=== PATIENT | male | born 1995 | race Hispanic/Latino ===

== ENCOUNTER 2017-08-25 06:53 | Inpatient (IN) | payer BC, SELFPAY ==
[2017-08-25] MEDS ORDERED: NA CHLORIDE 0.9% 1,000 ML ONE ×3 (07:32→10:39)
[2017-08-25 07:55] LABS: Absolute Lymphocytes (CBC) 1.7 K/uL (0.7-4.9); Absolute Monocytes 0.5 K/uL (0.1-1.3); Absolute Neutrophil 4.6 K/uL (1.8-8.0); Basophils % 0.5 % (0-1.3); Eosinophils % 1.8 % (0-4.4); MCH 32.2 pg (27.0-35.0); MCV 86.5 fL (80-100); Monocytes % 6.7 % (3.3-12.3); RBC Red Blood Cell Count 5.34 M/uL (4.33-5.43)
[2017-08-25 08:03] LABS: MPV 9.2 fL (7.6-11.3)
[2017-08-25 08:04] LABS: Hematocrit 46.2 % (39.6-49.0)
[2017-08-25 08:30] LABS: BUN Blood Urea Nitrogen 13 mg/dL (6-20); Bicarbonate 20 mEq/L (21-31); Glucose Level 343 mg/dL (65-120); Potassium 4.3 mEq/L (3.6-5.0); Sodium Level 134 mEq/L (135-145)
[2017-08-25] MEDS ORDERED: INSULIN -REGULAR HUMAN 50 UNIT/0.5 ML ML ONE (08:45)
[2017-08-25 10:08] LABS: Arterial Blood Carboxyhemoglob 0.9 % (0-1.5); Blood Gas Oxyhemoglobin 91.8 % (94-97); Blood O2 Saturation 96.1 % (92-98.5)
--- NOTE | 2017-08-25 10:20 | ER ---
Nurse's Notes [facility] Name: Harvey Wyatt Age: 22 yrs Sex: Male : 1995 Arrival Date: 08/25/2017 Time: 07:12 Bed 20 Private MD: Diagnosis: Diabetes mellitus due to underlying condition with ketoacidosis Presentation: 08/25 07:20 Presenting complaint: Patient states: I dont take care of my diabetes, yesterday I was ch 379. Transition of care: patient was not received from another setting of care. Onset of symptoms was August 24, 2017. Initial Sepsis Screen: Does the patient meet any 2 criteria? No. Patient's initial sepsis screen is negative. Does the patient have a suspected source of infection? No. Patient's initial sepsis screen is negative. Care prior to arrival: None. 07:20 Method Of Arrival: Ambulatory 07:20 Acuity: BINDU 3 Triage Assessment: 07:22 General: Appears in no apparent distress. comfortable, Behavior is calm, cooperative, ch appropriate for age. Pain: Denies pain. Neuro: No deficits noted. Respiratory: Airway is patent Respiratory effort is even, unlabored, Breath sounds are clear bilaterally. GI: No signs and/or symptoms were reported involving the gastrointestinal system. Derm: Skin is pink, warm \T\ dry. Historical: - Allergies: 07:22 No Known Allergies; ch - Home Meds: 07:22 Novolin 70/30 [place] Sub-Q [Active]; ch - PMHx: 07:22 Diabetes - NIDDM; ch - PSHx: 07:22 None; ch - Immunization history:: Adult Immunizations up to date, Flu vaccine is not up to date. - Social history:: Smoking status: Patient/guardian denies using tobacco. Screenin:03 Abuse screen: Denies threats or abuse. Denies injuries from another. Nutritional ch screening: No deficits noted. Tuberculosis screening: No symptoms or risk factors identified. Fall Risk None identified. Assessment: 07:49 Reassessment: Received a call from lab stating that the pt. is very lipemic. They rb1 requested another green top to be sent. 08:03 Reassessment: Patient appears in no apparent distress at this time. Patient and/or ch family updated on plan of care and expected duration. Pain level reassessed. Patient is alert, oriented x 3, equal unlabored respirations, skin warm/dry/pink. repeat lab sent Patient denies pain at this time. 08:47 Reassessment: Patient appears in no apparent distress at this time. No changes from rb1 previously documented assessment. 09:14 Reassessment: Patient appears in no apparent distress at this time. Patient and/or ch family updated on plan of care and expected duration. Pain level reassessed. Patient is alert, oriented x 3, equal unlabored respirations, skin warm/dry/pink. pt given community resources list. 09:54 Reassessment: Patient appears in no apparent distress at this time. Patient and/or ch family updated on plan of care and expected duration. Pain level reassessed. Patient is alert, oriented x 3, equal unlabored respirations, skin warm/dry/pink. 11:24 Reassessment: Patient appears in no apparent distress at this time. Patient and/or ch family updated on plan of care and expected duration. Pain level reassessed. Patient is alert, oriented x 3, equal unlabored respirations, skin warm/dry/pink. 11:36 Reassessment: Patient appears in no apparent distress at this time. orders in the computer, ICU notified I will try to call report in 10 min. 12:27 Reassessment: Patient appears in no apparent distress at this time. Patient and/or ch family updated on plan of care and expected duration. Pain level reassessed. Patient is alert, oriented x 3, equal unlabored respirations, skin warm/dry/pink. Patient denies pain at this time. Vital Signs: 07:22 BP 122 / 75; Pulse 85; Resp 12; Temp 97.9; Pulse Ox 99% on R/A; Weight 95.25 kg; Height 5 ft. 6 in. (167.64 cm); Pain 0/10; 08:10 BP 116 / 71; Pulse 80; Resp 14; Pulse Ox 99% on R/A; Pain 0/10; ch 09:14 BP 119 / 61; Pulse 92; Resp 13; Temp 98.6(O); Pulse Ox 99% on R/A; Pain 0/10; 09:44 BP 119 / 60; Pulse 92; Resp 18; Temp 97.9; Pulse Ox 99% on R/A; Pain 0/10; 11:25 BP 108 / 49; Pulse 92; Resp 18; Temp 97.8; Pulse Ox 99% on R/A; Pain 0/10; ch 12:04 BP 110 / 68; Pulse 94; Resp 18; Temp 98.2; Pulse Ox 97% on R/A; Pain 0/10; ch 07:22 Body Mass Index 33.89 (95.25 kg, 167.64 cm) ED Course: 07:12 Patient arrived in ED. as 07:12 Angela Marin FNP-C is PHCP. kb 07:13 Angela Marin FNP-C is PHCP. kb 07:13 Davie Prasad MD is Attending Physician. kb 07:20 Julissa Dove, AMRIT is Primary Nurse. ch 07:22 Triage completed. ch 07:22 Arm band placed on left wrist. Patient placed in an exam room, on a stretcher. ch 07:25 Inserted saline lock: 22 gauge in right antecubital area, using aseptic technique. rb1 Blood collected. 08:03 Patient has correct armband on for positive identification. Bed in low position. Call light in reach. Side rails up X2. Adult w/ patient. Pulse ox on. NIBP on. Warm blanket given. 08:03 No provider procedures requiring assistance completed. ch 10:18 Jamil Shahid MD is Hospitalizing Provider. kb 11:25 No apparent distress. Resting quietly. ch 11:25 Patient admitted, IV remains in place. ch 12:07 Inserted saline lock: 22 gauge in right forearm, using aseptic technique. Blood ch collected. Administered Medications: 07:45 Drug: NS 0.9% 1000 ml Route: IV; Rate: 1000 ml; Site: right antecubital; ch 09:15 Follow up: IV Status: Completed infusion; IV Intake: 1000ml ch 08:46 Drug: Insulin Regular Human 6 units {Co-Signature: (Julissa Dove RN).} Route: rb1 IVP; Site: right upper arm; 09:15 Follow up: Response: No adverse reaction ch 09:54 Drug: NS 0.9% 1000 ml Route: IV; Rate: 1000 ml; Site: right antecubital; ch 11:24 Follow up: IV Status: Completed infusion; IV Intake: 1000ml ch 10:44 Drug: NS 0.9% 1000 ml Route: IV; Rate: 125 ml/hr; Site: right antecubital; 11:24 Follow up: IV Status: Infusion continued upon admission 11:20 Drug: Insulin Drip - (Insulin Regular Human 100 units, NS 0.9% 100 ml) {Co-Signature: diana peter (Unique Guzman RN).} Route: IV; Rate: calculated rate; Site: right antecubital; 11:41 Follow up: IV Status: Infusion continued upon admission Point of Care Testing: Blood Glucose: 07:19 Blood Glucose: 279 mg/dL; rb1 09:20 Blood Glucose: 241 mg/dL; em1 11:15 Blood Glucose: 234 mg/dL; Ranges: Intake: 09:15 IV: 1000ml; Total: 1000ml. 11:24 IV: 1000ml; Total: 2000ml. Outcome: 10:19 Decision to Hospitalize by Provider. 12:07 Admitted to ICU accompanied by tech, via wheelchair, room ICU 1, on monitor, with chart, Report called to Viridiana felix 12:07 Condition: stable 12:07 Instructed on the need for admit. 12:28 Patient left the ED. Signatures: Angela Marin, CONTINUOUS IMPROVEMENT COORDINATOR-C CONTINUOUS IMPROVEMENT COORDINATOR-Julissa Hdz, RN RN [facility] Unique Guzman RN RN rb1 Julissa Dove RN Unique Guzman RN rb1
--- NOTE | 2017-08-25 10:20 | EDPHYS ---
Physician Documentation [facility] Name: Harvye Wyatt Age: 22 yrs Sex: Male : 1995 Arrival Date: 08/25/2017 Time: 07:12 Bed 20 Private MD: ED Physician Davie Prasad HPI: 08/25 07:50 This 22 yrs old Male presents to ER via Ambulatory with complaints of High kb Blood Sugar. 07:50 The patient or guardian reports hyperglycemia. Onset: The symptoms/episode kb began/occurred yesterday. Associated signs and symptoms: Pertinent positives: None. Current symptoms: In the emergency department the patient's symptoms are unchanged from the initial presentation. The patient has experienced similar episodes in the past. The patient has not recently seen a physician. Pt states his BGL was 497 last night. Took 30 units of 70/30 and went to bed. Today his sugar was in the 300s so he came to get checked out. States he has been feeling "like poo" for the last few days. States he follows orders given to him when he was first diagnosed with diabetes, but does not have a PCP that manages his treatment at this time. . Historical: - Allergies: 07:22 No Known Allergies; ch - Home Meds: 07:22 Novolin 70/30 [place] Sub-Q [Active]; ch - PMHx: 07:22 Diabetes - NIDDM; ch - PSHx: 07:22 None; ch - Immunization history:: Adult Immunizations up to date, Flu vaccine is not up to date. - Social history:: Smoking status: Patient/guardian denies using tobacco. ROS: 07:43 Constitutional: Negative for fever, chills, and weight loss, ENT: Negative for injury, kb pain, and discharge, Neck: Negative for injury, pain, and swelling, Cardiovascular: Negative for chest pain, palpitations, and edema, Respiratory: Negative for shortness of breath, cough, wheezing, and pleuritic chest pain, Abdomen/GI: Negative for abdominal pain, nausea, vomiting, diarrhea, and constipation, Back: Negative for injury and pain, : Negative for injury, bleeding, discharge, and swelling, MS/Extremity: Negative for injury and deformity, Skin: Negative for injury, rash, and discoloration, Neuro: Negative for headache, weakness, numbness, tingling, and seizure. 07:43 Constitutional: Positive for malaise. Exam: 07:43 Constitutional: This is a well developed, well nourished patient who is awake, alert, kb and in no acute distress. Head/Face: Normocephalic, atraumatic. ENT: Nares patent. No nasal discharge, no septal abnormalities noted. Tympanic membranes are normal and external auditory canals are clear. Oropharynx with no redness, swelling, or masses, exudates, or evidence of obstruction, uvula midline. Mucous membranes moist. Neck: Trachea midline, no thyromegaly or masses palpated, and no cervical lymphadenopathy. Supple, full range of motion without nuchal rigidity, or vertebral point tenderness. No Meningismus. Chest/axilla: Normal chest wall appearance and motion. Nontender with no deformity. No lesions are appreciated. Cardiovascular: Regular rate and rhythm with a normal S1 and S2. No gallops, murmurs, or rubs. Normal PMI, no JVD. No pulse deficits. Respiratory: Lungs have equal breath sounds bilaterally, clear to auscultation and percussion. No rales, rhonchi or wheezes noted. No increased work of breathing, no retractions or nasal flaring. Abdomen/GI: Soft, non-tender, with normal bowel sounds. No distension or tympany. No guarding or rebound. No evidence of tenderness throughout. Back: No spinal tenderness. No costovertebral tenderness. Full range of motion. Skin: Warm, dry with normal turgor. Normal color with no rashes, no lesions, and no evidence of cellulitis. MS/ Extremity: Pulses equal, no cyanosis. Neurovascular intact. Full, normal range of motion. Neuro: Awake and alert, GCS 15, oriented to person, place, time, and situation. Cranial nerves II-XII grossly intact. Motor strength 5/5 in all extremities. Sensory grossly intact. Cerebellar exam normal. Normal gait. Vital Signs: 07:22 BP 122 / 75; Pulse 85; Resp 12; Temp 97.9; Pulse Ox 99% on R/A; Weight 95.25 kg; Height ch 5 ft. 6 in. (167.64 cm); Pain 0/10; 08:10 BP 116 / 71; Pulse 80; Resp 14; Pulse Ox 99% on R/A; Pain 0/10; ch 09:14 BP 119 / 61; Pulse 92; Resp 13; Temp 98.6(O); Pulse Ox 99% on R/A; Pain 0/10; ch 09:44 BP 119 / 60; Pulse 92; Resp 18; Temp 97.9; Pulse Ox 99% on R/A; Pain 0/10; ch 11:25 BP 108 / 49; Pulse 92; Resp 18; Temp 97.8; Pulse Ox 99% on R/A; Pain 0/10; ch 12:04 BP 110 / 68; Pulse 94; Resp 18; Temp 98.2; Pulse Ox 97% on R/A; Pain 0/10; ch 07:22 Body Mass Index 33.89 (95.25 kg, 167.64 cm) ch MDM: 07:23 Patient medically screened. kb 07:50 Data reviewed: vital signs, nurses notes. Data interpreted: Pulse oximetry: on room air kb is 99 %. Interpretation: normal. 10:14 Counseling: I had a detailed discussion with the patient and/or guardian regarding: the kb historical points, exam findings, and any diagnostic results supporting the discharge/admit diagnosis, lab results, the need for further work-up and treatment in the hospital. Physician consultation: Jamil Shahid MD was contacted at 10:14, regarding admission, to the medical/surgical unit. patient's condition, and will see patient. 08/25 07:24 Order name: CBC with Diff; Complete Time: 08:04 kb 08/25 07:24 Order name: Basic Metabolic Panel; Complete Time: 08:30 kb 08/25 09:47 Order name: ABG; Complete Time: 10:21 kb 08/25 09:49 Order name: Urine Dipstick--Ancillary (enter results); Complete Time: 11:41 ag 08/25 07:24 Order name: IV Start; Complete Time: 07:30 kb 08/25 09:39 Order name: Blood Glucose Level; Complete Time: 09:44 kb 08/25 09:47 Order name: Urine Dipstick-Ancillary (obtain specimen); Complete Time: 09:55 kb Administered Medications: 07:45 Drug: NS 0.9% 1000 ml Route: IV; Rate: 1000 ml; Site: right antecubital; ch 09:15 Follow up: IV Status: Completed infusion; IV Intake: 1000ml 08:46 Drug: Insulin Regular Human 6 units {Co-Signature: (Julissa Dove RN).} Route: rb1 IVP; Site: right upper arm; 09:15 Follow up: Response: No adverse reaction ch 09:54 Drug: NS 0.9% 1000 ml Route: IV; Rate: 1000 ml; Site: right antecubital; ch 11:24 Follow up: IV Status: Completed infusion; IV Intake: 1000ml ch 10:44 Drug: NS 0.9% 1000 ml Route: IV; Rate: 125 ml/hr; Site: right antecubital; ch 11:24 Follow up: IV Status: Infusion continued upon admission ch 11:20 Drug: Insulin Drip - (Insulin Regular Human 100 units, NS 0.9% 100 ml) {Co-Signature: [facility] (Unique Guzman RN).} Route: IV; Rate: calculated rate; Site: right antecubital; 11:41 Follow up: IV Status: Infusion continued upon admission Point of Care Testing: Blood Glucose: 07:19 Blood Glucose: 279 mg/dL; rb1 09:20 Blood Glucose: 241 mg/dL; em1 11:15 Blood Glucose: 234 mg/dL; Ranges: Critical Glucose Levels:Adult <50 mg/dl or >400 mg/dl <40 mg/dl or >180 mg/dl Disposition: 08/26 09:17 Co-signature as Attending Physician, Davie Prasad MD I agree with the assessment and justus plan of care. Disposition: 08/25/17 10:19 Hospitalization ordered by Jamil Shahid for Inpatient Admission. Preliminary diagnosis is Diabetes mellitus due to underlying condition with ketoacidosis. - Bed requested for Intensive Care Unit. - Status is Inpatient Admission. - Condition is Stable. - Problem is new. - Symptoms are unchanged. UTI on Admission? No Signatures: Dispatcher [employer] Angela Solitario FNP-C FNP-Ckb Hammond, Christina, RN RN ch Anderson, Corey, MD MD cha Gallardo, Ana ag Barber, Rebecca RN RN rb1 Julissa Dove RN Unique Guzman RN rb1 Corrections: (The following items were deleted from the chart) 08/25 10:15 09:40 Counseling: I had a detailed discussion with the patient and/or guardian kb regarding: the historical points, exam findings, and any diagnostic results supporting the discharge/admit diagnosis, lab results, the need for outpatient follow up, a family practitioner, to return to the emergency department if symptoms worsen or persist or if there are any questions or concerns that arise at home, kb 10:42 10:19 Hospitalization Ordered by Jamil Shahid MD for Inpatient Admission. kb Preliminary diagnosis is Diabetes mellitus due to underlying condition with ketoacidosis. Bed requested for Telemetry/MedSurg (Inpatient). Status is Inpatient Admission. Condition is Stable. Problem is new. Symptoms are unchanged. UTI on Admission? No. kb 11:34 10:42 08/25/2017 10:19 Hospitalization Ordered by Jamil Shahid MD for Inpatient ag Admission. Preliminary diagnosis is Diabetes mellitus due to underlying condition with ketoacidosis. Bed requested for Intensive Care Unit. Status is Inpatient Admission. Condition is Stable. Problem is new. Symptoms are unchanged. UTI on Admission? No. kb 12:28 11:34 08/25/2017 10:19 Hospitalization Ordered by Jamil Shahid MD for Inpatient ch Admission. Preliminary diagnosis is Diabetes mellitus due to underlying condition with ketoacidosis. Bed requested for Intensive Care Unit. Status is Inpatient Admission. Condition is Stable. Problem is new. Symptoms are unchanged. UTI on Admission? No. ag
--- NOTE | 2017-08-25 10:47 | P.HP ---
Certification for Inpatient Patient admitted to: Observation With expected LOS: >2 Midnights Patient will require the following post-hospital care: None Practitioner: I am a practitioner with admitting privileges, knowledge of patient current condition, hospital course, and medical plan of care. Services: Services provided to patient in accordance with Admission requirements found in Title 42 Section 412.3 of the Code of Federal Regulations Patient History Date of Service: 08/25/17 Reason for admission: Hyperglycemia possible DKA History of Present Illness: Patient is 22 years of age history of insulin dependent diabetes mellitus has no in shore and patient takes 70 30 insulin every day 20 units at night according to the mother he did not feel too good yesterday sugar was 494 20 units were given in addition to another 10 units this morning he woke up his blood sugar was still elevated patient works at [employer] denies any nausea vomiting signs of urinary tract infection for prior history of diabetic ketoacidosis he does not have a regular physician he feels fine now - Past Medical/Surgical History Has patient received pneumonia vaccine in the past: No Diabetic: Yes Past Surgical History: Patient denies surgical history Review of Systems General: Weakness Gastrointestinal: Nausea Physical Examination - Vital Signs Temperature: 97.9 F Blood Pressure: 122/75 Pulse: 85 Respirations: 12 Pulse Ox (%): 99 (RA) - Physical Exam General: Alert, Oriented x3 HEENT: Atraumatic Neck: 2+ carotid pulse no bruit Respiratory: Clear to auscultation bilaterally Cardiovascular: No edema, Regular rate/rhythm Gastrointestinal: Normal bowel sounds, Soft and benign Musculoskeletal: No clubbing, No swelling Integumentary: No rashes, No breakdown - Studies Laboratory Data (last 24 hrs) 08/25/17 08:00: Sodium 134 L, Potassium 4.3, BUN 13, Creatinine 0.73, Glucose 343 H 08/25/17 07:25: WBC 7.0, Hgb 17.2, Hct 46.2, Plt Count 275 Assessment and Plan - Problems (Diagnosis) (1) Hyperglycemia Current Visit: Yes Status: Acute Plan: Patient is 22 years of age with a history of insulin-dependent diabetes spell it is does not have a regular physician uses 70 30 insulin administered by her mother he uses 20 units at night has not been feeling well recently patient does not have a primary care physician admitted with hyperglycemia bicarbonate is slightly low possible mild DKA urinalysis is pending he feels fine resume his insulin his dose niece to be determined patient does not keep her trach office blood sugars in the morning CBC is normal arterial blood gases show mild acidosis admit Discharge Plan: Home Plan to discharge in: 24 Hours - Advance Directives Does patient have a Living Will: No Does patient have a Durable POA for Healthcare: No - Code Status/Comfort Care Code Status Assessed: Yes Code Status: Full Code
[2017-08-25] MEDS ORDERED: GLUCAGON 1 MG/VIAL IM PRN (10:50)
[2017-08-25] MEDS ORDERED: D50W 25 GM/50 ML SYRINGE IV PRN (10:50)
[2017-08-25] MEDS ORDERED: INSULIN -REGULAR HUMAN 100 UNIT in NA CHLORIDE 0.9% 100 ML IV SCH (11:00)
[2017-08-25 11:40] LABS: Urine Blood NEGATIVE (NEG); Urine Glucose 2+ (NEG); Urine Protein TRACE (NEG); Urine pH 5.5 (5.0-7.0)
[2017-08-25 13:44] LABS: BUN Blood Urea Nitrogen 9 mg/dL (6-20); Glucose Level 223 mg/dL (65-120)
[2017-08-25 13:45] LABS: Bicarbonate 18 mEq/L (21-31); Sodium Level 134 mEq/L (135-145)
[2017-08-25] MEDS: INSULIN -REGULAR HUMAN 50 UNIT/0.5 ML ML SQ SCH ×2 (17:34→20:42)
[2017-08-25] MEDS: INSULIN 70/30 100 UNITS/ML SQ SCH (17:35)
[2017-08-25 20:38] LABS: BUN Blood Urea Nitrogen 8 mg/dL (6-20); Bicarbonate 20 mEq/L (21-31); Glucose Level 293 mg/dL (65-120); Potassium 3.9 mEq/L (3.6-5.0); Sodium Level 133 mEq/L (135-145)
--- NOTE | 2017-08-25 22:24 | P.PN ---
Subjective Date of Service: 08/25/17 Chief Complaint: Hyperglycemia possible DKA Physical Examination - Vital Signs Temperature: 98.4 F Blood Pressure: 118/66 Pulse: 90 Respirations: 13 Pulse Ox (%): 99 - Studies Laboratory Data (last 24 hrs) 08/25/17 08:00: Sodium 134 L, Potassium 4.3, BUN 13, Creatinine 0.73, Glucose 343 H 08/25/17 07:25: WBC 7.0, Hgb 17.2, Hct 46.2, Plt Count 275 Assessment & Plan - Problems (Diagnosis) (1) DKA (diabetic ketoacidoses) Current Visit: Yes Status: Acute Qualifiers: Diabetes mellitus type: type 1 Diabetes mellitus complication detail: without coma Qualified Code(s): E10.10 - Type 1 diabetes mellitus with ketoacidosis without coma (2) Diabetes mellitus Current Visit: Yes Status: Acute Qualifiers: Diabetes mellitus type: type 1 Diabetes mellitus complication status: with ketoacidosis Diabetes mellitus complication detail: without coma Qualified Code(s): E10.10 - Type 1 diabetes mellitus with ketoacidosis without coma (3) Hyperglycemia Current Visit: Yes Status: Acute
[2017-08-26 05:40] VITALS: BMI 31.2
[2017-08-26 07:20] LABS: Bicarbonate 18 mEq/L (21-31); Glucose Level 229 mg/dL (65-120); Sodium Level 136 mEq/L (135-145)
[2017-08-26 07:25] LABS: ALT/SGPT 75 IU/L (10-60); AST/SGOT 49 IU/L (10-42); Albumin 3.7 g/dL (3.2-5.5); Alkaline Phosphatase 66 IU/L (42-121); BUN Blood Urea Nitrogen 7 mg/dL (6-20); Bilirubin Total 1.2 mg/dL (0.3-1.2); Protein, Total 6.1 g/dL (6.0-8.3)
[2017-08-26 08:08] LABS: Potassium 4.3 mEq/L (3.6-5.0)
[2017-08-26] MEDS: INSULIN 70/30 100 UNITS/ML SQ SCH (08:50)
[2017-08-26] MEDS: INSULIN -REGULAR HUMAN 50 UNIT/0.5 ML ML SQ SCH ×2 (08:50→11:30)
[2017-08-26 09:03] LABS: LDL, Direct 40 mg/dl (<130)
[2017-08-26 09:42] LABS: HDL Cholesterol 19 mg/dL (27-67)
[2017-08-26 10:10] VITALS: TEMP 98.1
--- NOTE | 2017-08-26 10:50 | P.DS ---
Admission Date: 08/25/17 Discharge Date: 08/26/17 Primary Care Provider: [facility] Disposition: ROUTINE DISCHARGE Discharge Condition: GOOD Reason for Admission: Hyperglycemia possible DKA - Problems (1) DKA (diabetic ketoacidoses) Onset Date: 08/26/17 Current Visit: Yes Status: Acute Qualifiers: Diabetes mellitus type: type 1 Diabetes mellitus complication detail: without coma Qualified Code(s): E10.10 - Type 1 diabetes mellitus with ketoacidosis without coma (2) Diabetes mellitus Onset Date: 08/26/17 Current Visit: Yes Status: Acute Qualifiers: Diabetes mellitus type: type 1 Diabetes mellitus complication status: with ketoacidosis Diabetes mellitus complication detail: without coma Qualified Code(s): E10.10 - Type 1 diabetes mellitus with ketoacidosis without coma (3) Hyperglycemia Onset Date: 08/26/17 Current Visit: Yes Status: Acute (4) Hypertriglyceridemia Current Visit: Yes Status: Acute (5) Elevated liver function tests Current Visit: Yes Status: Acute Brief History of Present Illness: 22-year-old male presented emergency room with hyperglycemia. Patient with history of type 1 diabetes. Patient had ran out of his medication. Patient is originally from the [facility]. Patient had been on Toujeo 90 units at bedtime. Patient came to the ER for evaluation and treatment. He was found to be in DKA. Patient was admitted for treatment. Hospital Course: Patient presented with DKA. Patient was admitted to ICU for DKA treatment. DKA resolved. Patient without any nausea, vomiting or abdominal pain. A1c pending at discharge. Patient with history of diabetes mellitus type 1. Patient had run out of medication since he moved to the local area. Patient previously taking Toujeo 90 units at bedtime. At discharge patient without any nausea, vomiting. Patient will be sent home with Lantus 40 units subcu every bedtime. Recommendation is to maintain blood sugars less 140 fasting and less than 200 after meals. Further adjustment can be done by his PCP. Patient will need to follow up with a PCP to establish care. Patient may benefit with endocrinology referral to further monitor and address his diabetes. Patient had elevated liver function test. Hepatitis panels pending at discharge. This will need to be followed up. Patient found to have hypertriglyceridemia. Patient will be sent home with fenofibrate 120 mg daily. Patient will continue with a low-fat diet. Recommendation is to recheck fasting lipid panel in 2-4 weeks to monitor his progress. Vital Signs/Physical Exam: Temp Pulse Resp BP Pulse Ox 98.1 F 101 H 19 128/78 96 08/26/17 08:00 08/26/17 10:00 08/26/17 10:00 08/26/17 10:00 08/26/17 10:00 General: Alert, In no apparent distress, Oriented x3, Cooperative HEENT: Atraumatic, Mucous membr. moist/pink Neck: Supple Respiratory: Clear to auscultation bilaterally, Normal air movement Cardiovascular: Normal pulses, Regular rate/rhythm Gastrointestinal: Normal bowel sounds, Soft and benign, Non-distended, No tenderness, No masses, No rebound, No guarding Musculoskeletal: No erythema, No tenderness, No warmth Integumentary: No tenderness/swelling, No erythema, No warmth, No cyanosis Neurological: Normal speech, Normal strength at 5/5 x4 extr, Normal tone, Normal affect Laboratory Data at Discharge: WBC 7.0 K/uL (4.3-10.9) 08/25/17 07:25 Hgb 17.2 g/dL (13.6-17.9) 08/25/17 07:25 Hct 46.2 % (39.6-49.0) 08/25/17 07:25 Plt Count 275 K/uL (152-406) 08/25/17 07:25 Sodium 136 mEq/L (135-145) 08/26/17 05:52 Potassium 4.3 mEq/L (3.6-5.0) 08/26/17 05:52 BUN 7 mg/dL (6-20) 08/26/17 05:52 Creatinine 0.69 mg/dL (0.61-1.24) 08/26/17 05:52 Glucose 229 mg/dL (65-120) H 08/26/17 05:52 Total Bilirubin 1.2 mg/dL (0.3-1.2) 08/26/17 05:52 AST 49 IU/L (10-42) H 08/26/17 05:52 ALT 75 IU/L (10-60) H 08/26/17 05:52 Alkaline Phosphatase 66 IU/L (42-121) 08/26/17 05:52 Triglycerides 2410 mg/dL (35-160) H 08/26/17 05:52 Cholesterol 322 mg/dL (<200) H 08/26/17 05:52 LDL Cholesterol Direct 40 mg/dl (<130) 08/26/17 05:52 HDL Cholesterol 19 mg/dL (27-67) L 08/26/17 05:52 Cholesterol/HDL Ratio 16.95 08/26/17 05:52 Home Medications: Insulin 70/30 NPH/Reg Human [Novolin 70/30*] 20 units SQ BEDTIME 08/25/17 Fenofibrate 120 mg PO DAILY #30 tablet 08/26/17 Insulin Glargine,Hum.rec.anlog [Lantus] 40 unit SQ BEDTIME #1 ml 08/26/17 New Medications: Fenofibrate 120 mg PO DAILY #30 tablet Insulin Glargine,Hum.rec.anlog [Lantus] 40 unit SQ BEDTIME #1 ml Patient Discharge Instructions: 1. Patient will need to follow up with a PCP to establish care and follow up this hospitalization. 2. Patient presented with DKA. Patient with history of diabetes mellitus type 1. Patient had run out of medication. Patient previously taking Toujeo 90 units at bedtime. DKA resolved. At discharge patient without any nausea, vomiting. Patient will be sent home with Lantus 40 units subcu every bedtime. Recommendation is to maintain blood sugars less 140 fasting and less than 200 after meals. Further adjustment can be done by his PCP. Patient will need to follow up with a PCP to establish care. Patient may benefit with endocrinology referral to further monitor and address his diabetes. 3. Patient had elevated liver function test. Hepatitis panels pending at discharge. This will need to be followed up. 4. Patient found to have hypertriglyceridemia. Patient will be sent home with fenofibrate 120 mg daily. Patient will continue with a low-fat diet. Recommendation is to recheck fasting lipid panel in 2-4 weeks to monitor his progress. Diet: ADA Activity: Ad dina Time spent managing pt's care (in minutes): 55
[2017-08-26 11:59] VITALS: O2SAT 96
[2017-08-26 12:43] VITALS: BP 131/82
[2017-08-27 11:05] LABS: A1c Component 2.05 mg/dL
[2017-08-29 02:40] LABS: HBsAG Nonreactive (Nonreactive); Hepatitis A IgM Antibody Nonreactive
== END 2017-08-26 12:30 | disposition home or self-care (01) | DRG 639 ==
LOC: ER 06:53 → ERHOLD 10:41 → 3RD-ICU 12:09
PROVIDERS: ADMIT Internal Medicine Sleep Medicine; ATTEND Internal Medicine Sleep Medicine
DX: E10.10 Type 1 diabetes mellitus with ketoacidosis without coma (principal); Z79.4 Long term (current) use of insulin; E78.1 Pure hyperglyceridemia; R79.89 Other specified abnormal findings of blood chemistry
CPT/HCPCS: 36415; 80048; 80053; 80061; 80074; 81003; 82805; 82962; 83036; 84443; 85025; 96361; 96365; 99285; J7030

== ENCOUNTER 2018-06-28 15:05 | Emergency (ER) | payer SELFPAY ==
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
[2018-06-28 16:19] VITALS: BP 129/65; TEMP 97.8; O2SAT 98
== END 2018-06-28 16:15 | disposition home or self-care (01) ==
LOC: ER 15:05
DX: S16.1XXA Strain of muscle, fascia and tendon at neck level, initial encounter (principal); V59.50XA Passenger in pick-up truck or van injured in collision with unspecified motor vehicles in traffic accident, initial encounter
CPT/HCPCS: 99281

== ENCOUNTER 2018-10-03 11:44 | Emergency (ER) | payer SELFPAY ==
--- NOTE | 2018-10-03 13:38 | EDPHYS ---
Physician Documentation [facility] Name: Harvey Wyatt Age: 23 yrs Sex: Male : 1995 Arrival Date: 10/03/2018 Time: 11:46 Bed 19 Private MD: ED Physician Leodan Maddox HPI: 10/03 12:47 This 23 yrs old Male presents to ER via Ambulatory with complaints of Facial cp Swelling. 12:48 the patient presents with a swollen area of the right facial cheek. Description: cp erythematous, swollen, warm. Onset: The symptoms/episode began/occurred yesterday. Possible cause(s): unknown. Associated signs and symptoms: Pertinent positives: fever, headache, swelling, Pertinent negatives: discharge, drainage. Severity of symptoms: in the emergency department the symptoms are unchanged, despite home interventions. Historical: - Allergies: 12:37 No Known Allergies; iw - Home Meds: 12:37 Novolin 70/30 [place] Sub-Q [Active]; iw - PMHx: 12:37 Diabetes - IDDM; iw - PSHx: 12:37 None; iw - Immunization history:: Adult Immunizations not up to date. - Social history:: Smoking status: Patient/guardian denies using tobacco. - Ebola Screening: : Patient negative for fever greater than or equal to 101.5 degrees Fahrenheit, and additional compatible Ebola Virus Disease symptoms Patient denies exposure to infectious person Patient denies travel to an Ebola-affected area in the 21 days before illness onset No symptoms or risks identified at this time. ROS: 12:49 Eyes: Negative for injury, pain, redness, and discharge. cp 12:49 Constitutional: Negative for body aches, chills, fever, poor PO intake. 12:49 ENT: Negative for drainage from ear(s), sore throat, difficulty swallowing, difficulty handling secretions. 12:49 Cardiovascular: Negative for chest pain. 12:49 Respiratory: Negative for cough, shortness of breath, wheezing. 12:49 Abdomen/GI: Negative for abdominal pain, nausea, vomiting, and diarrhea. 12:49 Skin: Positive for erythema, swelling, of the right facial cheek, tenderness. 12:49 Neuro: Positive for headache, Negative for altered mental status, weakness. 12:49 All other systems are negative. Exam: 13:00 Constitutional: The patient appears in no acute distress, alert, awake, non-toxic, well cp developed, well nourished. 13:00 Head/Face: Normocephalic, atraumatic. cp 13:00 Eyes: Periorbital structures: appear normal, Conjunctiva: normal, no exudate, no injection, Lids and lashes: appear normal, bilaterally. 13:00 ENT: External ear(s): are unremarkable, Ear canal(s): are normal, clear, TM's: bulging, is not appreciated, bilaterally, dullness, bilaterally, erythema, is not appreciated, bilaterally, Nose: is normal, Mouth: Lips: moist, Oral mucosa: pink and intact, moist, Posterior pharynx: is normal, airway is patent, no erythema, no exudate. 13:00 Chest/axilla: Inspection: normal. 13:00 Cardiovascular: Rate: normal. 13:00 Respiratory: the patient does not display signs of respiratory distress, Respirations: normal, no use of accessory muscles, no retractions, no splinting, no tachypnea. 13:00 Skin: Appearance: normal except for affected area, Color: erythematous, Temperature: warm, swelling, that are mild, right facial cheek. Vital Signs: 12:37 BP 129 / 76; Pulse 74; Resp 16; Temp 98.5; Pulse Ox 97% on R/A; Weight 89.81 kg; Height iw 5 ft. 5 in. (165.10 cm); Pain 8/10; 12:37 Body Mass Index 32.95 (89.81 kg, 165.10 cm) iw MDM: 12:30 Patient medically screened. cp 13:36 Data reviewed: vital signs, nurses notes, and as a result, I will discharge patient. cp 13:36 Differential diagnosis: abscess, allergic reaction, cellulitis. Counseling: I had a cp detailed discussion with the patient and/or guardian regarding: the historical points, exam findings, and any diagnostic results supporting the discharge/admit diagnosis, to return to the emergency department if symptoms worsen or persist or if there are any questions or concerns that arise at home. Administered Medications: No medications were administered Disposition: 16:52 Co-signature as Attending Physician, Leodan Maddox MD. Disposition: 10/03/18 13:37 Discharged to Home. Impression: Erysipelas - right facial cheek. - Condition is Stable. - Discharge Instructions: Erysipelas. - Prescriptions for Doxycycline Hyclate 100 mg Oral Tablet - take 1 tablet by ORAL route every 12 hours; 20 tablet. Ibuprofen 800 mg Oral Tablet - take 1 tablet by ORAL route every 8 hours As needed take with food; 30 tablet. - Medication Reconciliation Form, Thank You Letter, Antibiotic Education, Prescription Opioid Use form. - Work release form (10/03/18 17:16). em - Follow up: Private Physician; When: 2 - 3 days; Reason: Worsening of condition. - Problem is new. - Symptoms are unchanged. Signatures: Manoj Dubois LVN LVN em Emy Rae RN RN iw Davie Carney PA PA cp Leodan Maddox MD MD gs Corrections: (The following items were deleted from the chart) 13:54 13:37 10/03/2018 13:37 Discharged to Home. Impression: Erysipelas - right facial cheek. em Condition is Stable. Forms are Medication Reconciliation Form, Thank You Letter, Antibiotic Education, Prescription Opioid Use. Follow up: Private Physician; When: 2 - 3 days; Reason: Worsening of condition. Problem is new. Symptoms are unchanged. cp
--- NOTE | 2018-10-03 13:38 | ER ---
Nurse's Notes [facility] Name: Harvey Wyatt Age: 23 yrs Sex: Male : 1995 Arrival Date: 10/03/2018 Time: 11:46 Bed 19 Private MD: Diagnosis: Erysipelas-right facial cheek Presentation: 10/03 12:35 Presenting complaint: Patient states: pain to right jaw, fever, headache since iw yesterday. Transition of care: patient was not received from another setting of care. Onset of symptoms was October 02, 2018. Risk Assessment: Do you want to hurt yourself or someone else? Patient reports no desire to harm self or others. Initial Sepsis Screen: Does the patient meet any 2 criteria? No. Patient's initial sepsis screen is negative. Does the patient have a suspected source of infection? No. Patient's initial sepsis screen is negative. Care prior to arrival: None. 12:35 Method Of Arrival: Ambulatory iw 12:35 Acuity: BINDU 4 iw Historical: - Allergies: 12:37 No Known Allergies; iw - Home Meds: 12:37 Novolin 70/30 [place] Sub-Q [Active]; iw - PMHx: 12:37 Diabetes - IDDM; iw - PSHx: 12:37 None; iw - Immunization history:: Adult Immunizations not up to date. - Social history:: Smoking status: Patient/guardian denies using tobacco. - Ebola Screening: : Patient negative for fever greater than or equal to 101.5 degrees Fahrenheit, and additional compatible Ebola Virus Disease symptoms Patient denies exposure to infectious person Patient denies travel to an Ebola-affected area in the 21 days before illness onset No symptoms or risks identified at this time. Screenin:00 Abuse screen: Denies threats or abuse. Nutritional screening: No deficits noted. em Tuberculosis screening: No symptoms or risk factors identified. Fall Risk None identified. Assessment: 13:00 General: Appears in no apparent distress. comfortable, Behavior is calm, cooperative, em Reports fever for 2-3 days. Pain: Complains of pain in right cheek. Neuro: Level of Consciousness is awake, alert, obeys commands, Oriented to person, place, time, situation. Cardiovascular: Capillary refill < 3 seconds Patient's skin is warm and dry. Respiratory: Airway is patent Respiratory effort is even, unlabored, Respiratory pattern is regular, symmetrical. GI:. Derm: Skin is intact, is healthy with good turgor, Skin is pink, warm \T\ dry. except for right cheek, redness and mild swelling noted. Musculoskeletal: Capillary refill < 3 seconds, Range of motion: intact in all extremities. 13:15 Reassessment: Patient appears in no apparent distress at this time. I agree with above iw assessment by Manoj Dubois LVN. Vital Signs: 12:37 BP 129 / 76; Pulse 74; Resp 16; Temp 98.5; Pulse Ox 97% on R/A; Weight 89.81 kg; Height iw 5 ft. 5 in. (165.10 cm); Pain 8/10; 12:37 Body Mass Index 32.95 (89.81 kg, 165.10 cm) iw ED Course: 11:46 Patient arrived in ED. rg4 12:24 Davie Carney PA is PHCP. cp 12:24 Leodan Maddox MD is Attending Physician. cp 12:37 Triage completed. iw 12:37 Arm band placed on. iw 12:38 Manoj Dubois LVN is Primary Nurse. em 13:00 Patient has correct armband on for positive identification. Bed in low position. Call em light in reach. Adult w/ patient. 13:51 No provider procedures requiring assistance completed. Patient did not have IV access em during this emergency room visit. Administered Medications: No medications were administered Outcome: 13:37 Discharge ordered by MD. cp 13:51 Discharged to home ambulatory, with family. em 13:51 Condition: good 13:51 Discharge instructions given to patient, Instructed on discharge instructions, follow up and referral plans. medication usage, Demonstrated understanding of instructions, follow-up care, medications, Prescriptions given X 2. 13:54 Patient left the ED. em Signatures: Manoj Dubois LVN LVN em Emy Rae RN RN iw Davie Carney PA PA cp Garcia, Rubi rg4
[2018-10-03 14:23] VITALS: BP 129/76; TEMP 98.5; O2SAT 97
== END 2018-10-03 13:54 | disposition home or self-care (01) ==
LOC: ER 11:44
DX: A46 Erysipelas (principal); E11.9 Type 2 diabetes mellitus without complications; Z79.4 Long term (current) use of insulin
CPT/HCPCS: 99282

== ENCOUNTER 2018-11-15 19:07 | Emergency (ER) | payer SELFPAY ==
[2018-11-15] MEDS ORDERED: ONDANSETRON 4 MG/2 ML VIAL ONE (19:35)
[2018-11-15] MEDS ORDERED: NA CHLORIDE 0.9% 1,000 ML ONE ×2 (19:35→20:38)
[2018-11-15 19:41] LABS: Absolute Lymphocytes (CBC) 0.8 K/uL (0.7-4.9); Basophils % 0.4 % (0-1.3); Hematocrit 50.5 % (39.6-49.0); Lymphocytes % 6.7 % (15.3-44.8); MPV 10.2 fL (7.6-11.3); RBC Red Blood Cell Count 5.77 M/uL (4.33-5.43)
[2018-11-15 19:52] LABS: Arterial Blood Carboxyhemoglob 1.3 % (0-1.5); Blood Gas Oxyhemoglobin 92.2 % (94-97); Blood O2 Saturation 95.2 % (92-98.5)
[2018-11-15 20:42] LABS: Barbiturates NEGATIVE (NEGATIVE); Benzodiazepines NEGATIVE (NEGATIVE); Cocaine NEGATIVE (NEGATIVE); METHAMPHETAM NEGATIVE (NEGATIVE); Methadone NEGATIVE (NEGATIVE); Opiates NEGATIVE (NEGATIVE); Phencyclidine NEGATIVE (NEGATIVE); THC Cannibis NEGATIVE (NEGATIVE)
[2018-11-15 20:56] LABS: BUN Blood Urea Nitrogen 9 mg/dL (7-18); Bicarbonate 24 mmol/L (21-32); Glucose Level 390 mg/dL (74-106); Potassium 4.7 mmol/L (3.5-5.1); Sodium Level 135 mmol/L (136-145)
[2018-11-15 20:57] LABS: ALT/SGPT 108 U/L (12-78); AST/SGOT 72 U/L (15-37); Alkaline Phosphatase 125 U/L (45-117); Bilirubin Total 0.7 mg/dL (0.2-1.0)
[2018-11-15 20:58] LABS: Albumin 4.1 g/dL (3.4-5.0); Bilirubin Direct < 0.1 mg/dL (0-0.2); Magnesium 2.2 mg/dL (1.8-2.4); Phosphorus 4.9 mg/dL (2.5-4.9); Protein, Total 8.4 g/dL (6.4-8.2)
[2018-11-15 21:15] LABS: Urine Bacteria <20 /HPF (NONE SEEN); Urine Culture Reflex Order NOT NEEDED; Urine RBC <5 /HPF (NONE SEEN)
[2018-11-15 21:28] LABS: Blood Morphology Comment NOT SEEN (NOT SEEN); Platelet Estimate ADEQ; Urine White Blood Cell Casts OK
[2018-11-15 21:59] LABS: Urine Blood NEGATIVE (NEG); Urine Glucose 2+ (NEG); Urine Protein NEGATIVE (NEG); Urine pH 5.5 (5.0-7.0)
[2018-11-15] MEDS ORDERED: ACETAMINOPHEN 500 MG TAB ONE (23:24)
--- NOTE | 2018-11-16 02:51 | EDPHYS ---
Physician Documentation [facility] Name: Harvey Wyatt Age: 23 yrs Sex: Male : 1995 Arrival Date: 11/15/2018 Time: 19:13 Bed 20 Private MD: ED Physician Leodan Maddox HPI: 11/16 04:50 This 23 yrs old Male presents to ER via Wheelchair with complaints of gs Vomiting/Diarrhea, High Blood Sugar. 04:50 The patient presents to the emergency department with nausea, vomiting, abdominal pain. gs Onset: The symptoms/episode began/occurred yesterday. Possible causes: unknown. The symptoms are aggravated by nothing. The symptoms are alleviated by nothing. Associated signs and symptoms: Pertinent positives: fever, Pertinent negatives: GI bleeding. Severity of symptoms: At their worst the symptoms were moderate in the emergency department the symptoms are unchanged. The patient has experienced similar episodes in the past, a few times. bs 400's. Historical: - Allergies: 11/15 19:18 No Known Allergies; la1 - Home Meds: 20:44 Novolin 70/30 [place] Sub-Q [Active]; tr5 - PMHx: 20:44 Diabetes - IDDM; tr5 - PSHx: 20:44 None; tr5 - Immunization history:: Adult Immunizations up to date. - Social history:: Smoking status: unknown. - Ebola Screening: : No symptoms or risks identified at this time. ROS: 11/16 04:50 All other systems are negative. gs Exam: 04:50 Head/Face: Normocephalic, atraumatic. Eyes: Pupils equal round and reactive to light, gs extra-ocular motions intact. Lids and lashes normal. Conjunctiva and sclera are non-icteric and not injected. Cornea within normal limits. Periorbital areas with no swelling, redness, or edema. ENT: Nares patent. No nasal discharge, no septal abnormalities noted. Tympanic membranes are normal and external auditory canals are clear. Oropharynx with no redness, swelling, or masses, exudates, or evidence of obstruction, uvula midline. Mucous membranes moist. Neck: Trachea midline, no thyromegaly or masses palpated, and no cervical lymphadenopathy. Supple, full range of motion without nuchal rigidity, or vertebral point tenderness. No Meningismus. Chest/axilla: Normal chest wall appearance and motion. Nontender with no deformity. No lesions are appreciated. 04:50 Respiratory: Lungs have equal breath sounds bilaterally, clear to auscultation and percussion. No rales, rhonchi or wheezes noted. No increased work of breathing, no retractions or nasal flaring. Back: No spinal tenderness. No costovertebral tenderness. Full range of motion. Skin: Warm, dry with normal turgor. Normal color with no rashes, no lesions, and no evidence of cellulitis. MS/ Extremity: Pulses equal, no cyanosis. Neurovascular intact. Full, normal range of motion. Neuro: Awake and alert, GCS 15, oriented to person, place, time, and situation. Cranial nerves II-XII grossly intact. Motor strength 5/5 in all extremities. Sensory grossly intact. Cerebellar exam normal. Normal gait. 04:50 Constitutional: The patient appears alert, awake. 04:50 Cardiovascular: Rate: tachycardic, Rhythm: regular, Pulses: no pulse deficits are appreciated. 04:50 Abdomen/GI: Palpation: moderate abdominal tenderness, in the right upper quadrant and right lower quadrant. Vital Signs: 11/15 19:20 BP 100 / 57; Pulse 121; Resp 16; Temp 98.6(TE); Pulse Ox 100% on R/A; Weight 90.72 kg; la1 20:42 BP 97 / 45; Pulse 100; Resp 16; Pulse Ox 98% on R/A; tr5 21:49 BP 114 / 58; Pulse 112; Resp 22; Pulse Ox 98% on R/A; tr5 22:32 BP 103 / 51; Pulse 110; Resp 20; Pulse Ox 99% on R/A; tr5 22:54 Temp 100.6(T); tr5 23:00 BP 101 / 40; Pulse 122; Resp 22; Pulse Ox 100% on R/A; tr5 11/16 01:06 BP 106 / 47; Pulse 113; Resp 22; Pulse Ox 98% on R/A; tr5 02:52 BP 104 / 38; Pulse 108; Resp 20; Temp 98.4(T); Pulse Ox 97% on R/A; tr5 MDM: 11/15 19:46 Patient medically screened. 11/16 04:50 Differential diagnosis: cholecystitis, pancreatitis, appendicitis, viral gs gastroenteritis, gastroenteritis. Data reviewed: vital signs, nurses notes. Counseling: I had a detailed discussion with the patient and/or guardian regarding: the historical points, exam findings, and any diagnostic results supporting the discharge/admit diagnosis, lab results, radiology results, the need for outpatient follow up. Response to treatment: the patient's symptoms have markedly improved after treatment, patient is well hydrated. and as a result, I will discharge patient. 11/15 19:28 Order name: Basic Metabolic Panel; Complete Time: 21:39 gs 11/15 19:28 Order name: CBC with Diff; Complete Time: 21:39 gs 11/15 19:28 Order name: LFT's; Complete Time: 21:39 gs 11/15 19:28 Order name: Magnesium; Complete Time: 21:39 gs 11/15 19:28 Order name: Phosphorus; Complete Time: 21:39 gs 11/15 19:28 Order name: ABG; Complete Time: 21:39 gs 11/15 19:28 Order name: Urine Microscopic Only; Complete Time: 21:39 11/15 19:48 Order name: Lipase; Complete Time: 21:39 11/15 19:55 Order name: ETOH Level; Complete Time: 21:39 gs 11/15 19:55 Order name: Urine Drug Screen; Complete Time: 21:39 gs 11/15 20:30 Order name: Urine Dipstick--Ancillary (enter results); Complete Time: 23:39 ak1 11/15 21:06 Order name: CBC Smear Scan; Complete Time: 21:39 EDMS 11/15 21:36 Order name: Glucose, Ancillary Testing; Complete Time: 21:39 EDMS 11/15 21:38 Order name: Glucose, Ancillary Testing EDWV 11/15 19:28 Order name: EKG; Complete Time: 19:32 gs 11/15 19:28 Order name: Cardiac monitoring; Complete Time: 19:39 gs 11/15 19:28 Order name: EKG - Nurse/Tech; Complete Time: 19:39 gs 11/15 19:28 Order name: IV Saline Lock; Complete Time: 19:38 gs 11/15 19:28 Order name: Labs collected and sent; Complete Time: 19:38 gs 11/15 19:28 Order name: O2 Per Protocol; Complete Time: 19:38 gs 11/15 19:28 Order name: O2 Sat Monitoring; Complete Time: 19:38 11/15 19:28 Order name: Urine Dipstick-Ancillary (obtain specimen); Complete Time: 20:29 11/16 00:04 Order name: CT Abd/Pelvis - IV Contrast Only 11/16 00:06 Order name: Blood Culture* 11/16 00:06 Order name: Lactate; Complete Time: 02:28 11/16 02:28 Order name: Blood Glucose Level; Complete Time: 02:48 11/16 02:28 Order name: Accucheck; Complete Time: 02:48 gs Administered Medications: 11/15 19:37 Drug: NS 0.9% 1000 ml Route: IV; Rate: 1 bolus; Site: right antecubital; jb4 20:29 Follow up: IV Status: Completed infusion; IV Intake: 1000ml ak1 19:39 Drug: Zofran 4 mg Route: IVP; Site: right antecubital; jb4 20:40 Follow up: Response: Nausea is decreased tr5 20:40 Drug: NS 0.9% 1000 ml Route: IV; Rate: 1 bolus; Site: right antecubital; tr5 22:34 Follow up: Response: No adverse reaction; IV Status: Completed infusion; IV Intake: tr5 1000ml 23:28 Drug: Tylenol 1000 mg Route: PO; tr5 11/16 00:01 Follow up: Response: No adverse reaction tr5 Point of Care Testing: Blood Glucose: 11/15 19:30 Blood Glucose: 364 mg/dL; jb4 11/16 02:48 Blood Glucose: 236 mg/dL; tr5 Ranges: Critical Glucose Levels:Adult <50 mg/dl or >400 mg/dl <40 mg/dl or >180 mg/dl Disposition: 11/16/18 02:50 Discharged to Home. Impression: Hyperglycemia, unspecified, Fever, unspecified, Lower abdominal pain, unspecified. - Condition is Stable. - Discharge Instructions: Abdominal Pain, Adult, Fever, Adult, Hyperglycemia. - Medication Reconciliation Form, Thank You Letter, Antibiotic Education, Prescription Opioid Use, Work release form form. - Follow up: Private Physician; When: 2 - 3 days; Reason: Re-evaluation by your physician. Signatures: Dispatcher [facility] Cheo Chambers RN RN la1 Jerson Fontaine RN RN jb4 Leodan Maddox MD MD gs Todd Toussaint RN RN tr5 Mony Wolfe RN ak1 Corrections: (The following items were deleted from the chart) 11/15 20:44 19:18 PMHx: Diabetes - IDDM; la1 tr5 11/16 03:29 02:50 11/16/2018 02:50 Discharged to Home. Impression: Hyperglycemia, unspecified; tr5 Fever, unspecified; Lower abdominal pain, unspecified. Condition is Stable. Forms are Medication Reconciliation Form, Thank You Letter, Antibiotic Education, Prescription Opioid Use. Follow up: Private Physician; When: 2 - 3 days; Reason: Re-evaluation by your physician. gs
--- NOTE | 2018-11-16 02:51 | ER ---
Nurse's Notes [facility] Name: Harvey Wyatt Age: 23 yrs Sex: Male : 1995 Arrival Date: 11/15/2018 Time: 19:13 Bed 20 Private MD: Diagnosis: Hyperglycemia, unspecified;Fever, unspecified;Lower abdominal pain, unspecified Presentation: 11/15 19:18 Presenting complaint: Mother states: He has been having N/V/D and his sugars are very la1 high, 498 at home, pt drowsy in triage. Transition of care: patient was not received from another setting of care. Onset of symptoms was November 15, 2018. Risk Assessment: Do you want to hurt yourself or someone else? Patient reports no desire to harm self or others. Initial Sepsis Screen: Does the patient meet any 2 criteria? HR > 90 bpm. Does the patient have a suspected source of infection? No. Patient's initial sepsis screen is negative. Care prior to arrival: None. 19:18 Method Of Arrival: Wheelchair la1 19:18 Acuity: BINDU 2 la1 Historical: - Allergies: 19:18 No Known Allergies; la1 - Home Meds: 20:44 Novolin 70/30 [place] Sub-Q [Active]; tr5 - PMHx: 20:44 Diabetes - IDDM; tr5 - PSHx: 20:44 None; tr5 - Immunization history:: Adult Immunizations up to date. - Social history:: Smoking status: unknown. - Ebola Screening: : No symptoms or risks identified at this time. Screenin:30 Abuse screen: Denies threats or abuse. Nutritional screening: No deficits noted. tr5 Tuberculosis screening: No symptoms or risk factors identified. Fall Risk None identified. Assessment: 19:48 General: Appears uncomfortable, Behavior is calm, quiet. Pain: Denies pain. Neuro: tr5 Level of Consciousness is awake, alert, Oriented to person, place, Machine I Coremaker are equal bilaterally Moves all extremities. Cardiovascular: Reports nausea, vomiting, Heart tones present Bruits absent Capillary refill < 3 seconds Pulses are all present. Edema is absent. Respiratory: Airway is patent Trachea midline Respiratory effort is even, unlabored, Respiratory pattern is regular, symmetrical, Breath sounds are clear bilaterally. GI: Abdomen is round Bowel sounds present X 4 quads. Abd is soft X 4 quads Reports nausea, vomiting. : No signs and/or symptoms were reported regarding the genitourinary system. EENT: No signs and/or symptoms were reported regarding the EENT system. Derm: No signs and/or symptoms reported regarding the dermatologic system. Musculoskeletal: Capillary refill < 3 seconds, Range of motion: intact in all extremities. 20:42 Reassessment: No changes from previously documented assessment. Patient is alert, tr5 oriented x 3, equal unlabored respirations, skin warm/dry/pink. Pt appears to be sleeping in bed. 21:49 Reassessment: Patient and/or family updated on plan of care and expected duration. Pain tr5 level reassessed. Patient is alert, oriented x 3, equal unlabored respirations, skin warm/dry/pink. 22:32 Reassessment: Pt appears to be sleeping in bed. tr5 22:54 Reassessment: Reassessment: No changes from previously documented assessment. Patient tr5 and/or family updated on plan of care and expected duration. Pain level reassessed. Patient is alert, oriented x 3, equal unlabored respirations, skin warm/dry/pink. 11/16 00:01 Reassessment: No changes from previously documented assessment. Patient and/or family tr5 updated on plan of care and expected duration. Pain level reassessed. Patient is alert, oriented x 3, equal unlabored respirations, skin warm/dry/pink. Patient denies pain at this time. 01:06 Reassessment: No changes from previously documented assessment. Patient and/or family tr5 updated on plan of care and expected duration. Pain level reassessed. Patient is alert, oriented x 3, equal unlabored respirations, skin warm/dry/pink. 02:00 Reassessment: No changes from previously documented assessment. Patient and/or family tr5 updated on plan of care and expected duration. Pain level reassessed. Patient states feeling better. Vital Signs: 11/15 19:20 BP 100 / 57; Pulse 121; Resp 16; Temp 98.6(TE); Pulse Ox 100% on R/A; Weight 90.72 kg; la1 20:42 BP 97 / 45; Pulse 100; Resp 16; Pulse Ox 98% on R/A; tr5 21:49 BP 114 / 58; Pulse 112; Resp 22; Pulse Ox 98% on R/A; tr5 22:32 BP 103 / 51; Pulse 110; Resp 20; Pulse Ox 99% on R/A; tr5 22:54 Temp 100.6(T); tr5 23:00 BP 101 / 40; Pulse 122; Resp 22; Pulse Ox 100% on R/A; tr5 11/16 01:06 BP 106 / 47; Pulse 113; Resp 22; Pulse Ox 98% on R/A; tr5 02:52 BP 104 / 38; Pulse 108; Resp 20; Temp 98.4(T); Pulse Ox 97% on R/A; tr5 ED Course: 11/15 19:13 Patient arrived in ED. es 19:17 Arm band placed on left wrist. la1 19:20 Triage completed. la1 19:25 Inserted saline lock: 20 gauge in right antecubital area, using aseptic technique. tr5 19:26 Leodan Maddox MD is Attending Physician. gs 19:35 Awaiting lab results. tr5 19:35 Placed in gown. Bed in low position. Call light in reach. traffic monitor specialist on. Pulse ox tr5 on. NIBP on. 19:38 Todd Toussaint, RN is Primary Nurse. tr5 19:38 Initial lab(s) drawn, by me, sent to lab. tr5 19:44 EKG done, by ED staff, reviewed by Leodan Maddox MD. ak1 22:35 Awaiting re-evaluation by ER provider. tr5 11/16 00:[address] via stretcher. tr5 00:50 First set of blood cultures drawn. tr5 00:51 CT completed. Patient tolerated procedure well. Patient moved back from CT. 01:00 CT Abd/Pelvis - IV Contrast Only In Process Unspecified. EDMS 01:15 Second set of blood cultures drawn. tr5 01:23 Awaiting lab results. tr5 03:20 No provider procedures requiring assistance completed. IV discontinued. tr5 Administered Medications: 11/15 19:37 Drug: NS 0.9% 1000 ml Route: IV; Rate: 1 bolus; Site: right antecubital; jb4 20:29 Follow up: IV Status: Completed infusion; IV Intake: 1000ml ak1 19:39 Drug: Zofran 4 mg Route: IVP; Site: right antecubital; jb4 20:40 Follow up: Response: Nausea is decreased tr5 20:40 Drug: NS 0.9% 1000 ml Route: IV; Rate: 1 bolus; Site: right antecubital; tr5 22:34 Follow up: Response: No adverse reaction; IV Status: Completed infusion; IV Intake: tr5 1000ml 23:28 Drug: Tylenol 1000 mg Route: PO; tr5 11/16 00:01 Follow up: Response: No adverse reaction tr5 Point of Care Testing: Blood Glucose: 11/15 19:30 Blood Glucose: 364 mg/dL; jb4 11/16 02:48 Blood Glucose: 236 mg/dL; tr5 Ranges: Intake: 11/15 20:29 IV: 1000ml; Total: 1000ml. ak1 22:34 IV: 1000ml; Total: 2000ml. tr5 Outcome: 11/16 02:50 Discharge ordered by . 03:20 Discharged to home ambulatory. tr5 03:20 Condition: stable 03:20 Discharge instructions given to patient, Instructed on discharge instructions, follow up and referral plans. Demonstrated understanding of instructions, follow-up care. 03:29 Patient left the ED. tr5 Signatures: Dispatcher [employer] Holly Bailey Ervin eh Attema, Lee RN RN la1 Mony Wolfe RN RN ak1 Jerson Fontaine RN RN jb4 Leodan Maddox MD MD gs Rodriguez, Tommie, RN RN tr5 Corrections: (The following items were deleted from the chart) 11/15 20:44 19:18 PMHx: Diabetes - IDDM; la1 tr5 11/16 00:01 11/15 22:54 Reassessment: tr5 tr5
[2018-11-16 04:06] VITALS: BP 104/38; TEMP 98.4; O2SAT 97
--- NOTE | 2018-11-16 10:22 | EKG ---
Test Date: 2018-11-15 Test Time: 19:42:18 County Administrator: JOAN MEASUREMENT RESULTS: Intervals: Rate: 105 CA: 144 QRSD: 86 QT: 348 QTc: 459 Butler: P: 52 CA: 144 QRS: 51 T: 24 INTERPRETIVE STATEMENTS: Sinus tachycardia Otherwise normal ECG No previous ECG available for comparison Electronically Signed On 11-16-18 10:21:29 CDT by Santos Mason
--- NOTE | 2018-11-17 11:22 | RAD REPORT ---
EXAM DESCRIPTION: CT - Abdomen Pelvis W Contrast - 11/16/2018 6:23 am CLINICAL HISTORY: The patient is 23 years old and is Male; Fever;Abd pain TECHNIQUE: Axial computed tomography images of the abdomen and pelvis with intravenous contrast. S agittal and coronal reformatted images were created and reviewed. This CT exam was performed using one or more of the following dose reduction techniques: automated exposure control, adjustment of t he mA and/or kV according to patient size, and/or use of iterative reconstruction technique. COMPARISON: None. FINDINGS: LUNG BASES: Minimal left basilar atelectasis. ABDOMEN: LIVER: Hepatomegaly and hepatic steatosis. No ductal dilatation. GALLBLADDER AND BILE DUCTS: Prior cholecystectomy. No ductal dilation. PANCREAS: Unremarkable. No mass. No ductal dilation. SPLEEN: Mild splenomegaly measuring 14.6 cm. ADRENALS: Unremarkable. No mass. KIDNEYS AND URETERS: See below. STOMACH AND BOWEL: Unremarkable. No obstruction. No mucosal thickening. PELVIS: APPENDIX: The appendix is seen and is within normal limits. BLADDER: Fluid distention of the bladder with mild prominence of the distal ureters. No intralumin al stone. REPRODUCTIVE: Unremarkable as visualized. ABDOMEN and PELVIS: INTRAPERITONEAL SPACE: Unremarkable. No free air. No significant fluid collection. BONES/JOINTS: Bilateral L5 spondylolysis. No acute fracture. No dislocation. SOFT TISSUES: Unremarkable. VASCULATURE: Unremarkable. No abdominal aortic aneurysm. LYMPH NODES: Unremarkable. No enlarged lymph nodes. IMPRESSION: 1. No acute abdominal or pelvic abnormality. 2. Distention of the bladder with mild prominence of the distal ureters, nonspecific. Correlated wi th bladder obstruction. 3. Hepatosplenomegaly. 4. Bilateral L5 spondylolysis. Lumbar spine radiographs with flexion and extension views may be o f diagnostic use. Electronically signed by: Ady Camp DO 11/16/2018 1:27 AM CDT Due to temporary technical issues with the PACS/Fluency reporting system, reports are being signed by the in house radiologist as a courtesy to ensure prompt reporting. The interpreting radiologist is f ully responsible for the content of the report.
== END 2018-11-16 03:29 | disposition home or self-care (01) ==
LOC: ER 19:07
DX: E11.65 Type 2 diabetes mellitus with hyperglycemia (principal); R10.30 Lower abdominal pain, unspecified; Z79.4 Long term (current) use of insulin
CPT/HCPCS: 36415; 74177; 80048; 80076; 80307; 80320; 81003; 81015; 82805; 82962; 83605; 83690; 83735; 84100; 85025; 87040; 87205; 93005; 96361; 96374; 99285; J2405; J7030; Q9967

== ENCOUNTER 2019-01-08 22:19 | Emergency (ER) | payer SELFPAY ==
[2019-01-08 22:49] LABS: Absolute Lymphocytes (CBC) 2.1 K/uL (0.7-4.9); Basophils % 0.4 % (0-1.3); Hematocrit 45.1 % (39.6-49.0); MPV 8.9 fL (7.6-11.3); RBC Red Blood Cell Count 5.24 M/uL (4.33-5.43)
[2019-01-08] MEDS ORDERED: D5 0.45 NS 1,000 ML IV ONE (22:50)
[2019-01-09 00:12] LABS: Urine Appearance CLEAR; Urine Bilirubin NEGATIVE (NEG); Urine Blood NEGATIVE (NEG); Urine Color YELLOW; Urine Glucose 3+ (NEG); Urine Protein 1+ (NEG); Urine Specific Gravity >=1.030 (1.005-1.030); Urine Urobilinogen 0.2 mg/dL (0.2-1.0)
[2019-01-09 00:18] LABS: Urine Microscopic Reflex ORDER UMIC
[2019-01-09 00:20] LABS: Barbiturates NEGATIVE (NEGATIVE); Benzodiazepines NEGATIVE (NEGATIVE); Cocaine NEGATIVE (NEGATIVE); METHAMPHETAM NEGATIVE (NEGATIVE); Methadone NEGATIVE (NEGATIVE); Opiates NEGATIVE (NEGATIVE); Phencyclidine NEGATIVE (NEGATIVE); THC Cannibis NEGATIVE (NEGATIVE)
[2019-01-09 00:56] LABS: ALT/SGPT 71 U/L (12-78); AST/SGOT 41 U/L (15-37); Albumin 3.6 g/dL (3.4-5.0); Alkaline Phosphatase 76 U/L (45-117); BUN Blood Urea Nitrogen 9 mg/dL (7-18); Bicarbonate 26 mmol/L (21-32); Bilirubin Total 0.5 mg/dL (0.2-1.0); Glucose Level 184 mg/dL (74-106); Potassium 3.8 mmol/L (3.5-5.1); Protein, Total 6.2 g/dL (6.4-8.2); Sodium Level 139 mmol/L (136-145)
[2019-01-09] MEDS ORDERED: D5 0.45 NS 1,000 ML IV ONE (01:04)
[2019-01-09 01:20] LABS: Urine Bacteria <20 /HPF (NONE SEEN); Urine Culture Reflex Order NOT NEEDED; Urine RBC <5 /HPF (NONE SEEN)
[2019-01-09 01:51] LABS: Urine Blood NEGATIVE (NEG); Urine Glucose 2+ (NEG); Urine Protein 2+ (NEG); Urine Specific Gravity 1.015 (1.005-1.030)
[2019-01-09 02:17] LABS: BUN Blood Urea Nitrogen 9 mg/dL (7-18); Bicarbonate 25 mmol/L (21-32); Glucose Level 222 mg/dL (74-106); Potassium 3.1 mmol/L (3.5-5.1); Sodium Level 139 mmol/L (136-145)
[2019-01-09] MEDS ORDERED: POTASSIUM CL SA 10 MEQ TAB PO ONE (02:51)
[2019-01-09] MEDS ORDERED: NA CHLORIDE 0.9% 1,000 ML ONE (02:52)
[2019-01-09 05:52] LABS: BUN Blood Urea Nitrogen 7 mg/dL (7-18); Bicarbonate 26 mmol/L (21-32); Glucose Level 130 mg/dL (74-106); Potassium 3.6 mmol/L (3.5-5.1); Sodium Level 139 mmol/L (136-145)
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
[2019-01-09 11:26] VITALS: O2SAT 99
[2019-01-09 11:28] VITALS: BP 101/61; TEMP 98
--- NOTE | 2019-01-10 04:44 | EKG ---
Test Date: 2019-01-08 Test Time: 22:27:55 Inspector Insulation: [place] MEASUREMENT RESULTS: Intervals: Rate: 83 SD: 140 QRSD: 96 QT: 370 QTc: 434 Daniel: P: 35 SD: 140 QRS: 29 T: 17 INTERPRETIVE STATEMENTS: Normal sinus rhythm Normal ECG Compared to ECG 11/15/2018 19:42:18 Sinus tachycardia no longer present Electronically Signed On 01-10-19 04:43:55 CDT by Santos Mason
== END 2019-01-09 10:53 | disposition home or self-care (01) ==
LOC: ER 22:19
DX: T38.3X2A Poisoning by insulin and oral hypoglycemic [antidiabetic] drugs, intentional self-harm, initial encounter (principal); Y92.9 Unspecified place or not applicable; E11.9 Type 2 diabetes mellitus without complications; Z79.4 Long term (current) use of insulin; Z72.0 Tobacco use
CPT/HCPCS: 36415; 80048; 80053; 80307; 80320; 80329; 81003; 81015; 82962; 85025; 93005; 96360; 96361; 99284; J7030; J7799

== ENCOUNTER 2019-01-21 18:38 | Emergency (ER) | payer SELFPAY ==
[2019-01-21] MEDS ORDERED: DIAZEPAM 5 MG TABLET ONE (19:06)
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
[2019-01-21 21:13] VITALS: BP 127/64; TEMP 97.5; O2SAT 100
== END 2019-01-21 20:35 | disposition home or self-care (01) ==
LOC: ER 18:38
DX: M54.5 Low back pain (principal); M79.10 Myalgia, unspecified site; V43.52XA Car driver injured in collision with other type car in traffic accident, initial encounter; Y93.89 Activity, other specified; Y92.410 Unspecified street and highway as the place of occurrence of the external cause
CPT/HCPCS: 72070; 99283

== ENCOUNTER 2019-04-09 23:08 | Emergency (ER) | payer BC ==
[2019-04-09 23:45] LABS: Arterial Blood Carboxyhemoglob 1.3 % (0-1.5); Blood Gas Oxyhemoglobin 92.7 % (94-97); Blood O2 Saturation 95.2 % (92-98.5)
[2019-04-10] MEDS ORDERED: INSULIN -REGULAR HUMAN 50 UNIT/0.5 ML ML ONE ×2 (00:13→01:52)
[2019-04-10] MEDS ORDERED: HYDROCODONE/CHLORPHEN 5 ML/OSYR ONE (00:30)
[2019-04-10] MEDS ORDERED: AZITHROMYCIN 250 MG TAB ONE (00:30)
[2019-04-10] MEDS ORDERED: IBUPROFEN 400 MG TAB ONE (00:30)
--- NOTE | 2019-04-10 02:17 | ER ---
Nurse's Notes [facility] Name: Harvey Wyatt Age: 23 yrs Sex: Male : 1995 Arrival Date: 04/09/2019 Time: 23:10 Bed 16 Private MD: Diagnosis: Acute bronchitis;Hyperglycemia, unspecified Presentation: 04/09 23:21 Presenting complaint: Patient states: flu like symptoms x 4 days. Cough, congestion, tl2 fatigue, possible fever, dizziness and nausea. Pt reports that he is diabetic and hasn't checked his BGL in 2 days. Transition of care: patient was not received from another setting of care. Onset of symptoms was April 06, 2019. Risk Assessment: Do you want to hurt yourself or someone else? Patient reports no desire to harm self or others. Initial Sepsis Screen: Does the patient meet any 2 criteria? HR > 90 bpm. Does the patient have a suspected source of infection? No. Patient's initial sepsis screen is negative. Care prior to arrival: None. 23:21 Method Of Arrival: Ambulatory tl2 23:21 Acuity: BINDU 3 tl2 Triage Assessment: 23:23 General: Appears in no apparent distress. uncomfortable, Behavior is calm, cooperative, tl2 appropriate for age. Pain: Complains of pain in throat. Respiratory: Reports cough that is Airway is patent Respiratory effort is even, unlabored, Respiratory pattern is regular, symmetrical. GI: Reports nausea. : No signs and/or symptoms were reported regarding the genitourinary system. Derm: Skin is flushed. Historical: - Allergies: 23:23 No Known Allergies; tl2 - Home Meds: 23:23 Novolin 70/30 [place] Sub-Q [Active]; tl2 - PMHx: 23:23 Diabetes - IDDM; tl2 - PSHx: 23:23 None; tl2 - Immunization history:: Adult Immunizations up to date. - Social history:: Smoking status: Patient/guardian denies using tobacco. - Ebola Screening: : No symptoms or risks identified at this time. Screenin:25 Abuse screen: Denies threats or abuse. Nutritional screening: No deficits noted. tl2 Tuberculosis screening: No symptoms or risk factors identified. Fall Risk None identified. Assessment: 23:30 General: Appears in no apparent distress. uncomfortable, ill, Behavior is calm, rr5 cooperative, Reports fever for feeling ill for fatigue for. 23:30 Pain: Complains of pain in head Pain does not radiate. Pain currently is 5 out of 10 on rr5 a pain scale. Quality of pain is described as aching, Pain began gradually, Is intermittent. Neuro: Level of Consciousness is awake, alert, obeys commands, Oriented to person, place, time, situation, Reports dizziness. Cardiovascular: Capillary refill < 3 seconds Patient's skin is warm and dry. Respiratory: Reports cough that is congestion Airway is patent Respiratory effort is even, unlabored, Respiratory pattern is regular, symmetrical. GI: Abdomen is round Reports nausea. : No signs and/or symptoms were reported regarding the genitourinary system. EENT: Tympanic membrane. Derm: Skin is intact, is healthy with good turgor, Skin temperature is warm. Musculoskeletal: Circulation, motion, and sensation intact. Capillary refill < 3 seconds. 04/10 00:25 Reassessment: Patient appears in no apparent distress at this time. Patient is alert, rr5 oriented x 3, equal unlabored respirations, skin warm/dry/pink. PO challenge done no vomiting noted. 01:00 Reassessment: Patient appears in no apparent distress at this time. Patient is alert, rr5 oriented x 3, equal unlabored respirations, skin warm/dry/pink. Patient states feeling better. 01:40 Reassessment: Patient appears in no apparent distress at this time. Patient is alert, rr5 oriented x 3, equal unlabored respirations, skin warm/dry/pink. resting eyes closed, breathing spontaneously at room air. Patient states feeling better. Patient states symptoms have improved. 02:33 Reassessment: Patient appears in no apparent distress at this time. Patient is alert, rr5 oriented x 3, equal unlabored respirations, skin warm/dry/pink. discharge instruction given and explained without complaints made. Patient states feeling better. Patient states symptoms have improved. Vital Signs: 04/09 23:23 BP 125 / 55; Pulse 105; Resp 20; Temp 100.1; Pulse Ox 98% on R/A; Weight 89.81 kg; tl2 Height 5 ft. 5 in. (165.10 cm); Pain 5/10; 04/10 00:25 BP 113 / 86; Pulse 102; Resp 22; Temp 99.9; Pulse Ox 99% ; rr5 01:36 BP 119 / 64; Pulse 105; Resp 20; Temp 99.5; Pulse Ox 99% on R/A; rr5 02:32 BP 121 / 64; Pulse 102; Resp 19; Temp 99.5; Pulse Ox 99% ; rr5 /02 23:23 Body Mass Index 32.95 (89.81 kg, 165.10 cm) tl2 ED Course: 04/09 23:10 Patient arrived in ED. cl3 23:22 Triage completed. tl2 23:23 Arm band placed on right wrist. tl2 23:25 Patient has correct armband on for positive identification. Bed in low position. Call tl2 light in reach. Side rails up X 1. Adult w/ patient. 23:25 Flu and/or RSV swab sent to lab. Strep swab sent to lab. tl2 23:26 Strep Sent. tl2 23:26 Flu Sent. tl2 23:27 Angeles Miguel FNP-C is [facility]. snw 23:27 Davie Prasad MD is Attending Physician. snw 23:36 Sajan Chacko RN is Primary Nurse. rr5 01/03 00:58 Chest Pa And Lat (2 Views) XRAY In Process Unspecified. EDMS 02:34 No provider procedures requiring assistance completed. Patient did not have IV access rr5 during this emergency room visit. Administered Medications: 00:20 Drug: Insulin Regular Human 5 units {Co-Signature: tl2 (Catarina Leal RN).} Route: Sub-Q; rr5 Site: left lower abdomen; 01:33 Follow up: Response: Blood sugar is lowered rr5 00:29 Drug: Tussionex Pennkinetic ER 5 ml Route: PO; rr5 01:35 Follow up: Response: No adverse reaction; Other; cough decreased rr5 00:30 Drug: Zithromax 500 mg Route: PO; rr5 01:36 Follow up: Response: No adverse reaction rr5 00:30 Drug: Motrin 400 mg Route: PO; rr5 01:35 Follow up: Response: No adverse reaction; Temperature is decreased rr5 01:50 Drug: Insulin Regular Human 5 units {Co-Signature: bb (Jossy Briggs RN).} Route: rr5 Sub-Q; Site: left lower abdomen; 02:35 Follow up: Response: No adverse reaction; Blood sugar is lowered rr5 Point of Care Testing: Blood Glucose: 04/09 23:23 Blood Glucose: 486 mg/dL; tl2 0103 01:26 Blood Glucose: 319 mg/dL; tl2 02:24 Blood Glucose: 352 mg/dL; rr5 Ranges: Intake: 00:20 PO: 240ml (Water); Total: 240ml. rr5 02:20 PO: 720ml (Water); Total: 960ml. rr5 Outcome: 02:09 Discharge ordered by . snw 02:34 Discharged to home ambulatory, with family. rr5 02:34 Condition: stable 02:34 Discharge instructions given to patient, Instructed on discharge instructions, follow up and referral plans. medication usage, Demonstrated understanding of instructions, follow-up care, medications, Prescriptions given X 4. 02:36 Patient left the ED. rr5 Signatures: Dispatcher [employer] EDMS Angeles Miguel, TABITHA-C BRIM CURLER-CsnCatarina Walters RN RN tl2 Sajan Chacko RN RN rr5 Nadja Lorenzo cl3 Catarina Leal RN tl2 Jossy Briggs RN bb
--- NOTE | 2019-04-10 02:19 | EDPHYS ---
Physician Documentation [facility] Name: Harvey Wyatt Age: 23 yrs Sex: Male : 1995 Arrival Date: 04/09/2019 Time: 23:10 Bed 16 Private MD: ED Physician Davie Prasad HPI: 04/10 00:28 This 23 yrs old Male presents to ER via Ambulatory with complaints of Flu snw Symptoms. 00:28 Onset: The symptoms/episode began/occurred 4 day(s) ago, and became persistent. snw Associated signs and symptoms: Pertinent positives: congestion, cough, fever, shortness of breath, elevated FSBS. The patient has experienced a previous episode, approximately 3 years ago, dx with influenza, got worse and had developed walking pneumonia. It is unknown whether or not the patient has recently seen a physician. Historical: - Allergies: 04/09 23:23 No Known Allergies; tl2 - Home Meds: 23:23 Novolin 70/30 [place] Sub-Q [Active]; tl2 - PMHx: 23:23 Diabetes - IDDM; tl2 - PSHx: 23:23 None; tl2 - Immunization history:: Adult Immunizations up to date. - Social history:: Smoking status: Patient/guardian denies using tobacco. - Ebola Screening: : No symptoms or risks identified at this time. ROS: 04/10 00:27 Eyes: Negative for injury, pain, redness, and discharge, ENT: Negative for injury, snw pain, and discharge, Neck: Negative for injury, pain, and swelling, Cardiovascular: Negative for chest pain, palpitations, and edema. Abdomen/GI: Negative for abdominal pain, nausea, vomiting, diarrhea, and constipation, Back: Negative for injury and pain, : Negative for injury, bleeding, discharge, and swelling, MS/Extremity: Negative for injury and deformity, Skin: Negative for injury, rash, and discoloration, Neuro: Negative for headache, weakness, numbness, tingling, and seizure. Constitutional: Positive for body aches, Negative for body aches, fatigue, fever, malaise, poor PO intake. Respiratory: Positive for cough, shortness of breath. Exam: 00:26 Head/Face: Normocephalic, atraumatic. Eyes: Pupils equal round and reactive to light, snw extra-ocular motions intact. Lids and lashes normal. Conjunctiva and sclera are non-icteric and not injected. Cornea within normal limits. Periorbital areas with no swelling, redness, or edema. ENT: Nares patent. No nasal discharge, no septal abnormalities noted. Tympanic membranes are normal and external auditory canals are clear. Oropharynx with no redness, swelling, or masses, exudates, or evidence of obstruction, uvula midline. Mucous membranes moist. Neck: Trachea midline, no thyromegaly or masses palpated, and no cervical lymphadenopathy. Supple, full range of motion without nuchal rigidity, or vertebral point tenderness. No Meningismus. Chest/axilla: Normal chest wall appearance and motion. Nontender with no deformity. No lesions are appreciated. Cardiovascular: Regular rate and rhythm with a normal S1 and S2. No gallops, murmurs, or rubs. Normal PMI, no JVD. No pulse deficits. 00:26 Back: No spinal tenderness. No costovertebral tenderness. Full range of motion. Skin: Warm, dry with normal turgor. Normal color with no rashes, no lesions, and no evidence of cellulitis. MS/ Extremity: Pulses equal, no cyanosis. Neurovascular intact. Full, normal range of motion. Neuro: Awake and alert, GCS 15, oriented to person, place, time, and situation. Cranial nerves II-XII grossly intact. Motor strength 5/5 in all extremities. Sensory grossly intact. Cerebellar exam normal. Normal gait. Psych: Awake, alert, with orientation to person, place and time. Behavior, mood, and affect are within normal limits. 00:26 Constitutional: The patient appears alert, awake, febrile. 00:26 Respiratory: the patient does not display signs of respiratory distress, Respirations: shallow respirations, that is mild, Breath sounds: are clear throughout, bronchitic cough. Vital Signs: 04/09 23:23 BP 125 / 55; Pulse 105; Resp 20; Temp 100.1; Pulse Ox 98% on R/A; Weight 89.81 kg; tl2 Height 5 ft. 5 in. (165.10 cm); Pain 5/10; 04/10 00:25 BP 113 / 86; Pulse 102; Resp 22; Temp 99.9; Pulse Ox 99% ; rr5 01:36 BP 119 / 64; Pulse 105; Resp 20; Temp 99.5; Pulse Ox 99% on R/A; rr5 02:32 BP 121 / 64; Pulse 102; Resp 19; Temp 99.5; Pulse Ox 99% ; rr5 04/09 23:23 Body Mass Index 32.95 (89.81 kg, 165.10 cm) tl2 MDM: 04/09 23:29 Patient medically screened. [facility] 04/10 00:12 Data reviewed: vital signs, nurses notes. Data interpreted: Pulse oximetry: on room air snw is 98 %. Interpretation: normal. Counseling: I had a detailed discussion with the patient and/or guardian regarding: the historical points, exam findings, and any diagnostic results supporting the discharge/admit diagnosis, lab results. 04/09 23:21 Order name: Flu; Complete Time: 23:58 tl2 04/09 23:21 Order name: Strep; Complete Time: 23:59 tl2 04/09 23:29 Order name: ABG; Complete Time: 23:58 snw 04/09 23:35 Order name: Glucose, Ancillary Testing; Complete Time: 23:40 EDMS 04/10 00:59 Order name: Throat Culture EDMS 04/10 01:37 Order name: Glucose, Ancillary Testing; Complete Time: 01:40 EDMS 04/09 23:21 Order name: Accucheck; Complete Time: 23:26 tl2 04/10 00:01 Order name: Chest Pa And Lat (2 Views) XRAY snw 04/09 23:59 Order name: PO challenge; Complete Time: 01:37 snw 04/09 23:59 Order name: Recheck Blood Sugar: one hour post insulin; Complete Time: 01:27 snw 04/10 01:14 Order name: FSBS; Complete Time: 01:25 snw 04/10 01:41 Order name: PO challenge; Complete Time: 02:21 snw 04/10 02:25 Order name: Accucheck; Complete Time: 02:25 rr5 Administered Medications: 00:20 Drug: Insulin Regular Human 5 units {Co-Signature: tl2 (Catarina Leal RN).} Route: Sub-Q; rr5 Site: left lower abdomen; 01:33 Follow up: Response: Blood sugar is lowered rr5 00:29 Drug: Tussionex Pennkinetic ER 5 ml Route: PO; rr5 01:35 Follow up: Response: No adverse reaction; Other; cough decreased rr5 00:30 Drug: Zithromax 500 mg Route: PO; rr5 01:36 Follow up: Response: No adverse reaction rr5 00:30 Drug: Motrin 400 mg Route: PO; rr5 01:35 Follow up: Response: No adverse reaction; Temperature is decreased rr5 01:50 Drug: Insulin Regular Human 5 units {Co-Signature: clint (Jossy Briggs RN).} Route: rr5 Sub-Q; Site: left lower abdomen; 02:35 Follow up: Response: No adverse reaction; Blood sugar is lowered rr5 Point of Care Testing: Blood Glucose: 04/09 23:23 Blood Glucose: 486 mg/dL; tl2 04/10 01:26 Blood Glucose: 319 mg/dL; tl2 02:24 Blood Glucose: 352 mg/dL; rr5 Ranges: Critical Glucose Levels:Adult <50 mg/dl or >400 mg/dl <40 mg/dl or >180 mg/dl Disposition: 04/10/19 02:09 Discharged to Home. Impression: Acute bronchitis, Hyperglycemia, unspecified. - Condition is Stable. - Discharge Instructions: Acute Bronchitis, Adult, Diabetes and Sick Day Management, Fever, Adult, Hyperglycemia, Blood Glucose Monitoring, Adult, Cough, Adult, Rehydration, Adult. - Prescriptions for Zyrtec 10 mg Oral Tablet - take 1 tablet by ORAL route once daily As needed; 20 tablet. Albuterol Sulfate 90 mcg/actuation - inhale 1-2 puff by INHALATION route every 4-6 hours; 1 Inhaler. Pepcid 20 mg Oral Tablet - take 1 tablet by ORAL route once daily for 10 days; 10 tablet. Zithromax 500 mg Oral Tablet - take 1 tablet by ORAL route once daily for 5 days; 5 tablet. - Work release form, Medication Reconciliation Form, Thank You Letter, Antibiotic Education, Prescription Opioid Use form. - Follow up: Emergency Department; When: As needed; Reason: Worsening of condition. Follow up: Private Physician; When: 2 - 3 days; Reason: Recheck today's complaints, Continuance of care, Re-evaluation by your physician. Addendum: 04/13/2019 09:24 Co-signature as Attending Physician, Davie Prasad MD I agree with the assessment and c loving plan of care. Signatures: Dispatcher [employer] EDDavie Franco MD MD cha Therrien, Shelly, PRODUCTION QUALITY ANALYST-C PRODUCTION QUALITY ANALYST-Csnw Catarina Leal, RN RN tl2 Sajan Chacko RN RN rr5 Catarina Leal RN tl2 Jossy Briggs RN bb Corrections: (The following items were deleted from the chart) 04/10 02:36 02:09 04/10/2019 02:09 Discharged to Home. Impression: Acute bronchitis; Hyperglycemia, rr5 unspecified. Condition is Stable. Forms are Medication Reconciliation Form, Thank You Letter, Antibiotic Education, Prescription Opioid Use. Follow up: Emergency Department; When: As needed; Reason: Worsening of condition. Follow up: Private Physician; When: 2 - 3 days; Reason: Recheck today's complaints, Continuance of care, Re-evaluation by your physician. snw
[2019-04-10 02:46] VITALS: O2SAT 99
[2019-04-10 02:47] VITALS: TEMP 99.5
[2019-04-10 02:48] VITALS: BP 121/64
--- NOTE | 2019-04-10 09:12 | RAD REPORT ---
EXAM DESCRIPTION: RAD - Chest Pa And Lat (2 Views) - 04/10/2019 12:17 am CLINICAL HISTORY: fever, malaise COMPARISON: No comparisons TECHNIQUE: Frontal and lateral views of the chest were obtained. FINDINGS: The lungs are clear. Heart size is normal and central vasculature is within normal limit s. No pleural effusion or pneumothorax seen. No acute bony finding noted. No aortic abnormality. IMPRESSION: No acute cardiopulmonary process.
== END 2019-04-10 02:36 | disposition home or self-care (01) ==
LOC: ER 23:08
DX: E11.65 Type 2 diabetes mellitus with hyperglycemia (principal); Z79.4 Long term (current) use of insulin
CPT/HCPCS: 71046; 82805; 82947; 87070; 87081; 87804; 96372; 99284

== ENCOUNTER 2019-11-17 16:07 | Emergency (ER) | payer BC ==
[2019-11-17] MEDS ORDERED: KETOROLAC 30 MG/ML INJ ONE (17:54)
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
[2019-11-17 19:47] VITALS: TEMP 97.6
[2019-11-17 19:48] VITALS: BP 125/75; O2SAT 99
== END 2019-11-17 19:42 | disposition home or self-care (01) ==
LOC: ER 16:07
DX: S16.1XXA Strain of muscle, fascia and tendon at neck level, initial encounter (principal); S29.012A Strain of muscle and tendon of back wall of thorax, initial encounter; V43.52XA Car driver injured in collision with other type car in traffic accident, initial encounter; Y93.89 Activity, other specified; Y92.410 Unspecified street and highway as the place of occurrence of the external cause
CPT/HCPCS: 72070; 96372; 99283

== ENCOUNTER 2019-12-10 02:32 | Emergency (ER) | payer BC ==
[2019-12-10 03:53] LABS: Absolute Lymphocytes (CBC) 1.8 K/uL (0.7-4.9); Basophils % 0.5 % (0-1.3); Hematocrit 46.2 % (39.6-49.0); Lymphocytes % 37.3 % (15.3-44.8); MPV 9.2 fL (7.6-11.3); RBC Red Blood Cell Count 5.49 M/uL (4.33-5.43)
[2019-12-10] MEDS ORDERED: KETOROLAC 30 MG/ML INJ ONE (03:53)
[2019-12-10] MEDS ORDERED: NA CHLORIDE 0.9% 1,000 ML ONE (03:53)
[2019-12-10 05:06] LABS: ALT/SGPT 53 U/L (12-78); Albumin 3.7 g/dL (3.4-5.0); Alkaline Phosphatase 104 U/L (45-117); BUN Blood Urea Nitrogen 13 mg/dL (7-18); Bicarbonate 23 mmol/L (21-32); Bilirubin Total 0.7 mg/dL (0.2-1.0); Creatine Phosphokinase 81 U/L (39-308); Glucose Level 342 mg/dL (74-106); Protein, Total 7.3 g/dL (6.4-8.2); Sodium Level 135 mmol/L (136-145)
[2019-12-10 05:08] LABS: AST/SGOT 27 U/L (15-37); Potassium 4.3 mmol/L (3.5-5.1)
--- NOTE | 2019-12-10 05:33 | ER ---
Nurse's Notes [facility] Name: Harvey Wyatt Age: 24 yrs Sex: Male : 1995 Arrival Date: 12/10/2019 Time: 02:34 Bed 18 Private MD: Diagnosis: Pain in left lower leg;Pain in right lower leg;Type 1 diabetes mellitus Presentation: 12/09 02:42 Chief complaint: Patient states: Left Calf pain, reports bilialteral leg pain but pain sg is more severe in the left calf, reports concern for having a blood clot. denies recent travel, denies smoking hx, reports a hx of diabetes with high readings but is controlling them better recently per the pt. Coronavirus screen: Client denies travel out of the [place] in the last 14 days. At this time, the client does not indicate any symptoms associated with coronavirus-19. Ebola Screen: Patient negative for fever greater than or equal to 101.5 degrees Fahrenheit, and additional compatible Ebola Virus Disease symptoms Patient denies exposure to infectious person. Patient denies travel to an Ebola-affected area in the 21 days before illness onset. No symptoms or risks identified at this time. Initial Sepsis Screen: Does the patient meet any 2 criteria? No. Patient's initial sepsis screen is negative. Does the patient have a suspected source of infection? No. Patient's initial sepsis screen is negative. Risk Assessment: Do you want to hurt yourself or someone else? Patient reports no desire to harm self or others. Onset of symptoms was December 10, 2019. Care prior to arrival: None. Transition of care: patient was not received from another setting of care. 02:42 Method Of Arrival: Wheelchair sg 02:42 Acuity: BINDU 3 sg Historical: - Allergies: 02:45 No Known Allergies; sg - PMHx: 02:45 Diabetes - IDDM; sg - PSHx: 02:45 None; sg - Immunization history:: Adult Immunizations up to date. - Social history:: Smoking status: Patient denies any tobacco usage or history of. - Family history:: not pertinent. Screenin:40 Abuse screen: Denies threats or abuse. Nutritional screening: No deficits noted. jb4 Tuberculosis screening: No symptoms or risk factors identified. Fall Risk None identified. Assessment: 02:40 General: Appears in no apparent distress. uncomfortable, Behavior is calm, cooperative, jb4 appropriate for age. Pain: Complains of pain in right calf and left calf Pain does not radiate. Pain currently is 10 out of 10 on a pain scale. Quality of pain is described as throbbing, Pain began 2-3 days ago. Neuro: Level of Consciousness is awake, alert, obeys commands, Oriented to person, place, time, situation. Cardiovascular: Patient's skin is warm and dry. Respiratory: Airway is patent Respiratory effort is even, unlabored, Respiratory pattern is regular, symmetrical. GI: No signs and/or symptoms were reported involving the gastrointestinal system. : No signs and/or symptoms were reported regarding the genitourinary system. EENT: No signs and/or symptoms were reported regarding the EENT system. Derm: Skin is intact, Skin is pink, warm \T\ dry. Musculoskeletal: Circulation, motion, and sensation intact. Range of motion: intact in all extremities. 03:38 Reassessment: Patient appears in no apparent distress at this time. Patient and/or jb4 family updated on plan of care and expected duration. Pain level reassessed. Patient is alert, oriented x 3, equal unlabored respirations, skin warm/dry/pink. ultrasound at the bedside. 05:00 Reassessment: Patient and/or family updated on plan of care and expected duration. Pain jb4 level reassessed. Pt is resting in bed with eyes closed, respirations are even and unlabored. No s/s of pain or distress are noted. 05:57 Reassessment: Patient appears in no apparent distress at this time. Patient and/or jb4 family updated on plan of care and expected duration. Pain level reassessed. Patient is alert, oriented x 3, equal unlabored respirations, skin warm/dry/pink. Pt denies pain at this time. D/c pending BGL recheck at 0630. 06:37 Reassessment: Patient appears in no apparent distress at this time. Patient and/or jb4 family updated on plan of care and expected duration. Pain level reassessed. Patient is alert, oriented x 3, equal unlabored respirations, skin warm/dry/pink. BGL has decreased to 211, provider okayed PT to be discharged. Pt verbalized understanding of d/c and follow up instructions. Denies question or concerns. Ambulated out of ED with steady gait. Vital Signs: 02:42 Weight 90.72 kg; Height 5 ft. 8 in. (172.72 cm); Pain 8/10; sg 02:42 BP 137 / 81; Pulse 89; Resp 18; Pulse Ox 96% ; sg 03:30 BP 126 / 84; Pulse 86; Resp 16; Pulse Ox 98% on R/A; jb4 05:00 BP 127 / 73; Pulse 87; Resp 16; Pulse Ox 97% on R/A; jb4 06:00 BP 113 / 74; Pulse 88; Resp 16; Pulse Ox 100% on R/A; jb4 02:42 Body Mass Index 30.41 (90.72 kg, 172.72 cm) ED Course: 02:34 Patient arrived in ED. cl3 02:38 Jerson Fontaine, RN is Primary Nurse. jb4 02:40 Patient has correct armband on for positive identification. Bed in low position. Call jb4 light in reach. Side rails up X 1. Pulse ox on. NIBP on. 02:42 Arm band placed on. sg 02:44 Triage completed. sg 02:51 Davie Prasad MD is Attending Physician. justus 03:30 Inserted saline lock: 20 gauge in right antecubital area, using aseptic technique. jb4 Missed attempt(s): 18 gauge in right forearm. Bleeding controlled, band aid applied, catheter tip intact. 03:30 Initial lab(s) drawn, by az, sent to lab. jb4 03:50 US Extremity Venous W Compression Kulwant In Process Unspecified. EDMS 06:38 No provider procedures requiring assistance completed. IV discontinued, intact, jb4 bleeding controlled, No redness/swelling at site. Pressure dressing applied. Administered Medications: 03:45 Drug: NS 0.9% 1000 ml Route: IV; Rate: 1 bolus; Site: right antecubital; jb4 03:45 Drug: TORadol 30 mg Route: IVP; Site: right antecubital; jb4 05:50 Drug: Insulin Regular Human 8 units {Co-Signature: tl1 (Maria Mata RN).} Route: IVP; jb4 Site: right antecubital; Outcome: 05:33 Discharge ordered by . justus 06:38 Discharged to home ambulatory. jb4 06:38 Condition: stable 06:38 Discharge instructions given to patient, Instructed on discharge instructions, follow up and referral plans. medication usage, Demonstrated understanding of instructions, follow-up care, medications, Prescriptions given X 1. 06:41 Patient left the ED. sg Signatures: Dispatcher [employer] EDMS Nickolas Gomez, RN Davie Billings MD MD cha Bryson, James, RN RN [id number] Nadja Lorenzo cl3 Maria Mata RN tl1
--- NOTE | 2019-12-10 05:33 | EDPHYS ---
Physician Documentation [facility] Name: Harvey Wyatt Age: 24 yrs Sex: Male : 1995 Arrival Date: 12/10/2019 Time: 02:34 Bed 18 Private MD: ED Physician Davie Prasad HPI: 12/09 03:05 This 24 yrs old Male presents to ER via Wheelchair with complaints of Leg Pain.justus 03:05 The patient presents with decreased range of motion, pain, that is acute. The justus complaints affect the right leg and left leg. Context: The problem was sustained at an unknown site. Onset: The symptoms/episode began/occurred 2 day(s) ago. Modifying factors: The symptoms are alleviated by elevating leg, remaining still, the symptoms are aggravated by movement, weight bearing. Associated signs and symptoms: The patient has no apparent associated signs or symptoms. Treatment prior to arrival includes: no previous treatment. Severity of symptoms: At their worst the symptoms were moderate, in the emergency department the symptoms are unchanged. The patient has not experienced similar symptoms in the past. Historical: - Allergies: 02:45 No Known Allergies; sg - PMHx: 02:45 Diabetes - IDDM; sg - PSHx: 02:45 None; sg - Immunization history:: Adult Immunizations up to date. - Social history:: Smoking status: Patient denies any tobacco usage or history of. - Family history:: not pertinent. ROS: 03:05 Constitutional: Negative for fever, chills, and weight loss, Eyes: Negative for injury, justus pain, redness, and discharge, ENT: Negative for injury, pain, and discharge, Neck: Negative for injury, pain, and swelling, Cardiovascular: Negative for chest pain, palpitations, and edema, Respiratory: Negative for shortness of breath, cough, wheezing, and pleuritic chest pain, Abdomen/GI: Negative for abdominal pain, nausea, vomiting, diarrhea, and constipation, Back: Negative for injury and pain, : Negative for injury, bleeding, discharge, and swelling, Skin: Negative for injury, rash, and discoloration, Neuro: Negative for headache, weakness, numbness, tingling, and seizure, Psych: Negative for depression, anxiety, suicide ideation, homicidal ideation, and hallucinations, Allergy/Immunology: Negative for hives, rash, and allergies, Endocrine: Negative for neck swelling, polydipsia, polyuria, polyphagia, and marked weight changes, Hematologic/Lymphatic: Negative for swollen nodes, abnormal bleeding, and unusual bruising. 03:05 MS/extremity: Positive for decreased range of motion, pain, swelling, tenderness, of the right leg and left leg. Exam: 03:05 Constitutional: This is a well developed, well nourished patient who is awake, alert, justus and in no acute distress. Head/Face: Normocephalic, atraumatic. Eyes: Pupils equal round and reactive to light, extra-ocular motions intact. Lids and lashes normal. Conjunctiva and sclera are non-icteric and not injected. Cornea within normal limits. Periorbital areas with no swelling, redness, or edema. ENT: Nares patent. No nasal discharge, no septal abnormalities noted. Tympanic membranes are normal and external auditory canals are clear. Oropharynx with no redness, swelling, or masses, exudates, or evidence of obstruction, uvula midline. Mucous membranes moist. Neck: Trachea midline, no thyromegaly or masses palpated, and no cervical lymphadenopathy. Supple, full range of motion without nuchal rigidity, or vertebral point tenderness. No Meningismus. Chest/axilla: Normal chest wall appearance and motion. Nontender with no deformity. No lesions are appreciated. Cardiovascular: Regular rate and rhythm with a normal S1 and S2. No gallops, murmurs, or rubs. Normal PMI, no JVD. No pulse deficits. Respiratory: Lungs have equal breath sounds bilaterally, clear to auscultation and percussion. No rales, rhonchi or wheezes noted. No increased work of breathing, no retractions or nasal flaring. Abdomen/GI: Soft, non-tender, with normal bowel sounds. No distension or tympany. No guarding or rebound. No evidence of tenderness throughout. Back: No spinal tenderness. No costovertebral tenderness. Full range of motion. Male : Normal genitalia with no discharge or lesions. Skin: Warm, dry with normal turgor. Normal color with no rashes, no lesions, and no evidence of cellulitis. Neuro: Awake and alert, GCS 15, oriented to person, place, time, and situation. Cranial nerves II-XII grossly intact. Motor strength 5/5 in all extremities. Sensory grossly intact. Cerebellar exam normal. Normal gait. Psych: Awake, alert, with orientation to person, place and time. Behavior, mood, and affect are within normal limits. 03:05 Musculoskeletal/extremity: Extremities: noted in the right leg and left leg: decreased ROM, pain. 03:36 Musculoskeletal/extremity: ROM: intact in all extremities, full active range of motion, justus full passive range of motion, Circulation is intact in all extremities. Sensation intact. Compartment Syndrome exam of affected extremity: is normal. DVT Exam: no swelling, negative Homans' sign noted on exam, no appreciated bluish discoloration, no erythema, no increased warmth, pain, tenderness. 03:36 Skin: Appearance: Color: normal in color, Temperature: normal temperature, Moisture: normal moisture, petechiae, not noted, ecchymosis, not noted, flushing, not noted. Vital Signs: 02:42 Weight 90.72 kg; Height 5 ft. 8 in. (172.72 cm); Pain 8/10; sg 02:42 BP 137 / 81; Pulse 89; Resp 18; Pulse Ox 96% ; sg 03:30 BP 126 / 84; Pulse 86; Resp 16; Pulse Ox 98% on R/A; jb4 05:00 BP 127 / 73; Pulse 87; Resp 16; Pulse Ox 97% on R/A; jb4 06:00 BP 113 / 74; Pulse 88; Resp 16; Pulse Ox 100% on R/A; jb4 02:42 Body Mass Index 30.41 (90.72 kg, 172.72 cm) sg MDM: 02:51 Patient medically screened. [facility] 03:07 Differential diagnosis: contusion, tendonitis. Data reviewed: vital signs, nurses [facility] notes, lab test result(s), radiologic studies, doppler. Data interpreted: surveillance system monitor: rate is 89 beats/min, rhythm is regular, Pulse oximetry: on room air is 96 %. Counseling: I had a detailed discussion with the patient and/or guardian regarding: the historical points, exam findings, and any diagnostic results supporting the discharge/admit diagnosis, lab results, radiology results, the need for outpatient follow up, for definitive care, a family practitioner. 03:32 Medication response: Toradol markedly relieved the patient's pain. ED course: foloow up justus , return if worse, rest . 12/09 03:05 Order name: CBC with Diff; Complete Time: 04:34 [facility] 12/09 03:05 Order name: Comprehensive Metabolic Panel; Complete Time: 05:31 [facility] 12/09 03:05 Order name: US Extremity Venous W Compression Kulwant [facility] 12/09 03:05 Order name: CK; Complete Time: 05:31 [facility] Administered Medications: 03:45 Drug: NS 0.9% 1000 ml Route: IV; Rate: 1 bolus; Site: right antecubital; jb4 03:45 Drug: TORadol 30 mg Route: IVP; Site: right antecubital; jb4 05:50 Drug: Insulin Regular Human 8 units {Co-Signature: tl1 (Maria Mata RN).} Route: IVP; jb4 Site: right antecubital; Disposition: 12/10/19 05:33 Discharged to Home. Impression: Pain in left lower leg, Pain in right lower leg, Type 1 diabetes mellitus. - Condition is Stable. - Discharge Instructions: Type 1 Diabetes Mellitus, Diagnosis, Adult, Musculoskeletal Pain, Cryotherapy, [id number], Diabetes Mellitus and Food, Cryotherapy. - Prescriptions for Ibuprofen 600 mg Oral Tablet - take 1 tablet by ORAL route every 8 hours As needed take with food; 21 tablet. - Medication Reconciliation Form, Thank You Letter, Antibiotic Education, Prescription Opioid Use form. - Follow up: Private Physician; When: 2 - 3 days; Reason: Recheck today's complaints, Continuance of care, Re-evaluation by your physician. - Problem is new. - Symptoms have improved. Signatures: Dispatcher [employer] EDNickolas Alvarez RN RN sg Anderson, Corey, MD MD cha Bryson, James, RN RN jb4 Maria Mata RN tl1 Corrections: (The following items were deleted from the chart) 06:41 05:33 12/10/2019 05:33 Discharged to Home. Impression: Pain in left lower leg; Pain in sg right lower leg; Type 1 diabetes mellitus. Condition is Stable. Discharge Instructions: Type 1 Diabetes Mellitus, Diagnosis, Adult, Musculoskeletal Pain, Cryotherapy, Kzjm-[id number], Diabetes Mellitus and Food, Cryotherapy. Prescriptions for Ibuprofen 600 mg Oral Tablet - take 1 tablet by ORAL route every 8 hours As needed take with food; 21 tablet. and Forms are Medication Reconciliation Form, Thank You Letter, Antibiotic Education, Prescription Opioid Use. Follow up: Private Physician; When: 2 - 3 days; Reason: Recheck today's complaints, Continuance of care, Re-evaluation by your physician. Problem is new. Symptoms have improved. justus
[2019-12-10] MEDS ORDERED: INSULIN -REGULAR HUMAN 50 UNIT/0.5 ML ML ONE ×2 (05:49→05:58)
--- NOTE | 2019-12-10 08:53 | RAD REPORT ---
EXAM DESCRIPTION: US - Extrem Venous W Compress Kulwant - 12/10/2019 3:50 am CLINICAL HISTORY: Pain;Swelling Bilateral leg edema and swelling. COMPARISON: No comparisons TECHNIQUE: Real-time sonographic interrogation of the left and right lower extremity deep venous sys tems was performed. FINDINGS: Normal compressibility, flow augmentation, phasic flow and spontaneous flow is identified in both the left and right lower extremity deep venous systems. IMPRESSION: No sonographic evidence of left or right lower extremity deep venous thrombosis.
[2019-12-12 05:02] VITALS: BP 113/74; O2SAT 100
== END 2019-12-10 06:41 | disposition home or self-care (01) ==
LOC: ER 02:32
DX: M79.662 Pain in left lower leg (principal); M79.661 Pain in right lower leg; E10.9 Type 1 diabetes mellitus without complications
CPT/HCPCS: 85025; 36415; 82550; 82947; 80053; 93970; 96375; 96374; 99284; J7030

== ENCOUNTER 2019-12-19 15:59 | Emergency (ER) | payer BC ==
[2019-12-19] MEDS ORDERED: KETOROLAC 30 MG/ML INJ ONE (16:48)
--- NOTE | 2019-12-19 17:25 | RAD REPORT ---
EXAM DESCRIPTION: CT - Thoracic Spine W/o Cont - 12/19/2019 4:48 pm CLINICAL HISTORY: Persistent back pain following fall several days earlier COMPARISON: Thoracic spine November 17, 2019 TECHNIQUE: Axial 2 mm thick images of the thoracic spine were obtained with sagittal and coronal rec onstruction images generated and reviewed. All CT scans are performed using dose optimization technique as appropriate and may include automated exposure control or mA/KV adjustment according to patient size. FINDINGS: Thoracic bodies are normal in height. No compression fracture. No lytic, sclerotic or expa nsile bony destructive process seen. No subluxation abnormality seen. Approximately the T10 level of the examination there was patient motion. The examination was thus acquired in 2 segments with overla p. This creates an apparent anterior and right lateral subluxation at T10. No paraspinal mass or hematoma. Central canal detail is inherently limited on CT imaging. No gross evidence for large disc herniation in the central canal. IMPRESSION: No thoracic spine compression fracture or acute finding. Central canal detail is inherently limited but no gross central canal or paraspinal abnormality. Misregistration artifact is created due to motion in the midportion of the examination. When the data was reconstructed it artificially created the appearance of a subluxation deformity.
--- NOTE | 2019-12-19 17:37 | ER ---
Nurse's Notes [facility] Name: Harvey Wyatt Age: 24 yrs Sex: Male : 1995 Arrival Date: 12/19/2019 Time: 16:01 Bed 17 Private MD: Diagnosis: Low back pain;Muscle spasm of back Presentation: 12/18 16:05 Chief complaint: Patient states: Slipped on wet surface Saturday. Has had upper back pain ll1 since. Started to have lower back spasms today. Coronavirus screen: Client denies travel out of the [place] in the last 14 days. At this time, the client does not indicate any symptoms associated with coronavirus-19. Ebola Screen: Patient denies travel to an Ebola-affected area in the 21 days before illness onset. Initial Sepsis Screen: Does the patient meet any 2 criteria? No. Patient's initial sepsis screen is negative. Risk Assessment: Do you want to hurt yourself or someone else? Patient reports no desire to harm self or others. Onset of symptoms was December 14, 2019. 16:05 Method Of Arrival: Ambulatory ll1 16:05 Acuity: BINDU 4 ll1 Historical: - Allergies: 16:07 No Known Allergies; ll1 - PMHx: 16:07 Diabetes - IDDM; ll1 - PSHx: 16:07 None; ll1 - Immunization history:: Flu vaccine is not up to date. - Social history:: Smoking status: Patient denies any tobacco usage or history of. Patient/guardian denies using alcohol, street drugs. Screenin:30 Abuse screen: Denies threats or abuse. Denies injuries from another. Nutritional aj1 screening: No deficits noted. Tuberculosis screening: No symptoms or risk factors identified. 17:57 Fall Risk None identified. aj1 Assessment: 16:30 General: Appears in no apparent distress. uncomfortable, Behavior is calm, cooperative, aj1 appropriate for age. Pain: Complains of pain in back. Neuro: Level of Consciousness is awake, alert, obeys commands, Oriented to person, place, time, situation, [employer] Crew Officer are equal bilaterally Moves all extremities. Full function Gait is steady, Speech is normal. Cardiovascular: Patient's skin is warm and dry. Respiratory: Airway is patent Respiratory effort is even, unlabored, Respiratory pattern is regular, symmetrical. GI: No signs and/or symptoms were reported involving the gastrointestinal system. : No signs and/or symptoms were reported regarding the genitourinary system. EENT: No signs and/or symptoms were reported regarding the EENT system. Derm: No signs and/or symptoms reported regarding the dermatologic system. Skin is pink, warm \T\ dry. normal. Musculoskeletal: Range of motion: intact in all extremities. 17:15 Reassessment: Patient appears in no apparent distress at this time. No changes from aj1 previously documented assessment. Patient and/or family updated on plan of care and expected duration. Pain level reassessed. Patient is alert, oriented x 3, equal unlabored respirations, skin warm/dry/pink. 17:57 Reassessment: Patient appears in no apparent distress at this time. No changes from aj1 previously documented assessment. Patient and/or family updated on plan of care and expected duration. Pain level reassessed. Patient is alert, oriented x 3, equal unlabored respirations, skin warm/dry/pink. Vital Signs: 16:05 BP 114 / 68; Pulse 87; Resp 17; Temp 97.7; Pulse Ox 98% ; Pain 9/10; ll1 ED Course: 16:01 Patient arrived in ED. ds1 16:07 Triage completed. ll1 16:07 Arm band placed on Patient placed in an exam room, on a stretcher. ll1 16:08 Angela Marin FNP-C [facility]. kb 16:08 Davie Prasad MD is Attending Physician. kb 16:19 Kirsty Stroud, RN is Primary Nurse. aj1 16:30 Patient has correct armband on for positive identification. Bed in low position. Call aj1 light in reach. 16:30 No provider procedures requiring assistance completed. aj1 16:[address] Sp[address] WO Cont CT In Process Unspecified. EDMS 17:57 Patient did not have IV access during this emergency room visit. aj1 Administered Medications: 16:52 Drug: TORadol 30 mg Route: IM; Site: right deltoid; aj1 Outcome: 17:36 Discharge ordered by . kb 17:57 Discharged to home aj1 17:57 Condition: good 17:57 Discharge instructions given to patient, Instructed on discharge instructions, follow up and referral plans. medication usage, Demonstrated understanding of instructions, follow-up care, medications, Prescriptions given X 2. 17:57 Patient left the ED. aj1 Signatures: Dispatcher [employer] EDAngela Wilks, SHASTA LU-Kirsty Carrington RN RN aj1 Miriam Echeverria ds1 Riley Lorenzo RN RN ll1
--- NOTE | 2019-12-19 17:37 | EDPHYS ---
Physician Documentation [facility] Name: Harvey Wyatt Age: 24 yrs Sex: Male : 1995 Arrival Date: 12/19/2019 Time: 16:01 Bed 17 Private MD: ED Physician Davie Prasad HPI: 12/18 17:33 This 24 yrs old Male presents to ER via Ambulatory with complaints of Back kb Pain. 17:33 The patient presents with pain that is acute, and spasm, and tenderness. The symptoms kb are located in the low back, right trapezius, right scapular area and left mid back. Onset: The symptoms/episode began/occurred 6 day(s) ago. The pain does not radiate. Associated signs and symptoms: The patient has no apparent associated signs or symptoms. The problem was sustained during a fall, while walking. Modifying factors: The patient symptoms are alleviated by nothing, the patient symptoms are aggravated by any movement. Severity of symptoms: At their worst the symptoms were moderate, in the emergency department the symptoms are unchanged. The patient has not experienced similar symptoms in the past. The patient has not recently seen a physician. Pt reports he slipped and fell onto back on Saturday (6 days ago). States the pain was getting better, but today at work he was having bad spasms that made it difficult to work. Denies neck pain, hitting head, LOC, AMS. . Historical: - Allergies: 16:07 No Known Allergies; ll1 - PMHx: 16:07 Diabetes - IDDM; ll1 - PSHx: 16:07 None; ll1 - Immunization history:: Flu vaccine is not up to date. - Social history:: Smoking status: Patient denies any tobacco usage or history of. Patient/guardian denies using alcohol, street drugs. ROS: 17:32 Constitutional: Negative for fever, chills, and weight loss, Cardiovascular: Negative kb for chest pain, palpitations, and edema, Respiratory: Negative for shortness of breath, cough, wheezing, and pleuritic chest pain, Abdomen/GI: Negative for abdominal pain, nausea, vomiting, diarrhea, and constipation, : Negative for injury, bleeding, discharge, and swelling, MS/Extremity: Negative for injury and deformity, Skin: Negative for injury, rash, and discoloration, Neuro: Negative for headache, weakness, numbness, tingling, and seizure. 17:32 Back: Positive for pain at rest, pain with movement, of the right trapezius, right scapular area, thoracic area and left mid back. Exam: 17:32 Constitutional: This is a well developed, well nourished patient who is awake, alert, kb and in no acute distress. Head/Face: Normocephalic, atraumatic. Chest/axilla: Normal chest wall appearance and motion. Nontender with no deformity. No lesions are appreciated. Cardiovascular: Regular rate and rhythm with a normal S1 and S2. No gallops, murmurs, or rubs. Normal PMI, no JVD. No pulse deficits. Respiratory: Lungs have equal breath sounds bilaterally, clear to auscultation and percussion. No rales, rhonchi or wheezes noted. No increased work of breathing, no retractions or nasal flaring. Abdomen/GI: Soft, non-tender, with normal bowel sounds. No distension or tympany. No guarding or rebound. No evidence of tenderness throughout. Skin: Warm, dry with normal turgor. Normal color with no rashes, no lesions, and no evidence of cellulitis. MS/ Extremity: Pulses equal, no cyanosis. Neurovascular intact. Full, normal range of motion. Neuro: Awake and alert, GCS 15, oriented to person, place, time, and situation. Cranial nerves II-XII grossly intact. Motor strength 5/5 in all extremities. Sensory grossly intact. Cerebellar exam normal. Normal gait. 17:32 Back: pain, that is moderate, of the right trapezius, right scapular area, thoracic area and left mid back, ROM is normal, normal spinal alignment noted, CVA tenderness, is absent. Vital Signs: 16:05 BP 114 / 68; Pulse 87; Resp 17; Temp 97.7; Pulse Ox 98% ; Pain 9/10; ll1 MDM: 16:08 Patient medically screened. kb 17:32 Data reviewed: vital signs, nurses notes. Data interpreted: Pulse oximetry: on room air kb is 98 %. Interpretation: normal. Counseling: I had a detailed discussion with the patient and/or guardian regarding: the historical points, exam findings, and any diagnostic results supporting the discharge/admit diagnosis, radiology results, the need for outpatient follow up, a family practitioner, to return to the emergency department if symptoms worsen or persist or if there are any questions or concerns that arise at home. 12/18 16:20 Order name: Thoracic Spine WO Cont CT; Complete Time: 17:29 kb Administered Medications: 16:52 Drug: TORadol 30 mg Route: IM; Site: right deltoid; aj1 Disposition: 12/19/19 17:36 Discharged to Home. Impression: Low back pain, Muscle spasm of back. - Condition is Stable. - Discharge Instructions: Back Pain, Adult, [id number], Muscle Cramps and Spasms, [id number], Back Exercises, [id number]. - Prescriptions for Cyclobenzaprine 10 mg Oral Tablet - take 1 tablet by ORAL route every 8 hours As needed; 21 tablet. Diclofenac Sodium 75 mg Oral Tablet, Delayed Release (E.C.) - take 1 tablet by ORAL route 2 times per day As needed; 30 tablet. - Medication Reconciliation Form, Thank You Letter, Antibiotic Education, Prescription Opioid Use, Work release form form. - Follow up: Emergency Department; When: As needed; Reason: Worsening of condition. Follow up: Private Physician; When: 2 - 3 days; Reason: Recheck today's complaints, Continuance of care, Re-evaluation by your physician. Addendum: 12/21/2019 10:51 Co-signature as Attending Physician, Davie Prasad MD I agree with the assessment and c loving plan of care. Signatures: Dispatcher [employer] [facility] Angela Marin, BOOTH OPERATOR-C BOOTH OPERATOR-Kirsty Carrington RN RN aj1 Davie Prasad MD MD cha Lewis, Lynsay, RN RN ll1 Corrections: (The following items were deleted from the chart) 12/18 16:24 16:20 Thorax Wo Con+CT.RAD.BRZ ordered. [facility] EDND 17:57 17:36 12/19/2019 17:36 Discharged to Home. Impression: Low back pain; Muscle spasm of aj1 back. Condition is Stable. Forms are Medication Reconciliation Form, Thank You Letter, Antibiotic Education, Prescription Opioid Use. Follow up: Emergency Department; When: As needed; Reason: Worsening of condition. Follow up: Private Physician; When: 2 - 3 days; Reason: Recheck today's complaints, Continuance of care, Re-evaluation by your physician. kb
[2019-12-19 18:10] VITALS: BP 114/68; TEMP 97.7; O2SAT 98
== END 2019-12-19 17:57 | disposition home or self-care (01) ==
LOC: ER 15:59
DX: M62.830 Muscle spasm of back (principal); E11.9 Type 2 diabetes mellitus without complications
CPT/HCPCS: 72128; 96372; 99283

== ENCOUNTER 2020-01-08 14:03 | Emergency (ER) | payer BC ==
[2020-01-08] MEDS ORDERED: NA CHLORIDE 0.9% 1,000 ML ONE (14:59)
[2020-01-08 15:05] LABS: Urine Blood NEGATIVE (NEG); Urine Glucose 2+ (NEG); Urine Protein NEGATIVE (NEG)
[2020-01-08 15:18] LABS: Absolute Lymphocytes (CBC) 0.7 K/uL (0.7-4.9); Basophils % 0.2 % (0-1.3); Hematocrit 46.5 % (39.6-49.0); Lymphocytes % 14.7 % (15.3-44.8); MPV 9.6 fL (7.6-11.3); RBC Red Blood Cell Count 5.53 M/uL (4.33-5.43)
[2020-01-08 15:46] LABS: BUN Blood Urea Nitrogen 9 mg/dL (7-18); Bicarbonate 27 mmol/L (21-32); Glucose Level 388 mg/dL (74-106); Sodium Level 134 mmol/L (136-145)
[2020-01-08 16:00] LABS: Potassium 3.9 mmol/L (3.5-5.1)
--- NOTE | 2020-01-08 16:57 | EDPHYS ---
Physician Documentation [facility] Name: Harvey Wyatt Age: 24 yrs Sex: Male : 1995 Arrival Date: 01/08/2020 Time: 14:06 Bed 16 Private MD: ED Physician Chris Kinney HPI: 01/07 16:12 This 24 yrs old Male presents to ER via Ambulatory with complaints of Flu jr8 Symptoms. 16:12 Patient stated that he has had head aches, sore throat, body aches malaise for past jr8 couple of days. Mild shortness of breath this morning. Stated that he gets sick every year with this and it causes blood glucose alterations for him. Severity of symptoms: At their worst the symptoms were moderate in the emergency department the symptoms are unchanged. The patient has experienced similar episodes in the past, a few times. The patient has not recently seen a physician. Historical: - Allergies: 14:30 No Known Allergies; iw - Home Meds: 14:30 fiasp insulin [Active]; iw - PMHx: 14:30 Diabetes - IDDM; iw - PSHx: 14:30 None; iw - Immunization history:: Adult Immunizations up to date. - Social history:: Smoking status: Patient denies any tobacco usage or history of. ROS: 16:12 Eyes: Negative for injury, pain, redness, and discharge, Neck: Negative for injury, jr8 pain, and swelling, Cardiovascular: Negative for chest pain, palpitations, and edema, Abdomen/GI: Negative for abdominal pain, nausea, vomiting, diarrhea, and constipation, Back: Negative for injury and pain, MS/Extremity: Negative for injury and deformity, Skin: Negative for injury, rash, and discoloration. 16:12 Constitutional: Positive for body aches, chills, malaise. 16:12 ENT: Positive for sore throat. 16:12 Respiratory: Positive for shortness of breath. 16:12 Neuro: Positive for headache. Exam: 16:12 Eyes: Pupils equal round and reactive to light, extra-ocular motions intact. Lids and jr8 lashes normal. Conjunctiva and sclera are non-icteric and not injected. Cornea within normal limits. Periorbital areas with no swelling, redness, or edema. ENT: Nares patent. No nasal discharge, no septal abnormalities noted. Tympanic membranes are normal and external auditory canals are clear. Oropharynx with no redness, swelling, or masses, exudates, or evidence of obstruction, uvula midline. Mucous membranes moist. Neck: Trachea midline, no thyromegaly or masses palpated, and no cervical lymphadenopathy. Supple, full range of motion without nuchal rigidity, or vertebral point tenderness. No Meningismus. Chest/axilla: Normal chest wall appearance and motion. Nontender with no deformity. No lesions are appreciated. Respiratory: Lungs have equal breath sounds bilaterally, clear to auscultation and percussion. No rales, rhonchi or wheezes noted. No increased work of breathing, no retractions or nasal flaring. Abdomen/GI: Soft, non-tender, with normal bowel sounds. No distension or tympany. No guarding or rebound. No evidence of tenderness throughout. Back: No spinal tenderness. No costovertebral tenderness. Full range of motion. Skin: Warm, dry with normal turgor. Normal color with no rashes, no lesions, and no evidence of cellulitis. MS/ Extremity: Pulses equal, no cyanosis. Neurovascular intact. Full, normal range of motion. Neuro: Awake and alert, GCS 15, oriented to person, place, time, and situation. Cranial nerves II-XII grossly intact. Motor strength 5/5 in all extremities. Sensory grossly intact. Cerebellar exam normal. Normal gait. 16:12 Cardiovascular: Rate: tachycardic, Rhythm: regular, Pulses: Pulses are 2+ in right radial artery and left radial artery. Heart sounds: normal, normal S1and S2, no S3 or S4, no murmur, no rub, no gallop, Edema: is not appreciated. Vital Signs: 14:26 BP 125 / 82; Pulse 115; Resp 18 S; Temp 98.5(O); Pulse Ox 98% on R/A; Weight 86.18 kg; iw Height 5 ft. 5 in. (165.10 cm); Pain 9/10; 16:02 BP 115 / 68; Pulse 108; Resp 15 S; Pulse Ox 100% on R/A; ca1 17:07 BP 105 / 59; Pulse 95; Resp 18 S; Pulse Ox 100% on R/A; ca1 14:26 Body Mass Index 31.62 (86.18 kg, 165.10 cm) iw MDM: 14:13 Patient medically screened. jr8 16:54 Data reviewed: vital signs, nurses notes, lab test result(s). Data interpreted: Pulse jr8 oximetry: on room air is 100 %. Interpretation: normal. Counseling: I had a detailed discussion with the patient and/or guardian regarding: the historical points, exam findings, and any diagnostic results supporting the discharge/admit diagnosis, lab results, the need for outpatient follow up, a family practitioner, to return to the emergency department if symptoms worsen or persist or if there are any questions or concerns that arise at home. Response to treatment: the patient's symptoms have markedly improved after treatment, patient is well hydrated. 01/07 14:34 Order name: Glucose, Ancillary Testing; Complete Time: 14:35 [facility] 01/07 14:38 Order name: CBC with Diff; Complete Time: 15:19 [facility] 01/07 14:38 Order name: Basic Metabolic Panel; Complete Time: 16:14 [facility] 01/07 14:38 Order name: Ketone, Serum; Complete Time: 16:14 [facility] 01/07 14:38 Order name: COVID-19 [facility] 01/07 14:38 Order name: Strep; Complete Time: 16:14 [facility] 01/07 14:38 Order name: Urine Dipstick-Ancillary (obtain specimen); Complete Time: 15:01 [facility] 01/07 14:38 Order name: IV; Complete Time: 15:01 [facility] 01/07 14:38 Order name: Flu; Complete Time: 16:52 [facility] 01/07 14:55 Order name: Urine Dipstick--Ancillary (enter results); Complete Time: 15:19 01/07 15:55 Order name: Throat Culture EDMS Administered Medications: 15:02 Drug: NS 0.9% 1000 ml Route: IV; Rate: 1000 ml; Site: right antecubital; ca1 16:00 Follow up: Response: No adverse reaction; IV Status: Completed infusion; IV Intake: ca1 1000ml Point of Care Testing: Blood Glucose: 14:28 Blood Glucose: 463 mg/dL; iw Ranges: Critical Glucose Levels:Adult <50 mg/dl or >400 mg/dl <40 mg/dl or >180 mg/dl Disposition: 17:25 Co-signature as Attending Physician, Chris Kinney MD. rn Disposition: 01/08/20 16:56 Discharged to Home. Impression: Hyperglycemia, unspecified, Viral infection of unspecified site. - Condition is Stable. - Discharge Instructions: Hyperglycemia, Viral Respiratory Infection, Blood Glucose Monitoring, Adult. - Work release form, Medication Reconciliation Form, Thank You Letter, Antibiotic Education, Prescription Opioid Use form. - Follow up: Private Physician; When: 2 - 3 days; Reason: Recheck today's complaints, Continuance of care, Re-evaluation by your physician. - Problem is new. - Symptoms have improved. Addendum: 01/11/2020 17:10 Addendum: Notified patient of positive test result \T\ 1710, states feeling better. . rn Signatures: Dispatcher [employer] EDEmy Almazan RN Chris Holguin MD MD rn Roszak, Josh, PA PA jr8 Aidan, Marly RN RN ca1 Corrections: (The following items were deleted from the chart) 01/07 17:16 16:56 01/08/2020 16:56 Discharged to Home. Impression: Hyperglycemia, unspecified; ca1 Viral infection of unspecified site. Condition is Stable. Forms are Medication Reconciliation Form, Thank You Letter, Antibiotic Education, Prescription Opioid Use. Follow up: Private Physician; When: 2 - 3 days; Reason: Recheck today's complaints, Continuance of care, Re-evaluation by your physician. Problem is new. Symptoms have improved. jr8
--- NOTE | 2020-01-08 16:57 | ER ---
Nurse's Notes [facility] Name: Harvey Wyatt Age: 24 yrs Sex: Male : 1995 Arrival Date: 01/08/2020 Time: 14:06 Bed 16 Private MD: Diagnosis: Hyperglycemia, unspecified;Viral infection of unspecified site Presentation: 01/07 14:24 Chief complaint: Patient states: sore throat, cough, fatigue, chills, body aches since iw Saturday, no vomiting, hx of insulin dependent diabetes. Coronavirus screen: chills, cough unrelated to allergies, fatigue, muscle pain, Client presents with at least one sign or symptom that may indicate coronavirus-19. Standard/surgical mask placed on the client. Provider contacted for isolation considerations. 14:24 Method Of Arrival: Ambulatory iw 14:26 Ebola Screen: Patient negative for fever greater than or equal to 101.5 degrees iw Fahrenheit, and additional compatible Ebola Virus Disease symptoms Patient denies exposure to infectious person. Patient denies travel to an Ebola-affected area in the 21 days before illness onset. No symptoms or risks identified at this time. Initial Sepsis Screen: Does the patient meet any 2 criteria? No. Patient's initial sepsis screen is negative. Does the patient have a suspected source of infection? No. Patient's initial sepsis screen is negative. Risk Assessment: Do you want to hurt yourself or someone else? Patient reports no desire to harm self or others. Onset of symptoms was January 04, 2020. 14:26 Acuity: BINDU 3 iw Historical: - Allergies: 14:30 No Known Allergies; iw - Home Meds: 14:30 fiasp insulin [Active]; iw - PMHx: 14:30 Diabetes - IDDM; iw - PSHx: 14:30 None; iw - Immunization history:: Adult Immunizations up to date. - Social history:: Smoking status: Patient denies any tobacco usage or history of. Screenin:50 Abuse screen: Denies threats or abuse. Denies injuries from another. Nutritional ca1 screening: No deficits noted. Tuberculosis screening: No symptoms or risk factors identified. Fall Risk IV access (20 points). Assessment: 14:50 General: Appears in no apparent distress. comfortable, Behavior is calm, cooperative, ca1 appropriate for age, Reports feeling ill for > 3 days, fatigue for >3 days. Pain: Complains of pain in all over. Neuro: Level of Consciousness is awake, alert, obeys commands, Oriented to person, place, time, situation. Cardiovascular: Heart tones S1 S2 present Capillary refill < 3 seconds Patient's skin is warm and dry. Respiratory: Airway is patent Respiratory effort is even, unlabored, Respiratory pattern is regular, symmetrical, Breath sounds are clear bilaterally. Respiratory: Reports cough that is. GI: Abdomen is round non-distended, Bowel sounds present X 4 quads. Abd is soft and non tender X 4 quads. : No deficits noted. No signs and/or symptoms were reported regarding the genitourinary system. EENT: Reports nasal congestion. Derm: Skin is intact, is healthy with good turgor, Skin is pink, warm \T\ dry. Musculoskeletal: Circulation, motion, and sensation intact. Capillary refill < 3 seconds. 15:50 Reassessment: Patient appears in no apparent distress at this time. Patient and/or ca1 family updated on plan of care and expected duration. Pain level reassessed. Patient is alert, oriented x 3, equal unlabored respirations, skin warm/dry/pink. 16:55 Reassessment: Patient appears in no apparent distress at this time. Patient and/or ca1 family updated on plan of care and expected duration. Pain level reassessed. Patient is alert, oriented x 3, equal unlabored respirations, skin warm/dry/pink. Vital Signs: 14:26 BP 125 / 82; Pulse 115; Resp 18 S; Temp 98.5(O); Pulse Ox 98% on R/A; Weight 86.18 kg; iw Height 5 ft. 5 in. (165.10 cm); Pain 9/10; 16:02 BP 115 / 68; Pulse 108; Resp 15 S; Pulse Ox 100% on R/A; ca1 17:07 BP 105 / 59; Pulse 95; Resp 18 S; Pulse Ox 100% on R/A; ca1 14:26 Body Mass Index 31.62 (86.18 kg, 165.10 cm) iw ED Course: 14:06 Patient arrived in ED. as 14:12 Fercho Antonio PA is PHCP. jr8 14:12 Chris Kinney MD is Attending Physician. jr8 14:26 Acob, Marly, RN is Primary Nurse. ca1 14:27 Triage completed. iw 14:27 Arm band placed on. iw 14:50 Patient has correct armband on for positive identification. Placed in gown. Call light ca1 in reach. Side rails up X 1. Pulse ox on. NIBP on. Warm blanket given. 14:55 No provider procedures requiring assistance completed. Inserted saline lock: 20 gauge ca1 in right antecubital area, using aseptic technique. Blood collected. 17:16 IV discontinued, intact, bleeding controlled, No redness/swelling at site. Pressure ca1 dressing applied. Administered Medications: 15:02 Drug: NS 0.9% 1000 ml Route: IV; Rate: 1000 ml; Site: right antecubital; ca1 16:00 Follow up: Response: No adverse reaction; IV Status: Completed infusion; IV Intake: ca1 1000ml Point of Care Testing: Blood Glucose: 14:28 Blood Glucose: 463 mg/dL; iw Ranges: Intake: 16:00 IV: 1000ml; Total: 1000ml. ca1 Outcome: 16:56 Discharge ordered by MD. duckworth 17:16 Discharged to home ambulatory. ca1 17:16 Condition: stable 17:16 Discharge instructions given to patient, Instructed on discharge instructions, follow up and referral plans. Demonstrated understanding of instructions, follow-up care. 17:16 Patient left the ED. ca1 Addendum: 01/11/2020 17:15 Addendum: COVID-19 Result: Positive result giiven to ED physician to notify pt. h b Physician: Chris Kinney MD. Signatures: Princess Oshea Irene, RN RN Fercho Antonio PA PA jr8 Baxter, Heather, RN RN Marly Bermudez RN RN ca1
[2020-01-08 17:38] VITALS: TEMP 98.5
[2020-01-08 17:40] VITALS: O2SAT 100
[2020-01-08 17:41] VITALS: BP 105/59
== END 2020-01-08 17:16 | disposition home or self-care (01) ==
LOC: ER 14:03
DX: U07.1 COVID-19 (principal); B34.9 Viral infection, unspecified; E11.65 Type 2 diabetes mellitus with hyperglycemia
CPT/HCPCS: 87070; 85025; 80048; 36415; 82010; 82947 ×2; 87081; 81003; 87804 ×2; 96360; 99284; U0002; J7030

== ENCOUNTER 2020-01-15 16:15 | Emergency (ER) | payer BC, OTHER ==
[2020-01-15 17:57] LABS: Arterial Blood Carboxyhemoglob 1.4 % (0-1.5)
--- NOTE | 2020-01-15 18:45 | RAD REPORT ---
EXAM DESCRIPTION: RAD - Chest Single View - 01/15/2020 5:53 pm CLINICAL HISTORY: Cough;Dyspnea COMPARISON: April 2019 TECHNIQUE: AP portable chest image was obtained 01/15/2020 5:53 pm . FINDINGS: Two focal infiltrative changes are seen in the right upper lung field. Hazy opacification seen in the lower left lung field. Trachea is midline. No failure or volume overload. Heart and vascu lature are normal. No measurable pleural effusion and no pneumothorax. No acute bony abnormality seen . No acute aortic findings suspected. IMPRESSION: Focal right upper lobe infiltrative changes are seen along with patchy ground-glass opac ities.
[2020-01-15 18:58] LABS: Absolute Lymphocytes (CBC) 0.6 K/uL (0.7-4.9); Basophils % 0.3 % (0-1.3); Hematocrit 43.8 % (39.6-49.0); Lymphocytes % 15.2 % (15.3-44.8); MPV 8.9 fL (7.6-11.3); RBC Red Blood Cell Count 5.23 M/uL (4.33-5.43)
[2020-01-15 19:19] LABS: ALT/SGPT 48 U/L (12-78); AST/SGOT 28 U/L (15-37); Albumin 3.5 g/dL (3.4-5.0); Alkaline Phosphatase 86 U/L (45-117); BUN Blood Urea Nitrogen 7 mg/dL (7-18); Bicarbonate 29 mmol/L (21-32); Bilirubin Total 0.6 mg/dL (0.2-1.0); Glucose Level 134 mg/dL (74-106); Potassium 3.7 mmol/L (3.5-5.1); Protein, Total 7.7 g/dL (6.4-8.2); Sodium Level 138 mmol/L (136-145)
--- NOTE | 2020-01-15 20:02 | RAD REPORT ---
EXAM DESCRIPTION: CT - Chest For Pe Angio - 01/15/2020 7:38 pm CLINICAL HISTORY: shortness of breath, COVID positive COMPARISON: Facial Bones W/ Mpr dated 01/15/2020Chest Single View dated 01/15/2020 TECHNIQUE: Dynamically enhanced 3 mm thick images of the chest were obtained during administration o f approximately 150mL Isovue 370 IV contrast. Coronal and oblique MIP reconstruction images were gene rated and reviewed. Exam utilizes a protocol to evaluate the pulmonary arterial tree. All CT scans are performed using dose optimization technique as appropriate and may include automated exposure control or mA/KV adjustment according to patient size. FINDINGS: No pulmonary emboli are identified. The aorta as imaged shows no acute or suspicious finding. No pericardial thickening or effusion. Numerous bilateral ground-glass airspace opacities are present. These are predominately perihilar on the left. Ground-glass opacities are more peripheral in the right lung field. No pleural effusion or pleural thickening. No mediastinal or hilar suspicious masses. No chest wall masses or abnormal axillary lymphadenopathy. IMPRESSION: Multiple bilateral ground-glass opacities are present most likely COVID-19 pneumonia. No pulmonary emboli.
--- NOTE | 2020-01-15 20:06 | EDPHYS ---
Physician Documentation [facility] Name: Harvey Wyatt Age: 24 yrs Sex: Male : 1995 Arrival Date: 01/15/2020 Time: 16:19 Bed 19 Private MD: ED Physician Davie Prasad HPI: 01/14 17:20 This 24 yrs old Male presents to ER via Wheelchair with complaints of COVID+, jmm Cough, Shortness Of Breath. 17:20 The patient or guardian reports cough. Onset: The symptoms/episode began/occurred jmm gradually, 10 day(s) ago. Modifying factors: The symptoms are alleviated by nothing. the symptoms are aggravated by nothing. Associated signs and symptoms: Pertinent positives: shortness of breath. This is a 24 year old male with a history of DM that presents to the ED with complaints of shortness of breath, cough, fatigue, weakness beginning approx 10 days ago. Patient was evaluated in the ED on 01/07 with a positive COVID 19 result. Patient states he continues to feet short of breath. . Historical: - Allergies: 16:33 No Known Allergies; ll1 - PMHx: 16:33 Diabetes - IDDM; ll1 - PSHx: 16:33 None; ll1 - Immunization history:: Flu vaccine is not up to date. - Social history:: Smoking status: Patient denies any tobacco usage or history of. ROS: 17:20 Cardiovascular: Negative for chest pain, palpitations, and edema. jmm 17:20 Constitutional: Positive for body aches, chills, fever. 17:20 Respiratory: Positive for shortness of breath. 17:20 All other systems are negative. Exam: 17:20 Constitutional: This is a well developed, well nourished patient who is awake, alert, jmm and in no acute distress. Head/Face: atraumatic. Eyes: EOMI, no conjunctival erythema appreciated ENT: Moist Mucus Membranes Neck: Trachea midline, Supple Chest/axilla: Normal chest wall appearance and motion. Cardiovascular: Regular rate and rhythm. No edema appreciated Respiratory: Normal respirations, no respiratory distress appreciated Abdomen/GI: Non distended, soft Back: Normal ROM Skin: General appearance color normal MS/ Extremity: Moves all extremities, no obvious deformities appreciated, no edema noted to the lower extremities Neuro: Awake and alert, normal gait Psych: Behavior is normal, Mood is normal, Patient is cooperative and pleasant Vital Signs: 16:30 BP 102 / 65; Pulse 110; Resp 18; Temp 100.5(O); Pulse Ox 99% ; Weight 81.65 kg; Height ll1 5 ft. 5 in. (165.10 cm); Pain 10/10; 20:52 BP 95 / 62; Pulse 98; Resp 17 S; Temp 100.8(O); Pulse Ox 97% on R/A; jd3 16:30 Body Mass Index 29.95 (81.65 kg, 165.10 cm) ll1 MDM: 17:20 Patient medically screened. [facility] 18:55 Transition of care: After a detail discussion of the patient's case, care is [facility] transferred to Angela Marin [facility]. 20:05 Data reviewed: vital signs, nurses notes. Data interpreted: Pulse oximetry: on room air kb is 99 %. Interpretation: normal. Counseling: I had a detailed discussion with the patient and/or guardian regarding: the historical points, exam findings, and any diagnostic results supporting the discharge/admit diagnosis, lab results, radiology results, the need for outpatient follow up, a family practitioner, to return to the emergency department if symptoms worsen or persist or if there are any questions or concerns that arise at home. 01/14 17:33 Order name: CBC with Diff; Complete Time: 19:13 [facility] 01/14 17:33 Order name: CMP; Complete Time: 19:20 [facility] 01/14 17:33 Order name: Procalcitonin; Complete Time: 19:31 [facility] 01/14 17:33 Order name: Lactate; Complete Time: 19:20 [facility] 01/14 17:33 Order name: ABG; Complete Time: 18:24 [facility] 01/14 17:33 Order name: Blood Culture Adult (2) [facility] 01/14 16:31 Order name: Chest Single View XRAY; Complete Time: 18:49 kb 01/14 17:33 Order name: Saline Lock; Complete Time: 18:43 [facility] 01/14 17:35 Order name: CRP; Complete Time: 19:25 [facility] 01/14 18:39 Order name: CT Chest For PE Angio; Complete Time: 20:05 [facility] Administered Medications: 20:54 Drug: Tylenol 1000 mg Route: PO; jd3 20:54 Follow up: Response: Medication administered at discharge. jd3 Disposition: 01/15 17:56 Co-signature as Attending Physician, Davie Prasad MD I agree with the assessment and justus plan of care. Disposition: 01/15/20 20:05 Discharged to Home. Impression: Pneumonia, unspecified organism - COVID. - Condition is Stable. - Discharge Instructions: Community-Acquired Pneumonia, Adult, [id number], COVID-19. - Prescriptions for Prednisone 20 mg Oral Tablet - take 1 tablet by ORAL route once daily for 5 days; 5 tablet. Albuterol Sulfate 90 mcg/actuation - inhale 1-2 puff by INHALATION route every 4-6 hours; 1 Inhaler. Zithromax 500 mg Oral Tablet - take 1 tablet by ORAL route once daily for 5 days; 5 tablet. - Medication Reconciliation Form, Thank You Letter, Antibiotic Education, Prescription Opioid Use form. - Follow up: Emergency Department; When: As needed; Reason: Worsening of condition. Follow up: Private Physician; When: 2 - 3 days; Reason: Recheck today's complaints, Continuance of care, Re-evaluation by your physician. Signatures: Dispatcher [employer] EDAngela Wilks, BOTTLE SELECTOR-C BOTTLE SELECTOR-Davie Helms MD MD cha Mickail, Joel, PA PA jmm Davies, Jonathon RN RN jRiley Collier RN RN ll1 Corrections: (The following items were deleted from the chart) 01/14 20:54 20:05 01/15/2020 20:05 Discharged to Home. Impression: Pneumonia, unspecified organism jd3 - COVID. Condition is Stable. Forms are Medication Reconciliation Form, Thank You Letter, Antibiotic Education, Prescription Opioid Use. Follow up: Emergency Department; When: As needed; Reason: Worsening of condition. Follow up: Private Physician; When: 2 - 3 days; Reason: Recheck today's complaints, Continuance of care, Re-evaluation by your physician. kb
--- NOTE | 2020-01-15 20:06 | ER ---
Nurse's Notes [facility] Name: Harvey Wyatt Age: 24 yrs Sex: Male : 1995 Arrival Date: 01/15/2020 Time: 16:19 Bed 19 [facility] MD: Diagnosis: Pneumonia, unspecified organism-COVID Presentation: 01/14 16:30 Chief complaint: Patient states: Came here last week, found covid positive Saturday. Has ll1 worsening RAWLS, CP/back pain, SOB with coughing fits at times. + nausea, + fatigue. Coronavirus screen: Client denies travel out of the [place] in the last 14 days. congestion, cough unrelated to allergies, fatigue, headache, nausea, shortness of breath, Client presents with at least one sign or symptom that may indicate coronavirus-19. Standard/surgical mask placed on the client. Ebola Screen: Patient denies travel to an Ebola-affected area in the 21 days before illness onset. Initial Sepsis Screen: Does the patient meet any 2 criteria? HR > 90 bpm. No. Patient's initial sepsis screen is negative. Does the patient have a suspected source of infection? Yes: Productive cough/pneumonia. Risk Assessment: Do you want to hurt yourself or someone else? Patient reports no desire to harm self or others. Onset of symptoms was January 06, 2020. 16:30 Method Of Arrival: Wheelchair ll1 16:30 Acuity: BINDU 3 ll1 Triage Assessment: 18:46 Respiratory: Onset: The symptoms/episode began/occurred gradually, the patient has mild jd3 shortness of breath. Historical: - Allergies: 16:33 No Known Allergies; ll1 - PMHx: 16:33 Diabetes - IDDM; ll1 - PSHx: 16:33 None; ll1 - Immunization history:: Flu vaccine is not up to date. - Social history:: Smoking status: Patient denies any tobacco usage or history of. Screenin:46 Abuse screen: Denies threats or abuse. Nutritional screening: No deficits noted. jd3 Tuberculosis screening: No symptoms or risk factors identified. Fall Risk IV access (20 points). Ambulatory Aid- None/Bed Rest/Nurse Assist (0 pts). Gait- Normal/Bed Rest/Wheelchair (0 pts) Mental Status- Oriented to own ability (0 pts). Total Ceron Fall Scale indicates No Risk (0-24 pts). Assessment: 18:44 General: Appears in no apparent distress. uncomfortable, Behavior is calm, cooperative, jd3 appropriate for age. Pain: Complains of pain in head, back and chest Quality of pain is described as aching, pressure. Neuro: Level of Consciousness is awake, alert, obeys commands, Oriented to person, place, time, situation. Cardiovascular: Capillary refill < 3 seconds Patient's skin is warm and dry. Respiratory: Reports shortness of breath Airway is patent Respiratory effort is even, unlabored, Respiratory pattern is regular, symmetrical. GI: No signs and/or symptoms were reported involving the gastrointestinal system. : No signs and/or symptoms were reported regarding the genitourinary system. EENT: No signs and/or symptoms were reported regarding the EENT system. Derm: Skin is intact, Skin is dry, Skin is normal, Skin temperature is warm. Musculoskeletal: Circulation, motion, and sensation intact. Range of motion: intact in all extremities. 19:47 Reassessment: Patient appears in no apparent distress at this time. No changes from jd3 previously documented assessment. Patient and/or family updated on plan of care and expected duration. Pain level reassessed. Patient is alert, oriented x 3, equal unlabored respirations, skin warm/dry/pink. 20:52 Reassessment: Patient appears in no apparent distress at this time. Patient and/or jd3 family updated on plan of care and expected duration. Pain level reassessed. Patient is alert, oriented x 3, equal unlabored respirations, skin warm/dry/pink. Vital Signs: 16:30 BP 102 / 65; Pulse 110; Resp 18; Temp 100.5(O); Pulse Ox 99% ; Weight 81.65 kg; Height ll1 5 ft. 5 in. (165.10 cm); Pain 10/10; 20:52 BP 95 / 62; Pulse 98; Resp 17 S; Temp 100.8(O); Pulse Ox 97% on R/A; jd3 16:30 Body Mass Index 29.95 (81.65 kg, 165.10 cm) ll1 ED Course: 16:19 Patient arrived in ED. mr 16:32 Triage completed. ll1 16:33 Arm band placed on. ll1 17:18 Garrett Savage PA is PHCP. [facility] 17:18 Davie Prasad MD is Attending Physician. jmm 17:54 Chest Single View XRAY In Process Unspecified. EDMS 18:19 Gilbert Cuevas RN is Primary Nurse. jd3 18:38 Inserted saline lock: 20 gauge in right forearm, using aseptic technique. Blood jd3 collected. 18:41 Radiology exam delayed due to IV insertion attempt and/or patient not having vm2 appropriate IV at this time. 18:46 Patient has correct armband on for positive identification. Bed in low position. Call jd3 light in reach. Side rails up X 1. color television console monitor on. Pulse ox on. NIBP on. 19:13 PHCP role handed off by Garrett Savage PA kb 19:13 Angela Marin FNP-C is PHCP. kb 19:38 CT Chest For PE Angio In Process Unspecified. EDMS 20:53 No provider procedures requiring assistance completed. IV discontinued, intact, jd3 bleeding controlled, No redness/swelling at site. Pressure dressing applied. Administered Medications: 20:54 Drug: Tylenol 1000 mg Route: PO; jd3 20:54 Follow up: Response: Medication administered at discharge. jd3 Outcome: 20:05 Discharge ordered by MD. kb 20:53 Discharged to home ambulatory, with family. jd3 20:53 Condition: stable 20:53 Discharge instructions given to patient, Instructed on discharge instructions, follow up and referral plans. medication usage, Demonstrated understanding of instructions, follow-up care, medications, Prescriptions given X 3. 20:54 Patient left the ED. jd3 Signatures: Dispatcher [employer] EDWI Angela Marin FNP-C FNP-Garrett Pinzon PA PA [facility] Ayaka Perdomo, [facility] Gilbert Cuevas, RN RN jRiley Collier RN RN ll1
[2020-01-15] MEDS ORDERED: ACETAMINOPHEN 500 MG TAB ONE (21:01)
[2020-01-15 21:05] VITALS: BP 95/62; TEMP 100.8; O2SAT 97
== END 2020-01-15 20:54 | disposition home or self-care (01) ==
LOC: ER 16:15
DX: J18.9 Pneumonia, unspecified organism (principal); E11.9 Type 2 diabetes mellitus without complications; Z86.19 Personal history of other infectious and parasitic diseases
CPT/HCPCS: 87040 ×2; 85025; 36415; 83605; 80053; 84145; 86140; 71275; 71045; 82805; 99284; Q9967

== ENCOUNTER 2020-11-14 21:17 | Emergency (ER) | payer BC ==
--- OUTSIDE RECORDS SUMMARY | 2020-11-14 21:20 | XMS REPORT | Continuity of Care Document ---
:1995 Author Organization [facility] t Address [address] [place] [address] Care Team Providers Name Role Phone Alden Juarez Attending Clinician Problems This patient has no known problems. Allergies, Adverse Reactions, Alerts This patient has no known allergies or adverse reactions. Medications This patient has no known medications. Procedures This patient has no known procedures. Encounters Start End Encounter Admission Attending Care Care Encounter Source Date/Time Date/Time Type Type Clinicians Facility Department ID 2020-09-27 2020-09-27 Emergency Kajal [facility] [[email or web address]] [id number] 01:16:00 02:44:00 Carol Dolan [id number] [place] [id number] [place] [id number] Results This patient has no known results.
[2020-11-15] MEDS ORDERED: KETOROLAC 30 MG/ML INJ ONE (00:08)
[2020-11-15] MEDS ORDERED: LIDOCAINE 4% PATCH ONE (00:08)
[2020-11-15 03:14] LABS: Absolute Lymphocytes (CBC) 1.4 K/uL (0.7-4.9); Basophils % 0.4 % (0-1.3); Hematocrit 43.6 % (39.6-49.0); Lymphocytes % 33.9 % (15.3-44.8); RBC Red Blood Cell Count 5.08 M/uL (4.33-5.43)
[2020-11-15 03:40] LABS: ALT/SGPT 47 U/L (12-78); Albumin 3.6 g/dL (3.4-5.0); Alkaline Phosphatase 126 U/L (45-117); BUN Blood Urea Nitrogen 10 mg/dL (7-18); Bicarbonate 28 mmol/L (21-32); Bilirubin Direct < 0.1 mg/dL (0-0.2); Bilirubin Total 0.5 mg/dL (0.2-1.0); Glucose Level 366 mg/dL (74-106); Lipase 109 U/L (73-393); Protein, Total 7.1 g/dL (6.4-8.2); Sodium Level 137 mmol/L (136-145)
[2020-11-15 03:41] LABS: AST/SGOT 39 U/L (15-37); Potassium 4.6 mmol/L (3.5-5.1)
--- NOTE | 2020-11-15 03:56 | EDPHYS ---
Physician Documentation [facility] Name: Harvey Wyatt Age: 25 yrs Sex: Male : 1995 Arrival Date: 11/14/2020 Time: 21:22 Bed 12 Private MD: SARAH Physician Davie Prasad HPI: 11/14 23:45 This 25 yrs old Male presents to ER via Ambulatory with complaints of Back cp Pain. 23:45 The patient presents with pain that is acute. The symptoms are located in the low back, cp left side of low back. 23:45 Onset: The symptoms/episode began/occurred 1.5 week(s) ago. The pain does not radiate. cp 23:45 Associated signs and symptoms: Pertinent negatives: abdominal pain, constipation, cp dysuria, fever, incontinence, numbness, tingling, urinary retention, vomiting, weakness. The problem was sustained patient reports pain started when toddler son apparently jumped and struck him in low back area. Historical: - Allergies: 21:51 No Known Allergies; bb - Home Meds: 21:51 insulin [Active]; bb - PMHx: 21:51 Diabetes - IDDM; bb - PSHx: 21:51 None; bb - Immunization history:: Adult Immunizations up to date, Client reports having NOT received the Covid vaccine. - Social history:: Smoking status: Patient denies any tobacco usage or history of. ROS: 23:50 Constitutional: Negative for body aches, chills, fever, poor PO intake. cp 23:50 Eyes: Negative for injury, pain, redness, and discharge. cp 23:50 Neck: Negative for pain with movement, pain at rest, stiffness. 23:50 Cardiovascular: Negative for chest pain, edema, palpitations. 23:50 Respiratory: Negative for cough, shortness of breath, wheezing. 23:50 Abdomen/GI: Negative for abdominal pain, nausea, vomiting, and diarrhea, constipation, anorexia, black/tarry stool, rectal bleeding, bowel incontinence. 23:50 Back: Positive for pain at rest, pain with movement, of the lumbar area, left low back and left mid back, Negative for decreased range of motion. 23:50 : Positive for left flank pain, Negative for urinary symptoms, difficulty urinating, bladder incontinence, testicular pain 23:50 MS/extremity: Negative for injury or acute deformity, pain. 23:50 Skin: Negative for cellulitis, rash. 23:50 Neuro: Negative for altered mental status, dizziness, headache, numbness, syncope, weakness. 23:50 All other systems are negative. Exam: 23:55 Constitutional: The patient appears in no acute distress, alert, awake, cp non-diaphoretic, non-toxic, well developed, well nourished, uncomfortable. 23:55 Head/Face: Normocephalic, atraumatic. cp 23:55 Eyes: Periorbital structures: appear normal, Conjunctiva: normal, no exudate, no injection, Sclera: no appreciated abnormality, Lids and lashes: appear normal, bilaterally. 23:55 ENT: External ear(s): are unremarkable, Nose: is normal, Mouth: Lips: moist, Oral mucosa: moist, Posterior pharynx: Airway: no evidence of obstruction, patent. 23:55 Neck: ROM/movement: is normal, is supple, without pain, no range of motions limitations. 23:55 Chest/axilla: Inspection: normal, Palpation: is normal, no crepitus, no tenderness. 23:55 Cardiovascular: Rate: tachycardic, Rhythm: regular, Edema: is not appreciated, JVD: is not appreciated. 23:55 Respiratory: the patient does not display signs of respiratory distress, Respirations: normal, no use of accessory muscles, no retractions, labored breathing, is not present, Breath sounds: are clear throughout, no decreased breath sounds, no stridor, no wheezing. 23:55 Back: pain, that is moderate, of the lumbar area, left low back and left mid back, ROM is painful, with all movement, Straight leg raises: of both lower extremities does not illicit pain. 23:55 Skin: no rash present. 23:55 Neuro: Orientation: to person, place \T\ time. Mentation: is normal, Motor: moves all fours, strength is normal, Sensation: no obvious gross deficits, Gait: is steady, at a normal pace, without difficulty, Deep tendon reflexes are 2+ (normal) in the right patellar, right Achilles, left patellar and left Achilles. Vital Signs: 21:50 BP 138 / 83; Pulse 104; Resp 16 S; Temp 98.1(O); Pulse Ox 100% on R/A; Weight 81.65 kg bb (R); Height 5 ft. 6 in. (167.64 cm) (R); Pain 9/; 11/15 04:16 BP 128 / 78; Pulse 84; Resp 15; Pulse Ox 99% on R/A; Pain 0/10; em 11/14 21:50 Body Mass Index 29.05 (81.65 kg, 167.64 cm) bb MDM: 11/14 23:29 Patient medically screened. [facility] 11/15 00:00 Differential diagnosis: Cholelithiasis Pyelonephritis ruptured disc, spinal injury, cp sprain, Ureterolithiasis vertebral fracture. 03:55 Data reviewed: vital signs, nurses notes, lab test result(s), radiologic studies, CT cp scan. 03:55 Counseling: I had a detailed discussion with the patient and/or guardian regarding: the cp historical points, exam findings, and any diagnostic results supporting the discharge/admit diagnosis, lab results, radiology results, the need for outpatient follow up, a family practitioner, to return to the emergency department if symptoms worsen or persist or if there are any questions or concerns that arise at home. Response to treatment: the patient's symptoms have markedly improved after treatment. ED course: VSS. Pain improved with meds. Patient reports difficulty affording prescribed insulin as cause for elevated blood glucose. Labs do not indicate DKA and post void bladder scan results show patient able to empty bladder. Will discharge to home for continued monitoring. 11/15 02:12 Order name: Basic Metabolic Panel; Complete Time: 03:52 em 11/15 03:52 Interpretation: Normal except: GLUC 366. 11/14 23:37 Order name: CT Stone Protocol 11/15 02:12 Order name: CBC with Diff; Complete Time: 03:34 11/15 03:34 Interpretation: Normal except: WBC 4.10. 11/15 02:12 Order name: Hepatic Function; Complete Time: 03:52 em 11/15 02:12 Order name: Lipase; Complete Time: 03:52 em 11/15 01:09 Order name: Bladder Scanner: pre and post void; Complete Time: 01:56 11/15 02:12 Order name: IV Saline Lock; Complete Time: 02:30 em 11/15 02:12 Order name: Labs collected and sent; Complete Time: 02:30 em Administered Medications: 00:02 Drug: Lidoderm Patch 5 % (700 mg/patch) 1 patches Route: Topical; Site: wound; kg 02:30 Follow up: Response: No adverse reaction em 00:03 Drug: Ketorolac 30 mg Route: IM; Site: right deltoid; kg 02:30 Follow up: Response: No adverse reaction; Marked relief of symptoms; Pain is decreased em Disposition Summary: 11/15/20 03:55 Discharge Ordered Location: Home cp Problem: new cp Symptoms: have improved cp Condition: Stable cp Diagnosis - Low back pain cp - Diabetes mellitus due to underlying condition with hyperglycemia cp Followup: cp - With: Private Physician - When: 2 - 3 days - Reason: Recheck today's complaints Discharge Instructions: - Discharge Summary Sheet cp - Acute Back Pain, Adult cp - Blood Glucose Monitoring, Adult cp - Diabetes Mellitus and Nutrition, Adult cp - Heat Therapy cp - Back Exercises cp Forms: - Medication Reconciliation Form cp - Thank You Letter cp - Antibiotic Education cp - Prescription Opioid Use cp - Work release form ds4 Prescriptions: - Lidoderm 5 % Topical adhesive patch,medicated - apply 1 patch by TOPICAL route once daily; 1 box; Refills: 0, Product Selection cp Permitted - Cyclobenzaprine 10 mg Oral Tablet - take 1 tablet by ORAL route every 8 hours As needed; 20 tablet; Refills: 0, cp Product Selection Permitted - Diclofenac Sodium 75 mg Oral Tablet Sustained Release - take 1 tablet by ORAL route 2 times per day; 30 tablet; Refills: 0, Product cp Selection Permitted Addendum: 11/16/2020 07:52 Co-signature as Attending Physician, Davie Prasad MD I agree with the assessment and c loving plan of care. Signatures: Dispatcher [employer] Davie Chacon MD MD cha Munoz, Edgar, RN RN em Jossy Briggs RN RN Davie Hart PA PA cp Lzieth Lemos RN RN kg
--- NOTE | 2020-11-15 03:56 | ER ---
Nurse's Notes [facility] Name: Harvey Wyatt Age: 25 yrs Sex: Male : 1995 Arrival Date: 11/14/2020 Time: 21:22 Bed 12 Private MD: Diagnosis: Low back pain;Diabetes mellitus due to underlying condition with hyperglycemia Presentation: 11/14 21:50 Chief complaint: Patient states: he has had low back pain 01/15 is having difficulty bb standing up straight. Coronavirus screen: At this time, the client does not indicate any symptoms associated with coronavirus-19. Ebola Screen: No symptoms or risks identified at this time. Initial Sepsis Screen: Does the patient meet any 2 criteria? No. Patient's initial sepsis screen is negative. Does the patient have a suspected source of infection? No. Patient's initial sepsis screen is negative. Risk Assessment: Do you want to hurt yourself or someone else? Patient reports no desire to harm self or others. Onset of symptoms was November 05, 2020. 21:50 Method Of Arrival: Ambulatory bb 21:50 Acuity: BINDU 3 bb Historical: - Allergies: 21:51 No Known Allergies; bb - Home Meds: 21:51 insulin [Active]; bb - PMHx: 21:51 Diabetes - IDDM; bb - PSHx: 21:51 None; bb - Immunization history:: Adult Immunizations up to date, Client reports having NOT received the Covid vaccine. - Social history:: Smoking status: Patient denies any tobacco usage or history of. Screenin/10 01:57 Abuse screen: Denies threats or abuse. Nutritional screening: No deficits noted. em Tuberculosis screening: No symptoms or risk factors identified. Fall Risk None identified. Assessment: 01:57 General: Appears in no apparent distress. comfortable, Behavior is calm, cooperative, em appropriate for age. Pain: Complains of pain in back Pain currently is 0 out of 10 on a pain scale. Neuro: Level of Consciousness is awake, alert, obeys commands, Oriented to person, place, time, situation. Cardiovascular: Capillary refill < 3 seconds Patient's skin is warm and dry. Respiratory: Airway is patent Respiratory effort is even, unlabored, Respiratory pattern is regular, symmetrical. : Denies burning with urination, inability to void. Derm: Skin is intact, is healthy with good turgor, Skin is pink, warm \T\ dry. Musculoskeletal: Range of motion: intact in all extremities. Vital Signs: 11/14 21:50 BP 138 / 83; Pulse 104; Resp 16 S; Temp 98.1(O); Pulse Ox 100% on R/A; Weight 81.65 kg bb (R); Height 5 ft. 6 in. (167.64 cm) (R); Pain 9/10; 08 04:16 BP 128 / 78; Pulse 84; Resp 15; Pulse Ox 99% on R/A; Pain 0/10; em 11/14 21:50 Body Mass Index 29.05 (81.65 kg, 167.64 cm) bb ED Course: 11/14 21:22 Patient arrived in ED. es 21:51 Triage completed. bb 21:51 Arm band placed on Patient placed in waiting room, Patient notified of wait time. bb 23:28 Davie Carney PA is PHCP. cp 23:28 Davie Prasad MD is Attending Physician. cp 11/15 00:25 CT Stone Protocol In Process Unspecified. EDMS 01:30 Manoj Dubois, RN is Primary Nurse. em 01:46 Bladder scan completed. 734 mL pre-void. em 01:56 Bladder scan completed. 349 mL post-void. em 01:57 Patient has correct armband on for positive identification. em 04:16 No provider procedures requiring assistance completed. IV discontinued, intact, em bleeding controlled, No redness/swelling at site. Pressure dressing applied. Administered Medications: 00:02 Drug: Lidoderm Patch 5 % (700 mg/patch) 1 patches Route: Topical; Site: wound; kg 02:30 Follow up: Response: No adverse reaction em 00:03 Drug: Ketorolac 30 mg Route: IM; Site: right deltoid; kg 02:30 Follow up: Response: No adverse reaction; Marked relief of symptoms; Pain is decreased em Outcome: 03:55 Discharge ordered by . cp 04:16 Discharged to home ambulatory, with family. em 04:16 Condition: improved 04:16 Discharge instructions given to patient, Instructed on discharge instructions, follow up and referral plans. medication usage, Demonstrated understanding of instructions, follow-up care, medications, Prescriptions given X 3. 04:17 Patient left the ED. em Signatures: Dispatcher [employer] EDMS Ambar, Holly es Dubois, Manoj, RN RN Jossy Cooley RN RN Davie Hart PA PA cp Graham, Kristen, RN RN kg
[2020-11-15 04:22] VITALS: TEMP 98.1
[2020-11-15 04:24] VITALS: BP 128/78; O2SAT 99
--- NOTE | 2020-11-15 12:52 | RAD REPORT ---
EXAM DESCRIPTION: CT - Stone Protocol - 11/15/2020 6:34 am CLINICAL HISTORY: The patient is 25 years old and is Male; FLANK PAIN TECHNIQUE: Axial computed tomography images of the abdomen and pelvis without intravenous contrast. Sagittal and coronal reformatted images were created and reviewed. This CT exam was performed usi ng one or more of the following dose reduction techniques: automated exposure control, adjustment o f the mA and/or kV according to patient size, and/or use of iterative reconstruction technique. COMPARISON: No relevant prior studies available. FINDINGS: LUNG BASES: Unremarkable. No mass. No consolidation. ABDOMEN: LIVER: The liver is enlarged and mildly fatty. GALLBLADDER AND BILE DUCTS: The gallbladder is not seen and may be surgically absent versus contr acted. PANCREAS: Unremarkable. No ductal dilation. SPLEEN: Unremarkable. ADRENALS: Unremarkable. No mass. KIDNEYS AND URETERS: Mild prominence of the ureters are noted secondary to significantly distende d bladder. There are no obstructing renal or ureteral calculi. STOMACH AND BOWEL: The stomach is distended with food contents. The small bowel is normal in frank shon. Stool is present throughout colon. There is no mucosal thickening or evidence of bowel obstructi on. PELVIS: APPENDIX: The appendix is normal in caliber without surrounding inflammation. BLADDER: The bladder is massively distended. REPRODUCTIVE: Unremarkable as visualized. ABDOMEN and PELVIS: INTRAPERITONEAL SPACE: Unremarkable. No free air. No significant fluid collection. BONES/JOINTS: No acute fracture. SOFT TISSUES: The soft tissues are normal. VASCULATURE: Unremarkable. No abdominal aortic aneurysm. LYMPH NODES: Unremarkable. No enlarged lymph nodes. IMPRESSION: 1. Significantly distended bladder. 2. No bowel obstruction. Normal appendix. Electronically signed by: Erin Milton MD 11/15/2020 12:31 AM CDT Due to temporary technical issues with the PACS/Fluency reporting system, reports are being signed by the in house radiologists without review as a courtesy to insure prompt reporting. The interpreting radiologist is fully responsible for the content of the report.
== END 2020-11-15 04:17 | disposition home or self-care (01) ==
LOC: ER 21:17
DX: M54.5 Low back pain (principal); E11.65 Type 2 diabetes mellitus with hyperglycemia; Z79.4 Long term (current) use of insulin
CPT/HCPCS: 36415; 74176; 76377; 80048; 80076; 83690; 85025; 96372; 99283

== ENCOUNTER 2020-12-31 06:55 | Inpatient (IN) | payer BC ==
[2020-12-31 07:50] LABS: Absolute Lymphocytes (CBC) 1.3 K/uL (0.7-4.9); Basophils % 0.6 % (0-1.3); Hematocrit 44.1 % (39.6-49.0); Lymphocytes % 33.7 % (15.3-44.8); MPV 8.7 fL (7.6-11.3); RBC Red Blood Cell Count 5.17 M/uL (4.33-5.43)
[2020-12-31] MEDS ORDERED: KETOROLAC 30 MG/ML INJ ONE (07:58)
[2020-12-31 09:30] LABS: ALT/SGPT 48 U/L (12-78); Albumin 3.4 g/dL (3.4-5.0); Alkaline Phosphatase 83 U/L (45-117); BUN Blood Urea Nitrogen 10 mg/dL (7-18); Bicarbonate 27 mmol/L (21-32); Bilirubin Direct < 0.1 mg/dL (0-0.2); Bilirubin Total 0.5 mg/dL (0.2-1.0); Glucose Level 309 mg/dL (74-106); Lipase 836 U/L (73-393); Protein, Total 6.4 g/dL (6.4-8.2); Sodium Level 136 mmol/L (136-145)
[2020-12-31 09:33] LABS: AST/SGOT 33 U/L (15-37); Potassium 4.2 mmol/L (3.5-5.1)
--- NOTE | 2020-12-31 09:56 | RAD REPORT ---
EXAM DESCRIPTION: RAD - Chest Single View - 12/31/2020 7:36 am CLINICAL HISTORY: pain left lower chest Chest pain. COMPARISON: Chest Single View dated 01/15/2020; Chest Pa And Lat (2 Views) dated 04/10/2019 FINDINGS: Portable technique limits examination quality. The lungs are grossly clear. The heart is normal in size. No displaced fractures. IMPRESSION: No acute intrathoracic process suspected.
[2020-12-31] MEDS ORDERED: MORPHINE 4 MG/ML SYR ONE (10:33)
[2020-12-31] MEDS ORDERED: ONDANSETRON 4 MG/2 ML VIAL ONE (10:33)
[2020-12-31] MEDS ORDERED: NA CHLORIDE 0.9% 1,000 ML ONE (10:33)
--- NOTE | 2020-12-31 10:39 | RAD REPORT ---
EXAM DESCRIPTION: CTAbdomen Pelvis W Contrast - 12/31/2020 10:27 am CLINICAL HISTORY: Abdominal pain. left upper q pain;Abd pain COMPARISON: Abdomen Pelvis W Contrast dated 11/16/2018 TECHNIQUE: Biphasic CT imaging of the abdomen and pelvis was performed with 100 ml non-ionic IV cont rast. All CT scans are performed using dose optimization technique as appropriate and may include automated exposure control or mA/KV adjustment according to patient size. FINDINGS: The lung bases are clear. The liver, spleen, pancreas, adrenal glands and kidneys are within normal limits. No bowel obstruction, free air, free fluid or abscess. The appendix is normal. No evidence of signi ficant lymphadenopathy. Chronic bilateral spondylolysis L5-S1. IMPRESSION: No acute intra-abdominal or pelvic finding.
[2020-12-31] MEDS ORDERED: INSULIN -REGULAR HUMAN 50 UNIT/0.5 ML ML ONE (11:33)
--- NOTE | 2020-12-31 12:20 | ER ---
Nurse's Notes [facility] Name: Harvey Wyatt Age: 25 yrs Sex: Male : 1995 Arrival Date: 12/31/2020 Time: 06:58 Bed 28 Private MD: Diagnosis: Biliary acute pancreatitis Presentation: 12/31 07:06 Chief complaint: Patient states: L sided anterior rib cage pain for 3 days. No fever or ll1 cough. Coronavirus screen: Vaccine status: Patient reports receiving the 1st dose of the Covid vaccine. Client denies travel out of the [place] in the last 14 days. At this time, the client does not indicate any symptoms associated with coronavirus-19. Ebola Screen: Patient denies travel to an Ebola-affected area in the 21 days before illness onset. Initial Sepsis Screen: Does the patient meet any 2 criteria? No. Patient's initial sepsis screen is negative. Does the patient have a suspected source of infection? No. Patient's initial sepsis screen is negative. Risk Assessment: Do you want to hurt yourself or someone else? Patient reports no desire to harm self or others. Onset of symptoms was December 29, 2020. 07:06 Method Of Arrival: Ambulatory ll1 07:06 Acuity: BINDU 4 ll1 Historical: - Allergies: 07:06 No Known Allergies; ll1 - PMHx: 07:06 Diabetes - IDDM; ll1 - PSHx: 07:06 None; ll1 - Immunization history:: Client reports receiving the 1st dose of the Covid vaccine, Flu vaccine status is unknown. - Social history:: Smoking status: Patient denies any tobacco usage or history of. - Family history:: not pertinent. Screenin:31 Abuse screen: Denies threats or abuse. Nutritional screening: No deficits noted. cc4 Tuberculosis screening: No symptoms or risk factors identified. Fall Risk None identified. Assessment: 07:28 General: Appears in no apparent distress. Behavior is calm, cooperative, appropriate cc4 for age. Pain: Complains of pain in left rib/abd pain Pain does not radiate. Pain currently is 8 out of 10 on a pain scale. Quality of pain is described as sharp, Pain began gradually, Aggravated by touch/movement. Neuro: No deficits noted. Level of Consciousness is awake, alert, obeys commands, Oriented to person, place, time, situation, [employer] are equal bilaterally Moves all extremities. Gait is steady, Speech is normal, Facial symmetry appears normal. Cardiovascular: No deficits noted. Denies chest pain, nausea, shortness of breath, vomiting, Capillary refill < 3 seconds Rhythm is sinus rhythm. Respiratory: No deficits noted. Reports Airway is patent Respiratory effort is even, unlabored, Respiratory pattern is regular, Breath sounds are clear bilaterally. Denies. 09:01 Reassessment: Patient appears in no apparent distress at this time. No changes from [facility] previously documented assessment. Patient and/or family updated on plan of care and expected duration. Pain level reassessed. Patient is alert, oriented x 3, equal unlabored respirations, skin warm/dry/pink. 11:15 Reassessment: Patient appears in no apparent distress at this time. No changes from [facility] previously documented assessment. Patient and/or family updated on plan of care and expected duration. Pain level reassessed. Patient is alert, oriented x 3, equal unlabored respirations, skin warm/dry/pink. 12:59 Reassessment: Patient appears in no apparent distress at this time. No changes from [facility] previously documented assessment. Patient and/or family updated on plan of care and expected duration. Pain level reassessed. Patient is alert, oriented x 3, equal unlabored respirations, skin warm/dry/pink. Patient states feeling better. 15:37 Reassessment: Patient appears in no apparent distress at this time. No changes from [facility] previously documented assessment. Patient and/or family updated on plan of care and expected duration. Pain level reassessed. Patient is alert, oriented x 3, equal unlabored respirations, skin warm/dry/pink. 01/01 07:11 General: pt sleeping, VSS, will cont to monitor.. tc5 Vital Signs: 12/31 07:06 BP 127 / 75; Pulse 89; Resp 17; Temp 98.6; Pulse Ox 98% ; Weight 81.65 kg; Height 5 ft. ll1 5 in. (165.10 cm); 09:01 BP 111 / 63; Pulse 106 MON; Resp 18 S; Pulse Ox 96% on R/A; kh1 10:00 BP 116 / 73; Pulse 84; Resp 20; Temp 98.0(TE); Pulse Ox 92% on R/A; kh1 11:00 BP 118 / 68; Pulse 83; Resp 20; Pulse Ox 97% on R/A; kh1 12:00 BP 113 / 69; Pulse 89; Resp 20; Temp 98.3(TE); Pulse Ox 97% on R/A; kh1 13:00 BP 115 / 67; Pulse 83 MON; Resp 16 S; Pulse Ox 98% on R/A; kh1 14:00 BP 110 / 68; Pulse 75 MON; Resp 18 S; Pulse Ox 97% on R/A; kh1 14:00 BP 115 / 60; Pulse 77 MON; Resp 20 S; Pulse Ox 97% on R/A; kh1 01/01 07:15 BP 123 / 78; Pulse 86; Resp 16; Pulse Ox 97% ; tc5 12/31 07:06 Body Mass Index 29.95 (81.65 kg, 165.10 cm) ll1 09:01 Normal Sinus Rhythm kh1 14:00 Normal Sinus Rhythm 1 ED Course: 12/31 06:58 Patient arrived in ED. wm 07:04 Emmanuel Mcrae MD is Attending Physician. ma2 07:06 Arm band placed on Patient placed in an exam room, on a stretcher. ll1 07:08 Triage completed. ll1 07:20 Maria Del Carmen Card, RN is Primary Nurse. cc4 07:28 Basic Metabolic Panel Sent. cc4 07:28 CBC with Diff Sent. cc4 07:28 Hepatic Function Sent. cc4 07:28 Lipase Sent. cc4 07:31 Patient has correct armband on for positive identification. Call light in reach. Side cc4 rails up X 1. Pulse ox on. NIBP on. 07:36 Chest Single View XRAY In Process Unspecified. EDMS 09:08 No provider procedures requiring assistance completed. Inserted saline lock: 20 gauge kh1 in left antecubital area, using aseptic technique. 10:27 CT Abd/Pelvis - IV Contrast Only In Process Unspecified. EDMS 12:[address] MD is Hospitalizing Provider. ma2 15:05 US Abdomen Limited In Process Unspecified. EDMS 01/01 07:09 Primary Nurse role handed off by Maria Del Carmen Card, RN tc5 07:09 Dayanara Brown, RN is Primary Nurse. tc5 07:10 Report received from Yani MARCUS, care of pt assumed. tc5 08:11 COVID-19 : Document "Date of Symptom Onset" if Symptomatic. Sent. [facility] 08:11 Lipid Profile Sent. 5 16:48 IV discontinued, Pressure dressing applied. 5 17:07 IV discontinued, intact, bleeding controlled, No redness/swelling at site. tc5 Administered Medications: 12/31 07:35 Drug: Ketorolac 30 mg Route: IVP; Site: left antecubital; 1 10:14 Drug: morphine 4 mg Route: IVP; Site: left antecubital; 1 10:14 Drug: Zofran (Ondansetron) 4 mg Route: IVP; Site: left antecubital; 1 10:15 Drug: NS 0.9% 1000 ml Route: IV; Rate: 1 bolus; Site: left antecubital; 1 12:16 Drug: Insulin Regular Human 5 units {Co-Signature: oh (Mar Bhat RN).} Route: IVP; [facility] Site: left antecubital; Outcome: 12:19 Decision to Hospitalize by Provider. [facility] 01/01 17:07 Discharged to home ambulatory. 5 17:07 Condition: stable 5 17:07 Discharge instructions given to patient. 17:10 Patient left the ED. [facility] Signatures: Dispatcher [employer] EDVeronica Vega Emmanuel Pollard MD MD wa2 Riley Lorenzo, RN RN 1 Yvrose Sage Kecia [facility] Maria Del Carmen Card RN RN cc4 Dayanara Brown RN RN 5 Mar Bhat RN oh Corrections: (The following items were deleted from the chart) 12/31 09:16 09:01 BP 130 / 76; Pulse 70bpm; Monitor: Normal Sinus RhythmResp 18bpm; Spontaneous; kh1 Pulse Ox 96% RA; kh1 13:01 10:00 BP 118 / 68; Pulse 83bpm; Resp 20bpm; Pulse Ox 97% RA; kh1 kh1 15:42 11:00 BP 113 / 69; Pulse 89bpm; Resp 20bpm; Pulse Ox 97% RA; Temp 98.3F Temporal; 1 1
--- NOTE | 2020-12-31 12:20 | EDPHYS ---
Physician Documentation [facility] Name: Harvey Wyatt Age: 25 yrs Sex: Male : 1995 Arrival Date: 12/31/2020 Time: 06:58 Bed 28 Private MD: ED Physician Emmanuel Mcrae HPI: 12/31 09:29 This 25 yrs old Male presents to ER via Ambulatory with complaints of Flank ma2 Pain. 09:29 Onset: The symptoms/episode began/occurred gradually, 1 day(s) ago. Associated signs ma2 and symptoms: Pertinent negatives: dysuria, headache, hematuria, nausea. Severity of pain: At its worst the pain was mild in the emergency department the pain is unchanged. The patient has not experienced similar symptoms in the past. Historical: - Allergies: 07:06 No Known Allergies; ll1 - PMHx: 07:06 Diabetes - IDDM; ll1 - PSHx: 07:06 None; ll1 - Immunization history:: Client reports receiving the 1st dose of the Covid vaccine, Flu vaccine status is unknown. - Social history:: Smoking status: Patient denies any tobacco usage or history of. - Family history:: not pertinent. ROS: 09:29 Constitutional: Negative for fever, chills, and weight loss, Cardiovascular: Negative ma2 for chest pain, palpitations, and edema, Respiratory: Negative for shortness of breath, cough, wheezing, and pleuritic chest pain, Abdomen/GI: Negative for abdominal pain, nausea, diarrhea, and constipation, Back: Negative for injury and pain, Skin: Negative for injury, rash, and discoloration, Neuro: Negative for headache, weakness, numbness, tingling, and seizure, Psych: Negative for depression, anxiety, suicide ideation, homicidal ideation, and hallucinations, Allergy/Immunology: Negative for hives, rash, and allergies, Endocrine: Negative for neck swelling, polydipsia, polyuria, polyphagia, and marked weight changes. 09:29 All other systems are negative. Exam: 09:29 Constitutional: This is a well developed, well nourished patient who is awake, alert, ma2 and in no acute distress. Head/Face: Normocephalic, atraumatic. Eyes: Pupils equal round and reactive to light, extra-ocular motions intact. Lids and lashes normal. Conjunctiva and sclera are non-icteric and not injected. Cornea within normal limits. Periorbital areas with no swelling, redness, or edema. ENT: Nares patent. No nasal discharge, no septal abnormalities noted. Tympanic membranes are normal and external auditory canals are clear. Oropharynx with no redness, swelling, or masses, exudates, or evidence of obstruction, uvula midline. Mucous membranes moist. Neck: Trachea midline, no thyromegaly or masses palpated, and no cervical lymphadenopathy. Supple, full range of motion without nuchal rigidity, or vertebral point tenderness. No Meningismus. Chest/axilla: Normal chest wall appearance and motion. Nontender with no deformity. No lesions are appreciated. Cardiovascular: Regular rate and rhythm with a normal S1 and S2. No gallops, murmurs, or rubs. Normal PMI, no JVD. No pulse deficits. Respiratory: Lungs have equal breath sounds bilaterally, clear to auscultation and percussion. No rales, rhonchi or wheezes noted. No increased work of breathing, no retractions or nasal flaring. Abdomen/GI: Soft, non-tender, with normal bowel sounds. No distension or tympany. No guarding or rebound. No evidence of tenderness throughout. Back: No spinal tenderness. No costovertebral tenderness. Full range of motion. MS/ Extremity: Pulses equal, no cyanosis. Neurovascular intact. Full, normal range of motion. Neuro: Awake and alert, GCS 15, oriented to person, place, time, and situation. Cranial nerves II-XII grossly intact. Motor strength 5/5 in all extremities. Sensory grossly intact. Cerebellar exam normal. Normal gait. Psych: Awake, alert, with orientation to person, place and time. Behavior, mood, and affect are within normal limits. Vital Signs: 07:06 BP 127 / 75; Pulse 89; Resp 17; Temp 98.6; Pulse Ox 98% ; Weight 81.65 kg; Height 5 ft. ll1 5 in. (165.10 cm); 09:01 BP 111 / 63; Pulse 106 MON; Resp 18 S; Pulse Ox 96% on R/A; kh1 10:00 BP 116 / 73; Pulse 84; Resp 20; Temp 98.0(TE); Pulse Ox 92% on R/A; kh1 11:00 BP 118 / 68; Pulse 83; Resp 20; Pulse Ox 97% on R/A; 1 12:00 BP 113 / 69; Pulse 89; Resp 20; Temp 98.3(TE); Pulse Ox 97% on R/A; 1 13:00 BP 115 / 67; Pulse 83 MON; Resp 16 S; Pulse Ox 98% on R/A; 1 14:00 BP 110 / 68; Pulse 75 MON; Resp 18 S; Pulse Ox 97% on R/A; 1 14:00 BP 115 / 60; Pulse 77 MON; Resp 20 S; Pulse Ox 97% on R/A; 1 01/01 07:15 BP 123 / 78; Pulse 86; Resp 16; Pulse Ox 97% ; tc5 12/31 07:06 Body Mass Index 29.95 (81.65 kg, 165.10 cm) 1 09:01 Normal Sinus Rhythm 1 14:00 Normal Sinus Rhythm [facility] MDM: 12/31 07:04 Patient medically screened. [facility] 09:29 Differential diagnosis: nephrolithiasis, UTI, diverticulitis, pancreatitis. [facility] 11:10 Data reviewed: vital signs, nurses notes. Counseling: I had a detailed discussion with [facility] the patient and/or guardian regarding: the historical points, exam findings, and any diagnostic results supporting the discharge/admit diagnosis, the presence of at least one elevated blood pressure reading (>120/80) during this emergency department visit, the need for outpatient follow up. Counseling: I had a detailed discussion with the patient and/or guardian regarding: the need for further work-up and treatment in the hospital. Response to treatment: the patient's symptoms have markedly improved after treatment. ED course: Patient has pancreatitis, moderate risk per Dawson score as he has low WBC and mild tachycardia, blood sugar is high he is diabetic took insulin. I offered admission, discussed risk benefits, and need for work-up of causes of pancreatitis. As he does not drink alcohol. He would like to follow-up with GI doctor in 24 hours. I instructed him to return to ER for any worsening of his symptoms.. 12:18 ED course: discussed with Cheo oliver . [facility] 12/31 07:14 Order name: Basic Metabolic Panel; Complete Time: 09:41 [facility] 12/31 07:14 Order name: CBC with Diff; Complete Time: 09:12 [facility] 12/31 07:14 Order name: Hepatic Function; Complete Time: 09:41 [facility] 12/31 07:14 Order name: Lipase; Complete Time: 09:41 [facility] 12/31 13:33 Order name: COVID-19 : Document "Date of Symptom Onset" if Symptomatic. 12/31 14:17 Order name: Lipid Profile [facility] 12/31 14:17 Order name: Lipid Profile [facility] 12/31 15:29 Order name: SARS-COV-2 RT PCR [facility] 12/31 16:05 Order name: LDL, Direct [facility] 12/31 17:36 Order name: Glucose, Ancillary Testing [facility] 12/31 21:11 Order name: Glucose, Ancillary Testing [facility] 01/01 04:21 Order name: Glucose, Ancillary Testing [facility] 01/01 08:11 Order name: Glucose, Ancillary Testing [facility] 12/31 07:14 Order name: IV Saline Lock; Complete Time: 07:28 [facility] 12/31 07:14 Order name: Labs collected and sent; Complete Time: 07:28 [facility] 12/31 07:14 Order name: Chest Single View XRAY; Complete Time: 10:13 [facility] 12/31 07:14 Order name: CT Abd/Pelvis - IV Contrast Only; Complete Time: 11:10 [facility] 12/31 07:48 Order name: Labs - recollect needed: recollect green top/ lipemic sample/ inside lab eb called for recollect; Complete Time: 18:34 12/31 14:17 Order name: US Abdomen Limited [facility] 01/01 12:43 Order name: Glucose, Ancillary Testing [facility] 01/01 13:47 Order name: Diet Clear Liquid; Complete Time: 13:47 mh5 Administered Medications: 07:35 Drug: Ketorolac 30 mg Route: IVP; Site: left antecubital; kh1 10:14 Drug: morphine 4 mg Route: IVP; Site: left antecubital; kh1 10:14 Drug: Zofran (Ondansetron) 4 mg Route: IVP; Site: left antecubital; kh1 10:15 Drug: NS 0.9% 1000 ml Route: IV; Rate: 1 bolus; Site: left antecubital; kh1 12:16 Drug: Insulin Regular Human 5 units {Co-Signature: oh (Oneka Home RN).} Route: IVP; kh1 Site: left antecubital; Disposition Summary: 12/31/20 12:19 Hospitalization Ordered Hospitalization Status: Observation ma2 Provider: Marcelo St Condition: Stable ma2 Problem: new ma2 Symptoms: are unchanged ma2 Bed/Room Type: Standard ma2 Location: [facility] ER HOLD(01/01/21 16:17) 5 Room Assignment: ERHOLD-(01/01/21 16:17) [facility] Diagnosis - Biliary acute pancreatitis ma2 Discharge Instructions: - Discharge Summary Sheet ma2 Forms: - Medication Reconciliation Form ma2 - SBAR form ky2 Prescriptions: - Diclofenac Sodium 75 mg Oral Tablet Sustained Release - take 1 tablet by ORAL route 2 times per day; 30 tablet; Refills: 0, Product ma2 Selection Permitted - Cyclobenzaprine 5 mg Oral Tablet - take 1 tablet by ORAL route 3 times per day As needed; 15 tablet; Refills: 0, ma2 Product Selection Permitted Signatures: Dispatcher [employer] EDMS Emmanuel Mcrae MD MD ky2 Sun Young Lynsay RN RN ll1 Maxine Mason 1 Cheo Chambers Christie RN RN cc4 Dayanara Brown RN RN tc5 Mar Bhat RN de Corrections: (The following items were deleted from the chart) 14:31 13:34 CORONAVIRUS ordered. EDDC EDDC 18:05 12:19 Telemetry/MedSurg (observation) [facility] 18:05 12:19 ky2 01/01 16:14 12/31 18:05 [facility] ER HOLD [facility] 01/01 16:14 12/31 18:05 ERHOLD- [facility] 01/01 16:17 16:14 Telemetry/MedSurg (observation) [facility] 16:17 16:14 218 [facility]
--- NOTE | 2020-12-31 15:18 | RAD REPORT ---
EXAM DESCRIPTION: US - Abdomen Exam Limited - 12/31/2020 3:05 pm CLINICAL HISTORY: pancreatitis Abdominal pain COMPARISON: No comparisonsAbdomen Pelvis W Contrast dated 12/31/2020 FINDINGS: The gallbladder is nonvisualized. The common bile duct is normal measuring 3 mm.. The liver demonstrates fatty liver. IMPRESSION: Nonvisualized gallbladder. No pathologic biliary dilatation.
--- NOTE | 2020-12-31 15:23 | P.HP ---
Certification for Inpatient Patient admitted to: Observation With expected LOS: <2 Midnights Patient will require the following post-hospital care: None Practitioner: I am a practitioner with admitting privileges, knowledge of patient current condition, hospital course, and medical plan of care. Services: Services provided to patient in accordance with Admission requirements found in Title 42 Section 412.3 of the Code of Federal Regulations Patient History Date of Service: 12/31/20 Primary Care Provider: No PCP Reason for admission: Pancreatitis History of Present Illness: CT Abdomen Pelvis W Contrast - 12/31/2020 10:27 am CLINICAL HISTORY: Abdominal pain. left upper q pain COMPARISON: Abdomen Pelvis W Contrast dated 11/16/2018 FINDINGS: The lung bases are clear. The liver, spleen, pancreas, adrenal glands and kidneys are within normal limits. No bowel obstruction, free air, free fluid or abscess. The appendix is normal. No evidence of significant lymphadenopathy. Chronic bilateral spondylolysis L5-S1. IMPRESSION: No acute intra-abdominal or pelvic finding. Chest Single View - 12/31/2020 7:36 am CLINICAL HISTORY: pain left lower chest COMPARISON: Chest Single View dated 01/15/2020; Chest Pa And Lat (2 Views) dated 04/10/2019 FINDINGS: Portable technique limits examination quality. The lungs are grossly clear. The heart is normal in size. No displaced fractures. IMPRESSION: No acute intrathoracic process suspected. 25-year-old white male who presents with 8/10 left upper abdominal pain. Pain developed gradually over the last 3 days and is described as sharp and very painful. The abdomen is tender. The patient has a history of diabetes for which he takes insulin. No other history. The patient does not drink alcohol. Labs are remarkable for a glucose of 309, a lipase of 836, calcium of 8.3. Allergies No Known Allergies Allergy (Unverified 08/25/17 11:30) Home medications list reviewed: No Home Medications: Fenofibrate 120 mg PO DAILY #30 tablet 08/26/17 Insulin 70/30 NPH/Reg Human [Novolin 70/30*] 20 units SQ BID #1 ml 08/26/17 - Past Medical/Surgical History Diabetic: Yes -: Diabetes Past Surgical History: Patient denies surgical history Psychosocial/ Personal History: Employed, lives at home with family - Family History Mother -: Diabetes Father -: Hypertension, Diabetes - Social History Smoking Status: Never smoker Alcohol use: Yes CD- Drugs: No Caffeine use: No Place of Residence: Home Review of Systems 10-point ROS is otherwise unremarkable General: Unremarkable Eyes: Unremarkable ENT: Unremarkable Respiratory: Unremarkable Cardiovascular: Unremarkable Gastrointestinal: Abdominal Pain (Left upper quadrant), Constipation Genitourinary: Unremarkable Musculoskeletal: Other (Knee pain) Integumentary: Unremarkable Neurological: Unremarkable Lymphatics: Unremarkable Physical Examination - Physical Exam General: Alert, In no apparent distress, Oriented x3, Cooperative, Mild distress HEENT: Atraumatic, Normocephalic, PERRLA Neck: Supple, JVD not distended Respiratory: Clear to auscultation bilaterally, Normal air movement Cardiovascular: Regular rate/rhythm, Normal S1 S2 Capillary refill: Brisk Gastrointestinal: Normal bowel sounds, Non-distended, Tenderness (Left upper quadrant) Musculoskeletal: No swelling, No contractures, No erythema, No tenderness Integumentary: No rashes, No breakdown, No significant lesion Neurological: Normal gait, Normal speech, Normal strength at 5/5 x4 extr External genitalia: Deferred Rectal: Deferred - Studies Laboratory Data (last 24 hrs) 12/31/20 08:44: Sodium 136, Potassium 4.2, BUN 10, Creatinine 0.57, Glucose 309 H, Total Bilirubin 0.5, AST 33, ALT 48, Alkaline Phosphatase 83, Lipase 836 H 12/31/20 07:24: WBC 3.80 L, Hgb 15.5, Hct 44.1, Plt Count 200 Assessment and Plan - Plan Assessment: Pancreatitis Abdominal pain Diabetes Plan: Pancreatitis: N.p.o., repeat lipase, monitor patient for signs and symptoms of shock or infection Abdominal pain: Morphine as needed for pain. Reassess when patient begins p.o. medications Diabetes: Begin Lantus 10 units subcu daily. Sliding scale insulin moderate scale as needed. DVT PPx: Lovenox 40 mg subcu CODE STATUS: Full code Discharge Plan: Home Plan to discharge in: 48 Hours - Advance Directives Does patient have a Living Will: No Does patient have a Durable POA for Healthcare: No - Code Status/Comfort Care Code Status Assessed: Yes Code Status: Full Code Critical Care: No Time Spent Managing Pts Care (In Minutes): 70
[2020-12-31] MEDS ORDERED: ONDANSETRON 4 MG/2 ML VIAL IV PRN (15:32)
[2020-12-31] MEDS ORDERED: D50W 25 GM/50 ML SYRINGE IV PRN (15:32)
[2020-12-31] MEDS ORDERED: GLUCAGON 1 MG/VIAL IM PRN (15:32)
[2020-12-31 15:40] LABS: HDL Cholesterol 24 mg/dL (40-60)
[2020-12-31] MEDS ORDERED: NA CHLORIDE 0.9% 1,000 ML IV SCH (16:00)
[2020-12-31 16:05] LABS: LDL, Direct 52 mg/dL (100-129)
[2020-12-31] MEDS ORDERED: INSULIN -REGULAR HUMAN 50 UNIT/0.5 ML ML SQ SCH (16:30)
[2020-12-31 17:46] VITALS: BMI 29.9
[2020-12-31] MEDS ORDERED: INSULIN GLARGINE 100 UNITS/ML SQ SCH (21:00)
[2021-01-01] MEDS ORDERED: ONDANSETRON 4 MG/2 ML VIAL IV PRN (00:26)
[2021-01-01] MEDS ORDERED: MORPHINE 2 MG/ML SYR IV PRN (00:26)
[2021-01-01] MEDS ORDERED: NA CHLORIDE 0.9% 1,000 ML IV SCH (01:00)
[2021-01-01] MEDS: INSULIN -REGULAR HUMAN 50 UNIT/0.5 ML ML SQ SCH ×2 (07:30→11:30)
[2021-01-01] MEDS ORDERED: NA CHLORIDE 0.9% 1,000 ML ONE (08:29)
[2021-01-01] MEDS ORDERED: ENOXAPARIN 40 MG/0.4 ML SQ ONE (08:29)
[2021-01-01] MEDS ORDERED: INSULIN -REGULAR HUMAN 50 UNIT/0.5 ML ML ONE ×2 (08:29→14:18)
[2021-01-01] MEDS ORDERED: ENOXAPARIN 40 MG/0.4 ML SQ SCH ×2 (09:00)
[2021-01-01 12:36] VITALS: O2SAT 97
[2021-01-01 14:41] VITALS: BP 121/64; TEMP 98
--- NOTE | 2021-01-01 16:39 | P.DS ---
Admission Date: 12/31/20 Discharge Date: 01/01/21 Primary Care Provider: No PCP Disposition: ROUTINE DISCHARGE Discharge Condition: GOOD Reason for Admission: Pancreatitis Brief History of Present Illness: Patient presented with pancreatitis and diabetes Hospital Course: patient is doing well.. Able to tolerate liquids. He has no pain in his abdomen. Will lsend him home on metformin. Abstain from alcohol. will have him follow up with me or any pcp Vital Signs/Physical Exam: Temp Pulse Resp BP Pulse Ox 98.0 F 88 16 121/64 98 01/01/21 14:40 01/01/21 12:00 01/01/21 12:00 01/01/21 14:40 01/01/21 08:00 General: Alert, In no apparent distress HEENT: Atraumatic, PERRLA, EOMI Neck: Supple, JVD not distended Respiratory: Clear to auscultation bilaterally, Normal air movement Cardiovascular: Regular rate/rhythm, Normal S1 S2 Gastrointestinal: Normal bowel sounds, No tenderness Musculoskeletal: No tenderness Integumentary: No rashes Neurological: Normal speech, Normal tone, Normal affect Lymphatics: No axilla or inguinal lymphadenopathy Laboratory Data at Discharge: WBC 3.80 K/uL (4.3-10.9) L 12/31/20 07:24 Hgb 15.5 g/dL (13.6-17.9) 12/31/20 07:24 Hct 44.1 % (39.6-49.0) 12/31/20 07:24 Plt Count 200 K/uL (152-406) 12/31/20 07:24 Sodium 136 mmol/L (136-145) 12/31/20 08:44 Potassium 4.2 mmol/L (3.5-5.1) 12/31/20 08:44 BUN 10 mg/dL (7-18) 12/31/20 08:44 Creatinine 0.57 mg/dL (0.55-1.3) 12/31/20 08:44 Glucose 309 mg/dL (74-106) H 12/31/20 08:44 Total Bilirubin 0.5 mg/dL (0.2-1.0) 12/31/20 08:44 AST 33 U/L (15-37) 12/31/20 08:44 ALT 48 U/L (12-78) 12/31/20 08:44 Alkaline Phosphatase 83 U/L (45-117) 12/31/20 08:44 Triglycerides 952 mg/dL (<150) H 12/31/20 08:44 Cholesterol 191 mg/dL (<200) 12/31/20 08:44 LDL Cholesterol Direct 52 mg/dL (100-129) L 12/31/20 08:44 HDL Cholesterol 24 mg/dL (40-60) L 12/31/20 08:44 Cholesterol/HDL Ratio 7.96 12/31/20 08:44 Lipase 836 U/L (73-393) H 12/31/20 08:44 Home Medications: Fenofibrate 120 mg PO DAILY #30 tablet 08/26/17 Insulin 70/30 NPH/Reg Human [Novolin 70/30*] 20 units SQ BID #1 ml 08/26/17 Metformin HCl 500 mg PO BID 30 Days #60 tablet 01/01/21 New Medications: Metformin HCl 500 mg PO BID 30 Days #60 tablet Diet: ADA Activity: Ad dina Followup: Marcelo St MD [ACTIVE - CAN ADMIT] - Physician Review: Patient Assessed, Agree with Above Assessment and Plan Time spent managing pt's care (in minutes): 30
== END 2021-01-01 17:10 | disposition home or self-care (01) | DRG 440 ==
LOC: ER 06:55 → ERHOLD 15:35
PROVIDERS: ADMIT Internal Medicine; ATTEND Internal Medicine
DX: K85.90 Acute pancreatitis without necrosis or infection, unspecified (principal); E11.9 Type 2 diabetes mellitus without complications; Z79.4 Long term (current) use of insulin
CPT/HCPCS: 36415; 71045; 74177; 76705; 80048; 80061; 80076; 82947; 83690; 85025; 96374; 96375; 99284; J1650; J2270; J2405; J7030; Q9967; U0003

== ENCOUNTER 2021-04-01 13:15 | Emergency (ER) | payer OTHER, BC ==
--- OUTSIDE RECORDS SUMMARY | 2021-04-01 13:19 | XMS REPORT | Continuity of Care Document ---
:1995 Author Organization [facility] t Address [address] [place] [address] Care Team Providers Name Role Phone Kajal BECKER S Attending Clinician Alden ATKINSON Attending Clinician Unavailable Payers Payer Name Policy Type Policy Number Effective Date Expiration Date S ource Problems This patient has no known problems. Allergies, Adverse Reactions, Alerts Allergy Allergy Status Severity Reaction(s) Onset Inactive Treating Comm ents Source Name Type Date Date Clinician NO KNOWN Drug Active Univers ALLERGIE Class ity of S [facility] Social History Social Habit Start Date Stop Date Quantity Comments Source Exposure to Not sure [facility] SARS-CoV-2 (event) Medica l Branch Sex Assigned At [birth year] [facility] 00:00:00 00:00:00 [facility] Smoking Status Start Date Stop Date Source Unknown if ever smoked [facility] Medications Ordered Filled Start Stop Current Ordering Indication Dosage Frequency Signature Comments Components Source Medication Medication Date Date Medication? Clinician (SIG) Name Name clindamycin 2020- No [id number] 450mg Take 3 Univers 150 mg 09-27 [id number] capsules ity of capsule 00:00: 04:59 by mouth 3 Harvey as 00 :00 (three) Medical times Branch daily for 10 days. Vital Signs Vital Name Observation Time Observation Value Comments Source Systolic blood 2020-09-27 06:14:00 135 mm[Hg] Univer sity of pressure [facility] Diastolic blood 2020-09-27 06:14:00 83 mm[Hg] Unive rsity of pressure [facility] Heart rate 2020-09-27 06:14:00 110 /min [facility]i ty [facility] Body temperature 2020-09-27 06:14:00 37.06 Sarah Univ ersity [facility] Respiratory rate 2020-09-27 06:14:00 20 /min Univ [facility] Body weight 2020-09-27 06:14:00 81.647 kg [facility] Oxygen saturation in 2020-09-27 06:14:00 100 /min University of Arterial blood by [place] [facility] dav[facility] Pulse oximetry Branch Systolic blood 2020-09-27 06:14:00 135 mm[Hg] Univer sity of pressure [facility] Diastolic blood 2020-09-27 06:14:00 83 mm[Hg] Unive rsity of pressure [facility] Heart rate 2020-09-27 06:14:00 110 /min [facility] Body temperature 2020-09-27 06:14:00 37.06 Sarah Univ [facility] Respiratory rate 2020-09-27 06:14:00 20 /min Univ [facility] Body weight 2020-09-27 06:14:00 81.647 kg [facility] Oxygen saturation in 2020-09-27 06:14:00 100 /min University of Arterial blood by [facility] david Pulse oximetry Branch Procedures Procedure Date / Time Performed Performing Clinician [facility] e NOTICE OF PRIVACY 2020-09-27 06:10:18 Doctor Unassigned, No Univ [facility] [place] PRACTICES Name Medical Branch CONSENT/REFUSAL FOR 2020-09-27 06:09:54 [facility]igned, [facility] AND Name Medical Branch TREATMENT Encounters Start End Encounter Admission Attending Care Care Encounter Source Date/Time Date/Time Type Type Clinicians Facility Department ID 2020-09-27 2020-09-27 LARRY Shea [id number] 01:16:00 02:44:00 Carol Dolan [id number] [place] [id number] [place] [id number] 2020-09-27 2020-09-27 Emergency Kajal MTSATISH [id number] Univers 01:16:00 02:44:00 Carol Dolan [id number] i [facility] [id number] [facility] [id number] [place] [address] Branch 2020-09-27 2020-09-27 Emergency X LARRY ATKINSON ERT [id number] Univers 01:16:00 01:16:00 CAROL bishop of [facility] Results This patient has no known results.
[2021-04-01] MEDS ORDERED: ACETAMINOPHEN 500 MG TAB ONE (13:57)
[2021-04-01] MEDS ORDERED: NA CHLORIDE 0.9% 2,000 ML ONE (14:20)
[2021-04-01 14:34] LABS: Absolute Lymphocytes (CBC) 0.4 K/uL (0.7-4.9); Basophils % 0.6 % (0-1.3); MPV 8.9 fL (7.6-11.3); RBC Red Blood Cell Count 5.78 M/uL (4.33-5.43)
[2021-04-01 14:51] LABS: Albumin 3.6 g/dL (3.4-5.0); Alkaline Phosphatase 102 U/L (45-117); Bicarbonate 28 mmol/L (21-32); Lipase 74 U/L (73-393); Sodium Level 131 mmol/L (136-145)
[2021-04-01 15:06] LABS: ALT/SGPT 67 U/L (12-78); BUN Blood Urea Nitrogen 6 mg/dL (7-18); Bilirubin Direct < 0.4 mg/dL (0-0.2); Protein, Total 7.1 g/dL (6.4-8.2)
[2021-04-01 15:07] LABS: AST/SGOT 23 U/L (15-37); Potassium 4.1 mmol/L (3.5-5.1)
[2021-04-01 15:10] LABS: Glucose Level 422 mg/dL (74-106)
[2021-04-01 15:13] LABS: SARS-COV-2 RT PCR NEGATIVE (NEGATIVE)
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
[2021-04-01 16:06] VITALS: TEMP 98.8
[2021-04-01 16:09] VITALS: BP 113/67; O2SAT 98
== END 2021-04-01 16:02 | disposition home or self-care (01) ==
LOC: ER 13:15
DX: R52 Pain, unspecified (principal); Z20.822 Contact with and (suspected) exposure to COVID-19; E11.9 Type 2 diabetes mellitus without complications
CPT/HCPCS: 85025; 80048; 36415; 82947; 80076; 83690; 0240U; 96360; 99283; J7030

== ENCOUNTER 2021-07-28 06:15 | Observation (INO) | payer BC ==
--- OUTSIDE RECORDS SUMMARY | 2021-07-28 06:18 | XMS REPORT | Continuity of Care Document ---
:1995 Author Organization [facility] t Address [address] [place] [address] Care Team Providers Name Role Phone Pcp, Does Not Have A Primary Care Physician Only, Db Test Attending Clinician Unavailable Espinoza RN, T Attending Clinician Unavailable King LU Attending Clinician Demetrio BECKER, S Attending Clinician Alden ATKINSON Attending Clinician Unavailable Payers Payer Name Policy Type Policy Number Effective Date Expiration Date S ource Problems This patient has no known problems. Allergies, Adverse Reactions, Alerts Allergy Allergy Status Severity Reaction(s) Onset Inactive Treating Comm ents Source Name Type Date Date Clinician NO KNOWN Drug Active Univers ALLERGIE Class ity of [facility] Social History Social Habit Start Date Stop Date Quantity Comments Source Exposure to Yes [facility] SARS-CoV-2 (event) Medica l Branch Sex Assigned At [birth year] [facility] 00:00:00 00:00:00 [facility] Smoking Status Start Date Stop Date Source Unknown if ever smoked [facility] Medications Ordered Filled Start Stop Current Ordering Indication Dosage Frequency Signature Comments Components Source Medication Medication Date Date Medication? Clinician (SIG) Name Name clindamycin 2020- No [id number] 450mg Take 3 Univers 150 mg 09-27 [id number] capsules ity of capsule 00:00: 04:59 by mouth 3 Harvey as 00 :00 (three) Medical times Branch daily for 10 days. Vital Signs Vital Name Observation Time Observation Value Comments Source Systolic blood 2020-09-27 06:14:00 135 mm[Hg] Univer sity of pressure [facility] Diastolic blood 2020-09-27 06:14:00 83 mm[Hg] Unive rsity of pressure [facility] Heart rate 2020-09-27 06:14:00 110 /min Universi ty of [facility] Body temperature 2020-09-27 06:14:00 37.06 Sarah [facility] ersity of [facility] Respiratory rate 2020-09-27 06:14:00 20 /min Univ ersity of [facility] Body weight 2020-09-27 06:14:00 81.647 kg Universi ty of [facility] Oxygen saturation in 2020-09-27 06:14:00 100 /min University of Arterial blood by [facility] david Pulse oximetry Branch Systolic blood 2020-09-27 06:14:00 135 mm[Hg] Univer sity of pressure [facility] Diastolic blood 2020-09-27 06:14:00 83 mm[Hg] Unive rsity of pressure [facility] Heart rate 2020-09-27 06:14:00 110 /min [facility]i ty [facility] [place] [facility] [place] Body temperature 2020-09-27 06:14:00 37.06 Sarah Univ ersity of [facility] Respiratory rate 2020-09-27 06:14:00 20 /min [facility] ersity of [facility] Body weight 2020-09-27 06:14:00 81.647 kg Universi ty [facility] Oxygen saturation in 2020-09-27 06:14:00 100 /min University of Arterial blood by [facility] david Pulse oximetry Branch Procedures Procedure Date / Time Performed Performing Clinician [facility] e NOTICE OF PRIVACY 2020-09-27 06:10:18 Doctor Un[facility]igned, No [facility] CONSENT/REFUSAL FOR 2020-09-27 06:09:54 [facility]igned, [facility] AND Name Medical Branch TREATMENT Encounters Start End Encounter Admission Attending Care Care Encounter Source Date/Time Date/Time Type Type Clinicians Facility Department ID 2021-04-20 2021-04-20 Letter Only, Ang [facility] [id number] Univers 00:00:00 00:00:00 (Out) Db Test HEALTH [id number] it y of [facility] [id number] Harvey as JULIANNA?BLEA [id number] [address] MEDICAL OFFICE BUILDING 2021-04-20 2021-04-20 Letter BIJAN Doran [id number] Univers 00:00:00 00:00:00 (Out) Melina Garrett LAUREL [id number] it y of [facility] [id number] Harvey as [id number] [facility] [address] [place] 2021-04-19 2021-04-19 Laboratory Only, Ang Db Test [facility] [id number] Univers 09:15:00 09:22:34 Only King, Linda HEALTH [id number] ity of [facility] [id number] Harvey as JULIANNA?BLEA [id number] [address] OFFICE [facility] 2020-09-27 2020-09-27 Emergency Demetrio [facility] [id number] Univers 01:16:00 02:44:00 [place] [id number] i [place] of [place] [id number] [id number] [facility] [address] [place] 2020-09-27 2020-09-27 Emergency Demetrio [facility] [id number] 01:16:00 02:44:00 [place] [id number] [place] [id number] [place] [id number] [facility] 2020-09-27 2020-09-27 Emergency X DEMETRIO [facility] ERT [id number] Univers 01:16:00 01:16:00 MC ity of [facility] Results This patient has no known results.
[2021-07-28] MEDS ORDERED: NA CHLORIDE 0.9% 1,000 ML ONE ×6 (06:53→22:31)
[2021-07-28] MEDS ORDERED: ONDANSETRON 4 MG/2 ML VIAL ONE (06:53)
[2021-07-28 07:09] LABS: Absolute Lymphocytes (CBC) 0.4 K/uL (0.7-4.9); Hematocrit 49.9 % (39.6-49.0); MPV 8.8 fL (7.6-11.3)
[2021-07-28 07:39] LABS: RBC Red Blood Cell Count 3.11 M/uL (4.33-5.43)
[2021-07-28 07:55] LABS: ALT/SGPT 37 U/L (12-78); Albumin 3.3 g/dL (3.4-5.0); Alkaline Phosphatase 97 U/L (45-117); BUN Blood Urea Nitrogen 11 mg/dL (7-18); Bicarbonate 21 mmol/L (21-32); Bilirubin Total 0.8 mg/dL (0.2-1.0); Glucose Level 386 mg/dL (74-106); Lipase 92 U/L (73-393); Protein, Total 6.8 g/dL (6.4-8.2); Sodium Level 135 mmol/L (136-145)
[2021-07-28 08:04] LABS: AST/SGOT 18 U/L (15-37); Potassium 4.2 mmol/L (3.5-5.1)
[2021-07-28] MEDS ORDERED: INSULIN -REGULAR HUMAN 50 UNIT/0.5 ML ML ONE ×2 (08:33→10:28)
--- NOTE | 2021-07-28 08:48 | RAD REPORT ---
EXAM DESCRIPTION: CT - Abdomen Pelvis W Contrast - 07/28/2021 8:35 am CLINICAL HISTORY: Abdominal pain, acute, nonlocalized COMPARISON: Abdomen Pelvis W Contrast dated 12/31/2020; Abdomen Pelvis W Contrast dated 11/16/2018 ; Abdomen Exam Limited dated 12/31/2020 TECHNIQUE: Biphasic, helical CT imaging of the abdomen and pelvis was performed following 100 ml non -ionic IV contrast. No oral contrast administered. All CT scans are performed using dose optimization technique as appropriate and may include automated exposure control or mA/KV adjustment according to patient size. FINDINGS: No suspicious findings in the lung bases. No focal lesion of the liver parenchyma identified. No portal vein abnormality is seen. Diffuse fatty infiltration pattern seen throughout the liver similar back to at least 2019. The liver measures 25 cm in craniocaudal dimension also similar to prior imaging. Left lobe and caudate lobe do not appear grossly enlarged. This could be true hepatomegaly or Andrew's lobe configuration. The spleen is 15 cm in craniocaudal dimension also similar to prior imaging. No focal splenic finding. No gallbladder is identified. There are no cholecystectomy clips seen in a patient did not note any s urgical history. Nonvisualization of the gallbladder has been evident on studies back to at least 201 9. Surgical history may be incorrect or incomplete. Congenital absence of the gallbladder would be po ssible. The biliary tree is unremarkable. No pancreatic or peripancreatic abnormality Symmetric renal function is seen with no hydronephrosis or suspicious renal mass. No pyelonephritis o r acute parenchymal process. Urinary bladder is distended but no wall thickening, mass or suspicious finding seen. Prostate gland is unremarkable. No adrenal abnormalities. No dilated bowel loops or bowel wall thickening. A few small bowel loops are filled with fluid and pr ominent in size. The appendix is not well defined; however, no direct or indirect evidence for append icitis. No free air, free fluid or inflammatory stranding. No hernia, mass or bulky lymphadenopathy. No suspicious bony findings. IMPRESSION: Prominent small bowel pattern is present which would be consistent with a nonspecific en teritis. Gallbladder is not clearly defined but there are no direct or indirect findings that would indicate a cute appendicitis. Hepatosplenomegaly pattern with fatty infiltration of the liver not clearly different back to 2019 co mparative exams.
--- NOTE | 2021-07-28 08:54 | ER ---
Nurse's Notes [facility] Name: Harvey Wyatt Age: 25 yrs Sex: Male : 1995 Arrival Date: 07/28/2021 Time: 06:20 Bed 15 Private MD: Diagnosis: Vomiting;Abdominal pain, Generalized;Fever, unspecified;Noninfective gastroenteritis and colitis, unspecified;Type 1 diabetes mellitus with hyperglycemia Presentation: 07/28 06:33 Chief complaint: Patient states: "I have been throwing up since 7 Pm last night. My tw5 girlfriend is also sick.". Coronavirus screen: Vaccine status: Patient reports receiving the 2nd dose of the covid vaccine. Moderna. Ebola Screen: Patient negative for fever greater than or equal to 101.5 degrees Fahrenheit, and additional compatible Ebola Virus Disease symptoms Patient denies exposure to infectious person. Patient denies travel to an Ebola-affected area in the 21 days before illness onset. Initial Sepsis Screen: Does the patient meet any 2 criteria? HR > 90 bpm. Does the patient have a suspected source of infection? Yes: Acute abdominal pain. Risk Assessment: Do you want to hurt yourself or someone else? Patient reports no desire to harm self or others. Onset of symptoms was July 27, 2021 at 19:00. 06:33 Method Of Arrival: Ambulatory tw5 06:33 Acuity: BINDU 3 tw5 Triage Assessment: 06:35 General: Appears in no apparent distress. Behavior is calm, cooperative, appropriate tw5 for age. Pain: Complains of pain in right lower quadrant and left lower quadrant Pain currently is 7 out of 10 on a pain scale. GI: Reports diarrhea, nausea, vomiting. Historical: - Allergies: 08:38 No Known Allergies; jl7 - Home Meds: 06:35 insulin - unknown [Active]; tw5 - PMHx: 06:35 Diabetes - IDDM; tw5 - PSHx: 06:35 None; tw5 - Immunization history:: Flu vaccine is not up to date. - Social history:: Smoking status: Patient denies any tobacco usage or history of. - Family history:: not pertinent. - Hospitalizations: : No recent hospitalization is reported. Screenin:08 Abuse screen: Denies threats or abuse. Nutritional screening: No deficits noted. ke1 Tuberculosis screening: No symptoms or risk factors identified. Fall Risk No fall in past 12 months (0 pts). No secondary diagnosis (0 pts). IV access (20 points). Ambulatory Aid- None/Bed Rest/Nurse Assist (0 pts). Gait- Normal/Bed Rest/Wheelchair (0 pts) Mental Status- Oriented to own ability (0 pts). Total Ceron Fall Scale indicates. Assessment: 06:45 General: Appears uncomfortable, Behavior is appropriate for age. Pain:. Neuro: Level of ke1 Consciousness is awake, alert, Oriented to person, place, time, situation. Respiratory: Respiratory effort is even, unlabored. GI: Abdomen is round Bowel sounds present X 4 quads. Abd is soft Abd is non tender X 4 quads Reports diarrhea, nausea, vomiting. 07:16 General: Appears in no apparent distress. comfortable, Behavior is calm, cooperative. vg1 Pain: Complains of pain in abdomen Pain currently is 6 out of 10 on a pain scale. Neuro: Level of Consciousness is awake, alert, obeys commands, Oriented to person, place, time, situation. GI: Abdomen is round non-distended, Abd is soft X 4 quads Abd is non tender X 4 quads. Derm: Skin is intact, is healthy with good turgor. 08:10 Reassessment: Patient appears in no apparent distress at this time. Patient and/or vg1 family updated on plan of care and expected duration. Pain level reassessed. Patient is alert, oriented x 3, equal unlabored respirations, skin warm/dry/pink. 08:28 Reassessment: Pt returned from CT. jl7 09:11 Reassessment: pt up for d/c, waiting for IV fluids to complete. vg1 09:12 Reassessment: Patient appears in no apparent distress at this time. Patient and/or vg1 family updated on plan of care and expected duration. Pain level reassessed. Patient is alert, oriented x 3, equal unlabored respirations, skin warm/dry/pink. 10:15 Reassessment: Patient appears in no apparent distress at this time. No changes from vg1 previously documented assessment. Patient and/or family updated on plan of care and expected duration. Pain level reassessed. Patient is alert, oriented x 3, equal unlabored respirations, skin warm/dry/pink. 11:15 Reassessment: Patient appears in no apparent distress at this time. Patient and/or vg1 family updated on plan of care and expected duration. Pain level reassessed. Patient is alert, oriented x 3, equal unlabored respirations, skin warm/dry/pink. 11:20 Reassessment: ERD notified of temperature and HR, VO for 1000 mg Tylenol PO x 1, pt jl7 medicated as ordered. 12:15 Reassessment: Patient appears in no apparent distress at this time. No changes from vg1 previously documented assessment. pt resting with eyes closed. 13:10 Reassessment: ERD notified of temperature, VO for 800 mg ibuprofen PO x 1, pt medicated jl7 as ordered. 13:15 Reassessment: Patient appears in no apparent distress at this time. Patient and/or vg1 family updated on plan of care and expected duration. Pain level reassessed. Patient is alert, oriented x 3, equal unlabored respirations, skin warm/dry/pink. 15:17 Reassessment: Patient appears in no apparent distress at this time. No changes from vg1 previously documented assessment. Patient and/or family updated on plan of care and expected duration. Pain level reassessed. Patient is alert, oriented x 3, equal unlabored respirations, skin warm/dry/pink. 16:30 Reassessment: Patient appears in no apparent distress at this time. Patient is alert, jl7 oriented x 3, equal unlabored respirations, skin warm/dry/pink. awaiting bed assignment. 17:30 Reassessment: Patient appears in no apparent distress at this time. No changes from jl7 previously documented assessment. 18:30 Reassessment: Patient appears in no apparent distress at this time. No changes from jl7 previously documented assessment. Patient is alert, oriented x 3, equal unlabored respirations, skin warm/dry/pink. 20:00 Reassessment: Patient appears in no apparent distress at this time. Patient is alert, al4 oriented x 3, equal unlabored respirations, skin warm/dry/pink. Patient denies pain at this time. 20:44 General: Appears in no apparent distress. uncomfortable, Behavior is calm, cooperative. al4 Pain: Complains of pain in right upper quadrant and left upper quadrant Pain currently is 3 out of 10 on a pain scale. Neuro: Level of Consciousness is awake, alert, obeys commands, Oriented to person, place, time, situation. Cardiovascular: Patient's skin is warm and dry. Rhythm is sinus tachycardia. Respiratory: Airway is patent Respiratory effort is unlabored, Respiratory pattern is regular. GI: Abdomen is non-distended, Abd is soft Abdomen is tender to palpation in right upper quadrant and left upper quadrant Reports nausea. Derm: Skin is intact, is healthy with good turgor. Musculoskeletal: Circulation, motion, and sensation intact. 21:00 Reassessment: Patient appears in no apparent distress at this time. Patient and/or al4 family updated on plan of care and expected duration. Pain level reassessed. Patient is alert, oriented x 3, equal unlabored respirations, skin warm/dry/pink. Vital Signs: 06:33 BP 118 / 55; Pulse 113; Resp 20; Temp 98.7; Pulse Ox 100% on R/A; Weight 81.65 kg; tw5 Height 5 ft. 5 in. (165.10 cm); Pain 7/10; 08:10 BP 104 / 64; Pulse 111; Resp 16; Pulse Ox 98% on R/A; vg1 08:28 BP 124 / 70; Pulse 114; Resp 20; Pulse Ox 97% ; jl7 09:30 BP 120 / 85; Pulse 115; Resp 20; Pulse Ox 97% on R/A; jl7 10:30 BP 100 / 82; Pulse 120; Resp 20; Pulse Ox 100% on R/A; jl7 11:11 Temp 100.1; vg1 11:30 BP 110 / 53; Pulse 120; Resp 15; Pulse Ox 96% on R/A; jl7 12:30 BP 101 / 64; Pulse 110; Resp 20; Pulse Ox 98% on R/A; jl7 13:03 Temp 100.8(O); dh3 13:30 BP 108 / 53; Pulse 108; Resp 22; Temp 99.3; Pulse Ox 96% on R/A; jl7 15:36 BP 113 / 63; Pulse 101; Resp 19; Temp 99.1(O); Pulse Ox 99% ; jl7 20:44 BP 126 / 65; Pulse 108; Resp 17; Temp 99.5; Pulse Ox 98% ; Pain 3/10; al4 06:33 Body Mass Index 29.95 (81.65 kg, 165.10 cm) tw5 ED Course: 06:20 Patient arrived in ED. bp1 06:20 Chris Kinney MD is Attending Physician. rn 06:35 Triage completed. tw5 06:35 Arm band placed on right wrist. tw5 06:36 Trevor Plaza RN is Primary Nurse. ke1 06:36 Patient has correct armband on for positive identification. Placed in gown. Bed in low tw5 position. Call light in reach. Side rails up X 1. monitoring tech on. Pulse ox on. NIBP on. Door closed. Noise minimized. Lights dimmed. Moved to private room. Warm blanket given. Verbal reassurance given. 06:48 Inserted saline lock: 20 gauge in right antecubital area, using aseptic technique. ke1 07:11 Attending Physician role handed off by Chris Kinney MD justus 07:11 Davie Prasad MD is Attending Physician. justus 07:16 Lab(s) recollected, by me, sent to lab. vg1 07:53 Primary Nurse role handed off by Trevor Plaza RN eb 07:56 Loretta Dangelo RN is Primary Nurse. vg1 08:37 Abdomen In Process Unspecified. EDMS 11:12 Emmanuel Pérez MD is Hospitalizing Provider. justus 21:31 No provider procedures requiring assistance completed. Patient admitted, IV remains in al4 place. 22:20 Primary Nurse role handed off by Loretta Dangelo RN cs9 Administered Medications: 06:55 Drug: NS 0.9% 1000 ml Route: IV; Rate: 1 bolus; Site: right antecubital; ke1 08:14 Follow up: IV Status: Completed infusion; IV Intake: 1000ml vg1 06:55 Drug: Zofran (Ondansetron) 4 mg Route: IVP; Site: right antecubital; ke1 08:14 Follow up: Response: No adverse reaction; Marked relief of symptoms vg1 08:15 Drug: NS 0.9% 1000 ml Route: IV; Rate: 1 bolus; Site: right antecubital; vg1 09:10 Follow up: IV Status: Completed infusion; IV Intake: 1000ml vg1 08:37 Drug: Insulin Regular Human 10 units {Co-Signature: vg1 (Loretta Dangelo RN).} Route: jl7 Sub-Q; Site: right upper arm; 09:30 Follow up: Response: No adverse reaction; Blood sugar is lowered jl7 15:19 Follow up: Response: No adverse reaction vg1 08:50 Not Given (Duplicate Order): Insulin Regular Human 10 units IVP once justus 09:11 Drug: NS 0.9% 1000 ml Route: IV; Rate: 1 bolus; Site: right antecubital; vg1 10:35 Follow up: IV Status: Completed infusion; IV Intake: 1000ml jl7 10:25 Drug: Insulin Regular Human 5 units {Co-Signature: vg1 (Loretta Dangelo RN).} Route: jl7 IVP; Site: right antecubital; 11:30 Follow up: Response: No adverse reaction; Blood sugar is lowered jl7 10:25 Drug: NS 0.9% 1000 ml Route: IV; Rate: 1 bolus; Site: right antecubital; jl7 11:18 Follow up: Response: No adverse reaction; IV Status: Completed infusion; IV Intake: jl7 1000ml 11:18 Drug: Tylenol 1000 mg Route: PO; jl7 15:19 Follow up: Response: No adverse reaction; Temperature is decreased vg1 11:26 Drug: NS 0.9% 1000 ml Route: IV; Rate: 150 ml/hr; Site: right antecubital; vg1 15:39 Follow up: IV Status: Infusion continued upon admission jl7 11:28 Drug: Pepcid (famotidine) 20 mg Route: IVP; Site: right antecubital; vg1 15:19 Follow up: Response: No adverse reaction vg1 11:30 Drug: Flagyl (metroNIDAZOLE) 500 mg Volume: 100 ml; Route: IVPB; Rate: 200 ml/hr; vg1 Infused Over: 30 mins; Site: right antecubital; 12:06 Follow up: IV Status: Completed infusion; IV Intake: 100ml vg1 12:01 Drug: Cipro (ciprofloxacin) 400 mg Volume: 200 ml; Route: IVPB; Infused Over: 60 mins; jl7 Site: right antecubital; 13:00 Follow up: IV Status: Completed infusion; IV Intake: 200ml vg1 13:10 Drug: Motrin (ibuprofen) 800 mg Route: PO; jl7 15:38 Follow up: Response: No adverse reaction; Temperature is decreased jl7 Intake: 08:14 IV: 1000ml; Total: 1000ml. vg1 09:10 IV: 1000ml; Total: 2000ml. vg1 10:35 IV: 1000ml; Total: 3000ml. jl7 11:18 IV: 1000ml; Total: 4000ml. jl7 12:06 IV: 100ml; Total: 4100ml. vg1 13:00 IV: 200ml; Total: 4300ml. vg1 Outcome: 08:53 Discharge ordered by MD. justus 11:13 Decision to Hospitalize by Provider. justus 21:31 Admitted to Report called to AMRIT Rowe4 21:31 Condition: stable 21:31 Instructed on the need for admit, Demonstrated understanding of instructions. 07/29 12:00 Patient left the ED. ph Signatures: Dispatcher [employer] EDMS Davie Prasad MD MD cha Nieto, Roman, MD MD rn Hall, Patricia RN RN Albaro, Stacy, RN RN jl7 Naomi Baires 3 Sun Young Victoria RN AMRIT vg1 Leah Macias Tiffany [address] [facility] Daron Umanzor Kouassi RN RN ke1 Loretta Dangelo RN vg1 Corrections: (The following items were deleted from the chart) 07/28 09:12 09:11 Reassessment: pt up for d/c, waiting for IV fluids to complete vg1 vg1 22:20 21:31 Admitted to Report called to AMRIT Mueller al4
--- NOTE | 2021-07-28 08:54 | EDPHYS ---
Physician Documentation [facility] Name: Harvey Wyatt Age: 25 yrs Sex: Male : 1995 Arrival Date: 07/28/2021 Time: 06:20 Bed 15 Private MD: ED Physician Davie Prasad HPI: 07/28 06:33 This 25 yrs old Male presents to ER via Unassigned with complaints of Vomiting.rn 06:33 The patient presents to the emergency department with nausea, vomiting, diarrhea, rn abdominal pain. Onset: The symptoms/episode began/occurred yesterday. Possible causes: sick contacts, by a significant other. The symptoms are aggravated by nothing. The symptoms are alleviated by nothing. Associated signs and symptoms: Pertinent positives: abdominal pain, diarrhea, nausea, vomiting, Pertinent negatives: fever, GI bleeding. Severity of symptoms: At their worst the symptoms were moderate in the emergency department the symptoms are unchanged. The patient has not experienced similar symptoms in the past. The patient has not recently seen a physician. Reports girlfriend had to go to ER yesterday for IV fluids after diagnosed with "stomach bug". Pt states now he is having identical symptoms. No fever. No blood in emesis or stool. No chronic abd problems. . Historical: - Allergies: 08:38 No Known Allergies; jl7 - Home Meds: 06:35 insulin - unknown [Active]; tw5 - PMHx: 06:35 Diabetes - IDDM; tw5 - PSHx: 06:35 None; tw5 - Immunization history:: Flu vaccine is not up to date. - Social history:: Smoking status: Patient denies any tobacco usage or history of. - Family history:: not pertinent. - Hospitalizations: : No recent hospitalization is reported. ROS: 06:33 Constitutional: Negative for fever, chills, and weight loss, Eyes: Negative for injury, rn pain, redness, and discharge, Neck: Negative for injury, pain, and swelling, Cardiovascular: Negative for chest pain, palpitations, and edema, Respiratory: Negative for shortness of breath, cough, wheezing, and pleuritic chest pain, Abdomen/GI: Negative for constipation Back: Negative for injury and pain, : Negative for injury, bleeding, discharge, and swelling, MS/Extremity: Negative for injury and deformity, Skin: Negative for injury, rash, and discoloration, Neuro: Negative for headache, weakness, numbness, tingling, and seizure. 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 Head/Face: Normocephalic, atraumatic. Eyes: Periorbital areas with no swelling, redness, or edema. ENT: dry MM, blue tongue (from powerade he is drinking) Cardiovascular: Tachycardic, regular. No pulse deficits. Respiratory: No increased work of breathing, no retractions or nasal flaring. Abdomen/GI: soft, mild epigastric and periumbilical tenderness, no rebound Skin: Warm, dry MS/ Extremity: Pulses equal, no cyanosis. Neuro: Awake and alert, GCS 15, normal gait Vital Signs: 06:33 BP 118 / 55; Pulse 113; Resp 20; Temp 98.7; Pulse Ox 100% on R/A; Weight 81.65 kg; tw5 Height 5 ft. 5 in. (165.10 cm); Pain 7/10; 08:10 BP 104 / 64; Pulse 111; Resp 16; Pulse Ox 98% on R/A; vg1 08:28 BP 124 / 70; Pulse 114; Resp 20; Pulse Ox 97% ; jl7 09:30 BP 120 / 85; Pulse 115; Resp 20; Pulse Ox 97% on R/A; jl7 10:30 BP 100 / 82; Pulse 120; Resp 20; Pulse Ox 100% on R/A; jl7 11:11 Temp 100.1; vg1 11:30 BP 110 / 53; Pulse 120; Resp 15; Pulse Ox 96% on R/A; jl7 12:30 BP 101 / 64; Pulse 110; Resp 20; Pulse Ox 98% on R/A; jl7 13:03 Temp 100.8(O); dh3 13:30 BP 108 / 53; Pulse 108; Resp 22; Temp 99.3; Pulse Ox 96% on R/A; jl7 15:36 BP 113 / 63; Pulse 101; Resp 19; Temp 99.1(O); Pulse Ox 99% ; jl7 20:44 BP 126 / 65; Pulse 108; Resp 17; Temp 99.5; Pulse Ox 98% ; Pain 3/10; al4 06:33 Body Mass Index 29.95 (81.65 kg, 165.10 cm) tw5 MDM: 06:20 Patient medically screened. rn 07:00 Transition of care: After a detail discussion of the patient's case, care is rn transferred to Davie Prasad MD. 07:31 Differential diagnosis: Nonspecific abd pain, gastritis, viral gastroenteritis, justus gastroenteritis. Data reviewed: vital signs, nurses notes, lab test result(s), EKG, radiologic studies, CT scan. Data interpreted: castings drafter: rate is 113 beats/min, rhythm is regular, Pulse oximetry: on room air is 113 %. Counseling: I had a detailed discussion with the patient and/or guardian regarding: the historical points, exam findings, and any diagnostic results supporting the discharge/admit diagnosis, lab results, radiology results, the need for outpatient follow up, for definitive care, 07/28 06:32 Order name: CBC with Diff; Complete Time: 08:25 rn 07/28 06:32 Order name: CMP; Complete Time: 08:25 rn 07/28 06:32 Order name: Lipase; Complete Time: 08:25 07/28 06:32 Order name: Flu; Complete Time: 08:49 rn 07/28 09:22 Order name: Glucose, Ancillary Testing; Complete Time: 10:02 EDHI 07/28 11:14 Order name: ABG [facility] 07/28 11:14 Order name: Ketone, Serum [facility] 07/28 11:14 Order name: SARS-COV-2 RT PCR (Document "Date of Onset" if Symptomatic) [facility] 07/28 11:29 Order name: Glucose, Ancillary Testing [facility] 07/28 14:13 Order name: CBC with Automated Diff [facility] 07/28 14:13 Order name: CBC with Automated Diff [facility] 07/28 14:13 Order name: Comprehensive Metabolic Panel [facility] 07/28 14:13 Order name: Comprehensive Metabolic Panel [facility] 07/28 21:46 Order name: Glucose, Ancillary Testing [facility] 07/28 08:07 Order name: Abdomen ; Complete Time: 08:49 EDHI 07/29 08:30 Order name: Glucose, Ancillary Testing [facility] 07/28 06:32 Order name: IV Saline Lock; Complete Time: 06:48 rn 07/28 06:32 Order name: Labs collected and sent; Complete Time: 06:48 rn 07/28 06:59 Order name: Labs - recollect needed: short green top; Complete Time: 07:16 tw5 07/28 08:52 Order name: PO challenge; Complete Time: 09:10 justus 07/28 14:13 Order name: Regular EDMS 07/28 15:49 Order name: Diet Regular; Complete Time: 15:49 vg1 Administered Medications: 06:55 Drug: NS 0.9% 1000 ml Route: IV; Rate: 1 bolus; Site: right antecubital; ke1 08:14 Follow up: IV Status: Completed infusion; IV Intake: 1000ml vg1 06:55 Drug: Zofran (Ondansetron) 4 mg Route: IVP; Site: right antecubital; ke1 08:14 Follow up: Response: No adverse reaction; Marked relief of symptoms vg1 08:15 Drug: NS 0.9% 1000 ml Route: IV; Rate: 1 bolus; Site: right antecubital; vg1 09:10 Follow up: IV Status: Completed infusion; IV Intake: 1000ml vg1 08:37 Drug: Insulin Regular Human 10 units {Co-Signature: vg1 (Loretta Dangelo RN).} Route: jl7 Sub-Q; Site: right upper arm; 09:30 Follow up: Response: No adverse reaction; Blood sugar is lowered jl7 15:19 Follow up: Response: No adverse reaction vg1 08:50 Not Given (Duplicate Order): Insulin Regular Human 10 units IVP once [facility] 09:11 Drug: NS 0.9% 1000 ml Route: IV; Rate: 1 bolus; Site: right antecubital; vg1 10:35 Follow up: IV Status: Completed infusion; IV Intake: 1000ml jl7 10:25 Drug: Insulin Regular Human 5 units {Co-Signature: vg1 (Loretta Dangelo RN).} Route: jl7 IVP; Site: right antecubital; 11:30 Follow up: Response: No adverse reaction; Blood sugar is lowered jl7 10:25 Drug: NS 0.9% 1000 ml Route: IV; Rate: 1 bolus; Site: right antecubital; jl7 11:18 Follow up: Response: No adverse reaction; IV Status: Completed infusion; IV Intake: jl7 1000ml 11:18 Drug: Tylenol 1000 mg Route: PO; jl7 15:19 Follow up: Response: No adverse reaction; Temperature is decreased vg1 11:26 Drug: NS 0.9% 1000 ml Route: IV; Rate: 150 ml/hr; Site: right antecubital; vg1 15:39 Follow up: IV Status: Infusion continued upon admission jl7 11:28 Drug: Pepcid (famotidine) 20 mg Route: IVP; Site: right antecubital; vg1 15:19 Follow up: Response: No adverse reaction vg1 11:30 Drug: Flagyl (metroNIDAZOLE) 500 mg Volume: 100 ml; Route: IVPB; Rate: 200 ml/hr; vg1 Infused Over: 30 mins; Site: right antecubital; 12:06 Follow up: IV Status: Completed infusion; IV Intake: 100ml vg1 12:01 Drug: Cipro (ciprofloxacin) 400 mg Volume: 200 ml; Route: IVPB; Infused Over: 60 mins; jl7 Site: right antecubital; 13:00 Follow up: IV Status: Completed infusion; IV Intake: 200ml vg1 13:10 Drug: Motrin (ibuprofen) 800 mg Route: PO; jl7 15:38 Follow up: Response: No adverse reaction; Temperature is decreased jl7 Disposition Summary: 07/28/21 11:13 Hospitalization Ordered Hospitalization Status: Observation justus Provider: Emmanuel Pérez cha Condition: Fair(07/28/21 11:13) justus Problem: new(07/28/21 11:13) justus Symptoms: have improved(07/28/21 11:13) justus Bed/Room Type: Standard [facility] Location: [facility] ER HOLD(07/28/21 19:27) Room Assignment: ERHOLD-(07/28/21 19:27) Diagnosis - Vomiting(07/28/21 11:13) justus - Abdominal pain, Generalized justus - Fever, unspecified justus - Noninfective gastroenteritis and colitis, unspecified(07/28/21 11:13) justus - Type 1 diabetes mellitus with hyperglycemia(07/28/21 11:13) justus Forms: - Medication Reconciliation Form justus - SBAR form justus Signatures: Dispatcher [employer] EDMS Ximena Myers RN RN mw Anderson, Corey, MD MD cha Nieto, Roman, MD MD rn Leal, Jahala, RN RN jl7 Loertta Dangelo RN RN vg1 Betty Mo 5 Trevor Plaza, RN RN ke1 Loretta Dangelo RN vg1 Corrections: (The following items were deleted from the chart) 08:04 06:32 Abdomen Pelvis W Con+CT.RAD.BRZ ordered. EDMS EDMS 08:07 08:04 Abdomen W Contrast ordered. EDMS EDMS 11: 08:53 Home [facility] 11: 08:53 new [facility] 11: 08:53 have improved [facility] : 08:53 Stable [facility] : 08:53 Vomiting [facility] : 08:53 Noninfective gastroenteritis and colitis, unspecified [facility] : 08:53 Type 1 diabetes mellitus with hyperglycemia [facility] 19: 11:13 Telemetry/MedSurg (observation) [facility] 19: 11:13 [facility]
[2021-07-28] MEDS ORDERED: ACETAMINOPHEN 500 MG TAB ONE ×2 (11:16→11:23)
[2021-07-28 11:22] LABS: Arterial Blood Carboxyhemoglob 1.7 % (0-1.5); Blood Gas Oxyhemoglobin 92.5 % (94-97); Blood O2 Saturation 95.5 % (92-98.5)
[2021-07-28] MEDS ORDERED: CIPROFLOXACIN 400mg IV 400 MG/200 ML BAG IV ONE (11:23)
[2021-07-28] MEDS ORDERED: FAMOTIDINE 20 MG/2 ML VIAL IV ONE (11:23)
[2021-07-28] MEDS ORDERED: METRONIDAZOLE 500mg IVPB 500 MG/100 ML BAG IV ONE (11:23)
[2021-07-28] MEDS: NA CHLORIDE 0.9% 1,000 ML IV SCH ×2 (11:30→22:33)
[2021-07-28] MEDS ORDERED: IBUPROFEN 400 MG TAB ONE (13:12)
[2021-07-28] MEDS ORDERED: ACETAMINOPHEN 500 MG TAB PO PRN (14:10)
[2021-07-28] MEDS ORDERED: ONDANSETRON 4 MG/2 ML VIAL IV PRN (14:10)
[2021-07-28] MEDS ORDERED: MORPHINE 2 MG/ML SYR IV PRN (14:10)
[2021-07-28] MEDS ORDERED: NA CHLORIDE 0.9% 1,000 ML IV SCH (15:00)
[2021-07-28] MEDS ORDERED: METHYLPREDNISOLONE 40 MG INJ ONE (16:25)
[2021-07-28] MEDS: METHYLPREDNISOLONE 40 MG INJ IV SCH (16:30)
[2021-07-28 19:21] VITALS: BMI 29.9
[2021-07-28] MEDS ORDERED: GLUCAGON 1 MG/VIAL IM PRN (22:18)
[2021-07-28] MEDS ORDERED: D50W 25 GM/50 ML SYRINGE IV PRN (22:18)
[2021-07-28] MEDS ORDERED: MORPHINE 2 MG/ML SYR ONE (22:32)
[2021-07-28] MEDS: INSULIN -REGULAR HUMAN 50 UNIT/0.5 ML ML SQ SCH (22:41)
[2021-07-29] MEDS: METHYLPREDNISOLONE 40 MG INJ IV SCH (01:00)
[2021-07-29] MEDS ORDERED: METHYLPREDNISOLONE 40 MG INJ ONE (01:01)
[2021-07-29 03:30] LABS: Absolute Lymphocytes (CBC) 0.3 K/uL (0.7-4.9); Hematocrit 41.9 % (39.6-49.0); Lymphocytes % 4.6 % (15.3-44.8); MPV 8.8 fL (7.6-11.3); RBC Red Blood Cell Count 4.91 M/uL (4.33-5.43)
[2021-07-29 04:11] LABS: Bicarbonate 19 mmol/L (21-32); Potassium 4.1 mmol/L (3.5-5.1); Sodium Level 134 mmol/L (136-145)
[2021-07-29 04:12] LABS: ALT/SGPT 43 U/L (12-78); AST/SGOT 33 U/L (15-37); BUN Blood Urea Nitrogen 10 mg/dL (7-18); Bilirubin Total 1.1 mg/dL (0.2-1.0); Glucose Level 254 mg/dL (74-106); Protein, Total 6.1 g/dL (6.4-8.2)
[2021-07-29 04:13] LABS: Alkaline Phosphatase 76 U/L (45-117)
[2021-07-29] MEDS: NA CHLORIDE 0.9% 1,000 ML IV SCH (04:20)
[2021-07-29] MEDS ORDERED: NA CHLORIDE 0.9% 1,000 ML ONE (05:05)
[2021-07-29] MEDS: INSULIN -REGULAR HUMAN 50 UNIT/0.5 ML ML SQ SCH (07:30)
[2021-07-29] MEDS ORDERED: INSULIN -REGULAR HUMAN 50 UNIT/0.5 ML ML ONE (08:27)
[2021-07-29 12:03] VITALS: BP 126/72; TEMP 97.8
[2021-07-29 12:41] VITALS: O2SAT 98
== END 2021-07-29 12:04 | disposition home or self-care (01) ==
LOC: ER 06:15 → ERHOLD 14:32
PROVIDERS: ADMIT Hospitalist; ATTEND Hospitalist
DX: K52.9 Noninfective gastroenteritis and colitis, unspecified (principal); E10.65 Type 1 diabetes mellitus with hyperglycemia; R50.9 Fever, unspecified; Z79.4 Long term (current) use of insulin; Z20.822 Contact with and (suspected) exposure to COVID-19
CPT/HCPCS: 96365; 96361; 85025 ×2; 36415; 82010; 82947 ×4; 83690; 80053 ×2; 87804 ×2; 74177; 82805; 96375; 96372; 99285; U0003; Q9967; J1815 ×4; J2270; J7030 ×7; J2405; J2920 ×2; J3490; J0744; G0378 ×3

== ENCOUNTER 2021-11-23 06:49 | Emergency (ER) | payer BC ==
--- OUTSIDE RECORDS SUMMARY | 2021-11-23 06:52 | XMS REPORT | Continuity of Care Document ---
:1995 Author Organization [facility] t Address [address] [place] [address] Care Team Providers Name Role Phone Pcp, Patient Does Not Have A Primary Care Physician +[id number] Only, Ang Db Test Attending Clinician Unavailable Melina Doran RN Attending Clinician Unavailable Linda Dover Attending Clinician Mc Juarez Attending Clinician MC ATKINSON Attending Clinician Unavailable Payers Payer Name Policy Type Policy Number Effective Date Expiration Date S ource Problems This patient has no known problems. Allergies, Adverse Reactions, Alerts Allergy Allergy Status Severity Reaction(s) Onset Inactive Treating Comm ents Source Name Type Date Date Clinician NO KNOWN Drug Active Univers ALLERGIE Class ity of [facility] Social History Social Habit Start Date Stop Date Quantity Comments Source Exposure to Yes [facility] SARS-CoV-2 (event) Medica l Branch Sex Assigned At [birth year] [facility] 00:00:00 00:00:00 Medical Branch Smoking Status Start Date Stop Date Source Unknown if ever smoked [facility] Medications Ordered Filled Start Stop Current Ordering Indication Dosage Frequency Signature Comments Components Source Medication Medication Date Date Medication? Clinician (SIG) Name Name clindamycin 2020- No [id number] 450mg Take 3 Univers 150 mg 09-27 [id number] capsules ity of capsule 00:00: 04:59 by mouth 3 Harvey as 00 :00 (three) Medical times Branch daily for 10 days. Vital Signs Vital Name Observation Time Observation Value Comments Source Systolic blood 2020-09-27 06:14:00 135 mm[Hg] Univer sity of pressure [facility] Diastolic blood 2020-09-27 06:14:00 83 mm[Hg] Unive rsity of [facility] Heart rate 2020-09-27 06:14:00 110 /min Universi ty [facility] Body temperature 2020-09-27 06:14:00 37.06 Sarah [facility] Respiratory rate 2020-09-27 06:14:00 20 /min [facility] Body weight 2020-09-27 06:14:00 81.647 kg Universi ty [facility] Oxygen saturation in 2020-09-27 06:14:00 100 /min University of Arterial blood by [facility] Pulse oximetry Branch Systolic blood 2020-09-27 06:14:00 135 mm[Hg] Univer sity of [facility] Diastolic blood 2020-09-27 06:14:00 83 mm[Hg] Unive rsity of [facility] Heart rate 2020-09-27 06:14:00 110 /min Universi ty [facility] Body temperature 2020-09-27 06:14:00 37.06 Sarah [facility] Respiratory rate 2020-09-27 06:14:00 20 /min [facility] ersity [facility] Body weight 2020-09-27 06:14:00 81.647 kg Universi ty [facility] Oxygen saturation in 2020-09-27 06:14:00 100 /min University of Arterial blood by [facility] Pulse oximetry Branch Procedures Procedure Date / Time Performed Performing Clinician [facility] e NOTICE OF PRIVACY 2020-09-27 06:10:18 Doctor Unassigned, No Univ ersity [facility] PRACTICES Name Medical Branch CONSENT/REFUSAL FOR 2020-09-27 06:09:54 [facility], [facility] AND Name [facility] Branch TREATMENT Encounters Start End Encounter Admission Attending Care Care Encounter Source Date/Time Date/Time Type Type Clinicians Facility Department ID 2021-04-20 2021-04-20 Letter Only, Enrique [facility] [id number] Univers 00:00:00 00:00:00 (Out) Db Test HEALTH [id number] it y of [place] [id number] Harvey as JULIANNA?BLEA [id number] [address] MEDICAL OFFICE BUILDING 2021-04-20 2021-04-20 Letter BIJAN Doran [id number] Univers 00:00:00 00:00:00 (Out) Melinaezra JOSÉY [id number] it y of [facility] [id number] Harvey as [id number] [facility] [address] 2021-04-19 2021-04-19 Laboratory Only, Enrique Db Test [facility] [id number] Univers 09:15:00 09:22:34 Only Green, Linda HEALTH [id number] [facility] [id number] Harvey as JULIANNA?BLEA [id number] [address] OFFICE [facility] [address] 2020-09-27 2020-09-27 Emergency At[place], [facility] [id number] Univers 01:16:00 02:44:00 [place] 350.1.13.10 [place] [id number] [facility] [address] 2020-09-27 2020-09-27 Emergency [place], [facility] [id number] 01:16:00 02:44:00 [place] [id number] [place] [id number] [place] [id number] [facility] 2020-09-27 2020-09-27 Emergency X DEMETRIO, [facility] ERT [id number] Univers 01:16:00 01:16:00 MC ity of [facility] Results This patient has no known results.
--- NOTE | 2021-11-23 08:01 | RAD REPORT ---
EXAM DESCRIPTION: Abbi Single View11/23/2021 7:47 am CLINICAL HISTORY: Shortness breath COMPARISON: 2020 FINDINGS: The lungs appear clear of acute infiltrate. The heart is normal size IMPRESSION: No acute abnormalities displayed
[2021-11-23] MEDS ORDERED: NA CHLORIDE 0.9% 1,000 ML ONE (08:22)
[2021-11-23] MEDS ORDERED: AZITHROMYCIN 500 MG INJ IVPB ONE (08:22)
[2021-11-23] MEDS ORDERED: AZITHROMYCIN 250 MG TAB ONE (08:29)
[2021-11-23 08:37] LABS: Hematocrit 46.7 % (39.6-49.0); MCV 84.7 fL (80-100); RBC Red Blood Cell Count 5.51 M/uL (4.33-5.43)
[2021-11-23 08:38] LABS: Absolute Lymphocytes (CBC) 0.7 K/uL (0.7-4.9); Lymphocytes % 11.8 % (15.3-44.8); MPV 9.2 fL (7.6-11.3)
[2021-11-23 08:52] LABS: Albumin 3.7 g/dL (3.4-5.0); Bilirubin Total 1.1 mg/dL (0.2-1.0); Potassium 4.7 mmol/L (3.5-5.1); Protein, Total 7.1 g/dL (6.4-8.2)
--- NOTE | 2021-11-23 09:21 | EDPHYS ---
Physician Documentation [facility] Name: Harvey Wyatt Age: 26 yrs Sex: Male : 1995 Arrival Date: 11/23/2021 Time: 06:51 Bed 5 Private MD: ED Physician Davie Prasad HPI: 11/23 08:01 This 26 yrs old Male presents to ER via EMS with complaints of Chest justus Tightness, Flu Symptoms. 08:01 The patient or guardian reports chest pain that is located primarily in the substernal justus area. The pain does not radiate. Associated signs and symptoms: Pertinent positives: shortness of breath. The chest pain is described as aching. Modifying factors: The symptoms are alleviated by nothing. the symptoms are aggravated by cough. Severity of pain: At its worst the pain was mild just prior to arrival. The patient has not experienced similar symptoms in the past. Historical: - Allergies: 07:02 No Known Allergies; kd3 - Home Meds: 07:02 insulin - unknown [Active]; ibuprofen 600 mg Oral tab [Active]; kd3 - PMHx: 07:02 Diabetes - IDDM; kd3 - Immunization history:: Adult Immunizations up to date, Client reports receiving the 2nd dose of the Covid vaccine. - Social history:: Smoking status: Patient denies any tobacco usage or history of. - Family history:: not pertinent. ROS: 08:04 Constitutional: Negative for fever, chills, and weight loss, Eyes: Negative for injury, justus pain, redness, and discharge, ENT: Negative for injury, pain, and discharge, Neck: Negative for injury, pain, and swelling, Respiratory: Negative for shortness of breath, cough, wheezing, and pleuritic chest pain, Abdomen/GI: Negative for abdominal pain, nausea, vomiting, diarrhea, and constipation, Back: Negative for injury and pain, : Negative for injury, bleeding, discharge, and swelling, MS/Extremity: Negative for injury and deformity, Skin: Negative for injury, rash, and discoloration, Neuro: Negative for headache, weakness, numbness, tingling, and seizure, Psych: Negative for depression, anxiety, suicide ideation, homicidal ideation, and hallucinations, Allergy/Immunology: Negative for hives, rash, and allergies, Endocrine: Negative for neck swelling, polydipsia, polyuria, polyphagia, and marked weight changes. 08:04 Cardiovascular: Positive for chest pain. 08:04 Respiratory: Positive for cough. Exam: 08:04 Constitutional: This is a well developed, well nourished patient who is awake, alert, justus and in no acute distress. Head/Face: Normocephalic, atraumatic. Eyes: Pupils equal round and reactive to light, extra-ocular motions intact. Lids and lashes normal. Conjunctiva and sclera are non-icteric and not injected. Cornea within normal limits. Periorbital areas with no swelling, redness, or edema. ENT: Nares patent. No nasal discharge, no septal abnormalities noted. Tympanic membranes are normal and external auditory canals are clear. Oropharynx with no redness, swelling, or masses, exudates, or evidence of obstruction, uvula midline. Mucous membranes moist. Neck: Trachea midline, no thyromegaly or masses palpated, and no cervical lymphadenopathy. Supple, full range of motion without nuchal rigidity, or vertebral point tenderness. No Meningismus. Chest/axilla: Normal chest wall appearance and motion. Nontender with no deformity. No lesions are appreciated. Respiratory: Lungs have equal breath sounds bilaterally, clear to auscultation and percussion. No rales, rhonchi or wheezes noted. No increased work of breathing, no retractions or nasal flaring. Abdomen/GI: Soft, non-tender, with normal bowel sounds. No distension or tympany. No guarding or rebound. No evidence of tenderness throughout. Back: No spinal tenderness. No costovertebral tenderness. Full range of motion. Male : Normal genitalia with no discharge or lesions. Skin: Warm, dry with normal turgor. Normal color with no rashes, no lesions, and no evidence of cellulitis. MS/ Extremity: Pulses equal, no cyanosis. Neurovascular intact. Full, normal range of motion. Neuro: Awake and alert, GCS 15, oriented to person, place, time, and situation. Cranial nerves II-XII grossly intact. Motor strength 5/5 in all extremities. Sensory grossly intact. Cerebellar exam normal. Normal gait. Psych: Awake, alert, with orientation to person, place and time. Behavior, mood, and affect are within normal limits. 08:04 Cardiovascular: Rate: tachycardic, Rhythm: Pulses: Pulses are 4+ in bilateral radial, brachial, femoral, popliteal, posterior tibial and and dorsalis pedis arteries.. Heart sounds: normal, normal S1and S2, no S3 or S4, no murmur, no rub, no gallop, Edema: is not appreciated, JVD: is not appreciated. 09:21 ECG was reviewed by the Attending Physician. justus Vital Signs: 07:00 BP 113 / 68; Pulse 104; Resp 16; Temp 98.2; Pulse Ox 96% on R/A; Weight 81.65 kg; kd3 Height 5 ft. 5 in. (165.10 cm); Pain 7/10; 07:00 BP 108 / 60; Pulse 104; Resp 16; Pulse Ox 99% ; bp 08:22 BP 105 / 75; Pulse 103; Resp 20; Pulse Ox 99% ; bp 10:05 BP 108 / 64; Pulse 99; Resp 20; Pulse Ox 99% ; bp 07:00 Body Mass Index 29.95 (81.65 kg, 165.10 cm) kd3 MDM: 07:18 Patient medically screened. justus 08:09 Differential diagnosis: abnormal EKG, chest wall pain, pneumonia, stable angina, justus unstable angina. HEART Score: History: Slightly Suspicious (0), ECG: Normal (0), Age: < or = 45 years (0), Risk Factors: 1 or 2 risk factors (1), [DM] [+ Family HX]. The patient's deep vein thrombosis risk score was calculated as follows: Total Score: 0. This patient was found to be at low risk for a deep vein thrombosis by using the Well's assessment criteria. The patient's pulmonary embolism risk score was calculated as follows: Total Score: 0-2 points. This patient was found to be at low risk for a pulmonary embolism by using the Well's assessment criteria. MONICA Risk Score: TOTAL SCORE = 0. Data reviewed: vital signs, nurses notes, lab test result(s), EKG, radiologic studies, plain films. Data interpreted: quality assurance monitor: rate is 104 beats/min, rhythm is regular, Pulse oximetry: on room air is 99 %. Test interpretation: by ED physician or midlevel provider: ECG, plain radiologic studies. Counseling: I had a detailed discussion with the patient and/or guardian regarding: the presence of at least one elevated blood pressure reading (>120/80) during this emergency department visit, lab results, radiology results, the need for outpatient follow up, for definitive care, a family practitioner. 11/23 06:53 Order name: SARS-COV-2 RT PCR (Document "Date of Onset" if Symptomatic); Complete Time: rn 09:11 11/23 06:55 Order name: Flu; Complete Time: 08:45 rn 11/23 08:01 Order name: CBC with Diff; Complete Time: 09:49 [facility] 11/23 08:01 Order name: Comprehensive Metabolic Panel; Complete Time: 09:04 [facility] 11/23 08:13 Order name: Troponin High Sensitivity; Complete Time: 08:45 [facility] 11/23 09:46 Order name: CBC Smear Scan; Complete Time: 09:49 EDMS 11/23 06:55 Order name: XRAY Chest (1 view); Complete Time: 08:03 rn 11/23 08:03 Order name: EKG; Complete Time: 08:03 [facility] 11/23 08:03 Order name: EKG - Nurse/Tech; Complete Time: 08:17 [facility] 11/23 08:23 Order name: Labs - recollect needed: recollect chemistry tube/ can do trop just not eb chemistries/ hemolyzed; Complete Time: 08:31 EC:21 Rate is 105 beats/min. Rhythm is regular. QRS [place] is Normal. GA interval is normal. justus QRS interval is normal. QT interval is normal. No Q waves. T waves are Normal. No ST changes noted. Clinical impression: Sinus tachycardia and No evidence of ischemia. Interpreted by me. Reviewed by me. Administered Medications: 08:17 Drug: NS 0.9% 1000 ml Route: IV; Rate: 1 bolus; Site: right antecubital; bp 09:26 Follow up: IV Status: Completed infusion; IV Intake: 1000ml bp 08:18 Drug: Zithromax (azithromycin) 500 mg Route: PO; bp 08:25 Follow up: Response: No adverse reaction bp 09:15 Drug: Semaglutide Pen Injector 20 units Route: Sub-Q; Site: abdomen; bp 09:27 Follow up: Response: No adverse reaction bp Disposition Summary: 11/23/21 09:20 Discharge Ordered Location: Home justus Problem: new justus Symptoms: have improved justus Condition: Stable justus Diagnosis - Type 1 diabetes mellitus with hyperglycemia justus - Fever, unspecified justus - Chest pain, unspecified justus - Acute upper respiratory infection, unspecified justus Followup: justus - With: Private Physician - When: 2 - 3 days - Reason: Recheck today's complaints, Continuance of care, Re-evaluation by your physician Discharge Instructions: - Discharge Summary Sheet justus - Nonspecific Chest Pain, Adult justus - Fever, Adult justus - Hyperglycemia justus - Cool Mist Vaporizer justus - Nonspecific Chest Pain, Adult, [id number] justus - Aspirin and Your Heart justus - Diabetes Mellitus and Nutrition, Adult [facility] Forms: - Medication Reconciliation Form [facility] - Thank You Letter justus - Antibiotic Education justus - Prescription Opioid Use [facility] - Work release form Prescriptions: - Zithromax Z-Stefan 250 mg Oral Tablet - take 1 tablet by ORAL route as directed for 5 days Day 1 - take two (2) tablets justus one time. Day 2, 3, 4 , 5 take one (1) tablet once daily.; 6 tablet; Refills: 0, Product Selection Permitted Signatures: Dispatcher [employer] Davie Chacon MD MD cha Peltier, Brian, RN RN Sun Ortiz Kyli, RN RN kd3
--- NOTE | 2021-11-23 09:21 | ER ---
Nurse's Notes [facility] Name: Harvey Wyatt Age: 26 yrs Sex: Male : 1995 Arrival Date: 11/23/2021 Time: 06:51 Bed 5 Private MD: Diagnosis: Type 1 diabetes mellitus with hyperglycemia;Fever, unspecified;Chest pain, unspecified;Acute upper respiratory infection, unspecified Presentation: 11/23 06:54 Chief complaint: Patient states: On Saturday I started to feel bad, similarly to the time kd3 I got a bad stomach bug. I feel like I got hit by a truck. My stomach hurts and I feel a lot of pressure in my chest. 06:54 Method Of Arrival: EMS: [facility] kd3 07:00 Coronavirus screen: Vaccine status: Patient reports receiving the 2nd dose of the covid kd3 vaccine. Ebola Screen: No symptoms or risks identified at this time. Initial Sepsis Screen: Does the patient meet any 2 criteria? No. Patient's initial sepsis screen is negative. Does the patient have a suspected source of infection? No. Patient's initial sepsis screen is negative. Risk Assessment: Do you want to hurt yourself or someone else? Patient reports no desire to harm self or others. Onset of symptoms was November 23, 2021. 07:00 Acuity: BINDU 3 kd3 Triage Assessment: 07:02 General: Appears in no apparent distress. Behavior is calm, cooperative. Pain: kd3 Complains of pain in chest and abdomen. Cardiovascular: Patient's skin is warm and dry. Historical: - Allergies: 07:02 No Known Allergies; kd3 - Home Meds: 07:02 insulin - unknown [Active]; ibuprofen 600 mg Oral tab [Active]; kd3 - PMHx: 07:02 Diabetes - IDDM; kd3 - Immunization history:: Adult Immunizations up to date, Client reports receiving the 2nd dose of the Covid vaccine. - Social history:: Smoking status: Patient denies any tobacco usage or history of. - Family history:: not pertinent. Screenin:03 Abuse screen: Denies threats or abuse. Denies injuries from another. Nutritional kd3 screening: No deficits noted. Tuberculosis screening: No symptoms or risk factors identified. Fall Risk None identified. Assessment: 07:04 Pain: Pain does not radiate. Pain began gradually. kd3 07:05 General: Blood sugar 418 en route for EMS. kd3 07:10 Reassessment: RECD REPORT FROM CATIE MARCUS. 26YO WM P/W HYPERGLYCEMIA AND FLU S/S. bp 08:23 Reassessment: No changes from previously documented assessment. Patient and/or family bp updated on plan of care and expected duration. Pain level reassessed. 10:05 Reassessment: PT D/C HOME AMBULATORY, DX WITH VIRAL URI AND HYPERGLYCEMIA. bp Vital Signs: 07:00 BP 113 / 68; Pulse 104; Resp 16; Temp 98.2; Pulse Ox 96% on R/A; Weight 81.65 kg; kd3 Height 5 ft. 5 in. (165.10 cm); Pain 7/10; 07:00 BP 108 / 60; Pulse 104; Resp 16; Pulse Ox 99% ; bp 08:22 BP 105 / 75; Pulse 103; Resp 20; Pulse Ox 99% ; bp 10:05 BP 108 / 64; Pulse 99; Resp 20; Pulse Ox 99% ; bp 07:00 Body Mass Index 29.95 (81.65 kg, 165.10 cm) kd3 ED Course: 06:51 Patient arrived in ED. mw2 06:54 Catie Ramos, RN is Primary Nurse. kd3 07:02 Triage completed. kd3 07:02 Arm band placed on right wrist. kd3 07:03 Patient has correct armband on for positive identification. Client placed on continuous kd3 cardiac and pulse oximetry monitoring. NIBP monitoring applied. 07:03 No provider procedures requiring assistance completed. Maintain EMS IV. Dressing kd3 intact. Good blood return noted. Site clean \T\ dry. Gauge \T\ site: 20 g R forearm . Patient maintains SpO2 saturation greater than 95% on room air. 07:10 Primary Nurse role handed off by Catie Ramos, AMRIT bp 07:10 Carlos Eduardo Vega, AMRIT is Primary Nurse. bp 07:18 Davie Prasad MD is Attending Physician. justus 07:48 XRAY Chest (1 view) In Process Unspecified. EDMS 08:20 EKG done, by ED staff, reviewed by Davie Prasad MD. dh3 08:33 Troponin High Sensitivity Sent. eh3 10:05 IV discontinued, intact, bleeding controlled, No redness/swelling at site. Pressure bp dressing applied. Administered Medications: 08:17 Drug: NS 0.9% 1000 ml Route: IV; Rate: 1 bolus; Site: right antecubital; bp 09:26 Follow up: IV Status: Completed infusion; IV Intake: 1000ml bp 08:18 Drug: Zithromax (azithromycin) 500 mg Route: PO; bp 08:25 Follow up: Response: No adverse reaction bp 09:15 Drug: Semaglutide Pen Injector 20 units Route: Sub-Q; Site: abdomen; bp 09:27 Follow up: Response: No adverse reaction bp Medication: 07:05 VIS not applicable for this client. kd3 Intake: 09:26 IV: 1000ml; Total: 1000ml. bp Outcome: 09:20 Discharge ordered by . justus 10:05 Discharged to home ambulatory. bp 10:05 Condition: stable 10:05 Discharge instructions given to patient, Instructed on discharge instructions, follow up and referral plans. medication usage, Demonstrated understanding of instructions, follow-up care, medications, Prescriptions given X 1. 10:06 Patient left the ED. bp Signatures: Dispatcher [employer] EDMS Davie Prasad MD MD cha Herrera, Naomi 3 Carlos Eduardo Vega, RN RN bp Murali Banda 2 Catie Ramos RN RN kd3 Precious Moon RN RN 3
[2021-11-23] MEDS ORDERED: INSULIN GLARGINE 100 UNIT/ML SQ ONE (09:28)
[2021-11-23 09:45] LABS: Platelet Estimate ADEQ; White Blood Cell Scan OK (OK)
[2021-11-23 09:46] LABS: Blood Morphology Comment NOT SEEN (NOT SEEN)
[2021-11-23 10:13] VITALS: TEMP 98.2
[2021-11-23 10:15] VITALS: O2SAT 99
[2021-11-23 10:19] VITALS: BP 108/64
--- NOTE | 2021-11-23 14:28 | EKG ---
Test Date: 2021-11-23 Test Time: 08:11:10 Vehicle Maintenance Technician: SWETA MEASUREMENT RESULTS: Intervals: Rate: 105 HI: 130 QRSD: 84 QT: 352 QTc: 465 [place]: P: 64 HI: 130 QRS: 65 T: 43 INTERPRETIVE STATEMENTS: Sinus tachycardia Otherwise normal ECG Compared to ECG 01/08/2019 22:27:55 Sinus rhythm no longer present Electronically Signed On 11-23-21 14:27:22 CDT by Guevara Cesar
== END 2021-11-23 10:06 | disposition home or self-care (01) ==
LOC: ER 06:49
DX: R07.89 Other chest pain (principal); J06.9 Acute upper respiratory infection, unspecified; R50.9 Fever, unspecified; E10.65 Type 1 diabetes mellitus with hyperglycemia; Z79.4 Long term (current) use of insulin; Z20.822 Contact with and (suspected) exposure to COVID-19
CPT/HCPCS: 93005; 85025; 36415; 84484; 80053; 87804 ×2; 71045; 96360; 96372; 99284; U0003; J0456; J7030

== ENCOUNTER 2021-11-27 01:50 | Emergency (ER) | payer BC ==
--- OUTSIDE RECORDS SUMMARY | 2021-11-27 01:52 | XMS REPORT | Continuity of Care Document ---
:1995 Author Organization [facility] t Address [address] [place] [address] Care Team Providers Name Role Phone Pcp, Patient Does Not Have A Primary Care Physician [phone] Espinoza MARCUS, Melina Garrett Attending Clinician Unavailable Only, Ang Db Test Attending Clinician Unavailable Linda Dover Attending Clinician [...] Drug Active Univers ALLERGIE Class ity of [facility] Social History Social Habit Start Date Stop Date Quantity Comments Source Exposure to Yes [facility] SARS-CoV-2 (event) Medica l Branch Sex Assigned At [birth year] [facility] 00:00:00 00:00:00 Medical [place] Smoking Status Start Date Stop Date Source Unknown if ever smoked [facility] Medications Ordered Filled Start Stop Current Ordering Indication Dosage Frequency Signature Comments Components Source Medication Medication Date Date Medication? Clinician (SIG) Name Name clindamycin 2020- No [id number] 450mg Take 3 Univers 150 mg 09-27 [id number] capsules ity of capsule 00:00: 04:59 by mouth 3 Harvey as 00 :00 (three) Medical times Branch daily for 10 days. Vital Signs Vital Name Observation Time Observation Value Comments Source Systolic blood 2020-09-27 06:14:00 135 mm[Hg] Univer sity of pressure [facility] Diastolic blood 2020-09-27 06:14:00 83 mm[Hg] Unive rsity of [facility] Heart rate 2020-09-27 06:14:00 110 /min Universi ty [facility] Body temperature 2020-09-27 06:14:00 37.06 [facility] rate 2020-09-27 06:14:00 20 /min [facility] Body weight 2020-09-27 06:14:00 81.647 kg Universi ty [facility] Oxygen saturation in 2020-09-27 06:14:00 100 /min University of Arterial blood by [facility] Pulse oximetry Branch Systolic blood 2020-09-27 06:14:00 135 mm[Hg] Univer sity of [facility] Diastolic blood 2020-09-27 06:14:00 83 mm[Hg] Unive rsity of [facility] Heart rate 2020-09-27 06:14:00 110 /min Universi ty [facility] Body temperature 2020-09-27 06:14:00 37.06 Sarah [facility] ersity [facility] Respiratory rate 2020-09-27 06:14:00 20 /min [facility] ersity [facility] Body weight 2020-09-27 06:14:00 81.647 kg Universi ty [facility] Oxygen saturation in 2020-09-27 06:14:00 100 /min University of Arterial blood by [facility] Pulse oximetry Branch Procedures Procedure Date / Time Performed Performing Clinician [facility] e NOTICE OF PRIVACY 2020-09-27 06:10:18 Doctor Unassigned, No Univ ersity [facility] PRACTICES Name Medical Branch CONSENT/REFUSAL FOR 2020-09-27 06:09:54 [facility] AND Name [facility] TREATMENT Encounters Start End Encounter Admission Attending Care Care Encounter Source Date/Time Date/Time Type Type Clinicians Facility Department ID 2021-04-20 2021-04-20 Letter BIJAN Doran [id number] Univers 00:00:00 00:00:00 (Out) Meilna BARRAGAN [id number] it y of HOSPITAL [id number] Harvey as [id number] [facility] [address] [place] 2021-04-20 2021-04-20 Letter Only, [facility] [id number] Univers 00:00:00 00:00:00 (Out) Db Test HEALTH [id number] it y of [place] [id number] Harvey as JULIANNA?BLEA [id number] [address] MEDICAL OFFICE [facility] 2021-04-19 2021-04-19 Laboratory Only, Enrique Db Test [facility] [id number] Univers 09:15:00 09:22:34 Only Linda Malik HEALTH [id number] ity of [place] [id number] Harvey as JULIANNA?BLEA [id number] [address] OFFICE [facility] 2020-09-27 2020-09-27 Emergency [place], [facility] [id number] Univers 01:16:00 02:44:00 [place] [id number] i [place] [id number] [place] [id number] [facility] [address] [place] 2020-09-27 2020-09-27 Emergency [place], [facility] [id number] 01:16:00 02:44:00 [place] [id number] [place] [id number] [place] [id number] [facility] 2020-09-27 2020-09-27 Emergency X DEMETRIO, [facility] ERT [id number] Univers 01:16:00 01:16:00 MC ity of [facility] Results This patient has no known results.
--- NOTE | 2021-11-27 03:12 | ER ---
Nurse's Notes [facility] Name: Harvey Wyatt Age: 26 yrs Sex: Male : 1995 Arrival Date: 11/27/2021 Time: 01:55 Bed 7 Private MD: Diagnosis: Acute upper respiratory infection, unspecified;Coronavirus infection, unspecified;SARS-associated coronavirus as the cause of diseases classified elsewhere Presentation: 11/27 02:17 Chief complaint: Patient states: "I was in here and I tested negative, my vc1 girlfriend came in to and tested positive so I wanted to get tested again because I still have a cough.". Coronavirus screen: Vaccine status: Patient reports receiving the 2nd dose of the covid vaccine. Moderna; no booster. Ebola Screen: No symptoms or risks identified at this time. Risk Assessment: Do you want to hurt yourself or someone else? Patient reports no desire to harm self or others. Onset of symptoms was November 23, 2021. 02:17 Method Of Arrival: Ambulatory vc1 02:17 Acuity: BINDU 4 vc1 02:24 Initial Sepsis Screen: Does the patient meet any 2 criteria? No. Patient's initial vc1 sepsis screen is negative. Does the patient have a suspected source of infection? No. Patient's initial sepsis screen is negative. Triage Assessment: 02:19 General: Appears in no apparent distress. ill, Behavior is calm, cooperative, vc1 appropriate for age. Pain: Denies pain. EENT: No signs and/or symptoms were reported regarding the EENT system. Neuro: Level of Consciousness is awake, alert, obeys commands, Oriented to person, place, time, situation, Appropriate for age. Cardiovascular: No deficits noted. Respiratory: Reports cough that is non-productive. GI: No deficits noted. : No deficits noted. Derm: No signs and/or symptoms reported regarding the dermatologic system. Musculoskeletal: No signs and/or symptoms reported regarding the musculoskeletal system. Historical: - Allergies: 02:19 No Known Allergies; vc1 - Home Meds: 02:19 insulin - unknown [Active]; ibuprofen 600 mg Oral tab [Active]; vc1 - PMHx: 02:19 Diabetes - IDDM; vc1 - PSHx: 02:19 None; vc1 - Immunization history:: Adult Immunizations up to date, Client reports receiving the 2nd dose of the Covid vaccine. - Social history:: Smoking status: Patient denies any tobacco usage or history of. Screenin:20 Abuse screen: Denies threats or abuse. Nutritional screening: No deficits noted. vc1 Tuberculosis screening: No symptoms or risk factors identified. Fall Risk None identified. Assessment: 03:50 General: Appears in no apparent distress. comfortable, Behavior is calm, cooperative. kl Pain: Denies pain. Respiratory: No deficits noted. Airway is patent Trachea midline Respiratory effort is even, unlabored, Respiratory pattern is regular. Vital Signs: 02:17 Weight 81.65 kg; Height 5 ft. 5 in. (165.10 cm); vc1 02:21 BP 119 / 75; Pulse 98; Resp 17; Temp 98.7(O); Pulse Ox 100% ; vc1 02:17 Body Mass Index 29.95 (81.65 kg, 165.10 cm) vc1 ED Course: 01:55 Patient arrived in ED. bp1 01:55 Davie Prasad MD is Attending Physician. justus 02:19 Chest Pa And Lat (2 Views) XRAY In Process Unspecified. EDMS 02:19 Triage completed. vc1 02:20 Arm band placed on right wrist. vc1 02:49 SARS-COV-2 RT PCR (Document "Date of Onset" if Symptomatic) Sent. vc1 02:49 Flu Sent. vc1 03:50 No provider procedures requiring assistance completed. Patient did not have IV access kl during this emergency room visit. 03:51 Patient has correct armband on for positive identification. kl Administered Medications: 03:33 Drug: Zithromax (azithromycin) 500 mg Route: PO; vc1 Medication: 02:21 VIS not applicable for this client. vc1 Outcome: 03:12 Discharge ordered by . [facility] 03:50 Discharged to home ambulatory. kl 03:50 Condition: good 03:50 Discharge instructions given to patient, Instructed on discharge instructions, follow up and referral plans. medication usage, Demonstrated understanding of instructions, follow-up care, medications, Prescriptions given X 3. 03:51 Patient left the ED. Signatures: Dispatcher [employer] EDCA Kaylie Lorenzo RN RN kl Anderson, Corey, MD MD cha Paniauga, Brittany bp1 Calcote, Caitie, RN RN vc1
--- NOTE | 2021-11-27 03:13 | EDPHYS ---
Physician Documentation [facility] Name: Harvey Wyatt Age: 26 yrs Sex: Male : 1995 Arrival Date: 11/27/2021 Time: 01:55 Bed 7 Private MD: ED Physician Davie Prasad HPI: 11/27 03:08 This 26 yrs old Male presents to ER via Ambulatory with complaints of Cough. justus 03:08 The patient or guardian reports cough. Onset: The symptoms/episode began/occurred 3 justus day(s) ago. Severity of symptoms: At their worst the symptoms were mild, in the emergency department the symptoms are unchanged. Modifying factors: The symptoms are alleviated by nothing, the symptoms are aggravated by nothing. Associated signs and symptoms: The patient has no apparent associated signs or symptoms. The patient has not experienced similar symptoms in the past. Historical: - Allergies: 02:19 No Known Allergies; vc1 - Home Meds: 02:19 insulin - unknown [Active]; ibuprofen 600 mg Oral tab [Active]; vc1 - PMHx: 02:19 Diabetes - IDDM; vc1 - PSHx: 02:19 None; vc1 - Immunization history:: Adult Immunizations up to date, Client reports receiving the 2nd dose of the Covid vaccine. - Social history:: Smoking status: Patient denies any tobacco usage or history of. ROS: 03:08 Constitutional: Negative for fever, chills, and weight loss, Eyes: Negative for injury, justus pain, redness, and discharge, ENT: Negative for injury, pain, and discharge, Neck: Negative for injury, pain, and swelling, Cardiovascular: Negative for chest pain, palpitations, and edema, Abdomen/GI: Negative for abdominal pain, nausea, vomiting, diarrhea, and constipation, Back: Negative for injury and pain, : Negative for injury, bleeding, discharge, and swelling, MS/Extremity: Negative for injury and deformity, Skin: Negative for injury, rash, and discoloration, Neuro: Negative for headache, weakness, numbness, tingling, and seizure. 03:08 Respiratory: Positive for cough, Negative for cough. Exam: 03:08 Constitutional: This is a well developed, well nourished patient who is awake, alert, justus and in no acute distress. Head/Face: Normocephalic, atraumatic. Eyes: Pupils equal round and reactive to light, extra-ocular motions intact. Lids and lashes normal. Conjunctiva and sclera are non-icteric and not injected. Cornea within normal limits. Periorbital areas with no swelling, redness, or edema. ENT: Nares patent. No nasal discharge, no septal abnormalities noted. Tympanic membranes are normal and external auditory canals are clear. Oropharynx with no redness, swelling, or masses, exudates, or evidence of obstruction, uvula midline. Mucous membranes moist. Neck: Trachea midline, no thyromegaly or masses palpated, and no cervical lymphadenopathy. Supple, full range of motion without nuchal rigidity, or vertebral point tenderness. No Meningismus. Chest/axilla: Normal chest wall appearance and motion. Nontender with no deformity. No lesions are appreciated. Cardiovascular: Regular rate and rhythm with a normal S1 and S2. No gallops, murmurs, or rubs. Normal PMI, no JVD. No pulse deficits. Respiratory: Lungs have equal breath sounds bilaterally, clear to auscultation and percussion. No rales, rhonchi or wheezes noted. No increased work of breathing, no retractions or nasal flaring. Abdomen/GI: Soft, non-tender, with normal bowel sounds. No distension or tympany. No guarding or rebound. No evidence of tenderness throughout. Back: No spinal tenderness. No costovertebral tenderness. Full range of motion. Male : Normal genitalia with no discharge or lesions. Skin: Warm, dry with normal turgor. Normal color with no rashes, no lesions, and no evidence of cellulitis. MS/ Extremity: Pulses equal, no cyanosis. Neurovascular intact. Full, normal range of motion. Neuro: Awake and alert, GCS 15, oriented to person, place, time, and situation. Cranial nerves II-XII grossly intact. Motor strength 5/5 in all extremities. Sensory grossly intact. Cerebellar exam normal. Normal gait. Psych: Awake, alert, with orientation to person, place and time. Behavior, mood, and affect are within normal limits. Vital Signs: 02:17 Weight 81.65 kg; Height 5 ft. 5 in. (165.10 cm); vc1 02:21 BP 119 / 75; Pulse 98; Resp 17; Temp 98.7(O); Pulse Ox 100% ; vc1 02:17 Body Mass Index 29.95 (81.65 kg, 165.10 cm) vc1 MDM: 02:47 Patient medically screened. [facility] 03:10 Differential diagnosis: bronchitis, flu, URI. Antibiotic administration: The patient is justus discharged and will get outpatient antibiotics, Zithromax. Differential Diagnosis: Bronchitis Influenza Upper Respiratory Infection Sinusitis Pharyngitis. Data reviewed: vital signs, nurses notes, lab test result(s), radiologic studies, plain films. Data interpreted: quantitative analyst: rate is 98 beats/min, rhythm is regular. Test interpretation: by ED physician or midlevel provider: plain radiologic studies. Counseling: I had a detailed discussion with the patient and/or guardian regarding: the historical points, exam findings, and any diagnostic results supporting the discharge/admit diagnosis, lab results, radiology results, the need for outpatient follow up, for definitive care, 11/27 01:56 Order name: Flu; Complete Time: 03:37 [facility] 11/27 01:56 Order name: Chest Pa And Lat (2 Views) XRAY [facility] 11/27 02:24 Order name: SARS-COV-2 RT PCR (Document "Date of Onset" if Symptomatic) vc1 Administered Medications: 03:33 Drug: Zithromax (azithromycin) 500 mg Route: PO; vc1 Disposition Summary: 11/27/21 03:12 Discharge Ordered Location: Home [facility] Problem: new [facility] Symptoms: have improved justus Condition: Stable justus Diagnosis - Acute upper respiratory infection, unspecified justus - Coronavirus infection, unspecified justus - SARS-associated coronavirus as the cause of diseases classified elsewhere justus Followup: justus - With: Private Physician - When: 2 - 3 days - Reason: Recheck today's complaints, Continuance of care, Re-evaluation by your physician Discharge Instructions: - Discharge Summary Sheet justus - Upper Respiratory Infection, Adult justus - Viral Respiratory Infection justus - Cool Mist Vaporizer justus - Cough, Adult, [id number] justus - Cough, Pediatric, [id number] justus - Cough, Adult justus - COVID-19 [facility] - 10 Things You Can Do to Manage Your COVID-19 Symptoms at Home - [facility] - COVID-19: Quarantine vs. Isolation - [facility] - Prevent the Spread of COVID-19 if You Are Sick - [facility] Forms: - Medication Reconciliation Form [facility] - Thank You Letter [facility] - Antibiotic Education [facility] - Prescription Opioid Use [facility] Prescriptions: - Pepcid 20 mg Oral Tablet - take 1 tablet by ORAL route every 12 hours for 10 days; 20 tablet; Refills: 0, [facility] Product Selection Permitted - Tessalon Perles 100 mg Oral Capsule - take 1 capsule by ORAL route every 8 hours As needed; 30 capsule; Refills: 0, [facility] Product Selection Permitted - Zithromax Z-Stefan 250 mg Oral Tablet - take 1 tablet by ORAL route as directed for 5 days Day 1 - take two (2) tablets [facility] one time. Day 2, 3, 4 , 5 take one (1) tablet once daily.; 6 tablet; Refills: 0, Product Selection Permitted Signatures: Dispatcher [employer] EDDavie Franco MD MD cha Calcote, Vanessa RN RN vc1 Corrections: (The following items were deleted from the chart) 03:27 01:57 SARS-COV-2 Antigen Rapid+I.LAB.BRZ ordered. EDMS EDMS
[2021-11-27] MEDS ORDERED: AZITHROMYCIN 250 MG TAB ONE ×2 (03:39→03:46)
[2021-11-27 06:35] VITALS: BP 119/75; TEMP 98.7; O2SAT 100
--- NOTE | 2021-11-27 20:00 | RAD REPORT ---
EXAM DESCRIPTION: RAD - Chest Pa And Lat (2 Views) - 11/27/2021 2:17 am CLINICAL HISTORY: 26 years Male, COUGH COMPARISON: Prior chest x-ray report from 11/23/2021. The imaging is not available for review. TECHNIQUE: PA and Lateral views of the chest performed on 11/27/2021 at 2:24 AM FINDINGS: The lungs are well expanded and are clear. The costophrenic sulci are clear. There is no e vidence of a pneumothorax. The cardiac silhouette is normal in size. The mediastinal contours are normal. No acute osseous abnormalities are identified. No focal soft tissue abnormalities are identified. IMPRESSION: No evidence of acute intrathoracic disease. Electronically signed by: Antonella Grubbs DO 11/27/2021 3:27 AM CDT Due to temporary technical issues with the PACS/Fluency reporting system, reports are being signed by the in house radiologists without review as a courtesy to insure prompt reporting. The interpreting radiologist is fully responsible for the content of the report
== END 2021-11-27 03:51 | disposition home or self-care (01) ==
LOC: ER 01:50
DX: U07.1 COVID-19 (principal); J06.9 Acute upper respiratory infection, unspecified; E11.9 Type 2 diabetes mellitus without complications; Z79.4 Long term (current) use of insulin
CPT/HCPCS: 87804 ×2; 71046; U0003; 99284

== ENCOUNTER 2022-01-01 16:58 | Emergency (ER) | payer BC ==
--- OUTSIDE RECORDS SUMMARY | 2022-01-01 17:01 | XMS REPORT | Continuity of Care Document ---
:1995 Author Organization [facility] t Address [address] [place] [address] Care Team Providers Name Role Phone Pcp, [...] Drug Active Univers ALLERGIE Class ity of [facility] Social History Social Habit Start Date Stop Date Quantity Comments Source Exposure to Yes [facility] SARS-CoV-2 (event) Medica l Branch Sex Assigned At [address] 1995 [facility] 00:00:00 00:00:00 Medical [place] Smoking Status Start Date Stop Date Source Unknown if ever smoked [facility] Medications Ordered Filled Start Stop Current Ordering Indication Dosage Frequency Signature Comments Components Source Medication Medication Date Date Medication? Clinician (SIG) Name Name clindamycin 2020- No [id number] 450mg Take 3 Univers 150 mg 09-27 [id number] capsules ity of capsule 00:00: 04:59 by mouth 3 Harvey as 00 :00 (three) Medical times Branch daily for 10 days. Vital Signs Vital Name Observation Time Observation Value Comments Source Systolic blood 2020-09-27 06:14:00 135 mm[Hg] Univer sity of pressure [facility] Diastolic blood 2020-09-27 06:14:00 83 mm[Hg] Unive rsity of [facility] Heart rate 2020-09-27 06:14:00 110 /min Universi ty [facility] Body temperature 2020-09-27 06:14:00 37.06 Sarah [facility] Respiratory rate 2020-09-27 06:14:00 20 /min [facility] Body weight 2020-09-27 06:14:00 81.647 kg Universi ty [facility] Oxygen saturation in 2020-09-27 06:14:00 100 /min University of Arterial blood by [facility] Pulse oximetry Branch Systolic blood 2020-09-27 06:14:00 135 mm[Hg] Univer sity of [facility] Diastolic blood 2020-09-27 06:14:00 83 mm[Hg] Unive rsity of [facility] Heart rate 2020-09-27 06:14:00 110 /min Universi ty [facility] Body temperature 2020-09-27 06:14:00 37.06 Sarah [facility] ersity [facility] Respiratory rate 2020-09-27 06:14:00 20 /min [facility] ersity [facility] Body weight 2020-09-27 06:14:00 81.647 kg Universi ty [facility] Oxygen saturation in 2020-09-27 06:14:00 100 /min University of Arterial blood by [facility] Pulse oximetry Branch Procedures Procedure Date / Time Performed Performing Clinician [facility] e NOTICE OF PRIVACY 2020-09-27 06:10:18 Doctor Unassigned, No Univ ersity [facility] PRACTICES Name Medical Branch CONSENT/REFUSAL FOR 2020-09-27 06:09:54 Doctor Unassigned, No [facility] AND Name [facility] TREATMENT Encounters Start End Encounter Admission Attending Care Care Encounter Source Date/Time Date/Time Type Type Clinicians Facility Department ID 2021-04-20 2021-04-20 Letter Only, Enrique [facility] [id number] Univers 00:00:00 00:00:00 (Out) Db Test HEALTH [id number] it y of [place] [id number] Harvey as JULIANNA?BLEA [id number] [address] MEDICAL OFFICE [facility] 2021-04-20 2021-04-20 Letter BIJAN Doran [id number] Univers 00:00:00 00:00:00 (Out) Melina JOSÉY 350.1.13.10 it y of [facility] [id number] Harvey as [id number] [facility] [address] [place] 2021-04-19 2021-04-19 Laboratory Only, Enrique Db Test [facility] [id number] Univers 09:15:00 09:22:34 Only [place], Linda HEALTH 350.1.13.10 [facility] [id number] Harvey as JULIANNA?BLEA [id number] [address] OFFICE [facility] 2020-09-27 2020-09-27 Emergency [place], [facility] [id number] Univers 01:16:00 02:44:00 [place] [id number] i ty of [place]7.2.686 [place] [id number] [facility] [address] [place] 2020-09-27 2020-09-27 Emergency [place], [facility] [id number] 01:16:00 02:44:00 [place] [id number] [place] [id number] [place] [id number] [facility] 2020-09-27 2020-09-27 Emergency X DEMETRIO, [facility] ERT [id number] Univers 01:16:00 01:16:00 MC ity of [facility] Results This patient has no known results.
[2022-01-01] MEDS ORDERED: MORPHINE 4 MG/ML SYR ONE ×2 (18:11→20:32)
[2022-01-01] MEDS ORDERED: FAMOTIDINE 20 MG/2 ML VIAL IV ONE (18:11)
[2022-01-01] MEDS ORDERED: ONDANSETRON 4 MG/2 ML VIAL ONE (18:11)
[2022-01-01] MEDS ORDERED: NA CHLORIDE 0.9% 1,000 ML ONE ×2 (18:12→20:28)
--- NOTE | 2022-01-01 18:12 | RAD REPORT ---
EXAM DESCRIPTION: US - Abdomen Exam Limited - 01/01/2022 5:56 pm CLINICAL HISTORY: EPIGASTRIC PAIN COMPARISON: Abdomen Pelvis W Contrast dated 07/28/2021; Abdomen Pelvis W Contrast dated 12/31/2020 FINDINGS: Gallbladder is not identified. Patient details no prior gallbladder surgery. The gallbladd er was not identifiable on either the 2 comparison studies. 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 No common duct stone or biliary tree dilatation identified. Partially imaged liver shows fatty infiltration pattern. No portal vein abnormality. IMPRESSION: Congenital absence of the gallbladder. No biliary tree abnormality. Fatty infiltration of the liver.
[2022-01-01 18:15] LABS: Absolute Lymphocytes (CBC) 0.7 K/uL (0.7-4.9); Hematocrit 44.8 % (39.6-49.0); Lymphocytes % 13.6 % (15.3-44.8); MCV 85.1 fL (80-100); MPV 8.6 fL (7.6-11.3); RBC Red Blood Cell Count 5.27 M/uL (4.33-5.43)
[2022-01-01 18:29] LABS: ALT/SGPT 37 U/L (12-78); Albumin 3.4 g/dL (3.4-5.0); Alkaline Phosphatase 93 U/L (45-117); BUN Blood Urea Nitrogen 9 mg/dL (7-18); Bicarbonate 28 mmol/L (21-32); Bilirubin Total 0.8 mg/dL (0.2-1.0); Glomerular Filtration Rate 127 ml/min (=/>90); Glucose Level 357 mg/dL (74-106); Lipase 81 U/L (73-393); Protein, Total 6.7 g/dL (6.4-8.2); Sodium Level 135 mmol/L (136-145)
[2022-01-01 18:46] LABS: AST/SGOT 19 U/L (15-37)
--- NOTE | 2022-01-01 19:48 | RAD REPORT ---
EXAM DESCRIPTION: CT - Abdomen Pelvis W Contrast - 01/01/2022 7:28 pm CLINICAL HISTORY: epigastric pain COMPARISON: Abdomen Pelvis W Contrast dated 07/28/2021 TECHNIQUE: Biphasic, helical CT imaging of the abdomen and pelvis was performed following 100 ml non -ionic IV contrast. No oral contrast given. All CT scans are performed using dose optimization technique as appropriate and may include automated exposure control or mA/KV adjustment according to patient size. FINDINGS: No suspicious findings in the lung bases. The liver, spleen, and pancreas show no suspicious findings. Gallbladder is congenitally absent. No b iliary tree dilatation. Liver shows a fatty infiltration pattern. Symmetric renal function is seen with no hydronephrosis or suspicious renal mass. No pyelonephritis o r acute parenchymal process. No bladder abnormalities. No adrenal abnormalities. No gastric abnormality. There are a few mildly prominent small bowel loops less pronounced than seen on the July comparison. Appendix is normal. Moderate stool volume throughout most of the colon. No free air, free fluid or inflammatory stranding. No hernia, mass or bulky lymphadenopathy. No acute bone finding. 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 IMPRESSION: Contrast enhanced CT abdomen and pelvis showing no acute or emergent finding. No worrisome change from the July 2019 examination
[2022-01-01] MEDS ORDERED: INSULIN -REGULAR HUMAN 50 UNIT/0.5 ML ML ONE (20:28)
--- NOTE | 2022-01-01 21:27 | ER ---
Nurse's Notes [facility] Name: Harvey Wyatt Age: 26 yrs Sex: Male : 1995 Arrival Date: 01/01/2022 Time: 16:59 Bed 14 Private MD: Diagnosis: Abdominal pain, unspecified;Nausea with vomiting, unspecified Presentation: 01/01 17:15 Chief complaint: Patient states: Upper abdominal pain started yesterday after eating jl7 shrimp, now radiating to left lower back, denies N/V/D, denies symptoms, reports last BM 2 days ago. Coronavirus screen: At this time, the client does not indicate any symptoms associated with coronavirus-19. Ebola Screen: No symptoms or risks identified at this time. Initial Sepsis Screen: Does the patient meet any 2 criteria? No. Patient's initial sepsis screen is negative. Does the patient have a suspected source of infection? No. Patient's initial sepsis screen is negative. Risk Assessment: Do you want to hurt yourself or someone else? Patient reports no desire to harm self or others. Onset of symptoms was December 31, 2021. 17:15 Method Of Arrival: Ambulatory jl7 17:15 Acuity: BINDU 3 jl7 Triage Assessment: 17:17 General: Appears in no apparent distress. uncomfortable, Behavior is calm, cooperative, jl7 appropriate for age. Pain: Complains of pain in right upper quadrant and left upper quadrant Pain radiates to left low back Pain currently is 7 out of 10 on a pain scale. GI: Reports upper abdominal pain. Historical: - Allergies: 17:17 No Known Allergies; jl7 - Home Meds: 17:17 insulin - unknown [Active]; jl7 - PMHx: 17:17 Diabetes - IDDM; jl7 - PSHx: 17:17 None; jl7 - Immunization history:: Client reports receiving the 2nd dose of the Covid vaccine. - Social history:: Smoking status: Patient denies any tobacco usage or history of. Screenin:04 Abuse screen: Denies threats or abuse. Denies injuries from another. Nutritional db screening: No deficits noted. Tuberculosis screening: No symptoms or risk factors identified. Fall Risk None identified. No fall in past 12 months (0 pts). No secondary diagnosis (0 pts). IV access (20 points). Ambulatory Aid- None/Bed Rest/Nurse Assist (0 pts). Gait- Normal/Bed Rest/Wheelchair (0 pts) Mental Status- Oriented to own ability (0 pts). Total Ceron Fall Scale indicates No Risk (0-24 pts). Assessment: 18:04 Reassessment: Patient appears in no apparent distress at this time. No changes from db previously documented assessment. Patient and/or family updated on plan of care and expected duration. Pain level reassessed. Patient is alert, oriented x 3, equal unlabored respirations, skin warm/dry/pink. General: Appears in no apparent distress. comfortable, Behavior is calm, cooperative, appropriate for age, quiet. Pain: Complains of pain in abdomen and right upper quadrant Pain currently is 7 out of 10 on a pain scale. Neuro: No deficits noted. Cardiovascular: No deficits noted. Respiratory: No deficits noted. GI: Bowel sounds present X 4 quads. Abd is soft Reports nausea, vomiting. : No deficits noted. EENT: No deficits noted. Derm: No deficits noted. Musculoskeletal: No deficits noted. 18:50 Reassessment: Patient appears in no apparent distress at this time. No changes from db previously documented assessment. Patient and/or family updated on plan of care and expected duration. Pain level reassessed. Patient is alert, oriented x 3, equal unlabored respirations, skin warm/dry/pink. Patient states feeling better. Pain: Denies pain. 19:00 Reassessment: No changes from previously documented assessment. Patient and/or family vc1 updated on plan of care and expected duration. Pain level reassessed. Patient is alert, oriented x 3, equal unlabored respirations, skin warm/dry/pink. 20:00 Reassessment: No changes from previously documented assessment. Patient and/or family vc1 updated on plan of care and expected duration. Pain level reassessed. Patient is alert, oriented x 3, equal unlabored respirations, skin warm/dry/pink. 21:00 Reassessment: No changes from previously documented assessment. Patient and/or family vc1 updated on plan of care and expected duration. Pain level reassessed. Patient is alert, oriented x 3, equal unlabored respirations, skin warm/dry/pink. 21:50 Reassessment: Patient and/or family updated on plan of care and expected duration. Pain vc1 level reassessed. Patient is alert, oriented x 3, equal unlabored respirations, skin warm/dry/pink. Patient states feeling better. Patient states symptoms have improved. 22:41 Reassessment: Patient and/or family updated on plan of care and expected duration. Pain vc1 level reassessed. Patient is alert, oriented x 3, equal unlabored respirations, skin warm/dry/pink. Patient states feeling better. Patient states symptoms have improved. Vital Signs: 17:15 BP 114 / 74; Pulse 110; Resp 15; Temp 98.2; Pulse Ox 97% ; Weight 83.91 kg; Height 5 jl7 ft. 5 in. (165.10 cm); Pain 7/10; 18:03 BP 103 / 66; Pulse 99; Resp 16; Temp 100.1(O); Pulse Ox 100% on R/A; db 18:30 BP 102 / 63; Pulse 92; Resp 16; Pulse Ox 100% ; db 19:00 BP 107 / 64; Pulse 94; Resp 17; Pulse Ox 99% ; vc1 20:00 BP 107 / 64; Pulse 91; Resp 16; Pulse Ox 100% ; vc1 21:30 BP 98 / 47; Pulse 96; Resp 16; Pulse Ox 98% ; vc1 17:15 Body Mass Index 30.79 (83.91 kg, 165.10 cm) jl7 [place] Coma Score: 18:30 Eye Response: spontaneous(4). Verbal Response: oriented(5). Motor Response: obeys db commands(6). Total: 15. ED Course: 16:59 Patient arrived in ED. am2 17:00 Davie Carney PA is PHCP. cp 17:00 Rickey Cash DO is Attending Physician. cp 17:17 Triage completed. jl7 17:17 Arm band placed on right wrist. jl7 17:20 Betty Beverly, RN is Primary Nurse. db 17:57 Abdomen Limited US In Process Unspecified. EDMS 18:06 Inserted saline lock: 22 gauge in right antecubital area, using aseptic technique. db Blood collected. 19:00 Patient has correct armband on for positive identification. Bed in low position. vc1 19:30 CT Abd/Pelvis - IV Contrast Only In Process Unspecified. EDMS 20:04 Primary Nurse role handed off by Betty Beverly, AMRIT wm 21:26 Kalia Diallo MD is Referral Physician. cp 21:49 Caitie Haro RN is Primary Nurse. vc1 22:40 No provider procedures requiring assistance completed. IV discontinued, intact, vc1 bleeding controlled, No redness/swelling at site. Pressure dressing applied. Administered Medications: 18:24 Drug: NS 0.9% 1000 ml Route: IV; Rate: 1 bolus; Site: right antecubital; db 18:24 Drug: morphine 4 mg Route: IVP; Infused Over: 4 mins; Site: right antecubital; db 21:56 Follow up: Response: No adverse reaction; Marked relief of symptoms vc1 18:25 Drug: Pepcid (famotidine) 20 mg Route: IVP; Site: right antecubital; db 21:56 Follow up: Response: No adverse reaction; Marked relief of symptoms vc1 18:25 Drug: Zofran (Ondansetron) 4 mg Route: IVP; Site: right antecubital; db 21:56 Follow up: Response: No adverse reaction; Marked relief of symptoms vc1 20:38 Drug: NS 0.9% 1000 ml Route: IV; Rate: 1 bolus; Site: right antecubital; vc1 20:39 Drug: Insulin Regular Human 10 units {Co-Signature: vc1 (Caitie Haro RN).} Route: lg3 IVP; Site: right antecubital; 21:56 Follow up: Response: No adverse reaction; Marked relief of symptoms vc1 Medication: 18:04 VIS not applicable for this client. db Outcome: 21:27 Discharge ordered by . cp 22:41 Discharged to home ambulatory, with family. vc1 22:41 Condition: good 22:41 Discharge instructions given to patient, Instructed on discharge instructions, follow up and referral plans. medication usage, Demonstrated understanding of instructions, follow-up care, medications, Prescriptions given X 2. 22:41 Patient left the ED. vc1 Signatures: Dispatcher [employer] EDMS Davie Carney PA PA cp Leal, Jahala RN RN jl7 Susan Hoyos am2 Tanya Hoffman RN RN lg3 Yvrose Sage Caitie Haro RN RN vc1 Betty Beverly RN RN db Caitie Haro RN vc1 Corrections: (The following items were deleted from the chart) 17:18 17:15 Chief complaint: Patient states: Lower abdominal pain started yesterday after jl7 eating shrimp, now radiating to left lower back, denies N/V/D, denies symptoms, reports last BM 2 days ago jl7
--- NOTE | 2022-01-01 21:27 | EDPHYS ---
Physician Documentation [facility] Name: Harvey Wyatt Age: 26 yrs Sex: Male : 1995 Arrival Date: 01/01/2022 Time: 16:59 Bed 14 Private MD: ED Physician Rickey Cash HPI: 01/01 17:50 This 26 yrs old Male presents to ER via Ambulatory with complaints of cp Abdominal Pain, Low Back Pain, Constipation. 17:50 The patient presents with abdominal pain in the upper abdomen. Onset: The cp symptoms/episode began/occurred yesterday, after eating shrimp. The symptoms radiate to back. Associated signs and symptoms: Pertinent positives: nausea and vomiting, anorexia, constipation, Pertinent negatives: blood in stools, diarrhea, fever, headache, shortness of breath, testicular pain, vomiting blood. 17:50 The symptoms are described as constant. Severity of pain: in the emergency department cp the pain is unchanged despite home interventions. Historical: - Allergies: 17:17 No Known Allergies; jl7 - Home Meds: 17:17 insulin - unknown [Active]; jl7 - PMHx: 17:17 Diabetes - IDDM; jl7 - PSHx: 17:17 None; jl7 - Immunization history:: Client reports receiving the 2nd dose of the Covid vaccine. - Social history:: Smoking status: Patient denies any tobacco usage or history of. ROS: 18:00 Constitutional: Negative for body aches, chills, fever, poor PO intake. cp 18:00 Eyes: Negative for injury, pain, redness, and discharge. cp 18:00 ENT: Negative for drainage from ear(s), ear pain, sore throat, difficulty swallowing, difficulty handling secretions. 18:00 Cardiovascular: Negative for chest pain, edema, palpitations. 18:00 Respiratory: Negative for cough, shortness of breath, wheezing. 18:00 Abdomen/GI: Positive for abdominal pain, nausea and vomiting, constipation, anorexia, Negative for hematemesis, black/tarry stool, rectal bleeding. 18:00 Back: Positive for radiated pain. 18:00 : Negative for urinary symptoms, testicular pain 18:00 Neuro: Negative for altered mental status, dizziness, headache, numbness, weakness. 18:00 All other systems are negative. Exam: 18:05 Constitutional: The patient appears in no acute distress, alert, awake, cp non-diaphoretic, non-toxic, well developed, well nourished. 18:05 Head/Face: Normocephalic, atraumatic. cp 18:05 Eyes: Periorbital structures: appear normal, Conjunctiva: normal, no exudate, no injection, Sclera: no appreciated abnormality, Lids and lashes: appear normal, bilaterally. 18:05 ENT: External ear(s): are unremarkable, Nose: is normal, Mouth: Lips: moist, Oral mucosa: pink and intact, moist, Posterior pharynx: is normal, airway is patent, no erythema, no exudate. 18:05 Neck: ROM/movement: is normal, is supple, without pain, no range of motions limitations. 18:05 Chest/axilla: Inspection: normal, Palpation: is normal, no crepitus, no tenderness. 18:05 Cardiovascular: Rate: tachycardic, Rhythm: regular, Edema: is not appreciated, JVD: is not appreciated. 18:05 Respiratory: the patient does not display signs of respiratory distress, Respirations: normal, no use of accessory muscles, no retractions, labored breathing, is not present, Breath sounds: are clear throughout, no decreased breath sounds, no stridor, no wheezing. 18:05 Abdomen/GI: Inspection: abdomen appears normal, Bowel sounds: active, all quadrants, Palpation: soft, in all quadrants, moderate abdominal tenderness, in the epigastric area, right upper quadrant and left upper quadrant, rebound tenderness, is not appreciated, involuntary guarding, is not appreciated. 18:05 Back: CVA tenderness, is absent. 18:05 Skin: cellulitis, is not appreciated, no rash present. 18:05 Neuro: Orientation: to person, place \T\ time. Mentation: is normal, Motor: moves all fours, strength is normal, Sensation: is normal. Vital Signs: 17:15 BP 114 / 74; Pulse 110; Resp 15; Temp 98.2; Pulse Ox 97% ; Weight 83.91 kg; Height 5 jl7 ft. 5 in. (165.10 cm); Pain 7/10; 18:03 BP 103 / 66; Pulse 99; Resp 16; Temp 100.1(O); Pulse Ox 100% on R/A; db 18:30 BP 102 / 63; Pulse 92; Resp 16; Pulse Ox 100% ; db 19:00 BP 107 / 64; Pulse 94; Resp 17; Pulse Ox 99% ; vc1 20:00 BP 107 / 64; Pulse 91; Resp 16; Pulse Ox 100% ; vc1 21:30 BP 98 / 47; Pulse 96; Resp 16; Pulse Ox 98% ; vc1 17:15 Body Mass Index 30.79 (83.91 kg, 165.10 cm) jl7 [place] Coma Score: 18:30 Eye Response: spontaneous(4). Verbal Response: oriented(5). Motor Response: obeys db commands(6). Total: 15. MDM: 17:20 Patient medically screened. cp 21:25 Data reviewed: vital signs, nurses notes, lab test result(s), radiologic studies, CT cp scan, ultrasound. 21:25 Differential diagnosis: cholecystitis, Cholelithiasis, gastritis, pancreatitis, Peptic cp Ulcer Disease, Perf. Duodenal Ulcer, Perf. Gastric Ulcer, Pyelonephritis, Ureterolithiasis, urinary tract infection. 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 Response to treatment: the patient's symptoms have markedly improved after treatment. Special discussion: Based on the patient's Hx, exam, and Dx evaluation, there is no indication for emergent surgery or inpatient Tx. It is understood by the patient/guardian that if the Sx's persist or worsen they need to return immediately for re-evaluation. ED course: VSS. Pain and nausea markedly improved, vomiting resolved. Will discharge to home for continued monitoring. 01/01 17:41 Order name: CBC with Diff; Complete Time: 20:04 cp 01/01 17:41 Order name: CMP; Complete Time: 20:04 cp 01/01 17:41 Order name: Lipase; Complete Time: 20:04 cp 01/01 17:42 Order name: Ketone, Serum; Complete Time: 20:04 cp 01/01 17:42 Order name: Magnesium; Complete Time: 20:04 cp 01/01 17:41 Order name: Abdomen Limited US; Complete Time: 20:04 01/01 17:41 Order name: CT Abd/Pelvis - IV Contrast Only; Complete Time: 20:04 cp 01/01 17:41 Order name: IV Saline Lock; Complete Time: 18:07 cp 01/01 17:41 Order name: Labs collected and sent; Complete Time: 18:07 cp 01/01 17:42 Order name: NPO; Complete Time: 18:18 cp 01/01 20:05 Order name: PO challenge; Complete Time: 20:38 cp Administered Medications: 18:24 Drug: NS 0.9% 1000 ml Route: IV; Rate: 1 bolus; Site: right antecubital; db 18:24 Drug: morphine 4 mg Route: IVP; Infused Over: 4 mins; Site: right antecubital; db 21:56 Follow up: Response: No adverse reaction; Marked relief of symptoms vc1 18:25 Drug: Pepcid (famotidine) 20 mg Route: IVP; Site: right antecubital; db 21:56 Follow up: Response: No adverse reaction; Marked relief of symptoms vc1 18:25 Drug: Zofran (Ondansetron) 4 mg Route: IVP; Site: right antecubital; db 21:56 Follow up: Response: No adverse reaction; Marked relief of symptoms vc1 20:38 Drug: NS 0.9% 1000 ml Route: IV; Rate: 1 bolus; Site: right antecubital; vc1 20:39 Drug: Insulin Regular Human 10 units {Co-Signature: vc1 (Caitie Haro RN).} Route: lg3 IVP; Site: right antecubital; 21:56 Follow up: Response: No adverse reaction; Marked relief of symptoms vc1 Disposition Summary: 01/01/22 21:27 Discharge Ordered Location: Home cp Problem: new cp Symptoms: have improved cp Condition: Stable cp Diagnosis - Abdominal pain, unspecified cp - Nausea with vomiting, unspecified cp Followup: cp - With: Kalia Diallo MD - When: 2 - 3 days - Reason: Recheck today's complaints Discharge Instructions: - Discharge Summary Sheet cp - Abdominal Pain, Adult cp - Nausea and Vomiting, Adult cp Forms: - Medication Reconciliation Form cp - Thank You Letter cp - Antibiotic Education cp - Prescription Opioid Use cp - Work release form vc1 Prescriptions: - dicyclomine 20 mg Oral Tablet - take 1 tablet by ORAL route 4 times per day; 30 tablet; Refills: 0, Product cp Selection Permitted - Reglan 10 mg Oral Tablet - take 1 tablet by ORAL route every 6 hours take 30 minutes before meals and at cp bedtime; 20 tablet; Refills: 0, Product Selection Permitted Signatures: Dispatcher [employer] EDDavie Tomlin PA PA cp Leal, Jahala, RN RN jl7 Tanya Hoffman RN RN lg3 Caitie Haro RN RN vc1 Betty Beverly RN RN db Caitie Haro RN vc1
== END 2022-01-01 22:41 | disposition home or self-care (01) ==
LOC: ER 16:58
DX: R10.10 Upper abdominal pain, unspecified (principal); R11.2 Nausea with vomiting, unspecified; E11.9 Type 2 diabetes mellitus without complications; Z79.4 Long term (current) use of insulin
CPT/HCPCS: 85025; 36415; 82010; 83735; 82947; 83690; 80053; 74177; 76705; Q9967; J1815; J7030 ×2; J2405; 96374; 96375; 99284

== ENCOUNTER 2022-01-21 08:06 | Emergency (ER) | payer BC ==
--- OUTSIDE RECORDS SUMMARY | 2022-01-21 08:08 | XMS REPORT | Continuity of Care Document ---
:1995 Author Organization [facility] t Address [address] [place] [address] Care Team Providers Name Role Phone Pcp, Patient Does Not Have A Primary Care Physician +[phone] Only, Ang Db Test Attending Clinician Unavailable Melina Doran RN Attending Clinician Unavailable Linda Dover Attending Clinician Mc Juarez Attending Clinician CM ATKINSON Attending Clinician Unavailable Payers Payer Name Policy Type Policy Number Effective Date Expiration Date S ource Problems This patient has no known problems. Allergies, Adverse Reactions, Alerts Allergy Allergy Status Severity Reaction(s) Onset Inactive Treating Comm ents Source Name Type Date Date Clinician NO KNOWN Drug Active Univers ALLERGIE Class ity of [facility] Social History Social Habit Start Date Stop Date Quantity Comments Source Exposure to Yes [facility] SARS-CoV-2 (event) Medica l Branch Sex Assigned At [birth year] [facility] 00:00:00 00:00:00 Medical [place] Smoking Status Start Date Stop Date Source Unknown if ever smoked [facility] Medications Ordered Filled Start Stop Current Ordering Indication Dosage Frequency Signature Comments Components Source Medication Medication Date Date Medication? Clinician (SIG) Name Name clindamycin 2020- No [id number] 450mg Take 3 Univers 150 mg 09-27 [id number] capsules ity of capsule 00:00: 04:59 by mouth 3 Harvey as 00 :00 (three) Medical times Branch daily for 10 days. Vital Signs Vital Name Observation Time Observation Value Comments Source Systolic blood 2020-09-27 06:14:00 135 mm[Hg] Univer sity of pressure [facility] Diastolic blood 2020-09-27 06:14:00 83 mm[Hg] Unive rsity of [facility] Heart rate 2020-09-27 06:14:00 110 /min Universi ty [facility] Body temperature 2020-09-27 06:14:00 37.06 Sarah [facility] rate 2020-09-27 06:14:00 20 /min [facility] Body weight 2020-09-27 06:14:00 81.647 kg Universi ty [facility] Oxygen saturation in 2020-09-27 06:14:00 100 /min University of Arterial blood by [facility] Pulse oximetry Branch Systolic blood 2020-09-27 06:14:00 135 mm[Hg] Univer sity of [facility] Diastolic blood 2020-09-27 06:14:00 83 mm[Hg] Unive rsity of [facility] Heart rate 2020-09-27 06:14:00 110 /min Universi ty [facility] Body temperature 2020-09-27 06:14:00 37.06 Sarah [facility] ersity [facility] Respiratory rate 2020-09-27 06:14:00 20 /min [facility] ersity [facility] Body weight 2020-09-27 06:14:00 81.647 kg Universi ty [facility] Oxygen saturation in 2020-09-27 06:14:00 100 /min University of Arterial blood by [facility] Pulse oximetry Branch Procedures Procedure Date / Time Performed Performing Clinician [facility] e NOTICE OF PRIVACY 2020-09-27 06:10:18 Doctor Unassigned, No Univ ersity [facility] PRACTICES Name Medical Branch CONSENT/REFUSAL FOR 2020-09-27 06:09:54 [facility] TREATMENT Encounters Start End Encounter Admission Attending Care Care Encounter Source Date/Time Date/Time Type Type Clinicians Facility Department ID 2021-04-20 2021-04-20 Letter Only, Enrique WAMB [id number] Univers 00:00:00 00:00:00 (Out) Db Test HEALTH [id number] it y of [place] [id number] Harvey as JULIANNA?BLEA [id number] [address] MEDICAL OFFICE [facility] 2021-04-20 2021-04-20 Letter BIJAN Doran [id number] Univers 00:00:00 00:00:00 (Out) Melina JOSÉY [id number] it y of [facility] [id number] Harvey as [phone] [facility] 0[address] [place] 2021-04-19 2021-04-19 Laboratory Only, Enrique Db Test [facility] [id number] Univers 09:15:00 09:22:34 Only Green, Linda HEALTH [id number] [facility] [id number] Harvey as JULIANNA?BLEA [id number] [address] OFFICE [facility] 2020-09-27 2020-09-27 Emergency [place], [facility] [id number] Univers 01:16:00 02:44:00 [place] [id number] i ty of [id number] [id number] [facility] [address] [place] 2020-09-27 2020-09-27 Emergency [place], [facility] [id number] 01:16:00 02:44:00 [place] [id number] [place] [id number] [place] [id number] [facility] 2020-09-27 2020-09-27 Emergency X DEMETRIO, [facility] ERT [id number] Univers 01:16:00 01:16:00 MC ity of [facility] Results This patient has no known results.
[2022-01-21] MEDS ORDERED: METOCLOPRAMIDE 10 MG/2mL INJ ONE (08:36)
[2022-01-21] MEDS ORDERED: LORazepam 2 MG/ML VIAL ONE (08:37)
[2022-01-21] MEDS ORDERED: NA CHLORIDE 0.9% 1,000 ML ONE ×2 (08:37→10:58)
[2022-01-21] MEDS ORDERED: DIPHENHYDRAMINE 50 MG/ML VIAL ONE (08:37)
[2022-01-21] MEDS ORDERED: NA CHLORIDE 0.9% 100 ML IV ONE (08:38)
[2022-01-21 08:45] LABS: Absolute Lymphocytes (CBC) 1.3 K/uL (0.7-4.9); Lymphocytes % 31.6 % (15.3-44.8); MCV 85.6 fL (80-100); MPV 8.8 fL (7.6-11.3); RBC Red Blood Cell Count 5.18 M/uL (4.33-5.43)
[2022-01-21 09:15] LABS: Hematocrit 44.3 % (39.6-49.0)
[2022-01-21 10:31] LABS: Albumin 3.5 g/dL (3.4-5.0); Bilirubin Total 0.5 mg/dL (0.2-1.0); Protein, Total 6.5 g/dL (6.4-8.2)
[2022-01-21] MEDS ORDERED: INSULIN -REGULAR HUMAN 50 UNIT/0.5 ML ML ONE (10:44)
--- NOTE | 2022-01-21 12:06 | EDPHYS ---
Physician Documentation [facility] Name: Harvey Wyatt Age: 26 yrs Sex: Male : 1995 Arrival Date: 01/21/2022 Time: 08:07 Bed 19 Private MD: SARAH Physician Davie Prasad HPI: 01/21 08:34 This 26 yrs old Male presents to ER via Ambulatory with complaints of jmm Abdominal Pain. 08:34 The patient presents with abdominal pain. Onset: The symptoms/episode began/occurred jmm gradually, today. The symptoms do not radiate. Associated signs and symptoms: Pertinent positives: nausea. The symptoms are described as achy. Modifying factors: The symptoms are alleviated by nothing, the symptoms are aggravated by nothing. The patient has experienced similar episodes in the past, chronically. Historical: - Allergies: 08:15 No Known Allergies; tw2 - Home Meds: 08:15 Novolin 70/30 InnoLet Insulin 100 unit/mL (70-30) Sub-Q inpn [Active]; tw2 - PMHx: 08:15 Diabetes - IDDM; tw2 - PSHx: 08:15 None; tw2 - Immunization history:: Client reports receiving the 2nd dose of the Covid vaccine. - Social history:: Smoking status: Patient denies any tobacco usage or history of. ROS: 08:34 Constitutional: Negative for fever, chills, and weight loss, Cardiovascular: Negative jmm for chest pain, palpitations, and edema, Respiratory: Negative for shortness of breath, cough, wheezing, and pleuritic chest pain. 08:34 Abdomen/GI: Positive for abdominal pain, nausea and vomiting. 08:34 All other systems are negative. Exam: 08:34 Constitutional: This is a well developed, well nourished patient who is awake, alert, jmm and in no acute distress. Head/Face: atraumatic. Eyes: EOMI, no conjunctival erythema appreciated ENT: Moist Mucus Membranes Neck: Trachea midline, Supple Chest/axilla: Normal chest wall appearance and motion. Cardiovascular: Regular rate and rhythm. No edema appreciated Respiratory: Normal respirations, no respiratory distress appreciated 08:34 Back: Normal ROM Skin: General appearance color normal MS/ Extremity: Moves all extremities, no obvious deformities appreciated, no edema noted to the lower extremities Neuro: Awake and alert Psych: Behavior is normal, Mood is normal, Patient is cooperative and pleasant 08:34 Abdomen/GI: Inspection: abdomen appears normal, Bowel sounds: normal, Palpation: soft, mild abdominal tenderness, in the epigastric area, right upper quadrant and left upper quadrant. Vital Signs: 08:12 BP 123 / 80; Pulse 102; Resp 17; Temp 97.9(TE); Pulse Ox 100% on R/A; Weight 81.65 kg tw2 (R); Height 5 ft. 5 in. (165.10 cm); Pain 8/10; 09:15 BP 118 / 71; Pulse 97; Resp 16; Pulse Ox 96% ; bp 11:03 BP 108 / 71; Pulse 99; Resp 16; Pulse Ox 96% ; bp 08:12 Body Mass Index 29.95 (81.65 kg, 165.10 cm) tw2 MDM: 08:19 Patient medically screened. justus 12:04 Data reviewed: vital signs, nurses notes. Counseling: I had a detailed discussion with nirali the patient and/or guardian regarding: the historical points, exam findings, and any diagnostic results supporting the discharge/admit diagnosis, lab results, the need for outpatient follow up, to return to the emergency department if symptoms worsen or persist or if there are any questions or concerns that arise at home. ED course: Patient states feeling much better. Advised to follow up with gi. Patient otherwise given strict return precautions. patient understood and agrees with the plan of care. . 01/21 08:27 Order name: CBC with Diff; Complete Time: 09:19 [facility] 01/21 08:27 Order name: CMP; Complete Time: 10:41 [facility] 01/21 08:27 Order name: Lipase; Complete Time: 10:41 [facility] 01/21 12:11 Order name: Glucose, Ancillary Testing; Complete Time: 12:15 [facility] 01/21 08:27 Order name: IV Saline Lock; Complete Time: 08:31 [facility] 01/21 08:27 Order name: Labs collected and sent; Complete Time: 08:31 [facility] 01/21 09:12 Order name: Labs - recollect needed: recollect the lavender and green top/ lipemic eb protocol/ inside lab paged; Complete Time: 09:18 Administered Medications: 08:27 CANCELLED (Duplicate Order): Lactated Ringers Solution 1000 ml IV at 1000 bolus jmm continuous 08:40 Drug: NS 0.9% 1000 ml Route: IV; Rate: 1 bolus; Site: right forearm; db 08:40 Drug: Reglan (metoCLOPramide) 20 mg Route: IVP; Site: right forearm; db 09:19 Follow up: Response: No adverse reaction bp 08:40 Drug: diphenhydrAMINE 25 mg Route: IVP; Site: right forearm; db 09:19 Follow up: Response: No adverse reaction bp 08:40 Drug: Ativan (LORazepam) 1 mg Route: IVP; Site: right forearm; db 09:18 Follow up: Response: No adverse reaction bp 10:51 Drug: Insulin Regular Human 10 units {Co-Signature: tw2 (Velvet Domínguez RN).} Route: IVP; bp Site: right forearm; 11:03 Drug: NS 0.9% 1000 ml Route: IV; Rate: 1 bolus; Site: right forearm; bp Disposition Summary: 01/21/22 12:05 Discharge Ordered Location: Home jm Condition: Stable jm Diagnosis - Abdominal pain, unspecified jm Followup: [facility] - With: Jovan Mena MD - When: 2 - 3 days - Reason: Recheck today's complaints, Continuance of care, Re-evaluation by your physician Discharge Instructions: - Discharge Summary Sheet jm - Abdominal Pain, Adult jmm - Clear Liquid Diet, Adult jmm Forms: - Medication Reconciliation Form [facility] - Thank You Letter [facility] - Antibiotic Education [facility] - Prescription Opioid Use [facility] - Work release form eb Prescriptions: - ondansetron 4 mg Oral tablet,disintegrating - take 1 tablet by ORAL route every 4-6 hours As needed; 20 tablet; Refills: 0, [facility] Product Selection Permitted - Carafate 1 gram Oral Tablet - take 1 tablet by ORAL route 4 times per day take on an empty stomach, beginning jmm on waking and last dose at bedtime; 100 tablet; Refills: 0, Product Selection Permitted - Pepcid 20 mg Oral Tablet - take 1 tablet by ORAL route every 12 hours for 10 days; 20 tablet; Refills: 0, [facility] Product Selection Permitted Signatures: Dispatcher [employer] Davie Chacon MD MD cha Mickail, Joel, PA PA jmm Wise, Tara, RN RN tw2 Carlos Eduardo Vega RN RN bp Snu Young Danielle RN RN db Velvet Domínguez RN tw2 Corrections: (The following items were deleted from the chart) 08:27 08:27 Lactated Ringers Solution 1000 ml IV at 1000 bolus continuous ordered. nirali campoverde
--- NOTE | 2022-01-21 12:06 | ER ---
Nurse's Notes [facility] Name: Harvey Wyatt Age: 26 yrs Sex: Male : 1995 Arrival Date: 01/21/2022 Time: 08:07 Bed 19 Private MD: Diagnosis: Abdominal pain, unspecified Presentation: 01/21 08:12 Chief complaint: Patient states: stomach pain in my upper stomach. started this morning tw2 but this is the 3rd or 4th time i have been hospitalized for pain. i get a dx and send me home with some pills \T\ then its gone. but the pain comes. Coronavirus screen: At this time, the client does not indicate any symptoms associated with coronavirus-19. Ebola Screen: Patient denies travel to an Ebola-affected area in the 21 days before illness onset. Initial Sepsis Screen: Does the patient meet any 2 criteria? HR > 90 bpm. No. Patient's initial sepsis screen is negative. Does the patient have a suspected source of infection? No. Patient's initial sepsis screen is negative. Risk Assessment: Do you want to hurt yourself or someone else? Patient reports no desire to harm self or others. Onset of symptoms was January 21, 2022. 08:12 Method Of Arrival: Ambulatory tw2 08:12 Acuity: BINDU 3 tw2 Triage Assessment: 08:16 General: Appears in no apparent distress. slender, well groomed, Behavior is calm, tw2 cooperative, appropriate for age. Pain: Complains of pain in umbilical area, right upper quadrant and left upper quadrant. Neuro: Level of Consciousness is awake, alert, obeys commands, Oriented to person, place, time, situation. GI: Reports upper abdominal pain, Patient currently denies nausea, vomiting. Historical: - Allergies: 08:15 No Known Allergies; tw2 - Home Meds: 08:15 Novolin 70/30 InnoLet Insulin 100 unit/mL (70-30) Sub-Q inpn [Active]; tw2 - PMHx: 08:15 Diabetes - IDDM; tw2 - PSHx: 08:15 None; tw2 - Immunization history:: Client reports receiving the 2nd dose of the Covid vaccine. - Social history:: Smoking status: Patient denies any tobacco usage or history of. Screenin:15 Abuse screen: Denies threats or abuse. Denies injuries from another. Nutritional bp screening: No deficits noted. Tuberculosis screening: No symptoms or risk factors identified. Fall Risk None identified. Assessment: 08:30 General: SEE TRIAGE NOTE. bp 09:15 Reassessment: PER LAB, PT BLOOD IS LIPEMIC. PHLEBOTOMY PAGED FOR REDRAW. bp 09:43 Reassessment: PHLEBOTOMY AT B/S. bp 11:03 Reassessment: Patient states symptoms have improved. bp Vital Signs: 08:12 BP 123 / 80; Pulse 102; Resp 17; Temp 97.9(TE); Pulse Ox 100% on R/A; Weight 81.65 kg tw2 (R); Height 5 ft. 5 in. (165.10 cm); Pain 8/10; 09:15 BP 118 / 71; Pulse 97; Resp 16; Pulse Ox 96% ; bp 11:03 BP 108 / 71; Pulse 99; Resp 16; Pulse Ox 96% ; bp 08:12 Body Mass Index 29.95 (81.65 kg, 165.10 cm) tw2 ED Course: 08:07 Patient arrived in ED. am2 08:10 Garrett Savage PA is PHCP. jmm 08:10 Davie Prasad MD is Attending Physician. jmm 08:12 Arm band placed on. tw2 08:15 Triage completed. tw2 08:17 Carlos Eduardo Vega, AMRIT is Primary Nurse. bp 09:15 Patient has correct armband on for positive identification. Bed in low position. Call bp light in reach. Side rails up X2. 09:15 Inserted saline lock: 20 gauge in right forearm, using aseptic technique. Blood bp collected. 12:05 Jovan Mena MD is Referral Physician. jm Administered Medications: 08:27 CANCELLED (Duplicate Order): Lactated Ringers Solution 1000 ml IV at 1000 bolus jm continuous 08:40 Drug: NS 0.9% 1000 ml Route: IV; Rate: 1 bolus; Site: right forearm; db 08:40 Drug: Reglan (metoCLOPramide) 20 mg Route: IVP; Site: right forearm; db 09:19 Follow up: Response: No adverse reaction bp 08:40 Drug: diphenhydrAMINE 25 mg Route: IVP; Site: right forearm; db 09:19 Follow up: Response: No adverse reaction bp 08:40 Drug: Ativan (LORazepam) 1 mg Route: IVP; Site: right forearm; db 09:18 Follow up: Response: No adverse reaction bp 10:51 Drug: Insulin Regular Human 10 units {Co-Signature: tw2 (Velvet Domínguez RN).} Route: IVP; bp Site: right forearm; 11:03 Drug: NS 0.9% 1000 ml Route: IV; Rate: 1 bolus; Site: right forearm; bp Medication: 09:15 VIS not applicable for this client. bp Outcome: 12:05 Discharge ordered by MD. campoverde 12:48 Patient left the ED. iw Signatures: Garrett Savage PA PA jmm Williams, Irene, RN RN iw Velvet Domínguez RN RN tw2 Susan Hoyos am2 Carlos Eduardo Vega RN RN bp Betty Beverly RN RN db Velvet Domínguez RN tw2
[2022-01-21 12:54] VITALS: TEMP 97.9
[2022-01-21 12:55] VITALS: O2SAT 96
[2022-01-21 12:57] VITALS: BP 108/71
== END 2022-01-21 12:48 | disposition home or self-care (01) ==
LOC: ER 08:06
DX: R10.13 Epigastric pain (principal); R11.2 Nausea with vomiting, unspecified
CPT/HCPCS: 85025; 36415; 82947; 83690; 80053; 96375; 96374; 99283; J2765; J1200; J1815; J7030 ×2

== ENCOUNTER 2022-01-31 12:55 | Emergency (ER) | payer BC ==
[2022-01-31] MEDS ORDERED: METOCLOPRAMIDE 10 MG/2mL INJ ONE (13:12)
[2022-01-31] MEDS ORDERED: FAMOTIDINE 20 MG/2 ML VIAL IV ONE (13:13)
[2022-01-31] MEDS ORDERED: NA CHLORIDE 0.9% 1,000 ML ONE (13:13)
--- OUTSIDE RECORDS SUMMARY | 2022-01-31 13:25 | XMS REPORT | Continuity of Care Document ---
:1995 Author Organization [facility] t Address [address] [place] [address] Care Team Providers Name Role Phone Pcp, [...] Drug Active Univers ALLERGIE Class ity of [facility] Social History Social Habit Start Date Stop Date Quantity Comments Source Exposure to Yes [facility] SARS-CoV-2 (event) Medica l Branch Sex Assigned At [address] 1995 [facility] 00:00:00 00:00:00 Medical [place] Smoking Status Start Date Stop Date Source Unknown if ever smoked [facility] Medications Ordered Filled Start Stop Current Ordering Indication Dosage Frequency Signature Comments Components Source Medication Medication Date Date Medication? Clinician (SIG) Name Name clindamycin 2020- No [id number] 450mg Take 3 Univers 150 mg 09-27 [id number] capsules ity of capsule 00:00: 04:59 by mouth 3 Harvey as 00 :00 (three) Medical times Branch daily for 10 days. Vital Signs Vital Name Observation Time Observation Value Comments Source Systolic blood 2020-09-27 06:14:00 135 mm[Hg] Univer sity of pressure [facility] Diastolic blood 2020-09-27 06:14:00 83 mm[Hg] Unive rsity of [facility] Heart rate 2020-09-27 06:14:00 110 /min Universi ty [facility] Body temperature 2020-09-27 06:14:00 37.06 Sarah [facility] Res[facility] rate 2020-09-27 06:14:00 20 /min [facility] Body weight 2020-09-27 06:14:00 81.647 kg Universi ty [facility] Oxygen saturation in 2020-09-27 06:14:00 100 /min University of Arterial blood by [facility] Pulse oximetry Branch Systolic blood 2020-09-27 06:14:00 135 mm[Hg] Univer sity of [facility] Diastolic blood 2020-09-27 06:14:00 83 mm[Hg] Unive rsity of [facility] Heart rate 2020-09-27 06:14:00 110 /min Universi ty [facility] Body temperature 2020-09-27 06:14:00 37.06 Sarah [facility] ersity [facility] Respiratory rate 2020-09-27 06:14:00 20 /min [facility] ersity [facility] Body weight 2020-09-27 06:14:00 81.647 kg Universi ty [facility] Oxygen saturation in 2020-09-27 06:14:00 100 /min University of Arterial blood by [facility] Pulse oximetry Branch Procedures Procedure Date / Time Performed Performing Clinician [facility] e NOTICE OF PRIVACY 2020-09-27 06:10:18 Doctor Unassigned, No Univ ersity [facility] PRACTICES Name Medical Branch CONSENT/REFUSAL FOR 2020-09-27 06:09:54 Doctor Unassigned, No [facility] AND Name [facility] TREATMENT Encounters Start End Encounter Admission Attending Care Care Encounter Source Date/Time Date/Time Type Type Clinicians Facility Department ID 2021-04-20 2021-04-20 Letter Only, Enrique [facility] [id number] Univers 00:00:00 00:00:00 (Out) Db Test HEALTH 350.1.13.10 it y of [place] [id number] Harvey as JULIANNA?BLEA [id number] [address] MEDICAL OFFICE [facility] 2021-04-20 2021-04-20 Letter BIJAN Doran [id number] Univers 00:00:00 00:00:00 (Out) Melina JOSÉY 350.1.13.10 it y of [facility] [id number] Harvey as [id number] [facility] [address] [place] 2021-04-19 2021-04-19 Laboratory Only, Enrique Db Test [facility] [id number] Univers 09:15:00 09:22:34 Only [place], Linda HEALTH [id number] ity of [facility] [id number] Harvey as JULIANNA?BLEA [id number] [address] OFFICE [facility] 2020-09-27 2020-09-27 Emergency [place], [facility] [id number] Univers 01:16:00 02:44:00 [place] [address] [place] 350.1.13.10 i ty of [id number] [id number] [facility] [address] [place] 2020-09-27 2020-09-27 Emergency [place], [facility] [id number] 01:16:00 02:44:00 [place] [id number] [place] [id number] [place] [id number] [facility] 2020-09-27 2020-09-27 Emergency X DEMETRIO, [facility] ERT [id number] Univers 01:16:00 01:16:00 MC ity of [facility] Results This patient has no known results.
[2022-01-31 13:40] LABS: Hematocrit 45.5 % (39.6-49.0); Lymphocytes % 21.7 % (15.3-44.8); MCV 85.2 fL (80-100); MPV 8.6 fL (7.6-11.3); RBC Red Blood Cell Count 5.34 M/uL (4.33-5.43)
[2022-01-31] MEDS ORDERED: KETOROLAC 30 MG/ML INJ ONE (13:49)
[2022-01-31 15:42] LABS: Albumin 3.6 g/dL (3.4-5.0); Bilirubin Total 0.7 mg/dL (0.2-1.0)
[2022-01-31 15:43] LABS: Potassium 4.2 mmol/L (3.5-5.1)
--- NOTE | 2022-01-31 16:08 | EDPHYS ---
Physician Documentation [facility] Name: Harvey Wyatt Age: 26 yrs Sex: Male : 1995 Arrival Date: 01/31/2022 Time: 12:59 Bed 11 Private MD: ED Physician Rickey Cash HPI: 01/31 15:23 This 26 yrs old Male presents to ER via Ambulatory with complaints of kb Abdominal Pain, Nausea. 15:23 The patient presents with abdominal pain in the upper abdomen. Onset: The kb symptoms/episode began/occurred this morning. The symptoms do not radiate. Associated signs and symptoms: Pertinent positives: nausea and vomiting, Pertinent negatives: constipation, diarrhea, fever. The symptoms are described as constant. Modifying factors: The symptoms are alleviated by nothing, the symptoms are aggravated by nothing. Severity of pain: At its worst the pain was moderate in the emergency department the pain is unchanged. The patient has experienced similar episodes in the past, multiple times. The patient has been recently seen at the [facility] Emergency Department. Pt reports nausea, vomiting and upper abdominal pain that started this morning. States he has had this same pain multiple times in the past and workups have been negative. States he needs the names of GI docs that he can follow up with . Historical: - Allergies: 13:05 No Known Allergies; jl7 - Home Meds: 13:05 Novolin 70/30 InnoLet Insulin 100 unit/mL (70-30) Sub-Q inpn [Active]; jl7 - PMHx: 13:05 Diabetes - IDDM; jl7 - PSHx: 13:05 None; jl7 - Immunization history:: Client reports receiving the 2nd dose of the Covid vaccine. - Social history:: Smoking status: Patient denies any tobacco usage or history of. ROS: 15:20 Constitutional: Negative for fever, chills, and weight loss. kb 15:20 Abdomen/GI: Positive for abdominal pain, nausea and vomiting, Negative for diarrhea, constipation. 15:20 All other systems are negative. Exam: 15:20 Constitutional: This is a well developed, well nourished patient who is awake, alert, kb and in no acute distress. Head/Face: Normocephalic, atraumatic. ENT: Moist Mucous membranes Cardiovascular: Regular rate and rhythm with a normal S1 and S2. No gallops, murmurs, or rubs. No pulse deficits. Respiratory: Respirations even and unlabored. No increased work of breathing. Talking in full sentences Skin: Warm, dry with normal turgor. Normal color. MS/ Extremity: Pulses equal, no cyanosis. Neurovascular intact. Full, normal range of motion. Neuro: Awake and alert, GCS 15, oriented to person, place, time, and situation. Moves all extremities. Normal gait. Psych: Awake, alert, with orientation to person, place and time. Behavior, mood, and affect are within normal limits. 15:20 Abdomen/GI: Inspection: abdomen appears normal, Bowel sounds: normal, in all quadrants, Palpation: soft, in all quadrants, moderate abdominal tenderness, in the right upper quadrant and left upper quadrant. Vital Signs: 13:04 BP 112 / 70; Pulse 94; Resp 17; Temp 97.1; Pulse Ox 97% ; Weight 81.65 kg; Height 5 ft. jl7 5 in. (165.10 cm); Pain 10/10; 14:40 BP 117 / 64; Pulse 82; Resp 18; Pulse Ox 100% ; em6 16:19 BP 124 / 82; Pulse 80; Resp 16; Pulse Ox 100% ; em6 13:04 Body Mass Index 29.95 (81.65 kg, 165.10 cm) jl7 MDM: 13:07 Patient medically screened. kb 15:21 Data reviewed: vital signs, nurses notes. Data interpreted: Pulse oximetry: on room air kb is 100 %. Interpretation: normal. 16:01 Counseling: I had a detailed discussion with the patient and/or guardian regarding: the kb historical points, exam findings, and any diagnostic results supporting the discharge/admit diagnosis, lab results, the need for outpatient follow up, a brief writer, to return to the emergency department if symptoms worsen or persist or if there are any questions or concerns that arise at home. 01/31 13:06 Order name: CBC with Diff; Complete Time: 13:42 kb 01/31 13:06 Order name: CMP; Complete Time: 16:06 kb 01/31 13:06 Order name: Lipase; Complete Time: 16:06 kb 01/31 13:06 Order name: IV Saline Lock; Complete Time: 13:30 kb 01/31 13:06 Order name: Labs collected and sent; Complete Time: 13:30 kb Administered Medications: 13:08 CANCELLED (Physician Discretion): Zofran (Ondansetron) 4 mg IVP once; over 2 minutes kb 13:20 Drug: NS 0.9% 1000 ml Route: IV; Rate: 1 bolus; Site: right antecubital; em6 14:41 Follow up: Response: No adverse reaction; IV Status: Completed infusion; IV Intake: em6 1000ml 13:20 Drug: Pepcid (famotidine) 20 mg Route: IVP; Site: right antecubital; em6 13:52 Follow up: Response: No adverse reaction em6 13:20 Drug: Reglan (metoCLOPramide) 10 mg Route: IVP; Site: right antecubital; em6 13:51 Follow up: Response: No adverse reaction em6 13:51 Drug: Ketorolac 15 mg Route: IVP; Site: right antecubital; em6 14:41 Follow up: Response: No adverse reaction em6 Disposition: 21:09 Co-signature as Attending Physician, Rickey WALKER was immediately available on-site ms3 in the Emergency Department for consultation in the care of the patient.. Disposition Summary: 01/31/22 16:08 Discharge Ordered Location: Home kb Condition: Stable kb Diagnosis - Upper abdominal pain, unspecified kb - Nausea with vomiting, unspecified kb Followup: kb - With: Emergency Department - When: As needed - Reason: Worsening of condition Followup: kb - With: Private Physician - When: 2 - 3 days - Reason: Recheck today's complaints, Continuance of care, Re-evaluation by your physician Discharge Instructions: - Discharge Summary Sheet kb - Nausea and Vomiting, Adult, [id number] kb - Abdominal Pain, Adult, [id number] kb Forms: - Medication Reconciliation Form kb - Thank You Letter kb - Antibiotic Education kb - Prescription Opioid Use kb Prescriptions: - Reglan 10 mg Oral Tablet - take 1 tablet by ORAL route every 6 hours take 30 minutes before meals and at kb bedtime; 20 tablet; Refills: 0, Product Selection Permitted Signatures: Dispatcher [employer] EDAngela Wilks FNP-C FNP-Ckb Leal, Jahala, RN RN jl7 Rickey Cash DO DO ms3 Dayo, Sonja, RN RN em6 Corrections: (The following items were deleted from the chart) 13:08 13:06 Zofran (Ondansetron) 4 mg IVP once; over 2 minutes ordered. kb kb
--- NOTE | 2022-01-31 16:08 | ER ---
Nurse's Notes [facility] Name: Harvey Wyatt Age: 26 yrs Sex: Male : 1995 Arrival Date: 01/31/2022 Time: 12:59 Bed 11 Private MD: Diagnosis: Upper abdominal pain, unspecified;Nausea with vomiting, unspecified Presentation: 01/31 13:04 Chief complaint: Patient states: Abdominal pain, nausea and vomiting since this jl7 morning. Coronavirus screen: Vaccine status: Patient reports receiving the 2nd dose of the covid vaccine. At this time, the client does not indicate any symptoms associated with coronavirus-19. Ebola Screen: No symptoms or risks identified at this time. Initial Sepsis Screen: Does the patient meet any 2 criteria? No. Patient's initial sepsis screen is negative. Does the patient have a suspected source of infection? No. Patient's initial sepsis screen is negative. Risk Assessment: Do you want to hurt yourself or someone else? Patient reports no desire to harm self or others. Onset of symptoms was January 31, 2022. 13:04 Method Of Arrival: [facility] 13:04 Acuity: BINDU 3 jl7 Triage Assessment: 13:05 General: Appears in no apparent distress. uncomfortable, Behavior is calm, cooperative, jl7 appropriate for age. Pain: Complains of pain in abdomen Pain currently is 10 out of 10 on a pain scale. GI: Reports nausea. Historical: - Allergies: 13:05 No Known Allergies; jl7 - Home Meds: 13:05 Novolin 70/30 InnoLet Insulin 100 unit/mL (70-30) Sub-Q inpn [Active]; jl7 - PMHx: 13:05 Diabetes - IDDM; jl7 - PSHx: 13:05 None; jl7 - Immunization history:: Client reports receiving the 2nd dose of the Covid vaccine. - Social history:: Smoking status: Patient denies any tobacco usage or history of. Screenin:08 Abuse screen: Denies threats or abuse. Nutritional screening: No deficits noted. em6 Tuberculosis screening: No symptoms or risk factors identified. 13:20 Fall Risk IV access (20 points). Total Ceron Fall Scale indicates No Risk (0-24 pts). em6 Assessment: 13:15 General: Appears comfortable, Behavior is cooperative. Pain: Complains of pain in em6 epigastric area Pain does not radiate. Pain currently is 10 out of 10 on a pain scale. Quality of pain is described as sharp, Pain began 4 hours ago. Neuro: Level of Consciousness is awake, alert, obeys commands, Oriented to person, place, time, situation. Cardiovascular: Patient's skin is warm and dry. Respiratory: Airway is patent Respiratory effort is even, unlabored, Respiratory pattern is regular, symmetrical. GI: Abdomen is non-distended, Bowel sounds present X 4 quads. Abd is soft and non tender X 4 quads. Reports nausea, vomiting. : No signs and/or symptoms were reported regarding the genitourinary system. EENT: No signs and/or symptoms were reported regarding the EENT system. Derm: No signs and/or symptoms reported regarding the dermatologic system. Musculoskeletal: Circulation, motion, and sensation intact. Range of motion: intact in all extremities. 14:15 Reassessment: Patient and/or family updated on plan of care and expected duration. Pain em6 level reassessed. Patient is alert, oriented x 3, equal unlabored respirations, skin warm/dry/pink. Patient states symptoms have improved. 14:15 Reassessment: Patient appears in no apparent distress at this time. No changes from em6 previously documented assessment. Patient and/or family updated on plan of care and expected duration. Pain level reassessed. Patient is alert, oriented x 3, equal unlabored respirations, skin warm/dry/pink. 15:15 Reassessment: Patient appears in no apparent distress at this time. No changes from em6 previously documented assessment. Patient and/or family updated on plan of care and expected duration. Pain level reassessed. Patient is alert, oriented x 3, equal unlabored respirations, skin warm/dry/pink. Vital Signs: 13:04 BP 112 / 70; Pulse 94; Resp 17; Temp 97.1; Pulse Ox 97% ; Weight 81.65 kg; Height 5 ft. jl7 5 in. (165.10 cm); Pain 10/10; 14:40 BP 117 / 64; Pulse 82; Resp 18; Pulse Ox 100% ; em6 16:19 BP 124 / 82; Pulse 80; Resp 16; Pulse Ox 100% ; em6 13:04 Body Mass Index 29.95 (81.65 kg, 165.10 cm) jl7 ED Course: 12:59 Patient arrived in ED. rg4 13:02 Angela [facility]-C [facility] kb 13:02 Rickey Cash DO is Attending Physician. kb 13:05 Triage completed. jl7 13:05 Arm band placed on right wrist. jl7 13:06 Sonja Oshea, RN is Primary Nurse. em6 13:08 Bed in low position. Call light in reach. Side rails up X2. Pulse ox on. NIBP on. Warm em6 blanket given. 13:20 Inserted saline lock: 20 gauge in right antecubital area, using aseptic technique. em6 Blood collected. 13:30 CBC with Diff Sent. em6 13:30 CMP Sent. em6 13:30 Lipase Sent. em6 16:25 No provider procedures requiring assistance completed. IV discontinued, intact, em6 bleeding controlled, No redness/swelling at site. Pressure dressing applied. Administered Medications: 13:08 CANCELLED (Physician Discretion): Zofran (Ondansetron) 4 mg IVP once; over 2 minutes kb 13:20 Drug: NS 0.9% 1000 ml Route: IV; Rate: 1 bolus; Site: right antecubital; em6 14:41 Follow up: Response: No adverse reaction; IV Status: Completed infusion; IV Intake: em6 1000ml 13:20 Drug: Pepcid (famotidine) 20 mg Route: IVP; Site: right antecubital; em6 13:52 Follow up: Response: No adverse reaction em6 13:20 Drug: Reglan (metoCLOPramide) 10 mg Route: IVP; Site: right antecubital; em6 13:51 Follow up: Response: No adverse reaction em6 13:51 Drug: Ketorolac 15 mg Route: IVP; Site: right antecubital; em6 14:41 Follow up: Response: No adverse reaction em6 Medication: 16:26 VIS not applicable for this client. em6 Intake: 14:41 IV: 1000ml; Total: 1000ml. em6 Outcome: 16:08 Discharge ordered by . kb 16:26 Discharged to home ambulatory. em6 16:26 Condition: stable 16:26 Discharge instructions given to patient, Instructed on discharge instructions, follow up and referral plans. medication usage, Demonstrated understanding of instructions, follow-up care, medications, Prescriptions given X 1. 16:26 Patient left the ED. em6 Signatures: Angela Marin FNP-C FNP-Greta Chris rg4 Stacy Irvin RN RN jl7 Sonja Oshea RN RN em6 Corrections: (The following items were deleted from the chart) 13:45 13:15 GI: Abdomen is non-distended, Bowel sounds present X 4 quads. Abd is soft and non em6 tender X 4 quads. em6
[2022-01-31 17:00] VITALS: TEMP 97.1
[2022-01-31 17:06] VITALS: O2SAT 100
[2022-01-31 17:11] VITALS: BP 124/82
== END 2022-01-31 16:26 | disposition home or self-care (01) ==
LOC: ER 12:55
DX: R10.10 Upper abdominal pain, unspecified (principal); R11.2 Nausea with vomiting, unspecified; E11.9 Type 2 diabetes mellitus without complications; Z79.4 Long term (current) use of insulin
CPT/HCPCS: 96361; 85025; 36415; 83690; 80053; 96375; 96374; 99284; J2765; J7030

== ENCOUNTER 2022-05-30 12:39 | Emergency (ER) | payer BC ==
--- OUTSIDE RECORDS SUMMARY | 2022-05-30 12:42 | XMS REPORT | Continuity of Care Document ---
:1995 Author Organization [facility] t Address [address] [place] [address] Care Team Providers Name Role Phone Pcp, [...] Active Univers ALLERGIE Class ity of [facility] Social History Social Habit Start Date Stop Date Quantity Comments Source Exposure to Yes [facility] SARS-CoV-2 (event) Medica l Branch Sex Assigned At [birth year] [facility] 00:00:00 00:00:00 Medical [place] Smoking Status Start Date Stop Date Source Unknown if ever smoked [facility] Medications Ordered Filled Start Stop Current Ordering Indication Dosage Frequency Signature Comments Components Source Medication Medication Date Date Medication? Clinician (SIG) Name Name clindamycin 2020- No [id number] 450mg Take 3 Univers 150 mg 09-27 [id number] capsules ity of capsule 00:00: 04:59 by mouth 3 Harvey as 00 :00 (three) Medical times Branch daily for 10 days. Vital Signs Vital Name Observation Time Observation Value Comments Source Systolic blood 2020-09-27 06:14:00 135 mm[Hg] Univer sity of pressure [facility] Diastolic blood 2020-09-27 06:14:00 83 mm[Hg] Unive rsity of [facility] Heart rate 2020-09-27 06:14:00 110 /min Universi ty [facility] Body temperature 2020-09-27 06:14:[address] [facility] Respiratory rate 2020-09-27 06:14:00 20 /min [facility] Body weight 2020-09-27 06:14:00 81.647 kg Universi ty [facility] Oxygen saturation in 2020-09-27 06:14:00 100 /min University of Arterial blood by [facility] Pulse oximetry Branch Systolic blood 2020-09-27 06:14:00 135 mm[Hg] Univer sity of [facility] Diastolic blood 2020-09-27 06:14:00 83 mm[Hg] Unive rsity of [facility] Heart rate 2020-09-27 06:14:00 110 /min Universi ty [facility] Body temperature 2020-09-27 06:14:[address] [facility] ersity [facility] Respiratory rate 2020-09-27 06:14:00 20 /min [facility] ersity [facility] Body weight 2020-09-27 06:14:00 81.647 kg Universi ty [facility] Oxygen saturation in 2020-09-27 06:14:00 100 /min University of Arterial blood by [facility] Pulse oximetry Branch Procedures Procedure Date / Time Performed Performing Clinician [facility] e NOTICE OF PRIVACY 2020-09-27 06:10:18 Doctor Unassigned, No Univ ersity [facility] PRACTICES Name Medical Branch CONSENT/REFUSAL FOR 2020-09-27 06:09:54 Doctor Unassigned, No [facility] AND Name [facility] TREATMENT Encounters Start End Encounter Admission Attending Care Care Encounter Source Date/Time Date/Time Type Type Clinicians Facility Department ID 2021-04-20 2021-04-20 Letter Only, Enrique [facility] [id number] Univers 00:00:00 00:00:00 (Out) Db Test HEALTH 350.1.13.10 it y of [place] [id number] Harvey as JULIANNA?BLEA [id number] [address] MEDICAL OFFICE [facility] 2021-04-20 2021-04-20 Letter BIJAN Doran [id number] Univers 00:00:00 00:00:00 (Out) Melina JOSÉY 350.1.13.10 it y of [facility] [id number] Harvey as [id number] [facility] [address] [place] 2021-04-19 2021-04-19 Laboratory Only, Enrique Db Test [facility] 1.2.8 40.114 [id number] Univers 09:15:00 09:22:34 Only [place], Linda HEALTH [id number] ity [facility] [id number] Harvey as JULIANNA?BLEA [id number] [address] OFFICE [facility] 2020-09-27 2020-09-27 Emergency [place], [facility] [id number] Univers 01:16:00 02:44:00 [place] [id number] i ty of [id number] [id number] [facility] [address] [place] 2020-09-27 2020-09-27 Emergency [place], [facility] [id number] 01:16:00 02:44:00 [place] [id number] [place] [id number] [place] [id number] [facility] 2020-09-27 2020-09-27 Emergency X DEMETRIO, [facility] ERT [id number] Univers 01:16:00 01:16:00 MC ity of [facility] Results This patient has no known results.
[2022-05-30 15:43] LABS: SARS-COV-2 RT PCR POSITIVE (NEGATIVE)
--- NOTE | 2022-05-30 15:48 | ER ---
Nurse's Notes [facility] Name: Harvey Wyatt Age: 26 yrs Sex: Male : 1995 Arrival Date: 05/30/2022 Time: 12:45 Bed 11 Private MD: Diagnosis: SARS-associated coronavirus as the cause of diseases classified elsewhere Presentation: 05/30 13:13 Chief complaint: Patient states: i was around two co workers who were positive with [facility] COVID; shortly after started getting sick with congestion and fever and cough that causes my chest to hurt. Coronavirus screen: Vaccine status: Patient reports receiving the 2nd dose of the covid vaccine. Client denies travel out of the [place] in the last 14 days. Ebola Screen: Patient negative for fever greater than or equal to 101.5 degrees Fahrenheit, and additional compatible Ebola Virus Disease symptoms Patient denies exposure to infectious person. Patient denies travel to an Ebola-affected area in the 21 days before illness onset. Initial Sepsis Screen: Does the patient meet any 2 criteria? No. Patient's initial sepsis screen is negative. Does the patient have a suspected source of infection? No. Patient's initial sepsis screen is negative. Risk Assessment: Do you want to hurt yourself or someone else? Patient reports no desire to harm self or others. 13:13 Method Of Arrival: Ambulatory [facility] 13:13 Acuity: BINDU 3 [facility] Triage Assessment: 13:17 General: Appears uncomfortable, slender, Behavior is calm, cooperative, appropriate for [facility] age. Pain: Denies pain. Cardiovascular: Reports COUGH. Historical: - PMHx: 13:17 Diabetes - IDDM; [facility] - Immunization history:: Adult Immunizations up to date. - Social history:: Smoking status: Patient denies any tobacco usage or history of. Screenin:06 Abuse screen: Denies threats or abuse. Denies injuries from another. Nutritional ss screening: No deficits noted. Tuberculosis screening: Never had TB. Assessment: 16:06 Reassessment: Patient appears in no apparent distress at this time. Patient is alert, ss oriented x 3, equal unlabored respirations, skin warm/dry/pink. Vital Signs: 13:13 BP 118 / 74; Pulse 102; Resp 18; Temp 98.1; Pulse Ox 98% ; Weight 75.75 kg; Height 5 [facility] ft. 5 in. (165.10 cm); Pain 0/10; 13:13 Body Mass Index 27.79 (75.75 kg, 165.10 cm) [facility] ED Course: 12:45 Patient arrived in ED. am2 12:52 Angeles [facility]C [facility] snw 12:52 Davie Prasad MD is Attending Physician. sn 13:17 Triage completed. [facility] 13:17 Arm band placed on right wrist. [facility] 13:27 Susan Diaz, RN is Primary Nurse. ap3 16:06 Patient has correct armband on for positive identification. 16:06 Assist provider with bone marrow aspiration. Patient did not have IV access during this emergency room visit. Patient maintains SpO2 saturation greater than 95% on room air. Administered Medications: No medications were administered Medication: 16:06 VIS not applicable for this client. Outcome: 15:48 Discharge ordered by . [facility] 16:06 Discharged to home ambulatory, with family. 16:06 Condition: good 16:06 Discharge instructions given to patient, Instructed on discharge instructions, follow up and referral plans. medication usage, Demonstrated understanding of instructions, follow-up care, medications, Prescriptions given X 3. 16:09 Patient left the ED. Signatures: Angeles Malin FNP-C FNP-Rossy Erickson, RN RN Susan Hoyos 2 Susan Diaz, RN RN [facility] Liudmila Do RN RN [facility]
--- NOTE | 2022-05-30 15:48 | EDPHYS ---
Physician Documentation [facility] Name: Harvey Wyatt Age: 26 yrs Sex: Male : 1995 Arrival Date: 05/30/2022 Time: 12:45 Bed 11 Private MD: ED Physician Davie Prasad HPI: 05/30 14:02 This 26 yrs old Male presents to ER via Ambulatory with complaints of covid snw exposure. 14:02 The patient or guardian reports cough, sore throat. Onset: The symptoms/episode snw began/occurred suddenly, 1 week(s) ago, and became persistent. Associated signs and symptoms: Pertinent positives: sore throat. Severity of symptoms: At their worst the symptoms were mild. The patient has not experienced similar symptoms in the past. It is unknown whether or not the patient has recently seen a physician. pt is insulin dependant diabetic. Historical: - PMHx: 13:17 Diabetes - IDDM; jh5 - Immunization history:: Adult Immunizations up to date. - Social history:: Smoking status: Patient denies any tobacco usage or history of. ROS: 14:01 Eyes: Negative for injury, pain, redness, and discharge, Neck: Negative for injury, snw pain, and swelling, Cardiovascular: Negative for chest pain, palpitations, and edema, Respiratory: Negative for shortness of breath, cough, wheezing, and pleuritic chest pain, Abdomen/GI: Negative for abdominal pain, nausea, vomiting, diarrhea, and constipation, Back: Negative for injury and pain, : Negative for injury, bleeding, discharge, and swelling, MS/Extremity: Negative for injury and deformity, Skin: Negative for injury, rash, and discoloration, Neuro: Negative for headache, weakness, numbness, tingling, and seizure. 14:01 Constitutional: Positive for Covid exposure at work, two days later with sore, scratchy throat, blood sugar readings have been better than normal. 14:01 ENT: Positive for sore throat. Exam: 14:01 Constitutional: This is a well developed, well nourished patient who is awake, alert, snw and in no acute distress. Head/Face: Normocephalic, atraumatic. Eyes: Pupils equal round and reactive to light, extra-ocular motions intact. Lids and lashes normal. Conjunctiva and sclera are non-icteric and not injected. Cornea within normal limits. Periorbital areas with no swelling, redness, or edema. ENT: Nares patent. No nasal discharge, no septal abnormalities noted. Tympanic membranes are normal and external auditory canals are clear. Oropharynx with no redness, swelling, or masses, exudates, or evidence of obstruction, uvula midline. Mucous membranes moist. Neck: Trachea midline, no thyromegaly or masses palpated, and no cervical lymphadenopathy. Supple, full range of motion without nuchal rigidity, or vertebral point tenderness. No Meningismus. Chest/axilla: Normal chest wall appearance and motion. Nontender with no deformity. No lesions are appreciated. Cardiovascular: Regular rate and rhythm with a normal S1 and S2. No gallops, murmurs, or rubs. Normal PMI, no JVD. No pulse deficits. Respiratory: Lungs have equal breath sounds bilaterally, clear to auscultation and percussion. No rales, rhonchi or wheezes noted. No increased work of breathing, no retractions or nasal flaring. Abdomen/GI: Soft, non-tender, with normal bowel sounds. No distension or tympany. No guarding or rebound. No evidence of tenderness throughout. Back: No spinal tenderness. No costovertebral tenderness. Full range of motion. Skin: Warm, dry with normal turgor. Normal color with no rashes, no lesions, and no evidence of cellulitis. MS/ Extremity: Pulses equal, no cyanosis. Neurovascular intact. Full, normal range of motion. Neuro: Awake and alert, GCS 15, oriented to person, place, time, and situation. Cranial nerves II-XII grossly intact. Motor strength 5/5 in all extremities. Sensory grossly intact. Cerebellar exam normal. Normal gait. Psych: Awake, alert, with orientation to person, place and time. Behavior, mood, and affect are within normal limits. Vital Signs: 13:13 BP 118 / 74; Pulse 102; Resp 18; Temp 98.1; Pulse Ox 98% ; Weight 75.75 kg; Height [address] [facility] ft. 5 in. (165.10 cm); Pain 0/10; 13:13 Body Mass Index 27.79 (75.75 kg, 165.10 cm) [facility] MDM: 12:52 Patient medically screened. snw 15:46 Differential diagnosis: bronchitis, flu, URI. Data interpreted: Pulse oximetry: on room snw air is 98 %. Interpretation: normal. Data reviewed: vital signs, nurses notes. Care significantly affected by the following chronic conditions: Diabetes. Counseling: I had a detailed discussion with the patient and/or guardian regarding: the historical points, exam findings, and any diagnostic results supporting the discharge/admit diagnosis, lab results. Special discussion: Based on the history and exam findings, there is no indication for further emergent testing or inpatient evaluation. I discussed with the patient/guardian the need to see the primary care provider for further evaluation of the symptoms. 05/30 12:52 Order name: COVID-19/FLU A+B snw 05/30 15:43 Order name: COVID-19/FLU A+B; Complete Time: 15:46 EDMS Administered Medications: No medications were administered Disposition Summary: 05/30/22 15:48 Discharge Ordered Location: Home snw Condition: Stable snw Diagnosis - SARS-associated coronavirus as the cause of diseases classified elsewhere snw Followup: snw - With: Private Physician - When: 2 - 3 days - Reason: Recheck today's complaints, Continuance of care, Re-evaluation by your physician Followup: snw - With: Emergency Department - When: As needed - Reason: Worsening of condition Discharge Instructions: - Discharge Summary Sheet snw - Aspirin and Your Heart snw - COVID-19 snw - 10 Things You Can Do to Manage Your COVID-19 Symptoms at Home - [facility] snw - COVID-19: Quarantine vs. Isolation - [facility] snw - Prevent the Spread of COVID-19 if You Are Sick - [facility] snw Forms: - Medication Reconciliation Form snw - Thank You Letter snw - Antibiotic Education snw - Prescription Opioid Use snw Prescriptions: - Zyrtec 10 mg Oral Tablet - take 1 tablet by ORAL route once daily As needed; 20 tablet; Refills: 0, snw Product Selection Permitted - Pepcid 20 mg Oral Tablet - take 1 tablet by ORAL route once daily; 20 tablet; Refills: 0, Product snw Selection Permitted - Zithromax 500 mg Oral Tablet - take 1 tablet by ORAL route once daily for 5 days; 5 tablet; Refills: 0, snw Product Selection Permitted Signatures: Dispatcher [employer] EDAR Angeles Malin, COTA-C COTA-Csnw Liudmila Do, RN RN jh5
[2022-05-30 16:44] VITALS: BP 118/74; TEMP 98.1; O2SAT 98
== END 2022-05-30 16:09 | disposition home or self-care (01) ==
LOC: ER 12:39
DX: U07.1 COVID-19 (principal); E11.9 Type 2 diabetes mellitus without complications
CPT/HCPCS: 0240U; 99284

== ENCOUNTER 2022-10-02 12:54 | Emergency (ER) | payer BC ==
--- OUTSIDE RECORDS SUMMARY | 2022-10-02 12:57 | XMS REPORT | Continuity of Care Document ---
:1995 Author Organization [facility] t Address [address] [facility] [address] [place] [id number] Care Team Providers Name Role Phone Pcp, [...] Drug Active Univers ALLERGIE Class ity of [facility] Social History Social Habit Start Date Stop Date Quantity Comments Source Exposure to Yes [facility] SARS-CoV-2 (event) Medica l Branch Sex Assigned At [birth year] [facility] 00:00:00 00:00:00 Medical Branch Smoking Status Start Date Stop Date Source Unknown if ever smoked [facility] Medications Ordered Filled Start Stop Current Ordering Indication Dosage Frequency Signature Comments Components Source Medication Medication Date Date Medication? Clinician (SIG) Name Name clindamycin 2020- No [id number] 450mg Take 3 Univers 150 mg 09-27 [id number] capsules ity of capsule 00:00: 04:59 by mouth 3 Harvey as 00 :00 (three) Medical times Branch daily for 10 days. Vital Signs Vital Name Observation Time Observation Value Comments Source Systolic blood 2020-09-27 06:14:00 135 mm[Hg] Univer sity of pressure [facility] Diastolic blood 2020-09-27 06:14:00 83 mm[Hg] Unive rsity of [facility] Heart rate 2020-09-27 06:14:00 110 /min Universi ty [facility] Body temperature 2020-09-27 06:14:00 37.06 Sarah [facility] Res[facility] rate 2020-09-27 06:14:00 20 /min [facility] Body weight 2020-09-27 06:14:00 81.647 kg Universi ty [facility] Oxygen saturation in 2020-09-27 06:14:00 100 /min University of Arterial blood by [facility] Pulse oximetry Branch Systolic blood 2020-09-27 06:14:00 135 mm[Hg] Univer sity of [facility] Diastolic blood 2020-09-27 06:14:00 83 mm[Hg] Unive rsity of [facility] Heart rate 2020-09-27 06:14:00 110 /min Universi ty [facility] Body temperature 2020-09-27 06:14:00 37.06 Sarah [facility] Respiratory rate 2020-09-27 06:14:00 20 /min [facility] ersity [facility] Body weight 2020-09-27 06:14:00 81.647 kg Universi ty [facility] Oxygen saturation in 2020-09-27 06:14:00 100 /min University of Arterial blood by [facility] Pulse oximetry Branch Procedures Procedure Date / Time Performed Performing Clinician [facility] e NOTICE OF PRIVACY 2020-09-27 06:10:18 Doctor Unassigned, No Univ ersity [facility] PRACTICES Name Medical Branch CONSENT/REFUSAL FOR 2020-09-27 06:09:54 [facility] Name [facility] Branch TREATMENT Encounters Start End Encounter Admission Attending Care Care Encounter Source Date/Time Date/Time Type Type Clinicians Facility Department ID 2021-04-20 2021-04-20 Letter Only, Enrique WAMB [id number] Univers 00:00:00 00:00:00 (Out) Db Test HEALTH 350.1.13.10 it y of [place] [id number] Harvey as JULIANNA?BLEA [id number] [address] MEDICAL OFFICE BUILDING 2021-04-20 2021-04-20 Letter BIJAN Doran [id number] Univers 00:00:00 00:00:00 (Out) Melinaezra JOSÉY 350.1.13.10 it y of [facility] [id number] Harvey as [id number] [facility] [address] [place] 2021-04-19 2021-04-19 Laboratory Only, Enrique Db Test [facility] [id number] Univers 09:15:00 09:22:34 Only [place], Linda HEALTH 350.1.13.10 [facility] [id number] Harvey as JULIANNA?BLEA [id number] [address] OFFICE [facility] 2020-09-27 2020-09-27 Emergency [place], [facility] [[email or web address]] [id number] Univers 01:16:00 02:44:00 [place] 350.1.13.10 i ty of [place] 4[place]7.2.686 [place] [id number] [facility] [address] [place] 2020-09-27 2020-09-27 Emergency [place], [facility] [[email or web address]] [id number] 01:16:00 02:44:00 [place] [id number] [place] [id number] [place] [id number] [facility] 2020-09-27 2020-09-27 Emergency X DEMETRIO, [facility] [[email or web address]] ERT [id number] Univers 01:16:00 01:16:00 MC ity of [facility] Results This patient has no known results.
[2022-10-02] MEDS ORDERED: NA CHLORIDE 0.9% 1,000 ML ONE (13:25)
[2022-10-02] MEDS ORDERED: ONDANSETRON 4 MG/2 ML VIAL ONE (13:25)
[2022-10-02 13:38] LABS: Absolute Lymphocytes (CBC) 0.6 K/uL (0.7-4.9); Hematocrit 44.7 % (39.6-49.0); Lymphocytes % 10.8 % (15.3-44.8); MCV 84.8 fL (80-100); MPV 8.6 fL (7.6-11.3); RBC Red Blood Cell Count 5.27 M/uL (4.33-5.43)
[2022-10-02 13:48] LABS: Albumin 4.1 g/dL (3.4-5.0); Bilirubin Total 0.7 mg/dL (0.2-1.0); Protein, Total 7.6 g/dL (6.4-8.2)
[2022-10-02 13:49] LABS: Potassium 4.5 mEq/L (3.5-5.1)
--- NOTE | 2022-10-02 14:42 | EDPHYS ---
Physician Documentation [facility] Name: Harvey Wyatt Age: 27 yrs Sex: Male : 1995 Arrival Date: 10/02/2022 Time: 12:54 Bed 10 Private MD: ED Physician Rusty Nowak HPI: 10/02 13:24 This 27 yrs old Male presents to ER via EMS with complaints of Abdominal Pain, bs3 Vomiting. 13:24 27-year-old male history of insulin-dependent diabetes only takes 7030 at night bs3 presents with nausea vomiting today and crampy abdominal pain he notes that it started approximately 1 hour after eating breakast. He notes crampy upper abdominal pain, no fever or chills, no chest pain, sob, no diarrhea, no hx of bowel obstruction, he is passing gas. . Historical: - Allergies: 12:59 No Known Allergies; ss - PMHx: 12:59 Diabetes - IDDM; ss - Immunization history:: Adult Immunizations unknown. - Social history:: Smoking status: unknown. ROS: 13:24 Constitutional: Negative for fever, chills bs3 13:24 All other systems are negative. Exam: 13:24 Constitutional: This is a well developed, well nourished patient who is awake, alert, bs3 and in no acute distress. Head/Face: Normocephalic, atraumatic. Eyes: Pupils equal round and reactive to light, extra-ocular motions intact. Lids and lashes normal. ENT: mmm, no posterior phyarngeal erythema Neck: Trachea midline, no thyromegaly, no neck stiffness Chest/axilla: Normal chest wall appearance and motion. Nontender with no deformity. No lesions are appreciated. Cardiovascular: Regular rate and rhythm with a normal S1 and S2. symmetric pulses in upper extremities Respiratory: Lungs have equal breath sounds bilaterally, clear to auscultation, no respiratory distress Abdomen/GI: Soft, non-tender, no rebound or guarding Skin: Warm, dry with normal turgor. Normal color with no rashes, no lesions, and no evidence of cellulitis. MS/ Extremity: Pulses equal, no cyanosis. Neurovascular intact. Full, normal range of motion. Neuro: Awake and alert, GCS 15, oriented to person, place, time, and situation. Cranial nerves II-XII grossly intact. Motor strength 5/5 in all extremities. Sensory grossly intact. Psych: Awake, alert, with orientation to person, place and time. Behavior, mood, and affect are within normal limits. Vital Signs: 13:10 BP 130 / 94; Pulse 77; Resp 18; Temp 98.3(O); Pulse Ox 100% ; Weight 74.84 kg; Height 5 cm10 ft. 5 in. ; Pain 9/10; 14:29 BP 119 / 77; Pulse 93; Resp 16; Pulse Ox 100% on R/A; cm10 14:55 BP 115 / 75; Pulse 88; Resp 18; Pulse Ox 100% on R/A; cm10 13:10 Body Mass Index 27.46 (74.84 kg, 165.1 cm) cm10 13:10 Pain Scale: Adult cm10 MDM: 12:56 Patient medically screened. bs3 13:24 Data reviewed: vital signs, nurses notes. ED course: Patient with nausea and vomiting bs3 will evaluate for anion gap acidosis given his diabetes we will hydrate we will give antiemetic and reassess I reviewed his prior chart he has had multiple evaluations for nausea vomiting advised outpatient follow-up with GI this is possibly related to gastroparesis as well given his poor diabetes and high A1c that he report. 14:40 ED course: Labs notable for no significant leukocytosis, elevated glucose without gap bs3 patient having a little bit of crampy pain on reassessment but overall feeling better strongly advised to follow-up given his uncontrolled diabetes. 10/02 13:04 Order name: CBC with Diff; Complete Time: 13:55 bs3 10/02 13:04 Order name: Comprehensive Metabolic Panel; Complete Time: 13:55 bs3 10/02 13:04 Order name: Lipase; Complete Time: 13:55 bs3 Administered Medications: 13:24 Drug: NS 0.9% IV 1000 ml Route: IV; Rate: 1000 ml; Site: right antecubital; cm10 14:30 Follow up: Response: No adverse reaction; IV Status: Completed infusion; IV Intake: cm10 1000ml 13:24 Drug: Ondansetron IVP 8 mg Route: IVP; Site: right antecubital; cm10 14:30 Follow up: Response: No adverse reaction; Nausea is decreased cm10 14:46 Drug: Ketorolac IVP 30 mg Route: IVP; Site: right antecubital; cm10 15:08 Follow up: Response: No adverse reaction cm10 Disposition Summary: 10/02/22 14:42 Discharge Ordered Location: Home bs3 Problem: new bs3 Symptoms: have improved bs3 Condition: Stable bs3 Diagnosis - Gastroparesis bs3 - Vomiting bs3 Followup: bs3 - With: Private Physician - When: 2 - 3 days - Reason: Re-evaluation by your physician Discharge Instructions: - Discharge Summary Sheet bs3 - Vomiting, Adult bs3 - Gastroparesis bs3 Forms: - Work release form bs3 - Medication Reconciliation Form bs3 - Thank You Letter bs3 - [email or web address] bs3 Prescriptions: - Pepcid 20 mg Oral Tablet - take 1 tablet by ORAL route every 12 hours for 10 days; 20 tablet; Refills: 0, bs3 Product Selection Permitted - ondansetron 8 mg Oral tablet,disintegrating - take 1 tablet by ORAL route every 8 hours; 12 tablet; Refills: 0, Product bs3 Selection Permitted Signatures: Dispatcher [employer] Rossy Rodriges, RN RN ss Rusty Nowak MD MD bs3 Tiffanie Oshea RN RN cm10
--- NOTE | 2022-10-02 14:42 | ER ---
Nurse's Notes [facility] Name: Harvey Wyatt Age: 27 yrs Sex: Male : 1995 Arrival Date: 10/02/2022 Time: 12:54 Bed 10 Private MD: Diagnosis: Gastroparesis;Vomiting Presentation: 10/02 12:58 Coronavirus screen: Client denies travel out of the [place] in the last 14 days. Ebola ss Screen: Patient denies exposure to infectious person. Patient denies travel to an Ebola-affected area in the 21 days before illness onset. Initial Sepsis Screen: Does the patient meet any 2 criteria? No. Patient's initial sepsis screen is negative. Does the patient have a suspected source of infection? No. Patient's initial sepsis screen is negative. Risk Assessment: Do you want to hurt yourself or someone else? Patient reports no desire to harm self or others. Care prior to arrival: Glucose check: 355. 12:58 Method Of Arrival: EMS: [facility] ss 13:10 Chief complaint: Patient states: LUQ abdominal pain onset this morning. Pt reports 5 cm10 episodes of vomiting. Onset of symptoms was October 02, 2022. 13:10 Acuity: BINDU 3 cm10 Triage Assessment: 13:11 General: Appears in no apparent distress. uncomfortable, Behavior is calm, cooperative. cm10 Pain: Complains of pain in abdomen. GI: No deficits noted. Reports upper abdominal pain, nausea, vomiting. Historical: - Allergies: 12:59 No Known Allergies; ss - PMHx: 12:59 Diabetes - IDDM; ss - Immunization history:: Adult Immunizations unknown. - Social history:: Smoking status: unknown. Screenin:32 [facility] ED Fall Risk Assessment (Adult) History of falling in the last 3 months, cm10 including since admission No falls in past 3 months (0 pts) Confusion or Disorientation No (0 pts) Intoxicated or Sedated No (0 pts) Impaired Gait No (0 pts) Mobility Assist Device Used No (0 pt) Altered Elimination No (0 pt) Score/Fall Risk Level 0 - 2 = Low Risk Oriented to surroundings, Maintained a safe environment, Hourly rounding (assess needs \T\ fall precautionary measures) done. Abuse screen: Denies threats or abuse. Denies injuries from another. Nutritional screening: No deficits noted. Tuberculosis screening: No symptoms or risk factors identified. Assessment: 13:31 Reassessment: No changes from previously documented assessment. Patient is alert, cm10 oriented x 3, equal unlabored respirations, skin warm/dry/pink. Neuro: No deficits noted. Level of Consciousness is awake, alert, Oriented to person, place, time, situation. Respiratory: No deficits noted. Airway is patent Respiratory effort is even, unlabored, Respiratory pattern is regular, symmetrical. Derm: No deficits noted. Skin is intact, Skin is pink, warm \T\ dry. 13:33 GI: cm10 14:30 Reassessment: Patient and/or family updated on plan of care and expected duration. Pain cm10 level reassessed. Patient is alert, oriented x 3, equal unlabored respirations, skin warm/dry/pink. Patient states feeling better. Patient states symptoms have improved. 14:38 Reassessment: Pt reporting abdominal pain. Provider made aware. Verbal orders for pain cm10 medication obtained. 14:55 Reassessment: No changes from previously documented assessment. Patient and/or family cm10 updated on plan of care and expected duration. Pain level reassessed. Patient is alert, oriented x 3, equal unlabored respirations, skin warm/dry/pink. GI: Abd is soft. Vital Signs: 13:10 BP 130 / 94; Pulse 77; Resp 18; Temp 98.3(O); Pulse Ox 100% ; Weight 74.84 kg; Height 5 cm10 ft. 5 in. ; Pain 9/10; 14:29 BP 119 / 77; Pulse 93; Resp 16; Pulse Ox 100% on R/A; cm10 14:55 BP 115 / 75; Pulse 88; Resp 18; Pulse Ox 100% on R/A; cm10 13:10 Body Mass Index 27.46 (74.84 kg, 165.1 cm) cm10 13:10 Pain Scale: Adult cm10 ED Course: 12:55 Patient arrived in ED. rg4 12:56 Rusty Nowak MD is Attending Physician. bs3 12:59 Arm band placed on right wrist. ss 13:11 Triage completed. cm10 13:14 Tiffanie Oshea, RN is Primary Nurse. cm10 13:32 Patient has correct armband on for positive identification. Bed in low position. Call cm10 light in reach. Side rails up X2. Pulse ox on. NIBP on. Lights dimmed. Warm blanket given. 13:32 Initial lab(s) drawn, by ED staff, sent to lab. Inserted saline lock: 20 gauge in right cm10 antecubital area, using aseptic technique. Blood collected. 14:38 ED physician to see patient. cm10 14:55 No provider procedures requiring assistance completed. IV discontinued, intact, cm10 bleeding controlled, No redness/swelling at site. Pressure dressing applied. Administered Medications: 13:24 Drug: NS 0.9% IV 1000 ml Route: IV; Rate: 1000 ml; Site: right antecubital; cm10 14:30 Follow up: Response: No adverse reaction; IV Status: Completed infusion; IV Intake: cm10 1000ml 13:24 Drug: Ondansetron IVP 8 mg Route: IVP; Site: right antecubital; cm10 14:30 Follow up: Response: No adverse reaction; Nausea is decreased cm10 14:46 Drug: Ketorolac IVP 30 mg Route: IVP; Site: right antecubital; cm10 15:08 Follow up: Response: No adverse reaction cm10 Medication: 14:56 VIS not applicable for this client. cm10 Intake: 14:30 IV: 1000ml; Total: 1000ml. cm10 Outcome: 14:42 Discharge ordered by . bs3 14:55 Discharged to home ambulatory. cm10 14:55 Condition: good 14:55 Discharge instructions given to patient, Instructed on discharge instructions, follow up and referral plans. medication usage, Demonstrated understanding of instructions, follow-up care, medications, Prescriptions given X 2. 15:17 Patient left the ED. cm10 Signatures: Rossy Zhu, RN RN Greta Tovar4 Rusty Nowak MD MD bs3 Tiffanie Oshea RN RN cm10
[2022-10-02] MEDS ORDERED: KETOROLAC 30 MG/ML INJ ONE (14:48)
[2022-10-02 15:29] VITALS: TEMP 98.3; O2SAT 100
[2022-10-02 15:31] VITALS: BP 115/75
== END 2022-10-02 15:17 | disposition home or self-care (01) ==
LOC: ER 12:54
DX: K31.84 Gastroparesis (principal)
CPT/HCPCS: 85025; 36415; 83690; 80053; J2405; J7030

== ENCOUNTER 2022-10-02 20:18 | Emergency (ER) | payer BC ==
--- OUTSIDE RECORDS SUMMARY | 2022-10-02 20:20 | XMS REPORT | Continuity of Care Document ---
:1995 Author Organization [facility] t Address [address] [facility] [address] [place] [id number] Care Team Providers Name Role Phone Pcp, [...] Drug Active Univers ALLERGIE Class ity of [facility] Social History Social Habit Start Date Stop Date Quantity Comments Source Exposure to Yes [facility] SARS-CoV-2 (event) Medica l Branch Sex Assigned At [birth year] [facility] 00:00:00 00:00:00 Medical [place] Smoking Status Start Date Stop Date Source Unknown if ever smoked [facility] Medications Ordered Filled Start Stop Current Ordering Indication Dosage Frequency Signature Comments Components Source Medication Medication Date Date Medication? Clinician (SIG) Name Name clindamycin 2020- No [id number] 450mg Take 3 Univers 150 mg 09-27 [id number] capsules ity of capsule 00:00: 04:59 by mouth 3 Harvey as 00 :00 (three) Medical times Branch daily for 10 days. Vital Signs Vital Name Observation Time Observation Value Comments Source Systolic blood 2020-09-27 06:14:00 135 mm[Hg] Univer sity of pressure [facility] Diastolic blood 2020-09-27 06:14:00 83 mm[Hg] Unive rsity of [facility] Heart rate 2020-09-27 06:14:00 110 /min Universi ty [facility] Body temperature 2020-09-27 06:14:00 37.06 Sarah [facility] Respiratory rate 2020-09-27 06:14:00 20 /min [facility] Body weight 2020-09-27 06:14:00 81.647 kg Universi ty [facility] Oxygen saturation in 2020-09-27 06:14:00 100 /min University of Arterial blood by [facility] Pulse oximetry Branch Systolic blood 2020-09-27 06:14:00 135 mm[Hg] Univer sity of [facility] Diastolic blood 2020-09-27 06:14:00 83 mm[Hg] Unive rsity of [facility] Heart rate 2020-09-27 06:14:00 110 /min Universi ty [facility] Body temperature 2020-09-27 06:14:00 37.06 Sarah [facility] ersity [facility] Respiratory rate 2020-09-27 06:14:00 20 /min [facility] ersity [facility] Body weight 2020-09-27 06:14:00 81.647 kg Universi ty [facility] Oxygen saturation in 2020-09-27 06:14:00 100 /min University of Arterial blood by [facility] Pulse oximetry Branch Procedures Procedure Date / Time Performed Performing Clinician [facility] e NOTICE OF PRIVACY 2020-09-27 06:10:18 Doctor Unassigned, No Univ ersity [facility] PRACTICES Name Medical Branch CONSENT/REFUSAL FOR 2020-09-27 06:09:54 Doctor Unassigned, No [facility] AND Name [facility] TREATMENT Encounters Start End Encounter Admission Attending Care Care Encounter Source Date/Time Date/Time Type Type Clinicians Facility Department ID 2021-04-20 2021-04-20 Letter BIJAN Doran [id number] Univers 00:00:00 00:00:00 (Out) Melina BARRAGAN [id number] it y of HOSPITAL [id number] Harvey as [id number] [facility] [address] [place] 2021-04-20 2021-04-20 Letter Only, [facility] [id number] Univers 00:00:00 00:00:00 (Out) Db Test HEALTH [id number] it y of [place] [id number] Harvey as JULIANNA?BLEA [id number] [address] MEDICAL OFFICE [facility] 2021-04-19 2021-04-19 Laboratory Only, Enrique Db Test [facility] [id number] Univers 09:15:00 09:22:34 Only Linda Malik HEALTH [id number] ity of [place] [id number] Harvey as JULIANNA?BLEA [id number] [address] OFFICE [facility] 2020-09-27 2020-09-27 Emergency [place], [facility] [id number] Univers 01:16:00 02:44:00 [place] [id number] i ty of [place] [id number] [place] [id number] [facility] [address] [place] 2020-09-27 2020-09-27 Emergency [place], [facility] [id number] 01:16:00 02:44:00 [place] [id number] [place] [id number] [place] [id number] [facility] 2020-09-27 2020-09-27 Emergency X [place], [facility] ERT [id number] Univers 01:16:00 01:16:00 MC ity of [facility] Results This patient has no known results.
[2022-10-02] MEDS ORDERED: DICYCLOMINE HCL 20 MG/2 ML AMP IM ONE (21:15)
[2022-10-02] MEDS ORDERED: PROMETHAZINE INJ 25 MG/ML AMP ONE (21:15)
--- NOTE | 2022-10-02 22:40 | EDPHYS ---
Physician Documentation [facility] Name: Harvey Wyatt Age: 27 yrs Sex: Male : 1995 Arrival Date: 10/02/2022 Time: 20:18 Bed 17 Private MD: ED Physician Davie Prasad HPI: 10/02 20:45 This 27 yrs old Male presents to ER via EMS with complaints of Abdominal Pain, cp Vomiting. 20:45 The patient presents with abdominal pain in the upper abdomen. Associated signs and cp symptoms: Pertinent positives: nausea and vomiting, Pertinent negatives: constipation, diarrhea, fever, vomiting blood. The symptoms are described as constant. The patient has been recently seen at the [facility] Emergency Department, today, for similar complaints given RX for anti emetics but patient has not filled RX. Historical: - Allergies: 20:35 No Known Allergies; cm10 - PMHx: 20:35 Diabetes - IDDM; cm10 - Immunization history:: Adult Immunizations unknown. - Social history:: Smoking status: Patient denies any tobacco usage or history of. ROS: 20:50 Constitutional: Positive for poor PO intake, Negative for body aches, chills, fever. cp 20:50 Eyes: Negative for injury, pain, redness, and discharge. cp 20:50 Cardiovascular: Negative for chest pain, palpitations. 20:50 Abdomen/GI: Positive for abdominal pain, nausea and vomiting, Negative for diarrhea, constipation, hematemesis. 20:50 All other systems are negative. Exam: 20:55 Constitutional: The patient appears in no acute distress, alert, awake, non-toxic, well cp developed, well nourished, uncomfortable. 20:55 Head/Face: Normocephalic, atraumatic. cp 20:55 Eyes: Periorbital structures: appear normal, Conjunctiva: normal, no exudate, no injection, Sclera: no appreciated abnormality, Lids and lashes: appear normal, bilaterally. 20:55 ENT: External ear(s): are unremarkable, Nose: is normal, Mouth: Lips: moist, Oral mucosa: moist, Posterior pharynx: Airway: no evidence of obstruction, patent. 20:55 Chest/axilla: Inspection: normal. 20:55 Cardiovascular: Rate: normal, Rhythm: regular. 20:55 Respiratory: the patient does not display signs of respiratory distress, Respirations: normal, no use of accessory muscles, no retractions, labored breathing, is not present, Breath sounds: are clear throughout, no decreased breath sounds, no stridor, no wheezing. 20:55 Abdomen/GI: Inspection: abdomen appears normal, Palpation: soft, in all quadrants, moderate abdominal tenderness, in the epigastric area, right upper quadrant and left upper quadrant, rebound tenderness, is not appreciated. 20:55 Neuro: Orientation: to person, place \T\ time. Mentation: is normal, Motor: moves all fours, strength is normal. Vital Signs: 20:33 BP 128 / 87; Pulse 96; Resp 16; Temp 99.2(O); Pulse Ox 100% ; Weight 74.84 kg; Height 5 cm10 ft. 5 in. ; Pain 10/10; 22:48 BP 128 / 77; Pulse 86; Resp 16; Pulse Ox 99% ; vc1 20:33 Body Mass Index 27.46 (74.84 kg, 165.1 cm) cm10 20:33 Pain Scale: Adult cm10 MDM: 20:38 Patient medically screened. [facility] 22:38 Data reviewed: vital signs, nurses notes. 22:38 I considered the following discharge prescriptions or medication management in the emergency department Medications were administered in the Emergency Department. See MAR. Counseling: I had a detailed discussion with the patient and/or guardian regarding: the historical points, exam findings, and any diagnostic results supporting the discharge/admit diagnosis, the need for outpatient follow up, a billet driller, to return to the emergency department if symptoms worsen or persist or if there are any questions or concerns that arise at home. Response to treatment: the patient's symptoms have markedly improved after treatment, and as a result, I will discharge patient. 10/02 21:21 Order name: Glucose, Ancillary Testing; Complete Time: 21:22 EDMS 10/02 21:22 Interpretation: Abnormal: GLUC,ANCIL 264. 10/02 20:41 Order name: Accucheck Blood Glucose; Complete Time: 21:11 cp 10/02 21:22 Order name: PO challenge; Complete Time: 22:02 cp Administered Medications: 21:11 Drug: Promethazine IM 25 mg Route: IM; Site: left gluteus; vc1 21:11 Drug: Dicyclomine IM 20 mg Route: IM; Site: left gluteus; vc1 Disposition Summary: 10/02/22 22:39 Discharge Ordered Location: Home cp Problem: an ongoing problem cp Symptoms: have improved cp Condition: Stable cp Diagnosis - Nausea with vomiting, unspecified cp - Diabetes mellitus due to underlying condition with hyperglycemia cp Followup: cp - With: Private Physician - When: 1 - 2 days - Reason: Recheck today's complaints Discharge Instructions: - Discharge Summary Sheet cp - Hyperglycemia cp - Nausea and Vomiting, Adult cp - Blood Glucose Monitoring, Adult cp - Diabetes Mellitus and Nutrition, Adult cp Forms: - Medication Reconciliation Form cp - Thank You Letter cp - Antibiotic Education cp - Prescription Opioid Use cp - [email or web address] cp Signatures: Davie Prasad MD MD cha Page, Corey, PA PA cp Calcote, Vanessa, RN RN vc1 Tiffanie Oshea RN RN cm10
--- NOTE | 2022-10-02 22:40 | ER ---
Nurse's Notes [facility] Name: Harvey Wyatt Age: 27 yrs Sex: Male : 1995 Arrival Date: 10/02/2022 Time: 20:18 Bed 17 Private MD: Diagnosis: Nausea with vomiting, unspecified;Diabetes mellitus due to underlying condition with hyperglycemia Presentation: 10/02 20:33 Chief complaint: Patient states: "I was seen here earlier and something is not right cm10 with my stomach. I am still having abdominal pain." Pt reports that he did not get his prescriptions filled. Coronavirus screen: Vaccine status: Patient reports being unvaccinated. At this time, unable to obtain information related to travel outside the [place] At this time, the client does not indicate any symptoms associated with coronavirus-19. Ebola Screen: Patient denies travel to an Ebola-affected area in the 21 days before illness onset. No symptoms or risks identified at this time. Initial Sepsis Screen: Does the patient meet any 2 criteria? No. Patient's initial sepsis screen is negative. Does the patient have a suspected source of infection? No. Patient's initial sepsis screen is negative. Risk Assessment: Do you want to hurt yourself or someone else? Patient reports no desire to harm self or others. Onset of symptoms was October 02, 2022. 20:33 Method Of Arrival: EMS: [facility] 20:33 Acuity: BINDU 3 cm10 Triage Assessment: 20:35 General: Appears in no apparent distress. uncomfortable, Behavior is calm, cooperative. cm10 Pain: Complains of pain in abdomen. Historical: - Allergies: 20:35 No Known Allergies; cm10 - PMHx: 20:35 Diabetes - IDDM; cm10 - Immunization history:: Adult Immunizations unknown. - Social history:: Smoking status: Patient denies any tobacco usage or history of. Screenin:01 [facility] ED Fall Risk Assessment (Adult) History of falling in the last 3 months, vc1 including since admission No falls in past 3 months (0 pts) Confusion or Disorientation No (0 pts) Intoxicated or Sedated No (0 pts) Impaired Gait No (0 pts) Mobility Assist Device Used No (0 pt) Altered Elimination No (0 pt) Score/Fall Risk Level 0 - 2 = Low Risk Oriented to surroundings, Maintained a safe environment, Educated pt \\T\\ family on fall prevention, incl call for assistance when getting out of bed. Abuse screen: Denies threats or abuse. Nutritional screening: No deficits noted. Tuberculosis screening: No symptoms or risk factors identified. Assessment: 22:02 Reassessment: No changes from previously documented assessment. Patient and/or family vc1 updated on plan of care and expected duration. Pain level reassessed. Patient is alert, oriented x 3, equal unlabored respirations, skin warm/dry/pink. GI: Abd is soft Abdomen is tender to palpation. 22:48 Reassessment: Patient and/or family updated on plan of care and expected duration. Pain vc1 level reassessed. Patient is alert, oriented x 3, equal unlabored respirations, skin warm/dry/pink. Patient states symptoms have improved. Vital Signs: 20:33 BP 128 / 87; Pulse 96; Resp 16; Temp 99.2(O); Pulse Ox 100% ; Weight 74.84 kg; Height 5 cm10 ft. 5 in. ; Pain 10/10; 22:48 BP 128 / 77; Pulse 86; Resp 16; Pulse Ox 99% ; vc1 20:33 Body Mass Index 27.46 (74.84 kg, 165.1 cm) cm10 20:33 Pain Scale: Adult cm10 ED Course: 20:20 Patient arrived in ED. ja2 20:24 Davie Carney PA is PHCP. cp 20:24 Davie Prasad MD is Attending Physician. cp 20:35 Triage completed. cm10 20:35 Arm band placed on Patient placed in an exam room, on a stretcher. cm10 20:35 Patient has correct armband on for positive identification. Bed in low position. Call vc1 light in reach. 21:11 Caitie Haro, RN is Primary Nurse. vc1 23:01 No provider procedures requiring assistance completed. Patient did not have IV access vc1 during this emergency room visit. Administered Medications: 21:11 Drug: Promethazine IM 25 mg Route: IM; Site: left gluteus; vc1 21:11 Drug: Dicyclomine IM 20 mg Route: IM; Site: left gluteus; vc1 Medication: 23:01 VIS not applicable for this client. vc1 Outcome: 22:39 Discharge ordered by . cp 23:02 Discharged to home ambulatory. vc1 23:02 Condition: improved 23:02 Discharge instructions given to patient, Instructed on discharge instructions, follow up and referral plans. Demonstrated understanding of instructions, follow-up care, pt encouraged to fill the prescriptions he received from his earlier visit today in the ER 23:18 Patient left the ED. vc1 Signatures: Davie Carney PA PA cp Alexander, Jessica ja2 Calcote, Vanessa, RN RN vc1 Tiffanie Oshea RN RN cm10
[2022-10-02 23:33] VITALS: TEMP 99.2
[2022-10-02 23:35] VITALS: BP 128/77; O2SAT 99
== END 2022-10-02 23:18 | disposition home or self-care (01) ==
LOC: ER 20:18
DX: E11.65 Type 2 diabetes mellitus with hyperglycemia (principal)
CPT/HCPCS: 82947; J2550; J0500

== ENCOUNTER 2022-10-04 14:35 | Emergency (ER) | payer BC ==
--- OUTSIDE RECORDS SUMMARY | 2022-10-04 14:38 | XMS REPORT | Continuity of Care Document ---
:[address] [facility] t Address [address] [place] [address] Care Team Providers Name Role Phone Pcp, [...] Active Univers ALLERGIE Class ity of [facility] Social History Social Habit Start Date Stop Date Quantity Comments Source Exposure to Yes [facility] SARS-CoV-2 (event) Medica l Branch Sex Assigned At [birth year] [facility] 00:00:00 00:00:00 Medical [place] Smoking Status Start Date Stop Date Source Unknown if ever smoked [facility] Medications Ordered Filled Start Stop Current Ordering Indication Dosage Frequency Signature Comments Components Source Medication Medication Date Date Medication? Clinician (SIG) Name Name clindamycin 2020- No [id number] 450mg Take 3 Univers 150 mg 09-27 [id number] capsules ity of capsule 00:00: 04:59 by mouth 3 Harvey as 00 :00 (three) Medical times Branch daily for 10 days. Vital Signs Vital Name Observation Time Observation Value Comments Source Systolic blood 2020-09-27 06:14:00 135 mm[Hg] Univer sity of pressure [facility] Diastolic blood 2020-09-27 06:14:00 83 mm[Hg] Unive rsity of [facility] Heart rate 2020-09-27 06:14:00 110 /min Universi ty [facility] Body temperature 2020-09-27 06:14:00 37.06 Sarah [facility] Res[facility] rate 2020-09-27 06:14:00 20 /min [facility] Body weight 2020-09-27 06:14:00 81.647 kg Universi ty [facility] Oxygen saturation in 2020-09-27 06:14:00 100 /min University of Arterial blood by [facility] Pulse oximetry Branch Systolic blood 2020-09-27 06:14:00 135 mm[Hg] Univer sity of [facility] Diastolic blood 2020-09-27 06:14:00 83 mm[Hg] Unive rsity of [facility] Heart rate 2020-09-27 06:14:00 110 /min Universi ty [facility] Body temperature 2020-09-27 06:14:00 37.06 Sarah [facility] ersity [facility] Respiratory rate 2020-09-27 06:14:00 20 /min [facility] ersity [facility] Body weight 2020-09-27 06:14:00 81.647 kg Universi ty [facility] Oxygen saturation in 2020-09-27 06:14:00 100 /min University of Arterial blood by [facility] Pulse oximetry Branch Procedures Procedure Date / Time Performed Performing Clinician [facility] e NOTICE OF PRIVACY 2020-09-27 06:10:18 Doctor Unassigned, No Univ ersity [facility] PRACTICES Name Medical Branch CONSENT/REFUSAL FOR 2020-09-27 06:09:54 Doctor [facility]igned, [facility] AND Name [facility] TREATMENT Encounters Start End Encounter Admission Attending Care Care Encounter Source Date/Time Date/Time Type Type Clinicians Facility Department ID 2021-04-20 2021-04-20 Letter Only, Enrique WIMB [id number] Univers 00:00:00 00:00:00 (Out) Db Test HEALTH 350.1.13.10 it y of [place] 4.2.7.2.686 Harvey as JULIANNA?BLEA [id number] [address] MEDICAL OFFICE [facility] 2021-04-20 2021-04-20 Letter BIAJN Doran [id number] Univers 00:00:00 00:00:00 (Out) Melina JOSÉY 350.1.13.10 it y of [facility] 4.2.7.2.686 Harvey as [id number] [facility] [address] [place] 2021-04-19 2021-04-19 Laboratory Only, Enrique Db Test [facility] [id number] Univers 09:15:00 09:22:34 Only [place], Linda HEALTH [id number] [facility] [id number] Harvey as JULIANNA?BLEA [id number] [address] OFFICE [facility] 2020-09-27 2020-09-27 Emergency [place], [facility] [id number] Univers 01:16:00 02:44:00 [place] 350.1.13.10 i ty of [place].2.[place] [id number] [facility] [address] [place] 2020-09-27 2020-09-27 Emergency [place], [facility] [id number] 01:16:00 02:44:00 [place] S [place] 350.1.13.10 [place] [id number] Simpson [id number] [facility] 2020-09-27 2020-09-27 Emergency X DEMETRIO, [facility] ERT [id number] Univers 01:16:00 01:16:00 MC ity of [facility] Results This patient has no known results.
[2022-10-04] MEDS ORDERED: MORPHINE 4 MG/ML SYR ONE (15:31)
[2022-10-04] MEDS ORDERED: NA CHLORIDE 0.9% 1,000 ML ONE (15:32)
[2022-10-04] MEDS ORDERED: ONDANSETRON 4 MG/2 ML VIAL ONE (15:32)
[2022-10-04 15:44] LABS: Absolute Lymphocytes (CBC) 0.4 K/uL (0.7-4.9); Hematocrit 47.9 % (39.6-49.0); Lymphocytes % 7.1 % (15.3-44.8); MCV 85.9 fL (80-100); MPV 8.4 fL (7.6-11.3); RBC Red Blood Cell Count 5.58 M/uL (4.33-5.43)
[2022-10-04 16:12] LABS: Albumin 4.3 g/dL (3.4-5.0); Protein, Total 7.9 g/dL (6.4-8.2)
--- NOTE | 2022-10-04 16:40 | RAD REPORT ---
EXAM DESCRIPTION: CT - Abdomen Pelvis W Contrast - 10/04/2022 4:12 pm CLINICAL HISTORY: Abd pain;Nausea / vomiting COMPARISON: Abdomen Pelvis W Contrast dated 01/11/2022; Abdomen Pelvis W Contrast dated 01/01/2022 ; Abdomen Pelvis W Contrast dated 07/28/2021; Abdomen Pelvis W Contrast dated 12/31/2020 TECHNIQUE: Thin cut axial CT imaging of the abdomen and pelvis was performed following intravenous a dministration of 100 mL Isovue 300. Multiplanar reformats were generated and reviewed. All CT scans are performed using dose optimization technique as appropriate and may include automated exposure control or mA/KV adjustment according to patient size. FINDINGS: No suspicious findings in the lung bases. The liver, spleen, and pancreas show no suspicious findings. Gallbladder is not visualized, and could be surgically removed. No evidence of intra or extrahepatic biliary ductal dilation. Symmetric renal function is seen with mild prominence of the renal pelvis and ureters bilaterally, co uld relate to a level bladder distention. No other suspicious renal mass. No dilated bowel loops or bowel wall thickening. No free air, free fluid or inflammatory stranding. N o hernia, mass or bulky lymphadenopathy. Marked urinary bladder distention with no reaching above the level of the umbilicus. No suspicious bony findings. IMPRESSION: Marked urinary bladder distention, a nonspecific finding. Physiologic as well as neurolo gic causes of urinary retention should be considered. Mild prominence of the renal collecting system bilaterally, probably relates to the degree of bladder distention No other acute intra-abdominal process.
--- NOTE | 2022-10-04 17:02 | ER ---
Nurse's Notes [facility] Name: Harvey Wyatt Age: 27 yrs Sex: Male : 1995 Arrival Date: 10/04/2022 Time: 14:35 Bed 20 Private MD: Diagnosis: Upper abdominal pain, unspecified;Dehydration;Hyperglycemia, unspecified Presentation: 10/04 14:44 Note Not in WR when called for triage. [facility] 14:58 Chief complaint: Patient states: Abdominal pain, vomiting, chest pain since Saturday nj1 morning. Getting worse. Unable to keep anything down. Seen here Saturday. States he is diabetic, out of insulin, cannot afford medication. Coronavirus screen: Vaccine status: Patient reports receiving the 2nd dose of the covid vaccine. Ebola Screen: Patient denies travel to an Ebola-affected area in the 21 days before illness onset. Initial Sepsis Screen: Does the patient meet any 2 criteria? HR > 90 bpm. No. Patient's initial sepsis screen is negative. Does the patient have a suspected source of infection? No. Patient's initial sepsis screen is negative. Risk Assessment: Do you want to hurt yourself or someone else? Patient reports no desire to harm self or others. Onset of symptoms was October 02, 2022. 14:58 Acuity: BINDU 3 [facility] 14:58 Method Of Arrival: Ambulatory [facility] Historical: - Allergies: 15:02 No Known Allergies; nj1 - PMHx: 15:02 Diabetes - IDDM; nj1 - PSHx: 15:02 None; nj1 - Immunization history:: Client reports receiving the 2nd dose of the Covid vaccine. - Social history:: Smoking status: Patient denies any tobacco usage or history of. - Family history:: not pertinent. - Hospitalizations: : No recent hospitalization is reported. Screenin:36 [facility] ED Fall Risk Assessment (Adult) History of falling in the last 3 months, mb9 including since admission No falls in past 3 months (0 pts) Confusion or Disorientation No (0 pts) Intoxicated or Sedated No (0 pts) Impaired Gait No (0 pts) Mobility Assist Device Used No (0 pt) Altered Elimination No (0 pt) Score/Fall Risk Level 0 - 2 = Low Risk Oriented to surroundings, Maintained a safe environment, Educated pt \T\ family on fall prevention, incl call for assistance when getting out of bed. Abuse screen: Denies threats or abuse. Nutritional screening: No deficits noted. Tuberculosis screening: No symptoms or risk factors identified. Assessment: 15:35 General: Appears uncomfortable, Behavior is anxious, crying. Pain: Complains of pain in mb9 abdomen Pain does not radiate. Pain currently is 10 out of 10 on a pain scale. Quality of pain is described as pinching, Pain began 2-3 days ago. Is continuous, Alleviated by nothing. Neuro: Huynh Agitation-Sedation Scale (RASS): 0 - Alert and Calm Level of Consciousness is awake, alert, obeys commands, Oriented to person, place, time, situation, Appropriate for age. Cardiovascular: Heart tones S1 S2 present. Respiratory: Airway is patent Respiratory effort is even, unlabored, Respiratory pattern is regular, symmetrical. GI: Abdomen is flat, non-distended, Bowel sounds present X 4 quads. Abd is soft Abdomen is tender to palpation X 4 quads. Reports constipation, intolerance of fluids, intolerance of food, nausea, vomiting. : No signs and/or symptoms were reported regarding the genitourinary system. Derm: Skin is pink, warm \T\ dry. Musculoskeletal: Range of motion: intact in all extremities. 16:35 Reassessment: Patient and/or family updated on plan of care and expected duration. Pain mb9 level reassessed. Patient is alert, oriented x 3, equal unlabored respirations, skin warm/dry/pink. Patient states feeling better. Patient states symptoms have improved. Vital Signs: 14:58 BP 135 / 82; Pulse 104; Resp 18; Temp 99.3(O); Pulse Ox 100% ; Weight 74.84 kg; Height nj1 5 ft. 5 in. ; Pain 10/10; 15:36 BP 144 / 94; Pulse 90; Resp 18; Pulse Ox 99% on R/A; Pain 10/10; mb9 16:35 BP 125 / 67; Pulse 102; Resp 18; Pulse Ox 100% on R/A; mb9 17:19 BP 124 / 81; Pulse 74; Resp 18; Pulse Ox 100% on R/A; mb9 14:58 Body Mass Index 27.46 (74.84 kg, 165.1 cm) nj1 14:58 Pain Scale: Adult nj1 15:36 Pain Scale: Adult mb9 ED Course: 14:38 Patient arrived in ED. am2 14:39 Chris Kinney MD is Attending Physician. rn 15:02 Triage completed. nj1 15:04 Arm band placed on left wrist. nj1 15:18 Ayaka Solano, RN is Primary Nurse. mb9 15:35 Inserted saline lock: 18 gauge in right antecubital area, using aseptic technique. aw1 15:35 Initial lab(s) drawn, by me, sent to lab. aw1 15:36 Placed in gown. Bed in low position. Call light in reach. Side rails up X 1. Client mb9 placed on continuous cardiac and pulse oximetry monitoring. NIBP monitoring applied. 15:37 No provider procedures requiring assistance completed. mb9 16:13 CT Abd/Pelvis - IV Contrast Only In Process Unspecified. EDMS 17:19 IV discontinued, intact, bleeding controlled, No redness/swelling at site. Pressure mb9 dressing applied. Administered Medications: 15:28 Drug: NS 0.9% IV 1000 ml Route: IV; Rate: 1 bolus; Site: right antecubital; mb9 17:20 Follow up: Response: No adverse reaction; IV Status: Completed infusion mb9 15:29 Drug: Ondansetron IVP 4 mg Route: IVP; Site: right antecubital; mb9 17:20 Follow up: Response: No adverse reaction mb9 15:34 Drug: morphine IVP or IV 4 mg Route: IVP; Infused Over: 4 mins; Site: right antecubital;mb9 17:20 Follow up: Response: No adverse reaction mb9 Medication: 15:36 VIS not applicable for this client. mb9 Output: 16:55 Urine: 800ml (Voided); Total: 800ml. mb9 Outcome: 17:01 Discharge ordered by . rn 17:22 Discharged to home ambulatory. mb9 17:22 Condition: stable 17:22 Discharge instructions given to patient, Instructed on discharge instructions, follow up and referral plans. Demonstrated understanding of instructions, follow-up care, medications, Prescriptions given X 2. 17:23 Patient left the ED. mb9 Signatures: Dispatcher [employer] EDMS Chris Kinney MD MD rn Moreno, Amanda am2 Ayaka Solano, RN RN mb9 Nikia Dinh RN RN nj1 Denise Greene aw1 Corrections: (The following items were deleted from the chart) 15:04 14:58 Chief complaint: Patient states: Abdominal pain, vomiting, chest pain since nj1 Saturday. Getting worse. Unable to keep anything down. nj1
--- NOTE | 2022-10-04 17:02 | EDPHYS ---
Physician Documentation [facility] Name: Harvey Wyatt Age: 27 yrs Sex: Male : 1995 Arrival Date: 10/04/2022 Time: 14:35 Bed 20 Private MD: ED Physician Chris Kinney HPI: 10/04 15:15 This 27 yrs old Male presents to ER via Ambulatory with complaints of rn Abdominal Pain. 15:15 The patient presents with abdominal pain in the upper abdomen. rn 15:15 Onset: The symptoms/episode began/occurred 2 day(s) ago. The symptoms do not radiate. rn Associated signs and symptoms: Pertinent positives: nausea and vomiting, Pertinent negatives: blood in stools, chest pain, fever. Modifying factors: The symptoms are alleviated by nothing, the symptoms are aggravated by touching the area. Severity of pain: At its worst the pain was moderate in the emergency department the pain is unchanged. The patient has experienced similar episodes in the past. The patient has not recently seen a physician. Historical: - Allergies: 15:02 No Known Allergies; nj1 - PMHx: 15:02 Diabetes - IDDM; nj1 - PSHx: 15:02 None; nj1 - Immunization history:: Client reports receiving the 2nd dose of the Covid vaccine. - Social history:: Smoking status: Patient denies any tobacco usage or history of. - Family history:: not pertinent. - Hospitalizations: : No recent hospitalization is reported. ROS: 15:15 Constitutional: Negative for fever, chills, and weight loss, Eyes: Negative for injury, rn pain, redness, and discharge, Cardiovascular: Negative for chest pain, palpitations, and edema, Respiratory: Negative for shortness of breath, cough, wheezing, and pleuritic chest pain, Abdomen/GI: + upper abd pain and nausea/vomiting Back: Negative for injury and pain, : Negative for injury, bleeding, discharge, and swelling, MS/Extremity: Negative for injury and deformity, Skin: Negative for injury, rash, and discoloration, Neuro: Negative for headache, numbness, tingling, and seizure. Exam: 15:15 Constitutional: This is a well developed, well nourished patient who is awake, alert, rn appears uncomfortable ENT: dry MM Cardiovascular: tachycardic, regular. No pulse deficits. Respiratory: No increased work of breathing, no retractions or nasal flaring. Abdomen/GI: Soft, + epigastric tenderness, no rebound Skin: Warm, dry MS/ Extremity: Pulses equal, no cyanosis. Neuro: Awake and alert, GCS 15 Vital Signs: 14:58 BP 135 / 82; Pulse 104; Resp 18; Temp 99.3(O); Pulse Ox 100% ; Weight 74.84 kg; Height nj1 5 ft. 5 in. ; Pain 10/10; 15:36 BP 144 / 94; Pulse 90; Resp 18; Pulse Ox 99% on R/A; Pain 10/10; mb9 16:35 BP 125 / 67; Pulse 102; Resp 18; Pulse Ox 100% on R/A; mb9 17:19 BP 124 / 81; Pulse 74; Resp 18; Pulse Ox 100% on R/A; mb9 14:58 Body Mass Index 27.46 (74.84 kg, 165.1 cm) nj1 14:58 Pain Scale: Adult nj1 15:36 Pain Scale: Adult mb9 MDM: 14:40 Patient medically screened. rn 16:59 Differential diagnosis: appendicitis, bowel obstruction, diverticulitis, gastritis, rn gastroesophageal reflux disease, non-specific abd pain, pancreatitis, Peptic Ulcer Disease, Perf. Duodenal Ulcer, Perf. Gastric Ulcer, Ureterolithiasis, urinary tract infection. Data reviewed: vital signs, nurses notes, lab test result(s), radiologic studies, CT scan, and as a result, I will discharge patient. Counseling: I had a detailed discussion with the patient and/or guardian regarding: the historical points, exam findings, and any diagnostic results supporting the discharge/admit diagnosis, lab results, radiology results, the need for outpatient follow up, to return to the emergency department if symptoms worsen or persist or if there are any questions or concerns that arise at home. Response to treatment: the patient's symptoms have markedly improved after treatment, and as a result, I will discharge patient. Special discussion: Based on the patient's Hx, exam, and Dx evaluation, there is no indication for emergent surgery or inpatient Tx. It is understood by the patient/guardian that if the Sx's persist or worsen they need to return immediately for re-evaluation. I discussed with the patient/guardian in detail that at this point there is no indication for admission to the hospital. It is understood, however, that if the symptoms persist or worsen the patient needs to return immediately for re-evaluation. ED course: No acute findings in blood or urine. CT shows bladder distension, but patient able to urinate once notified. Urinated atleast 800cc urine. Sleeping comfortably, feels better, will dc home. No AG. Glucose in 200s. . 10/04 14:40 Order name: CBC with Diff; Complete Time: 16:15 rn 10/04 14:40 Order name: CMP; Complete Time: 16:15 rn 10/04 14:40 Order name: Lipase; Complete Time: 16:15 rn 10/04 15:19 Order name: Glucose, Ancillary Testing; Complete Time: 16:15 EDMS 10/04 15:15 Order name: CT Abd/Pelvis - IV Contrast Only; Complete Time: 16:45 rn 10/04 14:40 Order name: IV Saline Lock; Complete Time: 15:34 rn 10/04 14:40 Order name: Labs collected and sent; Complete Time: 15:35 rn 10/04 14:40 Order name: Glucose Level; Complete Time: 15:26 rn Administered Medications: 15:28 Drug: NS 0.9% IV 1000 ml Route: IV; Rate: 1 bolus; Site: right antecubital; mb9 17:20 Follow up: Response: No adverse reaction; IV Status: Completed infusion mb9 15:29 Drug: Ondansetron IVP 4 mg Route: IVP; Site: right antecubital; mb9 17:20 Follow up: Response: No adverse reaction mb9 15:34 Drug: morphine IVP or IV 4 mg Route: IVP; Infused Over: 4 mins; Site: right antecubital;mb9 17:20 Follow up: Response: No adverse reaction mb9 Disposition Summary: 10/04/22 17:01 Discharge Ordered Location: Home rn Problem: new rn Symptoms: have improved rn Condition: Stable rn Diagnosis - Upper abdominal pain, unspecified rn - Dehydration rn - Hyperglycemia, unspecified rn Followup: rn - With: Private Physician - When: As needed - Reason: Recheck today's complaints, Re-evaluation by your physician Discharge Instructions: - Discharge Summary Sheet rn - Abdominal Pain, Adult rn - Dehydration, Adult rn - Hyperglycemia rn - Blood Glucose Monitoring, Adult rn Forms: - Medication Reconciliation Form rn - Thank You Letter rn - Antibiotic manager of international - Prescription Opioid Use rn - [email or web address] rn - Work release form mb9 Prescriptions: - ondansetron 4 mg Oral Tablet,disintegrating - take 1 tablet by ORAL route every 8 hours As needed; 10 tablet; Refills: 0, rn Product Selection Permitted - Tramadol 50 mg Oral Tablet - take 1 tablet by ORAL route every 8 hours as needed; 12 tablet; Refills: 0, rn Product Selection Permitted Signatures: Dispatcher [employer] Chris Larsen MD MD rn Breneman, Mary Beth RN RN mb9 Nikia Dinh RN RN nj1
[2022-10-04 17:28] VITALS: TEMP 99.3
[2022-10-04 17:31] VITALS: O2SAT 100
[2022-10-04 17:33] VITALS: BP 124/81
== END 2022-10-04 17:23 | disposition home or self-care (01) ==
LOC: ER 14:35
DX: R10.10 Upper abdominal pain, unspecified (principal); E86.0 Dehydration; R73.9 Hyperglycemia, unspecified
CPT/HCPCS: 85025; 36415; 82947; 83690; 80053; 74177; Q9967; J2405; J7030

== ENCOUNTER 2022-10-08 21:45 | Inpatient (IN) | payer BC ==
--- OUTSIDE RECORDS SUMMARY | 2022-10-08 21:48 | XMS REPORT | Continuity of Care Document ---
:1995 Author Organization [facility] t Address [address] [facility] [address] [place] [address] Care Team Providers Name Role Phone Pcp, Patient Does Not Have A Primary Care Physician [id number] Naseem Montgomery MD Attending Clinician NASEEM MONTGOMERY Attending Clinician Unavailable Melina Doran RN Attending Clinician Unavailable Only, Ang Db Test [...] Drug Active Univers ALLERGIE Class ity of [facility] Social History Social Habit Start Date Stop Date Quantity Comments Source Exposure to Yes [facility] SARS-CoV-2 (event) Medica l Branch Sex Assigned At [birth year] [facility] [place] [facility]:00 Medical Branch Smoking Status Start Date Stop Date Source Tobacco smoking consumption [facility] Medical unknown Branch Medications Ordered Filled Start Stop Current Ordering Indication Dosage Frequency Signature Comments Components Source Medication Medication Date Date Medication? Clinician (SIG) Name Name aspirin 2022- No 325mg 325 mg, Unive rs tablet 325 10-07 Oral, ONCE it y of mg 10:15: 09:30 NOW, 1 [place] 00 :00 dose, On [facility] 10/07/22 Branch at 0515, STAT iopamidol 2022- No [id number] 100mL 100 mL, Univers (ISOVUE 10-07 Intravenou ity o f 370-500 mL) 10:15: 10:15 s, ONCE, 1 [place] injection 00 :00 dose, On Medica l 100 mL [place] 10/07/22 Branch at 0515, Routine morpHINE (4 2022- No 4mg 4 mg, Slow Univers mg/mL) 10-07 IV Push, ity of injection 4 09:00: 08:04 ONCE, 1 [place] mg 00 :00 dose, On [facility] 10/07/22 Branch at 0400, STAT NaCl 0.9% 2022- No 1000mL at 999 Uni vers (NS) bolus 10-07 mL/hr, ity of infusion 08:45: 09:59 1,000 mL, [place] 1,000 mL 00 :00 IV Medical Piggyback, Branch ONCE, 1 dose, On [place] 10/07/22 at 0345, STAT famotidine 2022- No 20mg 20 mg, Univ ers (PEPCID 10-07 Slow IV ity of (PF)) 08:00: 08:15 Push, [place] injection 00 :00 ONCE, 1 Medical 20 mg dose, On Branch [place] 10/07/22 at 0300, MALENA proMETHazin 2022- No 25mg 25 mg, IV Univers e 10-07 Piggyback, ity of (PHENERGAN) 08:00: 08:15 ONCE[place] 1 [place] 25 mg in 00 :00 dose, On Medical NaCl 0.9% 10/07/22 Bran ch (NS) 50 mL at 0300, IV MALENA piggyback famotidine Yes [id number] 20mg Take 1 Univers (PEPCID) 20 7-02 tablet by ity of mg tablet 00:00: [place] 00 the Medical morning Branch and 1 tablet in the evening. proMETHazin Yes [id number] 25mg Take 1 Univers e 25 mg 7-02 tablet by ity of tablet 00:00: mouth [place] 00 every 6 Medical (six) Branch hours as needed for Nausea and Vomiting (N/V). clindamycin 2020- No [id number] 450mg Take 3 Univers 150 mg 09-27 [id number] capsules ity of capsule 00:00: 04:59 by mouth 3 [place] 00 :00 (three) Medical times Branch daily for 10 days. Vital Signs Vital Name Observation Time Observation Value Comments Source Systolic blood 2022-10-07 12:00:00 138 [facility]Hg[facility] 2022-10-07 12:00:00 100 mm[Hg] Unive [facility] Heart rate 2022-10-07 12:00:00 89 /min [facility] Respiratory rate 2022-10-07 12:00:00 16 /min [facility] Oxygen saturation in 2022-10-07 12:00:00 100 /min [facility] Arterial blood by [facility] Pulse oximetry [place] Body temperature 2022-10-07 07:48:00 37 Sarah [facility] Body height 2022-10-07 07:48:00 175.3 cm [facility] Body weight 2022-10-07 07:48:00 83.915 kg [facility] BMI 2022-10-07 07:48:00 27.32 kg/m2 [facility] Systolic blood 2020-09-27 06:14:00 135 mm[Hg] Univer sity [facility] Diastolic blood 2020-09-27 06:14:00 83 mm[Hg] Unive [facility] Heart rate 2020-09-27 06:14:00 110 /min Universi ty of [facility] Body temperature 2020-09-27 06:14:00 37.06 Sarah [facility] Respiratory rate 2020-09-27 06:14:00 20 /min [facility] Body weight 2020-09-27 06:14:00 81.647 kg Universi ty [facility] Oxygen saturation in 2020-09-27 06:14:00 100 /min University of Arterial blood by [facility] Pulse oximetry Branch Systolic blood 2020-09-27 06:14:00 135 mm[Hg] Univer sity of [facility] Diastolic blood 2020-09-27 06:14:00 83 mm[Hg] Unive [facility] Heart rate 2020-09-27 06:14:00 110 /min Universi ty [facility] Body temperature 2020-09-27 06:14:00 37.06 Sarah [facility] Respiratory rate 2020-09-27 06:14:00 20 /min [facility] Body weight 2020-09-27 06:14:00 81.647 kg Universi ty [facility] Oxygen saturation in 2020-09-27 06:14:00 100 /min University of Arterial blood by [facility] Pulse oximetry [place] Procedures Procedure Date / Time Performing Clinician Source Performed XR CHEST 1 VW 2022-10-07 12:15:44 Naseem Montgomery [facility] EKG-12 LEAD 2022-10-07 11:57:16 Naseem Montgomery [facility] TROPONIN I 2022-10-07 10:50:00 Naseem Montgomery [facility] URINE DRUG (IMMUNOASSAY) 2022-10-07 09:58:00 Naseem Montgomery [facility] SCREEN URINALYSIS 2022-10-07 09:58:00 Naseem Montgomery [facility] CBC WITH DIFF 2022-10-07 09:29:00 Naseem Montgomery [facility] LACTIC ACID WHOLE BLOOD 2022-10-07 09:28:00 Naseem Montgomery [facility] CT ANGIOGRAM 2022-10-07 09:17:25 Naseem Montgomery [facility] ABDOMEN/PELVIS [facility] CK (CREATINE KINASE) + 2022-10-07 08:13:00 [facility] Branch LIPASE 2022-10-07 08:13:00 Naseem Montgomery [facility] TROPONIN I 2022-10-07 08:13:00 Naseem Montgomery [facility] COMP. METABOLIC PANEL 2022-10-07 08:13:00 Naseem Montgomery [facility] ([id number]) Medical Branch ETHANOL 2022-10-07 08:13:00 Naseem Montgomery [facility] PROTHROMBIN TIME / INR 2022-10-07 08:13:00 [facility] ACTIVATED PARTIAL 2022-10-07 08:13:00 Naseem Montgomery [facility] THRMPLAS MARISOL [facility] HB ABO GROUPING 2022-10-07 08:13:00 Naseem Montgomery [facility] N-TERMINAL PRO-BNP 2022-10-07 08:13:00 Naseem Montgomery [facility] NOTICE OF PRIVACY 2020-09-27 06:10:18 Doctor Unassigned, No [facility] PRACTICES Name [facility] CONSENT/REFUSAL FOR 2020-09-27 06:09:54 [facility] Encounters Start End Encounter Admission Attending Care Care Encounter Source Date/Time Date/Time Type Type Clinicians Facility Department ID 2022-10-07 2022-10-07 Emergency Linda [facility] [id number] Univers 02:43:00 07:42:00 Naseem SHIELDS 350.1.13.10 i Justin 4.2.7.2.686 [facility] [id number] [facility] 084 Branch 2022-10-07 2022-10-07 Emergency X LINDA [facility] ERT [id number] Univers 02:43:00 07:42:00 NASEEM bishop [facility] 2021-04-20 2021-04-20 Letter BIJAN Doran [id number] Univers 00:00:00 00:00:00 (Out) Melina BARRAGAN 350.1.13.10 it y of [facility] 4.2.7.2.686 [place] [id number] [facility] [address] [place] 2021-04-20 2021-04-20 Letter Only, [facility] [id number] Univers 00:00:00 00:00:00 (Out) Db Test HEALTH 350.1.13.10 it y of [place] 4.2.7.2.686 [place] as JULIANNA?BLEA [id number] [address] MEDICAL OFFICE [facility] 2021-04-19 2021-04-19 Laboratory Only, Enrique Db Test [facility] 1.2.8 [id number] [id number] Univers 09:15:00 09:22:34 Only KingLinda HEALTH 350.1.13.10 ity of [place] 4.2.7.2.686 [place] as JULIANNA?BLEA [id number] [address] MEDICAL OFFICE [facility] 2020-09-27 2020-09-27 Emergency LARRY Atkinson [id number] Univers 01:16:00 02:44:00 [place] 350.1.13.10 i ty of [place].2.686 [place] [id number] [address] 2020-09-27 2020-09-27 Emergency LARRY Atkinson [id number] 01:16:00 02:44:00 [place] 350.1.13.10 [place] 4.2.7.2.686 [place] [id number] [facility] 2020-09-27 2020-09-27 Emergency X LARRY ATKINSON ERT [id number] Univers 01:16:00 01:16:00 MC ittyler [facility] Results Test Description Test Time Test Comments Results Result Comments Source TROPONIN I 2022-10-07 11:37:23 Test Item Value Reference Range Interpretation Comme nts TROPONIN I (test code = 5707194988) 0.000 ng/mL <=0.034 OSWALD (test code = OSWALD) Reference (Normal) Range (defined by the 99th percentile reference limit): <= 0.034 ng/mL Note: Cardiac troponin begins to rise 3-4 hours after the onset of ischemia. Repeat in 4-6 hours if the sample was drawn within 3-4 hours of the onset of the symptom and found normal. Diagnosis of myocardial injury is made with acute changes in cTn concentrations with at least one serial sample above the 99th percentile upper reference limit (URL), taken together with the patient's clinical presentation. Biotin has been reported to cause a negative bias, interpret results relative to patient's use of biotin. Lab Interpretation (test code = Normal 97645-2) [facility] WITH [id number] 10:11:14 Test Item Value Reference Range Interpretation Comments WBC (test code = 4.41 See_Comment [Automated 5765-2) message] The sy stem which generated this result transmitted reference range : 4.20 - 10.70 10*3/?L. The reference range was not used to interpret this result as normal/abnormal . RBC (test code = 4.94 See_Comment [Automated 692-8) message] The sy stem which generated this result transmitted reference range : 4.26 - 5.52 10*6/?L. The reference range was not used to interpret this result as normal/abnormal . HGB (test code = 15.2 g/dL 12.2-16.4 718-7) HCT (test code = 40.1 % 38.4-49.3 4544-3) MCV (test code = 81.2 fL 81.7-95.6 L 787-2) MCH (test code = 30.8 pg 26.1-32.7 785-6) MCHC (test code = 37.9 g/dL 31.2-35.0 H RBC parame ters may 786-4) be affected by the presence of an interfering substance or condition. RDW-SD (test code = 34.8 fL 38.5-51.6 L 57005-2) RDW-CV (test code = 12.1 % 12.1-15.4 788-0) PLT (test code = 210 See_Comment [Automated 217-3) message] The sy stem which generated this result transmitted reference range : 150 - 328 10*3/ ?L. The reference r destiny was not used to interpret this result as normal/abnormal . MPV (test code = 10.1 fL 9.8-13.0 57992-0) NRBC/100 WBC (test 0.0 See_Comment [Automat ed code = 0887666483) message] The system which generated this result transmitted reference range : 0.0 - 10.0 /100 WBCs. The refer ence range was not u sed to interpret th is result as normal/abnormal . NRBC x10^3 (test code See_Comment [Auto mated = 4193712488) message] The s ystem which generated this result transmitted reference range : 10*3/?L. The reference range was not used to interpret this result as normal/abnormal . GRAN MAT (NEUT) % 80.0 % (test code = 770-8) IMM GRAN % (test code 0.50 % = 6820551069) LYMPH % (test code = 11.1 % 736-9) MONO % (test code = 8.2 % 5905-5) EOS % (test code = 0.0 % 713-8) BASO % (test code = 0.2 % 706-2) GRAN MAT x10^3(ANC) 3.53 10*3/uL 1.99-6.95 (test code = 5428904831) IMM GRAN x10^3 (test 0.00-0.06 code = 7644810554) LYMPH x10^3 (test code 0.49 10*3/uL 1.09-3.23 L = 731-0) MONO x10^3 (test code 0.36 10*3/uL 0.36-1.02 = 742-7) EOS x10^3 (test code = 0.06-0.53 L 711-2) BASO x10^3 (test code 0.01-0.09 = 704-7) SPHEROCYTES (test code 2+ A = 802-9) Lab Interpretation Abnormal (test code = 43351-3) [facility] [id number] 09:56:11 Test Item Value Reference Range Interpretation Comments NT-proBNP (test code = 20 pg/mL <=125 0903167435) OSWALD (test code = OSWALD) Biotin has been reported to cause a negative bias, interpret results relative to patient's use of biotin. Lab Interpretation (test Normal code = 48876-2) [facility] (CREATINE KINASE) + [id number] 09:55:51 Test Item Value Reference Range Interpretation Comments CK (test code = 46 U/L 33-194 0868160249) CK-MB (test code = 0.57 ng/mL <=3.50 1417821131) CKMB INDEX (test code = 1.2 % 0.0-4.0 5056206927) OSWALD (test code = OSWALD) Biotin has been reported to cause a negative bias, interpret results relative to patient's use of biotin. Lab Interpretation (test Normal code = 26722-1) [facility]ANOL2023-07-02 09:01:30 ALCOHOL<10mg/dL10/07/2022 4:01 AM [facility]<10 Pccoxoqk68-093 Toxic>100 Depression of MASTER FISHER>[address] [facility] HospitalTROPONIN [id number] 08:56:28 Test Item Value Reference Range Interpretation Comments TROPONIN I (test code = 3.040 ng/mL <=0.034 H [id number]) OSWALD (test code = OSWALD) Reference (Normal) Range (defined by the 99th percentile reference limit): <= 0.034 ng/mL Note: Cardiac troponin begins to rise 3-4 hours after the onset of ischemia. Repeat in 4-6 hours if the sample was drawn within 3-4 hours of the onset of the symptom and found normal. Diagnosis of myocardial injury is made with acute changes in cTn concentrations with at least one serial sample above the 99th percentile upper reference limit (URL), taken together with the patient's clinical presentation. Biotin has been reported to cause a negative bias, interpret results relative to patient's use of biotin. Lab Interpretation Abnormal (test code = 30672-8) [facility] METABOLIC PANEL (26212)2022-10-07 08:44:48 Test Item Value Reference Range Interpretation Comments NA (test code = 139 mmol/L 135-145 7040027831) K (test code = 3.5 mmol/L 3.5-5.0 0629121413) CL (test code = 104 mmol/L 98-108 8738391598) CO2 TOTAL (test code = 17 mmol/L 23-31 L 7476886422) AGAP (test code = 18 2-16 H 0727906829) BUN (test code = 12 mg/dL 7-23 2379469771) GLUCOSE (test code = 184 mg/dL 70-110 H 2062309768) CREATININE (test code = 0.66 mg/dL 0.60-1.25 3630894620) TOTAL BILI (test code = 1.1 mg/dL 0.1-1.8 7433420657) CALCIUM (test code = 9.2 mg/dL 8.6-10.6 7273767297) T PROTEIN (test code = 7.0 g/dL 6.3-8.2 3098161622) ALBUMIN (test code = 4.5 g/dL 3.5-5.0 5550262713) ALK PHOS (test code = 77 U/L 34-122 1071102234) ALTv (test code = 25 U/L 5-50 1742-6) AST(SGOT) (test code = 20 U/L 13-40 1455531773) eGFR (test code = 147.1 mL/min/1.73m2 5986233548) OSWALD (test code = OSWALD) Association of Glomerular Filtration Rate (GFR) and Staging of Kidney Disease* + --+ --+ ------+| GFR (mL/min/1.73 m2) ?| With Kidney Damage ?| ?Without Kidney Damage+ --------+ --------+ +| ?>90 ?| ?Stage one ?| ? Normal ?+ ---+ ---+ -------+| ?60-89 ?| ?Stage two ?| ? Decreased GFR ? + --+ --+ ------+| ?30-59 ?| ?Stage three ?| ? Stage three ? + --+ --+ ------+| ?15-29 ?| ?Stage four ? | ? Stage four ?+ ---+ ---+ -------+| ?<15 (or dialysis) ? ?| ?Stage five ? | ? Stage five ?+ ---+ ---+ -------+ *Each stage assumes the associated GFR level has been in effect for at least three months. ?Stages 1 to 5, with or without kidney disease, indicate chronic kidney disease. Notes: Determination of stages one and two (with eGFR >59mL/min/1.73 m2) requires estimation of kidney damage for at least three months as defined by structural or functional abnormalities of the kidney, manifested by either:Pathological abnormalities or Markers of kidney damage (including abnormalities in the composition of the blood or urine or abnormalities in imaging tests). Lab Interpretation Abnormal (test code = 77057-0) [facility] HospitalLIPASE2023-07-02 08:44:28 Test Item Value Reference Range Interpretation Comments LIPASE (test code = 0426583093) 79 U/L 0-220 Lab Interpretation (test code = Normal 28438-2) [facility] HospitalACTIV[facility] PARTIAL THRMPLAS [id number] 08:43:03 Test Item Value Reference Range Interpretation Comments APTT Patient (test 28 See_Comment [Automat ed code = 3173-2) message] The system which generated this result transmitted reference range : 23 - 38 Seconds . The reference range was not used to interpr et this result as normal/abnormal . OSWALD (test code = OSWALD) The [facility] patient population mean normal value for aPTT is 30 seconds. Lab Interpretation Normal (test code = 98535-5) [facility] HospitalProthrombin Time / [id number] 08:41:03 Test Item Value Reference Range Interpretation Comments PROTIME PATIENT (test 14.1 See_Comment [Auto mated message] code = 5964-2) The system wh ich generated this result transmitted ref erence range: 12.0 - 1 4.7 Seconds. The re ference range was not u sed to interpret this result as normal/abnor mal. INR (test code = 6301-6) 1.1 Nor mal INR <1.1; Warfarin Therap eutic range 2.0 to 3. 0 or 2.5 to 3.5, dep ending upon the indica tions. Lab Interpretation (test Normal code = 38248-9) [facility] HospitalType and Screen - ONCE [id number] 08:28:00 Test Item Value Reference Range Interpretation Comments ABO & RH (test code = 20) O Positive IAT (test code = 1185) Negative [facility]"
[2022-10-08] MEDS ORDERED: MORPHINE 4 MG/ML SYR ONE (22:28)
[2022-10-08] MEDS ORDERED: NA CHLORIDE 0.9% 1,000 ML ONE (22:29)
[2022-10-08] MEDS ORDERED: ONDANSETRON 4 MG/2 ML VIAL ONE (22:29)
[2022-10-08] MEDS ORDERED: PANTOPRAZOLE 40 MG INJ ONE (22:29)
[2022-10-08 22:30] LABS: Hematocrit 46.9 % (39.6-49.0); Lymphocytes % 22.1 % (15.3-44.8); MCV 84.6 fL (80-100); RBC Red Blood Cell Count 5.54 M/uL (4.33-5.43)
[2022-10-08 22:41] LABS: ALT/SGPT 30 U/L (16-61); AST/SGOT 8 U/L (15-37); Albumin 4.2 g/dL (3.4-5.0); Alkaline Phosphatase 91 U/L (45-117); BUN Blood Urea Nitrogen 7 mg/dL (7-18); Bicarbonate 24 mEq/L (21-32); Bilirubin Direct 0.2 mg/dL (0-0.2); Bilirubin Indirect, Calculated 0.8 mg/dL (0.2-0.8); Glomerular Filtration Rate 127 ml/min (=/>90); Glucose Level 310 mg/dL (74-106); Lipase 39 U/L (13-75); NT PRO-BNP 35 pg/mL (<125); Potassium 3.4 mEq/L (3.5-5.1); Protein, Total 7.6 g/dL (6.4-8.2); Sodium Level 140 mEq/L (136-145)
[2022-10-08 22:45] LABS: Troponin High Sensitivity < 3.0 pg/mL (<58.9)
[2022-10-08 22:46] LABS: Specific Gravity 1.028 (1.005-1.030); Urine Bilirubin NEGATIVE (Negative); Urine Blood Negative (Negative); Urine Clarity Clear (Clear); Urine Color Light-Yellow (Yellow); Urine Glucose 4+ (Over) (Negative); Urine Protein NEGATIVE (Negative); Urine Urobilinogen Normal (Normal)
[2022-10-08 22:54] LABS: Barbiturates NEGATIVE (NEGATIVE); Benzodiazepines NEGATIVE (NEGATIVE); Cocaine NEGATIVE (NEGATIVE); METHAMPHETAM NEGATIVE (NEGATIVE); Methadone NEGATIVE (NEGATIVE); Opiates NEGATIVE (NEGATIVE); Phencyclidine NEGATIVE (NEGATIVE); THC Cannibis NEGATIVE (NEGATIVE)
[2022-10-08 22:56] LABS: Protime INR 1.07
--- NOTE | 2022-10-09 00:54 | EDPHYS ---
Physician Documentation [facility] Name: Harvey Wyatt Age: 27 yrs Sex: Male : 1995 Arrival Date: 10/08/2022 Time: 21:45 Bed 16 Private MD: ED Physician Davie Prasad HPI: 10/09 00:42 This 27 yrs old Male presents to ER via EMS with complaints of ABD ANS CHEST justus PAIN. 00:42 The patient presents with abdominal pain in the epigastric area, in the upper abdomen. justus Onset: The symptoms/episode began/occurred 2 day(s) ago. The symptoms do not radiate. Associated signs and symptoms: Pertinent positives: nausea and vomiting, chest pain, shortness of breath. The symptoms are described as constant, crampy. Modifying factors: The symptoms are alleviated by nothing, the symptoms are aggravated by food, movement, pressure, walking. Severity of pain: At its worst the pain was moderate in the emergency department the pain has resolved. The patient has experienced similar episodes in the past, several times, multiple times. Historical: - Allergies: 10/08 21:50 No Known Allergies; vc1 - Home Meds: 21:50 None [Active]; vc1 - PMHx: 21:50 Diabetes - IDDM; vc1 - PSHx: 21:50 None; vc1 - Immunization history:: Client reports receiving the 2nd dose of the Covid vaccine. - Social history:: Smoking status: Patient denies any tobacco usage or history of. ROS: 10/09 00:44 Constitutional: Negative for fever, chills, and weight loss, Eyes: Negative for injury, justus pain, redness, and discharge, ENT: Negative for injury, pain, and discharge, Neck: Negative for injury, pain, and swelling, Respiratory: Negative for shortness of breath, cough, wheezing, and pleuritic chest pain, Back: Negative for injury and pain, : Negative for injury, bleeding, discharge, and swelling, MS/Extremity: Negative for injury and deformity, Skin: Negative for injury, rash, and discoloration, Neuro: Negative for headache, weakness, numbness, tingling, and seizure, Psych: Negative for depression, anxiety, suicide ideation, homicidal ideation, and hallucinations, Allergy/Immunology: Negative for hives, rash, and allergies, Endocrine: Negative for neck swelling, polydipsia, polyuria, polyphagia, and marked weight changes. Cardiovascular: Positive for chest pain, with cough. Abdomen/GI: Positive for abdominal pain, nausea and vomiting. Exam: 00:44 Constitutional: This is a well developed, well nourished patient who is awake, alert, justus and in no acute distress. Head/Face: Normocephalic, atraumatic. Eyes: Pupils equal round and reactive to light, extra-ocular motions intact. Lids and lashes normal. Conjunctiva and sclera are non-icteric and not injected. Cornea within normal limits. Periorbital areas with no swelling, redness, or edema. ENT: Nares patent. No nasal discharge, no septal abnormalities noted. Tympanic membranes are normal and external auditory canals are clear. Oropharynx with no redness, swelling, or masses, exudates, or evidence of obstruction, uvula midline. Mucous membranes moist. Neck: Trachea midline, no thyromegaly or masses palpated, and no cervical lymphadenopathy. Supple, full range of motion without nuchal rigidity, or vertebral point tenderness. No Meningismus. Chest/axilla: Normal chest wall appearance and motion. Nontender with no deformity. No lesions are appreciated. Cardiovascular: Regular rate and rhythm with a normal S1 and S2. No gallops, murmurs, or rubs. Normal PMI, no JVD. No pulse deficits. Respiratory: Lungs have equal breath sounds bilaterally, clear to auscultation and percussion. No rales, rhonchi or wheezes noted. No increased work of breathing, no retractions or nasal flaring. Back: No spinal tenderness. No costovertebral tenderness. Full range of motion. Male : Normal genitalia with no discharge or lesions. Skin: Warm, dry with normal turgor. Normal color with no rashes, no lesions, and no evidence of cellulitis. MS/ Extremity: Pulses equal, no cyanosis. Neurovascular intact. Full, normal range of motion. Neuro: Awake and alert, GCS 15, oriented to person, place, time, and situation. Cranial nerves II-XII grossly intact. Motor strength 5/5 in all extremities. Sensory grossly intact. Cerebellar exam normal. Normal gait. Psych: Awake, alert, with orientation to person, place and time. Behavior, mood, and affect are within normal limits. 00:44 ECG was reviewed by the Attending Physician. 00:44 Abdomen/GI: Inspection: abdomen appears normal, Bowel sounds: normal, Palpation: mild abdominal tenderness, moderate abdominal tenderness, in the epigastric area, right upper quadrant and left upper quadrant, Liver: no appreciated palpable abnormalities, Hernia: not appreciated. Vital Signs: 10/08 21:46 BP 139 / 102; Pulse 75; Resp 19; Temp 97.9; Pulse Ox 100% ; Weight 74.84 kg; Height 5 vc1 ft. 5 in. ; Pain 10/10; 23:36 BP 147 / 92; Pulse 98; Resp 16; Pulse Ox 97% ; jl10 10/09 02:00 BP 127 / 75; Pulse 105; Resp 12; Pulse Ox 98% ; vc1 10/08 21:46 Body Mass Index 27.46 (74.84 kg, 165.1 cm) vc1 10/08 21:46 Pain Scale: Adult vc1 MDM: 10/08 22:08 Patient medically screened. [facility] 10/09 00:47 Differential Diagnosis altered mental status. HEART Score: ECG: Normal (0), Age: < or = justus 45 years (0), Risk Factors: No Risk Factors Known (0), Troponin: < or = 1 x Normal Limit (0). Differential diagnosis: bowel obstruction, Cholelithiasis, gastritis, gastroesophageal reflux disease, non-specific abd pain, pancreatitis, Peptic Ulcer Disease. MONICA Risk Score: TOTAL SCORE = 0. Data reviewed: vital signs, nurses notes, EMS record, lab test result(s), EKG, radiologic studies, plain films. I considered the following discharge prescriptions or medication management in the emergency department Medications were administered in the Emergency Department. See MAR. Test considered but Not performed: CT: NO CT CHEST NO CT ABD. Care significantly affected by the following chronic conditions: Diabetes. Counseling: I had a detailed discussion with the patient and/or guardian regarding: the historical points, exam findings, and any diagnostic results supporting the discharge/admit diagnosis, the presence of at least one elevated blood pressure reading (>120/80) during this emergency department visit, lab results, radiology results, the need for further work-up and treatment in the hospital. 10/08 22:10 Order name: Basic Metabolic Panel; Complete Time: 00:34 [facility] 10/08 22:10 Order name: CBC with Diff; Complete Time: 00:34 justus 10/08 22:10 Order name: LFT's; Complete Time: 00:34 justus 10/08 22:10 Order name: Magnesium; Complete Time: 00:34 justus 10/08 22:10 Order name: NT PRO-BNP; Complete Time: 00:34 justus 10/08 22:10 Order name: PT-INR; Complete Time: 00:34 justus 10/08 22:10 Order name: Troponin HS; Complete Time: 00:34 justus 10/08 22:10 Order name: Lipase; Complete Time: 00:34 justus 10/08 22:10 Order name: Urinalysis w/ reflexes; Complete Time: 00:34 justus 10/08 22:10 Order name: UDS; Complete Time: 00:34 justus 10/09 01:32 Order name: Urinalysis w/ reflexes EDMS 10/09 01:32 Order name: CBC with Automated Diff EDMS / 01:32 Order name: CBC with Automated Diff EDMS 10/09 01:32 Order name: CBC with Automated Diff EDMS 10/09 01:32 Order name: CBC with Automated Diff EDMS / 01:32 Order name: CBC with Automated Diff EDMS / 01:32 Order name: Comprehensive Metabolic Panel EDMS 10/09 01:32 Order name: Comprehensive Metabolic Panel EDMS / 01:32 Order name: Comprehensive Metabolic Panel EDMS 10/09 01:32 Order name: Comprehensive Metabolic Panel EDMS / 01:32 Order name: Magnesium EDMS 07/ 01:32 Order name: Magnesium EDMS 07/ 01:32 Order name: Magnesium EDMS 07/ 01:32 Order name: Magnesium EDMS 07/ 01:32 Order name: Phosphorus EDMS 07/ 01:32 Order name: Phosphorus EDMS 07/ 01:32 Order name: Phosphorus EDMS 07/ 01:32 Order name: Phosphorus EDMS 10/08 22:10 Order name: XRAY Chest (1 view) justus 10/08 22:10 Order name: EKG; Complete Time: 22:11 justus 10/09 01:32 Order name: Clear Liquid EDMS 10/08 22:10 Order name: Cardiac monitoring; Complete Time: 22:34 justus 10/08 22:10 Order name: EKG - Nurse/Tech; Complete Time: 22:34 justus 10/08 22:10 Order name: IV Saline Lock; Complete Time: :45 [facility] 10/08 22:10 Order name: Labs collected and sent; Complete Time: : [facility] 10/08 22:10 Order name: O2 Per Protocol; Complete Time: : [facility] 10/08 22:10 Order name: O2 Sat Monitoring; Complete Time: :34 [facility] EC:44 Rate is 92 beats/min. Rhythm is regular. QRS [place] is Normal. MT interval is normal. QRS justus interval is normal. QT interval is normal. No Q waves. T waves are Normal. No ST changes noted. Clinical impression: NSR w/ Non-specific ST/T Changes and No evidence of ischemia. Interpreted by me. Reviewed by me. Administered Medications: 10/08 22:45 Drug: morphine IVP or IV 4 mg Route: IVP; Infused Over: 4 mins; Site: left antecubital; vc1 10/09 02:12 Follow up: Response: No adverse reaction vc1 10/08 22:45 Drug: Ondansetron IVP 4 mg Route: IVP; Site: left antecubital; vc1 10/09 02:12 Follow up: Response: No adverse reaction vc1 10/08 22:46 Drug: NS 0.9% IV 1000 ml Route: IV; Rate: 1 bolus; Site: left antecubital; vc1 23:46 Follow up: IV Intake: 1000ml vc1 23:46 Follow up: IV Status: Completed infusion; IV Intake: 1000ml vc1 22:46 Drug: Pantoprazole IVP 40 mg Route: IVP; Site: left antecubital; vc1 10/09 02:12 Follow up: Response: No adverse reaction vc1 01:54 Drug: metoCLOPramide IVP 10 mg Route: IVP; Site: left antecubital; vc1 02:12 Follow up: Response: No adverse reaction vc1 01:54 Drug: HYDROmorphone IVP 1 mg Route: IVP; Site: left antecubital; vc1 02:12 Follow up: Response: No adverse reaction vc1 02:08 Not Given (not availablee): Insulin Glargine Sub-Q 30 units Sub-Q once vc1 02:10 Drug: Insulin Regular Human IVP 10 units {Co-Signature: as6 (Slawson, Weippe RN).} vc1 Route: IVP; Site: left antecubital; 02:12 Follow up: Response: No adverse reaction vc1 Disposition Summary: 10/09/22 00:53 Hospitalization Ordered Hospitalization Status: Observation justus Provider: Harvey Phillips cha Location: Telemetry/MedSurg (observation) justus Condition: Stable justus Problem: new justus Symptoms: have improved justus Bed/Room Type: Standard justus Room Assignment: 403(10/09/22 01:33) mw Diagnosis - Gastroparesis justus - Type 1 diabetes mellitus with hyperglycemia justus - Vomiting justus - Chest pain, unspecified justus Forms: - Medication Reconciliation Form justus - SBAR form justus Signatures: Dispatcher [employer] EDMS Ximena Myers RN RN Davie Krueger MD MD cha Calcote, Vanessa, RN RN vc1 Jose Leggett RN as6 Corrections: (The following items were deleted from the chart) 01:33 00:53 justus mw
--- NOTE | 2022-10-09 00:54 | ER ---
Nurse's Notes [facility] Name: Harvey Wyatt Age: 27 yrs Sex: Male : 1995 Arrival Date: 10/08/2022 Time: 21:45 Bed 16 Private MD: Diagnosis: Gastroparesis;Type 1 diabetes mellitus with hyperglycemia;Vomiting;Chest pain, unspecified Presentation: 10/08 21:46 Chief complaint: EMS states: Pt has been here multiple times in the last few days for vc1 the same thing. Epigastric/chest pain with nausea and vomiting. He hasn't been taking the prescriptions he was sent home with as ordered. His BGL was 284 but he hasn't taken his insulin yet tonight. Coronavirus screen: Vaccine status: Patient reports receiving the 2nd dose of the covid vaccine. Moderna Client denies travel out of the [place] in the last 14 days. At this time, the client does not indicate any symptoms associated with coronavirus-19. Ebola Screen: Patient negative for fever greater than or equal to 101.5 degrees Fahrenheit, and additional compatible Ebola Virus Disease symptoms Patient denies exposure to infectious person. Patient denies travel to an Ebola-affected area in the 21 days before illness onset. No symptoms or risks identified at this time. Initial Sepsis Screen: Does the patient meet any 2 criteria? No. Patient's initial sepsis screen is negative. Does the patient have a suspected source of infection? No. Patient's initial sepsis screen is negative. Risk Assessment: Do you want to hurt yourself or someone else? Patient reports no desire to harm self or others. Onset of symptoms was October 08, 2022. 21:46 Method Of Arrival: EMS: [facility] vc1 21:46 Acuity: BINDU 4 vc1 Triage Assessment: 21:51 General: Appears in no apparent distress. uncomfortable, Behavior is crying. Pain: vc1 Complains of pain in chest and epigastric area. EENT: No deficits noted. No signs and/or symptoms were reported regarding the EENT system. Neuro: Level of Consciousness is awake, alert, obeys commands, Oriented to person, place, time, situation, Appropriate for age. Cardiovascular: No deficits noted. Respiratory: Airway is patent Respiratory effort is even, unlabored, Respiratory pattern is regular, symmetrical. GI: Abdomen is flat, non-distended, Pt is actively vomiting bile. GI: Reports upper abdominal pain, epigastric pain, nausea, vomiting. : No deficits noted. No signs and/or symptoms were reported regarding the genitourinary system. Derm: No deficits noted. No signs and/or symptoms reported regarding the dermatologic system. Musculoskeletal: No deficits noted. No signs and/or symptoms reported regarding the musculoskeletal system. Historical: - Allergies: 21:50 No Known Allergies; vc1 - Home Meds: 21:50 None [Active]; vc1 - PMHx: 21:50 Diabetes - IDDM; vc1 - PSHx: 21:50 None; vc1 - Immunization history:: Client reports receiving the 2nd dose of the Covid vaccine. - Social history:: Smoking status: Patient denies any tobacco usage or history of. Screenin:50 [facility] ED Fall Risk Assessment (Adult) History of falling in the last 3 months, vc1 including since admission No falls in past 3 months (0 pts) Confusion or Disorientation No (0 pts) Intoxicated or Sedated No (0 pts) Impaired Gait No (0 pts) Mobility Assist Device Used No (0 pt) Altered Elimination No (0 pt) Score/Fall Risk Level 0 - 2 = Low Risk Oriented to surroundings, Maintained a safe environment, Educated pt \T\ family on fall prevention, incl call for assistance when getting out of bed. Abuse screen: Denies threats or abuse. Nutritional screening: Has had N/V for 3 or more days. Tuberculosis screening: No symptoms or risk factors identified. Assessment: 22:00 Reassessment: No changes from previously documented assessment. Patient and/or family vc1 updated on plan of care and expected duration. Pain level reassessed. Patient is alert, oriented x 3, equal unlabored respirations, skin warm/dry/pink. 23:00 Reassessment: No changes from previously documented assessment. Patient and/or family vc1 updated on plan of care and expected duration. Pain level reassessed. Patient is alert, oriented x 3, equal unlabored respirations, skin warm/dry/pink. 10/09 00:00 Reassessment: No changes from previously documented assessment. Patient and/or family vc1 updated on plan of care and expected duration. Pain level reassessed. Patient is alert, oriented x 3, equal unlabored respirations, skin warm/dry/pink. 01:00 Reassessment: Patient and/or family updated on plan of care and expected duration. Pain vc1 level reassessed. Patient is alert, oriented x 3, equal unlabored respirations, skin warm/dry/pink. Patient states symptoms have improved. 02:00 Reassessment: No changes from previously documented assessment. Patient and/or family vc1 updated on plan of care and expected duration. Pain level reassessed. Patient is alert, oriented x 3, equal unlabored respirations, skin warm/dry/pink. Vital Signs: 10/08 21:46 BP 139 / 102; Pulse 75; Resp 19; Temp 97.9; Pulse Ox 100% ; Weight 74.84 kg; Height 5 vc1 ft. 5 in. ; Pain 10/10; 23:36 BP 147 / 92; Pulse 98; Resp 16; Pulse Ox 97% ; jl10 10/09 02:00 BP 127 / 75; Pulse 105; Resp 12; Pulse Ox 98% ; vc1 10/08 21:46 Body Mass Index 27.46 (74.84 kg, 165.1 cm) vc1 10/08 21:46 Pain Scale: Adult vc1 ED Course: 10/08 21:46 Patient arrived in ED. vc1 21:50 Triage completed. vc1 21:50 Arm band placed on left wrist. vc1 21:51 Patient has correct armband on for positive identification. Bed in low position. Pulse vc1 ox on. NIBP on. 21:57 Missed attempt(s): 22 gauge in right antecubital area. Bleeding controlled, band aid jl10 applied, catheter tip intact. 22:08 Davie Prasad MD is Attending Physician. justus 22:17 Caitie Haro, AMRIT is Primary Nurse. vc1 22:41 EKG done, by ED staff, reviewed by Davie Prasad MD. jl10 22:45 UDS Sent. vc1 22:45 Urinalysis w/ reflexes Sent. vc1 22:45 Inserted saline lock: 22 gauge in left antecubital area, using aseptic technique. vc1 22:59 XRAY Chest (1 view) In Process Unspecified. EDMS 10/09 00:51 Harvey Phillips is Hospitalizing Provider. justus 02:13 No provider procedures requiring assistance completed. Patient admitted, IV remains in vc1 place. Administered Medications: 10/08 22:45 Drug: morphine IVP or IV 4 mg Route: IVP; Infused Over: 4 mins; Site: left antecubital; vc1 10/09 02:12 Follow up: Response: No adverse reaction vc1 10/08 22:45 Drug: Ondansetron IVP 4 mg Route: IVP; Site: left antecubital; vc1 10/09 02:12 Follow up: Response: No adverse reaction vc1 10/08 22:46 Drug: NS 0.9% IV 1000 ml Route: IV; Rate: 1 bolus; Site: left antecubital; vc1 23:46 Follow up: IV Intake: 1000ml vc1 23:46 Follow up: IV Status: Completed infusion; IV Intake: 1000ml vc1 22:46 Drug: Pantoprazole IVP 40 mg Route: IVP; Site: left antecubital; vc1 10/09 02:12 Follow up: Response: No adverse reaction vc1 01:54 Drug: metoCLOPramide IVP 10 mg Route: IVP; Site: left antecubital; vc1 02:12 Follow up: Response: No adverse reaction vc1 01:54 Drug: HYDROmorphone IVP 1 mg Route: IVP; Site: left antecubital; vc1 02:12 Follow up: Response: No adverse reaction vc1 02:08 Not Given (not availablee): Insulin Glargine Sub-Q 30 units Sub-Q once vc1 02:10 Drug: Insulin Regular Human IVP 10 units {Co-Signature: as6 (Jose Leggett RN).} vc1 Route: IVP; Site: left antecubital; 02:12 Follow up: Response: No adverse reaction vc1 Medication: 10/08 21:51 VIS not applicable for this client. vc1 Intake: 23:46 IV: 1000ml; Total: 1000ml. vc1 23:46 IV: 1000ml; Total: 2000ml. vc1 Outcome: 10/09 00:53 Decision to Hospitalize by Provider. justus 02:14 Admitted to Tele accompanied by tech, via stretcher, room 403, Report called to jeffrey Shah RN 02:14 Condition: good 02:14 Instructed on the need for admit. 02:27 Patient left the ED. vc1 Signatures: Dispatcher [employer] Davie Chacon MD MD cha Calcote, Vanessa RN RN vc1 Ozzy Brower [email or web address] Jose Leggett RN as6 Corrections: (The following items were deleted from the chart) 02:27 02:14 Admitted to Tele accompanied by tech, via wheelchair, room 403, Report called to 1 AMRIT Shah vc1
[2022-10-09] MEDS ORDERED: ACETAMINOPHEN 500 MG TAB PO PRN (01:24)
--- NOTE | 2022-10-09 01:24 | P.HP ---
Certification for Inpatient Patient admitted to: Observation With expected LOS: <2 Midnights Patient will require the following post-hospital care: None Practitioner: I am a practitioner with admitting privileges, knowledge of patient current condition, hospital course, and medical plan of care. Services: Services provided to patient in accordance with Admission requirements found in Title 42 Section 412.3 of the Code of Federal Regulations <Nery Haley - Last Filed: 10/09/22 02:06> Patient History Date of Service: 10/09/22 Reason for admission: Nausea, Vomiting History of Present Illness: 27 yrs old male with past medical history of IDDM presents to ER via EMS with complaints of nausea, vomiting. He reports intractable nausea, vomiting over the last week that has progressively gotten worse. He report unable to tolerate PO intake. He reports associated abdominal pain in the epigastric area, he denies radiation. Symptoms made worse with po intake. He reports not taking insulin in last 2 days to due persistent nausea, vomiting, no po intake. He denies chills, fever, diarrhea. He denies seeing Gastro in past, no reported prior EGD. - Past Medical/Surgical History Diabetic: Yes -: Diabetes Psychosocial/ Personal History: Employed, lives at home with family - Family History Mother -: Diabetes Father -: Hypertension, Diabetes - Social History Smoking Status: Never smoker Alcohol use: No CD- Drugs: No Caffeine use: No <Nery Haley - Last Filed: 10/09/22 02:06> Date of Service: 10/09/22 <Sajan Kinney - Last Filed: 10/09/22 14:21> Allergies No Known Allergies Allergy (Verified 10/09/22 04:02) Home Medications: Insulin -Regular Human [Novolin -R] See Protocol SQ SEECOM 10/09/22 Review of Systems 10-point ROS is otherwise unremarkable General: As per HPI <Nery Haley - Last Filed: 10/09/22 02:06> Physical Examination - Physical Exam General: Alert, Oriented x3, Other (appears ill) HEENT: Atraumatic, Normocephalic, PERRLA Neck: Supple, 2+ carotid pulse no bruit Respiratory: Clear to auscultation bilaterally, Normal air movement Cardiovascular: No edema, Regular rate/rhythm, Normal S1 S2 Capillary refill: <2 Seconds Gastrointestinal: Hypoactive, Other (epigastric tenderness, NV) Musculoskeletal: No clubbing, No swelling Integumentary: No rashes, No breakdown Neurological: Normal speech, Other (AAOx4) - Studies Laboratory Data (last 24 hrs) 10/08/22 22:15: PT 11.8, INR 1.07 10/08/22 22:15: WBC 4.70, Hgb 16.6, Hct 46.9, Plt Count 250 10/08/22 22:15: Sodium 140, Potassium 3.4 L, BUN 7, Creatinine 0.78, Glucose 310 H, Magnesium 2.0, Total Bilirubin 1.0, AST 8 L, ALT 30, Alkaline Phosphatase 91, Lipase 39 <Nery Haley - Last Filed: 10/09/22 02:06> - Studies Laboratory Data (last 24 hrs) 10/08/22 22:15: PT 11.8, INR 1.07 10/08/22 22:15: WBC 4.70, Hgb 16.6, Hct 46.9, Plt Count 250 10/08/22 22:15: Sodium 140, Potassium 3.4 L, BUN 7, Creatinine 0.78, Glucose 310 H, Magnesium 2.0, Total Bilirubin 1.0, AST 8 L, ALT 30, Alkaline Phosphatase 91, Lipase 39 <Sajan Kinney - Last Filed: 10/09/22 14:21> Assessment and Plan - Problems (Diagnosis) (1) Intractable nausea and vomiting Current Visit: No Status: Acute Plan: Prn antiemetics Clear liq diet, advance as tolerated (2) Hyperglycemia Onset Date: 08/26/17 Current Visit: No Status: Acute Plan: Resume home insulin SSI Diabetic diet when po AC ACHS trend BG, A1C in am (3) Abdominal pain Current Visit: Yes Status: Acute Plan: Clear liq diet PRN analgesics Follow up with GI on OP after DC Qualifiers: Abdominal location: epigastric Qualified Code(s): R10.13 - Epigastric pain Discharge Plan: Home Plan to discharge in: 48 Hours - Advance Directives Does patient have a Living Will: No Does patient have a Durable POA for Healthcare: No - Code Status/Comfort Care Code Status: Full Code Physician Review: Patient Assessed, Agree with Above Assessment and Plan Critical Care: No Time Spent Managing Pts Care (In Minutes): 55 <Nery Haley - Last Filed: 10/09/22 02:06> Physician Review: Patient Assessed, Agree with Above Assessment and Plan Physician Review Additional Text: Patient seen and examined on rounds this morning. Feels slightly better this morning, less nausea but hasn't eaten anything yet denies early satiety, h/o congenital absence of gallbladder lipase ok continues with epigastric discomfort/tenderness suspect gastric ulcer / gastritis liquid diet, IVF protonix, add carafate <Sajan Kinney - Last Filed: 10/09/22 14:21>
[2022-10-09] MEDS ORDERED: SODIUM CHLORIDE 0.9% 10ML INJ IV PRN (01:33)
[2022-10-09] MEDS ORDERED: HYDROMORPHONE HCL 1 MG/ML INJ ONE (01:49)
[2022-10-09] MEDS ORDERED: METOCLOPRAMIDE 10 MG/2mL INJ ONE (01:52)
[2022-10-09] MEDS: NA CHLORIDE 0.9% 1,000 ML IV SCH ×3 (02:40→22:33)
[2022-10-09 06:23] LABS: Absolute Lymphocytes (CBC) 1.2 K/uL (0.7-4.9); Hematocrit 41.8 % (39.6-49.0); Lymphocytes % 16.5 % (15.3-44.8); MCV 84.1 fL (80-100); RBC Red Blood Cell Count 4.97 M/uL (4.33-5.43)
[2022-10-09 06:40] LABS: Albumin 3.6 g/dL (3.4-5.0); Bilirubin Total 0.9 mg/dL (0.2-1.0); Magnesium 1.9 mg/dL (1.6-2.4); Phosphorus 4.6 mg/dL (2.5-4.9); Potassium 3.3 mEq/L (3.5-5.1); Protein, Total 6.4 g/dL (6.4-8.2)
[2022-10-09] MEDS: INSULIN -REGULAR HUMAN 50 UNIT/0.5 ML ML SQ SCH ×5 (07:00→20:27)
--- NOTE | 2022-10-09 07:30 | P.PN ---
Date of Service: 10/10/22 Subjective: 2 episodes of vomiting overnight dizzy/lightheaded after vomiting, unclear if before or after pain meds feels abdominal pain occurring more frequently with nausea low grade temp overnight (100.0) ROS: 10 point ROS as noted above, otherwise negative Physical Exam: GEN: Alert, oriented, drowsy HEENT: Normal conjunctiva, sclera anicteric CV: Regular rate and rhythm, no edema Pulm: Nonlabored respirations on room air ABD: Soft, moderate epigastric tenderness, +distended bladder Neuro: Normal speech, normal affect vitals reviewed Problem List: Intractable Nausea and Vomiting Abdominal Pain Distended bladder, 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 Markedly distended urinary bladder slight improvement yesterday, then vomiting overnight possibly gastroparesis vs gastric ulcer /gastritis, vs gallbladder agenesis presenting as these symptoms General Surgery consulted - Dr. Mayo Gastric Emptying study ordered 10/10 NPO PRN antiemetics PRN pain meds Protonix, carafate IVF IDDM2 sliding scale insulin resume home insulin Code: Full Dispo: Home, ~2 days
[2022-10-09] MEDS: PANTOPRAZOLE 40 MG INJ IVP SCH ×2 (08:33→20:26)
[2022-10-09] MEDS: MORPHINE 2 MG/ML SYR IV PRN ×3 (08:44→22:28)
[2022-10-09] MEDS ORDERED: POTASSIUM 25 MEQ EFFERV TAB PO ONE (09:00)
[2022-10-09] MEDS: SUCRALFATE 1 GM TABLET PO SCH ×3 (11:41→20:26)
[2022-10-09] MEDS ORDERED: POTASSIUM CL SA 10 MEQ TAB PO ONE (16:48)
--- NOTE | 2022-10-09 17:20 | RAD REPORT ---
EXAM DESCRIPTION: US - Renal Ultrasound-Complete - 10/09/2022 4:05 pm CLINICAL HISTORY: f/u bladder distention, r/o hydronephrosis COMPARISON: Abdomen Pelvis W Contrast dated 10/04/2022 TECHNIQUE: Sonographic grayscale and color flow images of the kidneys and bladder were obtained. FINDINGS: Both kidneys are normal in size, shape and echotexture. The right kidney measures 11.1 centimeter in length. No hydronephrosis, focal mass or perinephric flu id. The left kidney measures 11.3 centimeter in length. No hydronephrosis, focal mass or perinephric flui d. No echogenic calculi. The urinary bladder is markedly distended without gross abnormality seen. IMPRESSION: Unremarkable renal sonogram. Markedly distended urinary bladder.
--- NOTE | 2022-10-09 20:04 | RAD REPORT ---
EXAM DESCRIPTION: RAD - Chest Single View - 10/08/2022 10:57 pm CLINICAL HISTORY: 27 years Male Abdominal distention;Chest pain COMPARISON: Chest x-ray 11/27/2021 FINDINGS: Lung volumes diminished. Cardiac silhouette is normal in size. No pneumothorax. No large pleural effusion. No focal consolidation. No acute bony finding. IMPRESSION: No acute cardiopulmonary findings. Electronically signed by: Edna Mcdonough MD 10/08/2022 11:25 PM CDT Due to temporary technical issues with the PACS/Fluency reporting system, reports are being signed by the in house radiologists without review as a courtesy to insure prompt reporting. The interpreting radiologist is fully responsible for the content of the report.
[2022-10-09] MEDS: ONDANSETRON 4 MG/2 ML VIAL IV PRN (20:32)
[2022-10-09] MEDS ORDERED: KCL 20 MEQ/100 mL IVPB 20 MEQ/100 ML BAG IV SCH (23:45)
[2022-10-10] MEDS: ONDANSETRON 4 MG/2 ML VIAL IV PRN ×2 (01:08→06:37)
[2022-10-10] MEDS: MORPHINE 2 MG/ML SYR IV PRN ×2 (02:34→06:39)
[2022-10-10 06:53] LABS: Absolute Lymphocytes (CBC) 1.3 K/uL (0.7-4.9); Hematocrit 40.1 % (39.6-49.0); Lymphocytes % 27.5 % (15.3-44.8); MCV 84.5 fL (80-100); MPV 7.8 fL (7.6-11.3); RBC Red Blood Cell Count 4.75 M/uL (4.33-5.43)
[2022-10-10 07:10] LABS: Albumin 3.3 g/dL (3.4-5.0); Bilirubin Total 0.8 mg/dL (0.2-1.0); Magnesium 1.9 mg/dL (1.6-2.4); Phosphorus 3.3 mg/dL (2.5-4.9); Potassium 3.5 mEq/L (3.5-5.1); Protein, Total 6.1 g/dL (6.4-8.2)
[2022-10-10] MEDS: INSULIN -REGULAR HUMAN 50 UNIT/0.5 ML ML SQ SCH ×4 (07:30→21:37)
[2022-10-10] MEDS: NA CHLORIDE 0.9% 1,000 ML IV SCH (07:55)
[2022-10-10] MEDS: SUCRALFATE 1 GM TABLET PO SCH ×4 (07:56→21:37)
[2022-10-10] MEDS: PANTOPRAZOLE 40 MG INJ IVP SCH ×2 (07:56→21:34)
[2022-10-10 10:04] LABS: Specific Gravity 1.015 (1.005-1.030); Urine Bilirubin NEGATIVE (Negative); Urine Blood Negative (Negative); Urine Clarity Clear (Clear); Urine Color Light-Yellow (Yellow); Urine Glucose 4+ (Over) (Negative); Urine Protein NEGATIVE (Negative); Urine Urobilinogen Normal (Normal); Urine pH 6.5 (5.0-7.0)
--- NOTE | 2022-10-10 12:33 | EKG ---
Test Date: 2022-10-08 Test Time: 22:16:33 Import And Export Clerk: CHELSY MEASUREMENT RESULTS: Intervals: Rate: 92 CA: 128 QRSD: 82 QT: 386 QTc: 477 [place]: P: 64 CA: 128 QRS: 57 T: 42 INTERPRETIVE STATEMENTS: Normal sinus rhythm Normal ECG Compared to ECG 11/23/2021 08:11:10 Sinus tachycardia no longer present Electronically Signed On 10-10-22 12:32:27 CDT by Guevara Cesar
[2022-10-10] MEDS: KCL 20 MEQ/100 mL IVPB 20 MEQ/100 ML BAG IV SCH ×2 (13:20→14:40)
[2022-10-11 02:20] VITALS: BMI 27.1
[2022-10-11 05:08] LABS: Absolute Lymphocytes (CBC) 1.5 K/uL (0.7-4.9); Hematocrit 43.1 % (39.6-49.0); Lymphocytes % 40.1 % (15.3-44.8); MCV 85.7 fL (80-100); MPV 7.9 fL (7.6-11.3); RBC Red Blood Cell Count 5.02 M/uL (4.33-5.43)
[2022-10-11 05:34] LABS: Albumin 3.5 g/dL (3.4-5.0); Bilirubin Total 0.9 mg/dL (0.2-1.0); Phosphorus 3.2 mg/dL (2.5-4.9); Potassium 3.7 mEq/L (3.5-5.1); Protein, Total 6.4 g/dL (6.4-8.2)
[2022-10-11 05:35] LABS: Magnesium 2.1 mg/dL (1.6-2.4)
--- NOTE | 2022-10-11 07:28 | P.PN ---
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 Markedly distended urinary bladder slight improvement yesterday, then vomiting overnight possibly gastroparesis vs gastric ulcer /gastritis, vs gallbladder agenesis presenting as these symptoms General Surgery consulted - Dr. 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
[2022-10-11] MEDS: INSULIN -REGULAR HUMAN 50 UNIT/0.5 ML ML SQ SCH ×4 (07:30→20:08)
[2022-10-11] MEDS: SUCRALFATE 1 GM TABLET PO SCH ×5 (07:30→20:00)
[2022-10-11] MEDS: PANTOPRAZOLE 40 MG INJ IVP SCH ×2 (08:08→20:00)
[2022-10-11] MEDS ORDERED: POTASSIUM 25 MEQ EFFERV TAB PO ONE ×2 (09:00→20:00)
[2022-10-11] MEDS ORDERED: NA CHLORIDE 0.9% 1,000 ML ONE (13:30)
[2022-10-11] MEDS ORDERED: propofoL 200 MG/20 ML VIAL IV ONE (14:12)
[2022-10-11] MEDS ORDERED: LIDOCAINE VISCOUS 2% SOLN 15 ML UDC ONE (14:12)
[2022-10-11] MEDS ORDERED: LIDOCAINE 1% MPF 5 ML VIAL ONE (14:13)
--- NOTE | 2022-10-11 17:36 | RAD REPORT ---
EXAM DESCRIPTION: NM - Gastric Emptying Study - 10/11/2022 4:58 pm CLINICAL HISTORY: Epigastric pain, DM2, eval gastroparesis COMPARISON: None. TECHNIQUE: The patient was administered approximately 1 mCi Tc 99m sulfur colloid in solid egg meal. Imaging of the left upper quadrant was performed with time/activity curve generated. FINDINGS: Cine-loop images show persistence of most of the tracer into the stomach, with minimal pro gression of the radiopharmaceutical from the stomach into the small bowel. Time to one-half activity calculated at 0 minutes. Retention of tracer at 120 minutes: 95.7%. No other significant findings. IMPRESSION: Delayed gastric emptying.
[2022-10-11 21:34] VITALS: O2SAT 100
[2022-10-12 03:51] LABS: Hematocrit 43.5 % (39.6-49.0); Lymphocytes % 29.7 % (15.3-44.8); MCV 82.8 fL (80-100); MPV 7.9 fL (7.6-11.3); RBC Red Blood Cell Count 5.25 M/uL (4.33-5.43)
[2022-10-12 04:01] LABS: Potassium 3.1 mEq/L (3.5-5.1)
[2022-10-12] MEDS ORDERED: KCL 20 MEQ/100 mL IVPB 20 MEQ/100 ML BAG IV SCH (05:00)
[2022-10-12] MEDS ORDERED: NA CHLORIDE 0.9% 250 ML ONE (05:18)
[2022-10-12] MEDS ORDERED: POTASSIUM CL SA 10 MEQ TAB PO ONE (05:43)
--- NOTE | 2022-10-12 07:17 | P.PN ---
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 Markedly distended urinary bladder slight improvement yesterday, then vomiting overnight possibly gastroparesis vs gastric ulcer /gastritis, vs gallbladder agenesis presenting as these symptoms General Surgery consulted - Dr. 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
--- NOTE | 2022-10-12 07:46 | P.DS ---
Admission Date: 10/09/22 Discharge Date: 10/12/22 Disposition: ROUTINE DISCHARGE Discharge Condition: GOOD Reason for Admission: Nausea, Vomiting Consultations: General Surgery - Dr. Mayo Brief History of Present Illness: 27yo M, PMH: IDDM Patient presents to ER via EMS with complaints of nausea, vomiting. He reports intractable nausea, vomiting over the last week that has progressively gotten worse. He report unable to tolerate PO intake. He reports associated abdominal pain in the epigastric area, he denies radiation. Symptoms made worse with po intake. He reports not taking insulin in last 2 days to due persistent nausea, vomiting, no po intake. He denies chills, fever, diarrhea. He denies seeing Gastro in past, no reported prior EGD. 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 General surgery was consulted. CT abdomen was unremarkable, except noted markedly distended urinary bladder and absent gallbladder. Dr. Mayo performed an EGD which showed mild gastritis. Patient was treated with Protonix, carafate, IV fluids and had improvement of his symptoms. A gastric emptying study was performed which revealed Gastroparesis. Recommended patient to minimize fatty foods, stick to smaller meals split throughout the day rather than large meals in one sitting. Discussed addition of reglan, and reviewed risks associated with it. Patient stated he preferred a trial of diet/lifestyle modifications first. If symptoms reoccur or worsen, patient may need to be put on a medication (reglan) to help combat symptoms. Suspect this episode was partly due to gastroparesis and due to his gallbladder agenesis CT abdomen noted a distended bladder. Suspect this may be diabetic cystopathy. Patient is to follow up with urology (Dr. Vail) for further evaluation. New / change in prescriptions Pepcid continue home medications as previously prescribed Follow up: PCP 3-5 days General surgery - Dr. Mayo within 2 weeks Urology - Dr. Yazan Vail within a few weeks Physical Exam: GEN: Alert, oriented, NAD HEENT: Normal conjunctiva, sclera anicteric CV: Regular rate and rhythm, no edema Pulm: Nonlabored respirations on room air ABD: Soft, no tenderness, nondistended MSK: No joint tenderness Integumentary: No rashes Neuro: Normal speech, normal affect Vital Signs/Physical Exam: Temp Pulse Resp BP Pulse Ox 97.0 F 70 18 129/74 100 10/11/22 20:00 10/11/22 20:00 10/11/22 20:00 10/11/22 20:00 10/11/22 20:00 Laboratory Data at Discharge: WBC 3.40 thou/uL (4.3-10.9) L 10/12/22 03:12 Hgb 15.9 g/dL (13.6-17.9) D 10/12/22 03:12 Hct 43.5 % (39.6-49.0) 10/12/22 03:12 Plt Count 210 thou/uL (152-406) 10/12/22 03:12 PT 11.8 SECONDS (9.5-12.5) 10/08/22 22:15 INR 1.07 10/08/22 22:15 Sodium 136 mEq/L (136-145) 10/12/22 03:12 Potassium 3.1 mEq/L (3.5-5.1) L D 10/12/22 03:12 BUN 6 mg/dL (7-18) L 10/12/22 03:12 Creatinine 0.70 mg/dL (0.70-1.30) 10/12/22 03:12 Glucose 202 mg/dL (74-106) H 10/12/22 03:12 Phosphorus 3.2 mg/dL (2.5-4.9) 10/11/22 04:34 Magnesium 2.0 mg/dL (1.6-2.4) 10/12/22 03:12 Total Bilirubin 0.9 mg/dL (0.2-1.0) 10/11/22 04:34 AST 7 U/L (15-37) L 10/11/22 04:34 ALT 26 U/L (16-61) 10/11/22 04:34 Alkaline Phosphatase 73 U/L (45-117) 10/11/22 04:34 Lipase 22 U/L (13-75) 10/09/22 05:42 Home Medications: Insulin -Regular Human [Novolin -R] See Protocol SQ SEECOM 10/09/22 Famotidine [Pepcid] 40 mg PO DAILY 30 Days #30 tab 10/12/22 New Medications: Famotidine [Pepcid] 40 mg PO DAILY 30 Days #30 tab Followup: Unknown,U [Primary Care Provider] - 1 Week Time spent managing pt's care (in minutes): 45
[2022-10-12] MEDS: PANTOPRAZOLE 40 MG INJ IVP SCH (07:59)
[2022-10-12] MEDS: SUCRALFATE 1 GM TABLET PO SCH (07:59)
[2022-10-12 08:25] VITALS: BP 124/79; TEMP 97.1
== END 2022-10-12 08:34 | disposition home or self-care (01) | DRG 74 ==
LOC: ER 21:45 → ERHOLD 10-09 02:06 → 4TH 10-09 02:20
PROVIDERS: ADMIT Internal Medicine; ATTEND Hospitalist
PROC: 0DB78ZX Excision of Stomach, Pylorus, Via Natural or Artificial Opening Endoscopic, Diagnostic (ICD-10-PCS; 2022-10-11)
PROC: 0DB68ZX Excision of Stomach, Via Natural or Artificial Opening Endoscopic, Diagnostic (ICD-10-PCS; 2022-10-11)
PROC: 0DB58ZX Excision of Esophagus, Via Natural or Artificial Opening Endoscopic, Diagnostic (ICD-10-PCS; 2022-10-11)
PROC: 0DB98ZX Excision of Duodenum, Via Natural or Artificial Opening Endoscopic, Diagnostic (ICD-10-PCS; principal; 2022-10-11 15:15)
DX: E10.43 Type 1 diabetes mellitus with diabetic autonomic (poly)neuropathy (principal); K29.40 Chronic atrophic gastritis without bleeding; E10.65 Type 1 diabetes mellitus with hyperglycemia; K31.84 Gastroparesis; K29.80 Duodenitis without bleeding; Z90.49 Acquired absence of other specified parts of digestive tract
CPT/HCPCS: 36415; 71045; 76770; 78264; 80048; 80053; 80076; 80307; 81003; 82947; 83690; 83735; 83880; 84100; 84132; 84484; 85025; 85610; 88305; 88312; 93005; 96361; 96374; 96375; 99285; A9541; C9113; J1170; J1815; J2001; J2270; J2405; J2704; J2765; J3480; J7030; J7050

== ENCOUNTER 2023-09-02 11:19 | Emergency (ER) | payer BC ==
--- OUTSIDE RECORDS SUMMARY | 2023-09-02 11:23 | XMS REPORT | Continuity of Care Document ---
Author Name Unknown Address [address] [facility] [address] [place] [address] [facility] thconnect Address [address] [facility] 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 Mechanical Handyman Name Role Phone PCP, PATIENT DOES NOT HAVE A Primary Care Physic dominga Unavailable Naseem Mckeon MD Attending Clinician [phone] NASEEM MCKEON Attending Clinician Unavailable Espinoza MARCUS, Melina Garrett Attending Clinician Unavailab le Only, Ang Db Test Attending Clinician UnavailLinda White Attending Clinician [phone] Mc Juarez Attending Clinician [phone] MC ATKINSON Attending Clinician Unavailable NASEEM MCKEON Admitting Clinician Unavailable Payers Payer Name Policy Type Policy Number Effective Date Expirati on Date Source Allergies, Adverse Reactions, Alerts Allergy Name Allergy Type Status Severity Reaction(s) Onset Date Inactive Date Treating Clinician Comments Source NO KNOWN ALLERGIE S Drug Class Active [facility] Social History Social Habit Start Date Stop Date Quantity Comments Source Exposure to SARS-CoV-2 (event) Yes [facility] Sex Assigned At 1995 00:00:00 1995 00:00:00 [facility] Smoking Status Start Date Stop Date Source Tobacco smoking consumption unknown [facility] Medications Ordered Medication Name Filled Medication Name Start Date Stop Date Current Medication? Ordering Clinician Indication Dosage Frequency Signature (SIG) Comments Components Source aspirin tablet 325 mg 10-07 10:15: 00 10-07 09:30 :00 No 325mg 325 mg, Oral, ONCE NOW, 1 dose, On Sat10/07/22 at 0515, STAT [facility] iopamidol (ISOVUE 370-500 mL) injection 100 mL 10-07 10:15: 00 10-07 10:15 :00 No [id number] 100mL 100 mL, Intravenou s, ONCE, 1 dose, On Sat10/07/22 at 0515, Routine [facility] morpHINE (4 mg/mL) injection 4 mg 10-07 09:00: 00 10-07 08:04 :00 No 4mg 4 mg, Slow IV Push, ONCE, 1 dose, On Sat10/07/22 at 0400, STAT [facility] NaCl 0.9% (NS) bolus infusion 1,000 mL 10-07 08:45: 00 10-07 09:59 :00 No 1000mL at 999 mL/hr, 1,000 mL, IV Piggyback, ONCE, 1 dose, On Sat10/07/22 at 0345, STAT [facility] famotidine (PEPCID (PF)) injection 20 mg 10-07 08:00: 00 10-07 08:15 :00 No 20mg 20 mg, Slow IV Push, ONCE, 1 dose, On Sat10/07/22 at 0300, [facility] proMETHazin e (PHENERGAN) 25 mg in NaCl 0.9% (NS) 50 mL IV piggyback 10-07 08:00: 00 10-07 08:15 :00 No 25mg 25 mg, IV Piggyback, ONCE, 1 dose, On 10/07/22 at 0300, [facility] famotidine (PEPCID) 20 mg tablet 10-07 00:00: 00 Yes [id number] 20mg Take 1 tablet by mouth in the morning and 1 tablet in the evening. [facility] proMETHazin e 25 mg tablet 10-07 00:00: 00 Yes [id number] 25mg Take 1 tablet by mouth every 6 (six) hours as needed for Nausea and Vomiting (N/V). [facility] clindamycin 150 mg capsule 09-27 00:00: 00 10-08 04:59 :00 No [id number] 222019 450mg Take 3 capsules by mouth 3 (three) times daily for 10 days. [facility] Vital Signs Vital Name Observation Time Observation Value Comments S ource Systolic blood pressure 2022-10-07 12:00:00 138 mm[Hg] [facility] Diastolic blood pressure 2022-10-07 12:00:00 100 mm[Hg] [facility] Heart rate 2022-10-07 12:00:00 89 /min [facility] Respiratory rate 2022-10-07 12:00:00 16 /min [facility] Oxygen saturation in Arterial blood by Pulse oximetry 2022-10-07 12:00:00 100 /min [facility] Body temperature 2022-10-07 07:48:00 37 Sarah [facility] Body height 2022-10-07 07:48:00 175.3 cm [facility] Body weight 2022-10-07 07:48:00 83.915 kg [facility] BMI 2022-10-07 07:48:00 27.32 kg/m2 [facility] Systolic blood pressure 2020-09-27 06:14:00 135 mm[Hg] [facility] Diastolic blood pressure 2020-09-27 06:14:00 83 mm[Hg] [facility] Heart rate 2020-09-27 06:14:00 110 /min [facility] Body temperature 2020-09-27 06:14:00 37.06 Sarah [facility] Respiratory rate 2020-09-27 06:14:00 20 /min [facility] Body weight 2020-09-27 06:14:00 81.647 kg [facility] Oxygen saturation in Arterial blood by Pulse oximetry 2020-09-27 06:14:00 100 /min [facility] Systolic blood pressure 2020-09-27 06:14:00 135 mm[Hg] [facility] Diastolic blood pressure 2020-09-27 06:14:00 83 mm[Hg] [facility] Heart rate 2020-09-27 06:14:00 110 /min [facility] Body temperature 2020-09-27 06:14:00 37.06 Sarah [facility] Respiratory rate 2020-09-27 06:14:00 20 /min [facility] Body weight 2020-09-27 06:14:00 81.647 kg [facility] Oxygen saturation in Arterial blood by Pulse oximetry 2020-09-27 06:14:00 100 /min [facility] Procedures Procedure Date / Time Performed Performing Clinician Source XR CHEST 1 VW 2022-10-07 12:15:44 Naseem Mckeon [facility] EKG-12 LEAD 2022-10-07 11:57:16 Naseem Mckeon [facility] TROPONIN I 2022-10-07 10:50:00 Naseem Mckeon [facility] URINE DRUG (IMMUNOASSAY) - COMPREHENSIVE DRUG SCREEN 2022-10-07 09:58:00 Naseem Mckeon [facility] URINALYSIS 2022-10-07 09:58:00 Naseem Mckeon [facility] CBC WITH DIFF 2022-10-07 09:29:00 Naseem Mckeon [facility] LACTIC ACID WHOLE BLOOD 2022-10-07 09:28:00 Chica Mckeon [facility] CT ANGIOGRAM ABDOMEN/PELVIS 2022-10-07 09:17:25 Naseem Mckeon [facility] CK (CREATINE KINASE) + MB 2022-10-07 08:13:00 Naseem Mckeon [facility] LIPASE 2022-10-07 08:13:00 Naseem Mckeon [facility] TROPONIN I 2022-10-07 08:13:00 Naseem Mckeon [facility] COMP. METABOLIC PANEL (31971) 2022-10-07 08:13:00 Naseem Mckeon [facility] ETHANOL 2022-10-07 08:13:00 Naseem Mckeon [facility] PROTHROMBIN TIME / INR 2022-10-07 08:13:00 Deonna Mckeon [facility] ACTIVATED PARTIAL THRMPLAS MARISOL 2022-10-07 08:13:00 Naseem Mckeon [facility] HB ABO GROUPING 2022-10-07 08:13:00 Naseem Mckeon [facility] N-TERMINAL PRO-BNP 2022-10-07 08:13:00 Naseem Mckeon [facility] NOTICE OF PRIVACY PRACTICES 2020-09-27 06:10:18 Doctor Unassigned, [facility] CONSENT/REFUSAL FOR DIAGNOSIS AND TREATMENT 2020-09-27 06:09:54 Doctor Unassigned, [facility] Encounters Start Date/Time End Date/Time Encounter Type Admission Type Attending [facility] Care Department Encounter ID Source 2022-10-07 02:43:00 2022-10-07 07:42:00 Emergency Naseem Mckeon [facility] [id number] [id number] [id number] [id number] [facility] 2022-10-07 02:43:00 2022-10-07 07:42:00 Emergency X NASEEM MCKEON [facility] ERT [id number] [facility] 2021-04-20 00:00:00 2021-04-20 00:00:00 Letter (Out) Melina Doran [facility] [id number] 350.1.13.10 [id number] [id number] [facility] 2021-04-20 00:00:00 2021-04-20 00:00:00 Letter (Out) Only, Ang Db Test PENDING SALE TO [facility] [id number] 350.1.13.10 [id number] [id number] [facility] 2021-04-19 09:15:00 2021-04-19 09:22:34 Laboratory Only Only, Ang Db Test Linda Malik PENDING SALE TO [facility] [id number] 350.1.13.10 4.2.7.2.686 [id number] [facility] 2020-09-27 01:16:00 2020-09-27 02:44:00 Emergency Mc Atkinson [facility] [id number] 350.1.13.10 4.2.7.2.686 [id number] [facility] 2020-09-27 01:16:00 2020-09-27 02:44:00 Emergency Mc Atkinson [facility] [id number] 350.1.13.10 4.2.7.2.686 [id number] 2020-09-27 01:16:00 2020-09-27 01:16:00 Emergency X MC ATKINSON [facility] ERT [id number] [facility] Results Test Description Test Time Test Comments Results Result Co mments Source [facility] WITH [id number] 10:11:14* Test Item Value Reference Range Interpretation Comme nts WBC (test code = 6690-2) 4.41 See_Comment [Automated messa ge] The system which generated this result transmitted reference range: 4.20 - 10.70 10*3/?L. The reference range was not used to interpret this result as normal/abnormal. RBC (test code = 789-8) 4.94 See_Comment [Automated [employer]] The system which generated this result transmitted reference range: 4.26 - 5.52 10*6/?L. The reference range was not used to interpret this result as normal/abnormal. HGB (test code = 718-7) 15.2 g/dL 12.2-16.4 HCT (test code = 4544-3) 40.1 % 38.4-49.3 MCV (test code = 787-2) 81.2 fL 81.7-95.6 L MCH (test code = 785-6) 30.8 pg 26.1-32.7 MCHC (test code = 786-4) 37.9 g/dL 31.2-35.0 H RBC parameters m ay be affected by the presence of an interfering substance or condition. RDW-SD (test code = 50671-8) 34.8 fL 38.5-51.6 L RDW-CV (test code = 788-0) 12.1 % 12.1-15.4 PLT (test code = 777-3) 210 See_Comment [Automated [employer]] The system which generated this result transmitted reference range: 150 - 328 10*3/?L. The reference range was not used to interpret this result as normal/abnormal. MPV (test code = 99688-7) 10.1 fL 9.8-13.0 NRBC/100 WBC (test code = 8481578983) 0.0 See_Comment [Automated [employer] ssage] The system which generated this result transmitted reference range: 0.0 - 10.0 /100 WBCs. The reference range was not used to interpret this result as normal/abnormal. NRBC x10^3 (test code = 0712170117) See_Comment [Automated [employer]] The system which generated this result transmitted reference range: 10*3/?L. The reference range was not used to interpret this result as normal/abnormal. GRAN MAT (NEUT) % (test code = 770-8) 80.0 % IMM GRAN % (test code = 6048609258) 0.50 % LYMPH % (test code = 736-9) 11.1 % MONO % (test code = 5905-5) 8.2 % EOS % (test code = 713-8) 0.0 % BASO % (test code = 706-2) 0.2 % GRAN MAT x10^3(ANC) (test code = 4307456363) 3.53 10*3/uL 1.99-6.95 IMM GRAN x10^3 (test code = 3359530512) 0.00-0.06 LYMPH x10^3 (test code = 731-0) 0.49 10*3/uL 1.09-3.23 L MONO x10^3 (test code = 742-7) 0.36 10*3/uL 0.36-1.02 EOS x10^3 (test code = 711-2) 0.06-0.53 L BASO x10^3 (test code = 704-7) 0.01-0.09 SPHEROCYTES (test code = 802-9) 2+ A Lab Interpretation (test code = 40685-0) Abnormal [facility] [id number] 09:56:11* Test Item Value Reference Range Interpretation Comme nts NT-proBNP (test code = 8793886940) 20 pg/mL <=125 OSWALD (test code = OSWALD) Biotin has been reported to cause a negative bias, interpret results relative to patient's use of biotin. Lab Interpretation (test code = 97007-3) Normal [facility] (CREAT[facility] KIN[facility]) + [id number] 09:55:51* Test Item Value Reference Range Interpretation Comme nts CK (test code = 3327009945) 46 U/L 33-194 CK-MB (test code = 1705408816) 0.57 ng/mL <=3.50 CKMB INDEX (test code = 7192181925) 1.2 % 0.0-4.0 OSWALD (test code = OSWALD) Biotin has been reported to cause a negative bias, interpret results relative to patient's use of biotin. Lab Interpretation (test code = 90996-0) Normal [facility]2023-07-02 09:01:30 ALCOHOL<10mg/dL10/07/2022 4:01 [facility]10 Kzqdhgwh08-902 Toxic>100 Depression of BARREL DRAINER>400 [facility] Center[facility] [id number] 08:56:28* Test Item Value Reference Range Interpretation Comme nts TROPONIN I (test code = 2520758513) 3.040 ng/mL <=0.034 H OSWALD (test code = OSWALD) Reference (Normal) [...] of biotin. Lab Interpretation (test code = 34099-5) Abnormal [facility]. METABOLIC PANEL (77955)2022-10-07 08:44:48* Test Item Value Reference Range Interpretation Comme nts NA (test code = 4640183092) 139 mmol/L 135-145 K (test code = 3423176918) 3.5 mmol/L 3.5-5.0 CL (test code = 0576464159) 104 mmol/L 98-108 CO2 TOTAL (test code = 5190609296) 17 mmol/L 23-31 L AGAP (test code = 0047570368) 18 2-16 H BUN (test code = 2955818161) 12 mg/dL 7-23 GLUCOSE (test code = 4175169682) 184 mg/dL 70-110 H CREATININE (test code = 6881734130) 0.66 mg/dL 0.60-1.25 TOTAL BILI (test code = 3477791610) 1.1 mg/dL 0.1-1.1 CALCIUM (test code = 1971132967) 9.2 mg/dL 8.6-10.6 T PROTEIN (test code = 1177401970) 7.0 g/dL 6.3-8.2 ALBUMIN (test code = 1470754650) 4.5 g/dL 3.5-5.0 ALK PHOS (test code = 9908800476) 77 U/L 34-122 ALTv (test code = 1742-6) 25 U/L 5-50 AST(SGOT) (test code = 8211182878) 20 U/L 13-40 eGFR (test code = 2269180234) 147.1 mL/min/1.73m2 OSWALD (test code = OSWALD) Association of [...] or abnormalities in imaging tests). Lab Interpretation (test code = 27288-7) Abnormal [facility]IPASE2023-07-02 08:44:28* Test Item Value Reference Range Interpretation Comme [facility] LIPASE (test code = 2221555839) 79 U/L 0-220 Lab Interpretation (test cod e = 04262-6) Normal [facility] HospitalACTIVATED PARTIAL THRMPLAS [id number] 08:43:03* Test Item Value Reference Range Interpretation Comme [facility] APTT Patient (test code = 3173-2) 28 See_Comment [Automated message] The system which generated this result transmitted reference range: 23 - 38 Seconds. The reference range was not used to interpret this result as normal/abnormal. OSWALD (test code = OSWALD) The [facility] patient population mean normal value for aPTT is 30 seconds. Lab Interpretation (test code = 47020-5) Normal [facility] HospitalProthrombin Time / [id number] 08:41:03* Test Item Value Reference Range Interpretation Comme nts PROTIME PATIENT (test code = 5964-2) 14.1 See_Comment [Automated messa ge] The system which generated this result transmitted reference range: 12.0 - 14.7 Seconds. The reference range was not used to interpret this result as normal/abnormal. INR (test code = 6301-6) 1.1 Normal INR <1.1; Warfarin Therapeutic range 2.0 to 3.0 or 2.5 to 3.5, depending upon the indications. Lab Interpretation (test code = 90248-0) Normal [facility] HospitalType and Screen - ONCE [id number] 08:28:00* Test Item Value Reference Range Interpretation Comme nts ABO & RH (test code = 20) O Positive IAT (test code = 1185) Negative [facility]"
--- NOTE | 2023-09-02 12:08 | ER ---
Nurse's Notes [facility] Name: Harvey Wyatt Age: 28 yrs Sex: Male : 1995 Arrival Date: 09/02/2023 Time: 11:19 Bed 19 Private MD: Diagnosis: Type 1 diabetes mellitus with hyperglycemia;Nonspecific urethritis Presentation: 09/01 11:29 Chief complaint: Patient states: Painful urination for 3-4 days. Noticed bubbly urine ll1 and a foul smell. Coronavirus screen: Client denies travel out of the [place] in the last 14 days. At this time, the client does not indicate any symptoms associated with coronavirus-19. Ebola Screen: Patient denies travel to an Ebola-affected area in the 21 days before illness onset. Initial Sepsis Screen: Does the patient meet any 2 criteria? No. Patient's initial sepsis screen is negative. Does the patient have a suspected source of infection? No. Patient's initial sepsis screen is negative. Risk Assessment: Do you want to hurt yourself or someone else? Patient reports no desire to harm self or others. Onset of symptoms was August 30, 2023. 11:29 Method Of Arrival: Ambulatory ll1 11:29 Acuity: BINDU 4 ll1 Triage Assessment: 11:31 General: Appears in no apparent distress. Behavior is calm, cooperative, appropriate ll1 for age. Pain: Denies pain. : Reports burning with urination, pain with urination. Historical: - Allergies: 11:24 No Known Allergies; ll1 - PMHx: 11:24 Diabetes - IDDM; ll1 11:31 Asthma; ll1 - PSHx: 11:31 None; ll1 - Immunization history:: Adult Immunizations up to date. - Infectious Disease History:: Denies. - Social history:: Smoking status: Patient denies any tobacco usage or history of. Screenin:39 [facility] ED Fall Risk Assessment (Adult) History of falling in the last 3 months, tl4 including since admission No falls in past 3 months (0 pts) Confusion or Disorientation No (0 pts) Intoxicated or Sedated No (0 pts) Impaired Gait No (0 pts) Mobility Assist Device Used No (0 pt) Altered Elimination No (0 pt) Score/Fall Risk Level 0 - 2 = Low Risk Oriented to surroundings, Maintained a safe environment, Educated pt \T\ family on fall prevention, incl call for assistance when getting out of bed, Assessed \T\ reinforced patient's understanding of fall precautions. Abuse screen: Denies threats or abuse. Denies injuries from another. Nutritional screening: No deficits noted. Tuberculosis screening: No symptoms or risk factors identified. Assessment: 11:50 Reassessment: Patient and/or family updated on plan of care and expected duration. Pain rs5 level reassessed. Patient is alert, oriented x 3, equal unlabored respirations, skin warm/dry/pink. 12:37 General: Appears in no apparent distress. Behavior is calm, cooperative. Pain: Denies tl4 pain. Neuro: Level of Consciousness is awake, alert, obeys commands, Oriented to person, place, time, situation, Moves all extremities. Full function Gait is steady, Speech is normal. Cardiovascular: Capillary refill < 3 seconds Patient's skin is warm and dry. Respiratory: Airway is patent Respiratory effort is even, unlabored, Respiratory pattern is regular, symmetrical. GI: No signs and/or symptoms were reported involving the gastrointestinal system. : Reports burning with urination, discharge, foul odor. EENT: No signs and/or symptoms were reported regarding the EENT system. Derm: No signs and/or symptoms reported regarding the dermatologic system. Musculoskeletal: No signs and/or symptoms reported regarding the musculoskeletal system. Vital Signs: 11:29 BP 117 / 74; Pulse 80; Resp 16; Temp 98.9; Pulse Ox 100% on R/A; Weight 70.31 kg; ll1 Height 5 ft. 5 in. ; Pain 0/10; 12:38 BP 112 / 70; Pulse 70; Resp 18; Temp 98(TE); Pulse Ox 98% on R/A; Pain 0/10; tl4 11:29 Body Mass Index 25.79 (70.31 kg, 165.1 cm) ll1 11:29 Pain Scale: Adult ll1 12:38 Pain Scale: Adult tl4 ED Course: 11:22 Patient arrived in ED. ra3 11:24 Arm band placed on Patient placed in an exam room, on a stretcher. ll1 11:27 Davie Prasad MD is Attending Physician. justus 11:31 Triage completed. ll1 11:55 Holland Mcdonough RN is Primary Nurse. rs5 12:08 Khan, Jason, DO is Referral Physician. justus 12:18 Urine Culture Sent. tl4 12:18 Urinalysis w/ reflexes Sent. tl4 12:39 Patient has correct armband on for positive identification. Bed in low position. Call tl4 light in reach. Side rails up X 1. Provided Education on: ed process, call burgos. Client placed on continuous cardiac and pulse oximetry monitoring. NIBP monitoring applied. Door closed. Noise minimized. Lights dimmed. Moved to private room. 12:40 No provider procedures requiring assistance completed. Patient did not have IV access tl4 during this emergency room visit. Administered Medications: 12:18 Drug: AZITHromycin PO 1 grams PO once Route: PO; tl4 12:34 Follow up: Response: No adverse reaction tl4 12:18 Drug: Doxycycline PO 200 mg PO once Route: PO; tl4 12:33 Follow up: Response: No adverse reaction tl4 12:20 Drug: Rocephin (cefTRIAXone) IM 1 grams IM once {Note: mixed with 2.1 mL lidocaine 1%.} tl4 Route: IM; Site: right ventrogluteal; 12:36 Follow up: Response: No adverse reaction tl4 Medication: 12:40 VIS not applicable for this client. tl4 Outcome: 12:08 Discharge ordered by . [facility] 12:40 Discharged to home ambulatory, tl4 12:40 Condition: stable 12:40 Discharge instructions given to patient, Instructed on discharge instructions, follow up and referral plans. medication usage, Demonstrated understanding of instructions, follow-up care, medications, Prescriptions given X 2, 12:41 Patient left the ED. tl4 Signatures: Davie Prasad MD MD cha Lewis, Lynsay RN RN ll1 Holland Mcdonough, RN RN rs5 Dionte Mims RN RN tl4 Debby Villaseñor 3
[2023-09-02] MEDS ORDERED: CEFTRIAXONE 1000 MG/VIAL ONE (12:09)
--- NOTE | 2023-09-02 12:09 | EDPHYS ---
Physician Documentation [facility] Name: Harvey Wyatt Age: 28 yrs Sex: Male : 1995 Arrival Date: 09/02/2023 Time: 11:19 Bed 19 Private MD: ED Physician Davie Prasad HPI: 09/01 12:02 This 28 yrs old Male presents to ER via Ambulatory with complaints of Pain justus With Urination - Foul odor. 12:02 The patient presents with a possible STD exposure, urinary symptoms, dysuria, urinary justus frequency, hesitancy to initiate urine stream. Onset: The symptoms/episode began/occurred 3 day(s) ago. Modifying factors: The symptoms are alleviated by nothing, the symptoms are aggravated by urinating. Associated signs and symptoms: Pertinent positives: dysuria. Severity of symptoms: At their worst the symptoms were mild, in the emergency department the symptoms are unchanged. The patient has not experienced similar symptoms in the past. Historical: - Allergies: 11:24 No Known Allergies; ll1 - PMHx: 11:24 Diabetes - IDDM; ll1 11:31 Asthma; ll1 - PSHx: 11:31 None; ll1 - Immunization history:: Adult Immunizations up to date. - Infectious Disease History:: Denies. - Social history:: Smoking status: Patient denies any tobacco usage or history of. ROS: 12:03 Constitutional: Negative for fever, chills, and weight loss, Eyes: Negative for injury, justus pain, redness, and discharge, ENT: Negative for injury, pain, and discharge, Neck: Negative for injury, pain, and swelling, Cardiovascular: Negative for chest pain, palpitations, and edema, Respiratory: Negative for shortness of breath, cough, wheezing, and pleuritic chest pain, Abdomen/GI: Negative for abdominal pain, nausea, vomiting, diarrhea, and constipation, Back: Negative for injury and pain, MS/Extremity: Negative for injury and deformity, Skin: Negative for injury, rash, and discoloration, Neuro: Negative for headache, weakness, numbness, tingling, and seizure, Psych: Negative for depression, anxiety, suicide ideation, homicidal ideation, and hallucinations, Allergy/Immunology: Negative for hives, rash, and allergies, Endocrine: Negative for neck swelling, polydipsia, polyuria, polyphagia, and marked weight changes, Hematologic/Lymphatic: Negative for swollen nodes, abnormal bleeding, and unusual bruising, 12:03 : Positive for urinary symptoms, urinary frequency, hematuria, burning with urination, difficulty urinating, foul smelling urine, penile discharge, Exam: 12:03 Constitutional: This is a well developed, well nourished patient who is awake, alert, justus and in no acute distress. Head/Face: Normocephalic, atraumatic. Eyes: Pupils equal round and reactive to light, extra-ocular motions intact. Lids and lashes normal. Conjunctiva and sclera are non-icteric and not injected. Cornea within normal limits. Periorbital areas with no swelling, redness, or edema. ENT: Nares patent. No nasal discharge, no septal abnormalities noted. Tympanic membranes are normal and external auditory canals are clear. Oropharynx with no redness, swelling, or masses, exudates, or evidence of obstruction, uvula midline. Mucous membranes moist. Neck: Trachea midline, no thyromegaly or masses palpated, and no cervical lymphadenopathy. Supple, full range of motion without nuchal rigidity, or vertebral point tenderness. No Meningismus. Chest/axilla: Normal chest wall appearance and motion. Nontender with no deformity. No lesions are appreciated. Cardiovascular: Regular rate and rhythm with a normal S1 and S2. No gallops, murmurs, or rubs. Normal PMI, no JVD. No pulse deficits. Respiratory: Lungs have equal breath sounds bilaterally, clear to auscultation and percussion. No rales, rhonchi or wheezes noted. No increased work of breathing, no retractions or nasal flaring. Abdomen/GI: Soft, non-tender, with normal bowel sounds. No distension or tympany. No guarding or rebound. No evidence of tenderness throughout. Back: No spinal tenderness. No costovertebral tenderness. Full range of motion. Skin: Warm, dry with normal turgor. Normal color with no rashes, no lesions, and no evidence of cellulitis. MS/ Extremity: Pulses equal, no cyanosis. Neurovascular intact. Full, normal range of motion. Neuro: Awake and alert, GCS 15, oriented to person, place, time, and situation. Cranial nerves II-XII grossly intact. Motor strength 5/5 in all extremities. Sensory grossly intact. Cerebellar exam normal. Normal gait. Psych: Awake, alert, with orientation to person, place and time. Behavior, mood, and affect are within normal limits. 12:03 : CVA tenderness, is absent, Male external genitalia: Circumcision noted. Bladder: is normal, Sexual behavior: the patient is sexually active, and reports a single partner, Vital Signs: 11:29 BP 117 / 74; Pulse 80; Resp 16; Temp 98.9; Pulse Ox 100% on R/A; Weight 70.31 kg; ll1 Height 5 ft. 5 in. ; Pain 0/10; 12:38 BP 112 / 70; Pulse 70; Resp 18; Temp 98(TE); Pulse Ox 98% on R/A; Pain 0/10; tl4 11:29 Body Mass Index 25.79 (70.31 kg, 165.1 cm) ll1 11:29 Pain Scale: Adult ll1 12:38 Pain Scale: Adult tl4 MDM: 11:27 Patient medically screened. [facility] 09/01 11:59 Order name: Urinalysis w/ reflexes [facility] 09/01 11:59 Order name: Urine Culture [facility] 09/01 12:40 Order name: Glucose, Ancillary Testing [facility] 09/01 11:59 Order name: Blood Glucose Level; Complete Time: 12:30 [facility] Administered Medications: 12:18 Drug: AZITHromycin PO 1 grams PO once Route: PO; tl4 12:34 Follow up: Response: No adverse reaction tl4 12:18 Drug: Doxycycline PO 200 mg PO once Route: PO; tl4 12:33 Follow up: Response: No adverse reaction tl4 12:20 Drug: Rocephin (cefTRIAXone) IM 1 grams IM once {Note: mixed with 2.1 mL lidocaine 1%.} tl4 Route: IM; Site: right ventrogluteal; 12:36 Follow up: Response: No adverse reaction tl4 Disposition Summary: 09/02/23 12:08 Discharge Ordered Notes: Location: Home justus Problem: new justus Symptoms: have improved justus Condition: Stable justus Diagnosis - Type 1 diabetes mellitus with hyperglycemia justus - Nonspecific urethritis justus Followup: justus - With: Private Physician - When: 2 - 3 days - Reason: Recheck today's complaints, Continuance of care, Re-evaluation by your physician Followup: justus - With: Jason Khan, DO - When: 2 - 3 days - Reason: Recheck today's complaints, Re-evaluation by your physician Discharge Instructions: - Discharge Summary Sheet justus - Hyperglycemia justus - Urethritis, Adult justus - Diabetes Mellitus and Nutrition, Adult [facility] Forms: - Medication Reconciliation Form justus - Antibiotic Education justus - Prescription Opioid Use justus - Patient Portal Instructions [facility] - Leadership Thank You Letter [facility] Prescriptions: - Doxycycline Hyclate 100 mg Oral Tablet - take 1 tablet ORAL route every 12 hours; 20 tablet; Refills: 0, Product [facility] Selection Permitted - Cipro 500 mg Oral Tablet - take 1 tablet ORAL route every 12 hours for 7 days; 14 tablet; Refills: 0, [facility] Product Selection Permitted Signatures: Dispatcher [employer] EDMS Davie Prasad MD MD cha Lewis, Lynsay RN RN ll1 Dionte Mims RN RN tl4 Corrections: (The following items were deleted from the chart) 12:00 12:00 Urinalysis+U.LAB.BRZ ordered. EDMS EDMS 12:00 12:00 Urine Culture+BA.LAB.BRZ ordered. EDMS EDMS
[2023-09-02] MEDS ORDERED: LIDOCAINE 1% MPF 2 ML AMPULE ONE (12:10)
[2023-09-02] MEDS ORDERED: DOXYCYCLINE 100 MG CAP PO ONE (12:10)
[2023-09-02] MEDS ORDERED: AZITHROMYCIN 250 MG TAB ONE (12:10)
[2023-09-02 12:37] LABS: Specific Gravity > 1.030 (1.005-1.030); Sqamous Epithelial None Seen /HPF (None Seen); Urine Bacteria >50 /HPF (<20); Urine Bilirubin NEGATIVE (Negative); Urine Blood 1+ (Negative); Urine Clarity Extremely Turbid (Clear); Urine Color Light-Orange (Yellow); Urine Culture Reflex Order REFLEXED; Urine Glucose 4+ (Over) (Negative); Urine Ketones 1+ (Negative); Urine Microscopic Reflex YN ORDER UMIC; Urine Nitrite 2+ (Negative); Urine Protein 1+ (Negative); Urine Urobilinogen Normal (Normal); Urine WBC >50 /HPF (<5)
[2023-09-02 13:07] VITALS: BP 112/70; TEMP 98; O2SAT 98
== END 2023-09-02 12:41 | disposition home or self-care (01) ==
LOC: ER 11:19
DX: N34.1 Nonspecific urethritis (principal); E10.65 Type 1 diabetes mellitus with hyperglycemia
CPT/HCPCS: 87088; 81001; 87086; 82947; 96372; 99284; J0696

== ENCOUNTER 2023-10-13 07:01 | Emergency (ER) | payer BC, SELFPAY ==
--- OUTSIDE RECORDS SUMMARY | 2023-10-13 07:04 | XMS REPORT | Continuity of Care Document ---
Author Name Unknown Address [address] [place] [address] [facility]connect Address [address] [place] [address] Care Team Providers Care Sales Support Manager Name Role Phone PCP, PATIENT DOES NOT HAVE A Primary Care Physic dominga Unavailable Naseem Mckeon MD Attending Clinician [phone] NASEEM MCKEON Attending Clinician Unavailable Espinoza MARCUS, Melina Garrett Attending Clinician Unavailab le Only, Ang Db Test Attending Clinician UnavailLinda White Attending Clinician [phone] Mc Juarez Attending Clinician [phone] MC ATKINSON Attending Clinician Unavailable NASEEM MCKEON Admitting Clinician Unavailable Payers Payer Name Policy Type Policy Number Effective Date Expirati on Date Source Allergies, Adverse Reactions, Alerts Allergy Name Allergy Type Status Severity Reaction(s) Onset Date Inactive Date Treating Clinician Comments Source NO KNOWN ALLERGIE S Drug Class Active [facility] Social History Social Habit Start Date Stop Date Quantity Comments Source Exposure to SARS-CoV-2 (event) Yes [facility] Sex Assigned At 1995 00:00:00 1995 00:00:00 [facility] Smoking Status Start Date Stop Date Source Tobacco smoking consumption unknown [facility] Medications Ordered Medication Name Filled Medication Name Start Date Stop Date Current Medication? Ordering Clinician Indication Dosage Frequency Signature (SIG) Comments Components Source aspirin tablet 325 mg 10-07 10:15: 00 10-07 09:30 :00 No 325mg 325 mg, Oral, ONCE NOW, 1 dose, On Sat10/07/22 at 0515, STAT [facility] iopamidol (ISOVUE 370-500 mL) injection 100 mL 10-07 10:15: 00 10-07 10:15 :00 No [id number] 100mL 100 mL, Intravenou s, ONCE, 1 dose, On Sat10/07/22 at 0515, Routine [facility] morpHINE (4 mg/mL) injection 4 mg 10-07 09:00: 00 10-07 08:04 :00 No 4mg 4 mg, Slow IV Push, ONCE, 1 dose, On Sat10/07/22 at 0400, STAT [facility] NaCl 0.9% (NS) bolus infusion 1,000 mL 10-07 08:45: 00 10-07 09:59 :00 No 1000mL at 999 mL/hr, 1,000 mL, IV Piggyback, ONCE, 1 dose, On Sat10/07/22 at 0345, STAT [facility] famotidine (PEPCID (PF)) injection 20 mg 10-07 08:00: 00 10-07 08:15 :00 No 20mg 20 mg, Slow IV Push, ONCE, 1 dose, On Sat10/07/22 at 0300, MALENA [facility] proMETHazin e (PHENERGAN) 25 mg in NaCl 0.9% (NS) 50 mL IV piggyback 10-07 08:00: 00 10-07 08:15 :00 No 25mg 25 mg, IV Piggyback, ONCE, 1 dose, On 10/07/22 at 0300, MALENA [facility] famotidine (PEPCID) 20 mg tablet 10-07 00:00: 00 Yes [id number] 20mg Take 1 tablet by mouth in the morning and 1 tablet in the evening. [facility] proMETHazin e 25 mg tablet 10-07 00:00: 00 Yes [id number] 25mg Take 1 tablet by mouth every 6 (six) hours as needed for Nausea and Vomiting (N/V). [facility] clindamycin 150 mg capsule 09-27 00:00: 00 10-08 04:59 :00 No [id number] 393649 450mg Take 3 capsules by mouth 3 (three) times daily for 10 days. [facility] Vital Signs Vital Name Observation Time Observation Value Comments S ource Systolic blood pressure 2022-10-07 12:00:00 138 mm[Hg] [facility] Diastolic blood pressure 2022-10-07 12:00:00 100 mm[Hg] [facility] Heart rate 2022-10-07 12:00:00 89 /min [facility] Respiratory rate 2022-10-07 12:00:00 16 /min [facility] Oxygen saturation in Arterial blood by Pulse oximetry 2022-10-07 12:00:00 100 /min [facility] Body temperature 2022-10-07 07:48:00 37 Sarah [facility] Body height 2022-10-07 07:48:00 175.3 cm [facility] Body weight 2022-10-07 07:48:00 83.915 kg [facility] BMI 2022-10-07 07:48:00 27.32 kg/m2 [facility] Systolic blood pressure 2020-09-27 06:14:00 135 mm[Hg] [facility] Diastolic blood pressure 2020-09-27 06:14:00 83 mm[Hg] [facility] Heart rate 2020-09-27 06:14:00 110 /min [facility] Body temperature 2020-09-27 06:14:00 37.06 Sarah [facility] Respiratory rate 2020-09-27 06:14:00 20 /min [facility] Body weight 2020-09-27 06:14:00 81.647 kg [facility] Oxygen saturation in Arterial blood by Pulse oximetry 2020-09-27 06:14:00 100 /min [facility] Systolic blood pressure 2020-09-27 06:14:00 135 mm[Hg] [facility] Diastolic blood pressure 2020-09-27 06:14:00 83 mm[Hg] [facility] Heart rate 2020-09-27 06:14:00 110 /min [facility] Body temperature 2020-09-27 06:14:00 37.06 Sarah [facility] Respiratory rate 2020-09-27 06:14:00 20 /min [facility] Body weight 2020-09-27 06:14:00 81.647 kg [facility] Oxygen saturation in Arterial blood by Pulse oximetry 2020-09-27 06:14:00 100 /min [facility] Procedures Procedure Date / Time Performed Performing Clinician Source XR CHEST 1 VW 2022-10-07 12:15:44 [facility] EKG-12 LEAD 2022-10-07 11:57:16 Naseem Mckeon [facility] TROPONIN I 2022-10-07 10:50:00 Naseem Mckeon [facility] URINE DRUG (IMMUNOASSAY) - COMPREHENSIVE DRUG SCREEN 2022-10-07 09:58:00 Naseem Mckeon [facility] URINALYSIS 2022-10-07 09:58:00 Naseem Mckeon [facility] CBC WITH DIFF 2022-10-07 09:29:00 [facility] LACTIC ACID WHOLE BLOOD 2022-10-07 09:28:00 Chica Mckeon [facility] CT ANGIOGRAM ABDOMEN/PELVIS 2022-10-07 09:17:25 Naseem Mckeon [facility] CK (CREATINE KINASE) + MB 2022-10-07 08:13:00 Naseem Mckeon [facility] LIPASE 2022-10-07 08:13:00 Naseem Mckeon [facility] TROPONIN I 2022-10-07 08:13:00 Naseem Mckeon [facility] COMP. METABOLIC PANEL ([id number]) 2022-10-07 08:13:00 Naseem Mckeon [facility] ETHANOL 2022-10-07 08:13:00 Naseem Mckeon [facility] PROTHROMBIN TIME / INR 2022-10-07 08:13:00 Deonna Mckeon [facility] ACTIVATED PARTIAL THRMPLAS MARISOL 2022-10-07 08:13:00 Naseem Mckeon [facility] HB ABO GROUPING 2022-10-07 08:13:00 Naseem Mckeon [facility] N-TERMINAL PRO-BNP 2022-10-07 08:13:00 Naseem Mckeon [facility] NOTICE OF PRIVACY PRACTICES 2020-09-27 06:10:18 Doctor Unassigned, Sammy Martinez [facility] CONSENT/REFUSAL FOR DIAGNOSIS AND TREATMENT 2020-09-27 06:09:54 Doctor Unassigned, Sammy Martinez [facility] Encounters Start Date/Time End Date/Time Encounter Type Admission Type Attending [facility] Care Facility Care Department Encounter ID Source 2022-10-07 02:43:00 2022-10-07 07:42:00 Emergency Naseem Mckeon [facility] [id number] [id number] [id number] [id number] [facility] 2022-10-07 02:43:00 2022-10-07 07:42:00 Emergency X NASEEM MCKEON [facility] ERT [id number] [facility] 2021-04-20 00:00:00 2021-04-20 00:00:00 Letter (Out) Melina Doran [facility] [id number] 350.1.13.10 [id number] [id number] [facility] 2021-04-20 00:00:00 2021-04-20 00:00:00 Letter (Out) Only, Ang Db Test [facility] 1.2.840.114 350.1.13.10 4.2.7.2.686 [id number] [facility] 2021-04-19 09:15:00 2021-04-19 09:22:34 Laboratory Only Only, Ang Db Test Linda Malik [facility] 1.2.840.114 350.1.13.10 4.2.7.2.686 [id number] [facility] 2020-09-27 01:16:00 2020-09-27 02:44:00 Emergency Mc Atkinson S [facility] 1.2.840.114 350.1.13.10 4.2.7.2.686 [id number] [facility] 2020-09-27 01:16:00 2020-09-27 02:44:00 Emergency Mc Atkinson [facility] [id number] 350.1.13.10 4.2.7.2.686 [id number] 2020-09-27 01:16:00 2020-09-27 01:16:00 Emergency X MC ATKINSON [facility] ERT [id number] [facility] Results Test Description Test Time Test Comments Results Result Co mments Source [facility] WITH [id number] 10:11:14* Test Item Value Reference Range Interpretation Comme nts WBC (test code = 6690-2) 4.41 See_Comment [Automated messa ge] The system which generated this result transmitted reference range: 4.20 - 10.70 10*3/?L. The reference range was not used to interpret this result as normal/abnormal. RBC (test code = 789-8) 4.94 See_Comment [Automated [employer]] The system which generated this result transmitted [...] substance or condition. RDW-SD (test code = 80802-7) 34.8 fL 38.5-51.6 L RDW-CV (test code = 788-0) 12.1 % 12.1-15.4 PLT (test code = 777-3) 210 See_Comment [Automated [employer]] The system which generated this result transmitted reference range: 150 - 328 10*3/?L. The reference range was not used to interpret this result as normal/abnormal. MPV (test code = 15050-4) 10.1 fL 9.8-13.0 NRBC/100 WBC (test code = 6797593582) 0.0 See_Comment [Automated [employer] ssage] The system which generated this result transmitted reference range: 0.0 - 10.0 /100 WBCs. The reference range was not used to interpret this result as normal/abnormal. NRBC x10^3 (test code = 5122244463) See_Comment [Automated [employer]] The system which generated this result transmitted reference range: 10*3/?L. The reference range was not used to interpret this result as normal/abnormal. GRAN MAT (NEUT) % (test code = 770-8) 80.0 % IMM GRAN % (test code = 7872266519) 0.50 % LYMPH % (test code = 736-9) 11.1 % MONO % (test code = 5905-5) 8.2 % EOS % (test code = 713-8) 0.0 % BASO % (test code = 706-2) 0.2 % GRAN MAT x10^3(ANC) (test code = 7158219562) 3.53 10*3/uL 1.99-6.95 IMM GRAN x10^3 (test code = 1996240839) 0.00-0.06 LYMPH x10^3 (test code = 731-0) 0.49 10*3/uL 1.09-3.23 L MONO x10^3 (test code = 742-7) 0.36 10*3/uL 0.36-1.02 EOS x10^3 (test code = 711-2) 0.06-0.53 L BASO x10^3 (test code = 704-7) 0.01-0.09 SPHEROCYTES (test code = 802-9) 2+ A Lab Interpretation (test code = 30813-5) Abnormal [facility] [id number] 09:56:11* Test Item Value Reference Range Interpretation Comme nts NT-proBNP (test code = 1862628800) 20 pg/mL <=125 OSWALD (test code = OSWALD) Biotin has been reported to cause a negative bias, interpret results relative to patient's use of biotin. Lab Interpretation (test code = 99231-7) Normal [facility] (CREATINE KINASE) + [id number] 09:55:51* Test Item Value Reference Range Interpretation Comme nts CK (test code = 3149775049) 46 U/L 33-194 CK-MB (test code = 8582885415) 0.57 ng/mL <=3.50 CKMB INDEX (test code = 1699574414) 1.2 % 0.0-4.0 OSWALD (test code = OSWALD) Biotin has been reported to cause a negative bias, interpret results relative to patient's use of biotin. Lab Interpretation (test code = 05857-2) Normal [facility]2023-07-02 09:01:30 ALCOHOL<10mg/dL10/07/2022 4:01 AM [facility]<10 [id number] Toxic>100 Depression of SENIOR FUND ACCOUNTANT>400 [facility]TROPONIN [id number] 08:56:28* Test Item Value Reference Range Interpretation Comme nts TROPONIN I (test code = 3143933736) 3.040 ng/mL <=0.034 H OSWALD (test code [...] of biotin. Lab Interpretation (test code = 17933-0) Abnormal [facility]. METABOLIC PANEL (41351)2022-10-07 08:44:48* Test Item Value Reference Range Interpretation Comme nts NA (test code = 4483462389) 139 mmol/L 135-145 K (test code = 6850258057) 3.5 mmol/L 3.5-5.0 CL (test code = 7499838544) 104 mmol/L 98-108 CO2 TOTAL (test code = 8985971291) 17 mmol/L 23-31 L AGAP (test code = 3149581026) 18 2-16 H BUN (test code = 9739394259) 12 mg/dL 7-23 GLUCOSE (test code = 9336681795) 184 mg/dL 70-110 H CREATININE (test code = 2834056419) 0.66 mg/dL 0.60-1.25 TOTAL BILI (test code = 0419123683) 1.1 mg/dL 0.1-1.1 CALCIUM (test code = 8958536273) 9.2 mg/dL 8.6-10.6 T PROTEIN (test code = 1382233630) 7.0 g/dL 6.3-8.2 ALBUMIN (test code = 3594131096) 4.5 g/dL 3.5-5.0 ALK PHOS (test code = 1838760539) 77 U/L 34-122 ALTv (test code = 1742-6) 25 U/L 5-50 AST(SGOT) (test code = 6605886463) 20 U/L 13-40 eGFR (test code = 0475451628) 147.1 mL/min/1.73m2 OSWALD (test code = OSWALD) [...] imaging tests). Lab Interpretation (test code = 27153-6) Abnormal [facility] 08:44:28* Test Item Value Reference Range Interpretation Comme [facility] LIPASE (test code = 4062169991) 79 U/L 0-220 Lab Interpretation (test cod e = 26068-0) Normal [facility]IV[facility] PART[facility] THRMPLAS [id number] 08:43:03* Test Item Value Reference Range Interpretation Comme [facility] APTT Patient (test code = 3173-2) 28 See_Comment [Automated message] The system which generated this result transmitted reference range: 23 - 38 Seconds. The reference range was not used to interpret this result as normal/abnormal. OSWALD (test code = OSWALD) The [facility] patient population mean normal value for aPTT is 30 seconds. Lab Interpretation (test code = 39282-9) Normal [facility]roeProthrombin Time / [id number] 08:41:03* Test Item Value Reference Range Interpretation [...] the indications. Lab Interpretation (test code = 79889-1) Normal [facility]roeType and Screen - ONCE [id number] 08:28:00* Test Item Value Reference Range Interpretation Comme nts ABO & RH (test code = 20) O Positive IAT (test code = 1185) Negative [facility]"
[2023-10-13] MEDS ORDERED: DIPHENHYDRAMINE 50 MG/ML VIAL ONE (07:40)
[2023-10-13] MEDS ORDERED: KETOROLAC 30 MG/ML INJ ONE (07:41)
[2023-10-13] MEDS ORDERED: NA CHLORIDE 0.9% 1,000 ML ONE (07:41)
[2023-10-13] MEDS ORDERED: FAMOTIDINE 20 MG/2 ML VIAL IV ONE (07:41)
[2023-10-13] MEDS ORDERED: METOCLOPRAMIDE 10 MG/2mL INJ ONE (07:41)
--- NOTE | 2023-10-13 08:17 | RAD REPORT ---
EXAM DESCRIPTION: CT - Abdomen Pelvis Wo Contrast - 10/13/2023 8:03 am CLINICAL HISTORY: Abdominal pain COMPARISON: 2018 and 2022 TECHNIQUE: Computed axial tomography of the abdomen and pelvis was obtained. IV and oral contrast we re not requested. All CT scans are performed using dose optimization technique as appropriate and may include automated exposure control or mA/KV adjustment according to patient size. FINDINGS: The evaluation of solid organs, vessels and bowel is limited secondary to the lack of con trast administration. The liver, spleen, pancreas, adrenals and kidneys appear grossly normal. There is no evidence of diverticulitis. Several small sclerotic foci within the bones unchanged from 2019 probably benign Bladder distention IMPRESSION: Bladder distention
[2023-10-13 08:49] LABS: Specific Gravity 1.016 (1.005-1.030); Sqamous Epithelial None Seen /HPF (None Seen); Urine Bacteria None Seen /HPF (<20); Urine Bilirubin NEGATIVE (Negative); Urine Blood 3+ (Negative); Urine Clarity Turbid (Clear); Urine Color Light-Yellow (Yellow); Urine Culture Reflex Order NOT NEEDED; Urine Glucose NEGATIVE (Negative); Urine Ketones NEGATIVE (Negative); Urine Microscopic Reflex YN ORDER UMIC; Urine Nitrite NEGATIVE (Negative); Urine Protein 1+ (Negative); Urine RBC <5 /HPF (None Seen); Urine Urobilinogen Normal (Normal); Urine WBC <5 /HPF (<5)
[2023-10-13 10:02] LABS: Absolute Basophils 0.1 K/uL (0-0.5); Absolute Lymphocytes (CBC) 1.4 K/uL (0.7-4.9); Absolute Monocytes 0.3 K/uL (0.1-1.3); Basophils % 0.7 % (0-1.3); Eosinophils % 0.6 % (0-4.4); Hematocrit 41.1 % (39.6-49.0); Lymphocytes % 17.7 % (15.3-44.8); MCH 29.9 pg (27.0-35.0); MCHC 34.8 g/dL (32.0-36.0); MCV 85.8 fL (80-100); MPV 9.3 fL (7.6-11.3); Monocytes % 3.5 % (3.3-12.3); Neutrophils % 77.5 % (41.7-73.7); Nucleated Red Blood Cells % 0.1 % (0-0); RBC Red Blood Cell Count 4.79 M/uL (4.33-5.43); Red Cell Distribution Width 13.1 % (12.1-15.2)
[2023-10-13 10:10] LABS: Hemoglobin 14.3 g/dL (13.6-17.9); Platelets 307 thou/uL (152-406)
[2023-10-13 10:44] LABS: Albumin 3.1 g/dL (3.4-5.0); Anion Gap 10.6 mEq/L (5.0-15.0); Bilirubin Total 0.4 mg/dL (0.2-1.0); Globulin 3.2 g/dL (2.3-3.5); Protein, Total 6.3 g/dL (6.4-8.2)
[2023-10-13 10:51] LABS: Potassium 4.6 mEq/L (3.5-5.1)
--- NOTE | 2023-10-13 11:15 | EDPHYS ---
Physician Documentation [facility] Name: Harvey Wyatt Age: 28 yrs Sex: Male : 1995 Arrival Date: 10/13/2023 Time: 07:01 Bed 15 Private MD: ED Physician Solomon Rivera HPI: 10/12 07:31 This 28 yrs old Male presents to ER via Ambulatory with complaints of ec2 Nausea/Vomiting, Back Pain. 07:31 Patient arrives today for evaluation of nausea and vomiting along with low back pain. ec2 Patient reports symptoms started earlier this morning. States that he is having decreased p.o. intake along with nausea and vomiting. No diarrhea symptoms. No cough and cold symptoms. Also complains of low back pain. Patient reports no urinary complaints. Reports history of diabetes.. Historical: - Allergies: 07:30 No Known Allergies; rs5 - PMHx: 07:30 Asthma; Diabetes - IDDM; rs5 - PSHx: 07:30 None; rs5 - Immunization history:: Adult Immunizations up to date. - Infectious Disease History:: Denies. - Social history:: Smoking status: Patient denies any tobacco usage or history of. ROS: 07:31 Constitutional: as per hpi ec2 Exam: 07:31 Constitutional: GEN: NAD Head: atraumatic Eyes: EOMI Ears: External ears are ec2 normal. CV: regular rate LUNGS: no respiratory distress ABD: Nondistended, soft, generally tender, not guarding, negative flank bilaterally. SKIN: no evidence of rashes MSK: no evidence of trauma NEURO: moves all extremities equally Vital Signs: 07:29 BP 144 / 82; Pulse 71; Resp 17; Temp 99.1; Pulse Ox 99% on R/A; rs5 09:34 BP 134 / 84; Pulse 74; Resp 17; Pulse Ox 99% on R/A; rs5 11:07 BP 138 / 84; Pulse 71; Resp 17; Pulse Ox 99% on R/A; rs5 MDM: 07:31 Patient medically screened. ec2 07:31 Data reviewed: vital signs. ED course: Patient arrives today for evaluation of ec2 generalized abdominal pain with associated nausea and vomiting. Examination remarkable for abdominal findings as above. Will obtain lab work, urine studies and treat the patient symptoms. Differential diagnose include processes such as gastritis, diverticulitis, pancreatitis.. 09:00 ED course: Urine shows blood, noninfectious, CT abdomen pelvis shows bladder ec2 distention. Further discussion with patient indicates the patient is been having some issues with incomplete voiding however states that he is urinating okay. Patient has not followed up with urology yet. . 11:01 ED course: CBC is reassuring. Metabolic profile without electrolyte disturbances. ec2 Hyperglycemia noted. Lipase within normal ranges. On reassessment patient is well-appearing no acute distress. Will discharge home. Return precautions given. Instructed to follow-up with urology for urinary retention. Patient was able to void here in the emergency department . 11:14 ED course: Of note patient does report that he was able to void since that CAT scan and ec2 does not have any more discomfort. . 10/12 07:31 Order name: CBC with Diff; Complete Time: 11:00 ec2 10/12 07:31 Order name: CMP; Complete Time: 11:00 ec2 10/12 07:31 Order name: Lipase; Complete Time: 11:00 ec2 07 07:31 Order name: Urinalysis w/ reflexes; Complete Time: 08:59 ec2 0707 07:31 Order name: CT Abd/Pelvis - Without Contrast; Complete Time: 08:59 ec2 07 07:31 Order name: IV Saline Lock; Complete Time: 07:36 ec2 0707 07:31 Order name: Labs collected and sent; Complete Time: 07:36 ec2 0707 07:52 Order name: Labs - recollect needed: recollect labs/ lipemic and hemolyzed/ paged eb inside lab; Complete Time: 08:20 Administered Medications: 07:37 Drug: NS 0.9% IV 1000 ml IV at 1 bolus Per protocol; 1000 mL bolus Route: IV; Rate: 1 rs5 bolus; Site: right antecubital; 08:00 Follow up: Response: No adverse reaction rs5 07:37 Drug: Famotidine IVP 20 mg IVP once; dilute with 10 mL 0.9% NaCl; give over 2 minutes rs5 Route: IVP; Site: right antecubital; 08:00 Follow up: Response: No adverse reaction rs5 07:37 Drug: TORadol - Ketorolac IVP 15 mg IVP once Route: IVP; Site: right antecubital; rs5 08:00 Follow up: Response: No adverse reaction rs5 07:37 Drug: metoCLOPramide IVP 10 mg IVP once; over 1 to 2 minutes Route: IVP; Site: right rs5 antecubital; 08:00 Follow up: Response: No adverse reaction rs5 07:37 Drug: diphenhydrAMINE IVP 25 mg IVP once Route: IVP; Site: right antecubital; rs5 08:00 Follow up: Response: No adverse reaction rs5 Disposition Summary: 10/13/23 11:14 Discharge Ordered Notes: Location: Home ec2 Condition: Stable ec2 Diagnosis - Retention of urine, unspecified ec2 Followup: ec2 - With: Jung Vail MD - When: - Reason: Recheck today's complaints Discharge Instructions: - Discharge Summary Sheet ec2 - Acute Urinary Retention, Male ec2 Forms: - Medication Reconciliation Form ec2 - Antibiotic Education ec2 - Prescription Opioid Use ec2 - Patient Portal Instructions ec2 - Leadership Thank You Letter ec2 Signatures: Dispatcher [employer] Sun Herrera Ricky, RN RN rs5 Solomon Rivera MD MD ec2
--- NOTE | 2023-10-13 11:15 | ER ---
Nurse's Notes [facility] Name: Harvey Wyatt Age: 28 yrs Sex: Male : 1995 Arrival Date: 10/13/2023 Time: 07:01 Bed 15 Private MD: Diagnosis: Retention of urine, unspecified Presentation: 10/12 07:29 Chief complaint: Patient states: Lower back pain started last night, N/V, dizziness rs5 started this morning. Coronavirus screen: At this time, the client does not indicate any symptoms associated with coronavirus-19. Ebola Screen: No symptoms or risks identified at this time. Initial Sepsis Screen: Does the patient meet any 2 criteria? No. Patient's initial sepsis screen is negative. Does the patient have a suspected source of infection? No. Patient's initial sepsis screen is negative. Risk Assessment: Do you want to hurt yourself or someone else? Patient reports no desire to harm self or others. Onset of symptoms was October 09, 2023. 07:29 Method Of Arrival: Ambulatory rs5 07:29 Acuity: BINDU 3 rs5 Historical: - Allergies: 07:30 No Known Allergies; rs5 - PMHx: 07:30 Asthma; Diabetes - IDDM; rs5 - PSHx: 07:30 None; rs5 - Immunization history:: Adult Immunizations up to date. - Infectious Disease History:: Denies. - Social history:: Smoking status: Patient denies any tobacco usage or history of. Screenin:24 [facility] ED Fall Risk Assessment (Adult) History of falling in the last 3 months, rs5 including since admission No falls in past 3 months (0 pts) Confusion or Disorientation No (0 pts) Intoxicated or Sedated Yes (3 pts) Impaired Gait No (0 pts) Mobility Assist Device Used No (0 pt) Altered Elimination No (0 pt) Score/Fall Risk Level 0 - 2 = Low Risk Oriented to surroundings, Maintained a safe environment. Abuse screen: Denies threats or abuse. Nutritional screening: No deficits noted. Tuberculosis screening: No symptoms or risk factors identified. Assessment: 07:25 General: Appears in no apparent distress. uncomfortable, Behavior is calm, cooperative. rs5 Pain: Complains of pain in lower back Pain currently is 8 out of 10 on a pain scale. Quality of pain is described as aching, Is continuous. Neuro: Level of Consciousness is awake, alert, obeys commands, Oriented to person, place, time, situation. Cardiovascular: Patient's skin is warm and dry. Respiratory: Airway is patent Respiratory effort is even, unlabored, Respiratory pattern is regular, symmetrical. GI: Abdomen is round non-distended, Abd is soft and non tender X 4 quads. Reports nausea, vomiting. : No signs and/or symptoms were reported regarding the genitourinary system. EENT: No signs and/or symptoms were reported regarding the EENT system. Derm: Skin is intact, Skin is pink, warm \T\ dry. Musculoskeletal: Range of motion: intact in all extremities. 08:33 Reassessment: Patient and/or family updated on plan of care and expected duration. Pain rs5 level reassessed. Patient is alert, oriented x 3, equal unlabored respirations, skin warm/dry/pink. Patient denies pain at this time. Patient states feeling better. 09:33 Reassessment: No changes from previously documented assessment. rs5 Vital Signs: 07:29 BP 144 / 82; Pulse 71; Resp 17; Temp 99.1; Pulse Ox 99% on R/A; rs5 09:34 BP 134 / 84; Pulse 74; Resp 17; Pulse Ox 99% on R/A; rs5 11:07 BP 138 / 84; Pulse 71; Resp 17; Pulse Ox 99% on R/A; rs5 ED Course: 07:12 Patient arrived in ED. mg5 07:22 Solomon Rivera MD is Attending Physician. ec2 07:24 Arm band placed on right wrist. rs5 07:25 Patient has correct armband on for positive identification. Placed in gown. Bed in low rs5 position. Call light in reach. Side rails up X2. 07:29 Holland Mcdonough, AMRIT is Primary Nurse. rs5 07:30 Triage completed. rs5 07:31 Inserted saline lock: 20 gauge in right antecubital area, using aseptic technique. rs5 07:31 No provider procedures requiring assistance completed. rs5 08:04 CT Abd/Pelvis - Without Contrast In Process Unspecified. EDMS 08:20 Lab(s) recollected, by me, sent to lab. zm 11:14 Jung Vail MD is Referral Physician. ec2 11:20 IV discontinued, intact, bleeding controlled, No redness/swelling at site. Pressure rs5 dressing applied. Administered Medications: 07:37 Drug: NS 0.9% IV 1000 ml IV at 1 bolus Per protocol; 1000 mL bolus Route: IV; Rate: 1 rs5 bolus; Site: right antecubital; 08:00 Follow up: Response: No adverse reaction rs5 07:37 Drug: Famotidine IVP 20 mg IVP once; dilute with 10 mL 0.9% NaCl; give over 2 minutes rs5 Route: IVP; Site: right antecubital; 08:00 Follow up: Response: No adverse reaction rs5 07:37 Drug: TORadol - Ketorolac IVP 15 mg IVP once Route: IVP; Site: right antecubital; rs5 08:00 Follow up: Response: No adverse reaction rs5 07:37 Drug: metoCLOPramide IVP 10 mg IVP once; over 1 to 2 minutes Route: IVP; Site: right rs5 antecubital; 08:00 Follow up: Response: No adverse reaction rs5 07:37 Drug: diphenhydrAMINE IVP 25 mg IVP once Route: IVP; Site: right antecubital; rs5 08:00 Follow up: Response: No adverse reaction rs5 Medication: 07:28 VIS not applicable for this client. rs5 Outcome: 11:14 Discharge ordered by . ec2 11:20 Discharged to home ambulatory, rs5 11:20 Condition: stable 11:20 Discharge instructions given to patient, family, Instructed on discharge instructions, follow up and referral plans. Demonstrated understanding of instructions, follow-up care, 11:22 Patient left the ED. rs5 Signatures: Dispatcher [employer] Savannah Kahn Ricky, RN RN rs5 Archana Tavera mg5 Solomon Rivera MD MD ec2 Corrections: (The following items were deleted from the chart) 13:43 10:10 BP 138 / 84; Pulse 71bpm; Resp 17bpm; Pulse Ox 99% RA; rs5 rs5
[2023-10-13 11:38] VITALS: BP 134/84; TEMP 99.1; O2SAT 99
== END 2023-10-13 11:22 | disposition home or self-care (01) ==
LOC: ER 07:01
DX: R33.9 Retention of urine, unspecified (principal); R11.2 Nausea with vomiting, unspecified
CPT/HCPCS: 36415; 74176; 80053; 81001; 83690; 85025; 96374; 96375; 99284; J1200; J2765; J7030

== ENCOUNTER 2024-04-28 21:24 | Emergency (ER) | payer SELFPAY ==
--- OUTSIDE RECORDS SUMMARY | 2024-04-28 21:28 | XMS REPORT | Continuity of Care Document ---
Author Name Unknown Address [address] [facility] [address]. [address] [place] [address] [facility] thconnect Address [address] [facility]. [address] [place] [address] Care Team Providers Care Kindergarten Assistant Name Role Phone PCP, PATIENT DOES NOT HAVE A Primary Care Physic dominga Unavailable Naseem Mckeon MD Attending Clinician [phone] NASEEM MCKEON Attending Clinician Unavailable Espinoza MARCUS, Melina Garrett Attending Clinician Unavailab le Only, Ang Db Test Attending Clinician UnavailLinda White Attending Clinician [phone] Mc Juarez Attending Clinician [phone] MC ATKINSON Attending Clinician Unavailable NASEEM MCKEON Admitting Clinician Unavailable Payers Payer Name Policy Type Policy Number Effective Date Expirati on Date Source Allergies, Adverse Reactions, Alerts Allergy Name Allergy Type Status Severity Reaction(s) Onset Date Inactive Date Treating Clinician Comments Source NO KNOWN ALLERGIE S Drug Class Active [facility] Social History Social Habit Start Date Stop Date Quantity Comments Source Exposure to SARS-CoV-2 (event) Yes [facility] Sex Assigned At 1995 00:00:00 1995 00:00:00 [facility] Smoking Status Start Date Stop Date Source Tobacco smoking consumption unknown [facility] Medications Ordered Medication Name Filled Medication Name Start Date Stop Date Current Medication? Ordering Clinician Indication Dosage Frequency Signature (SIG) Comments Components Source aspirin tablet 325 mg 10-07 10:15: 00 10-07 09:30 :00 No 325mg 325 mg, Oral, ONCE NOW, 1 dose, On Sat10/07/22 at 0515, STAT [facility] iopamidol (ISOVUE 370-500 mL) injection 100 mL 10-07 10:15: 00 10-07 10:15 :00 No [id number] 100mL 100 mL, Intravenou s, ONCE, 1 dose, On Sat10/07/22 at 0515, Routine [facility] morpHINE (4 mg/mL) injection 4 mg 10-07 09:00: 00 10-07 08:04 :00 No 4mg 4 mg, Slow IV Push, ONCE, 1 dose, On Sat10/07/22 at 0400, [facility] NaCl 0.9% (NS) bolus infusion 1,000 mL 10-07 08:45: 00 10-07 09:59 :00 No 1000mL at 999 mL/hr, 1,000 mL, IV Piggyback, ONCE, 1 dose, On Sat10/07/22 at 0345, [facility] famotidine (PEPCID (PF)) injection 20 mg 10-07 08:00: 00 10-07 08:15 :00 No 20mg 20 mg, Slow IV Push, ONCE, 1 dose, On Sat10/07/22 at 0300, [facility] proMETHazin e (PHENERGAN) 25 mg in NaCl 0.9% (NS) 50 mL IV piggyback 10-07 08:00: 00 10-07 08:15 :00 No 25mg 25 mg, IV Piggyback, ONCE, 1 dose, On 10/07/22 at 0300, [facility] famotidine (PEPCID) 20 mg tablet 10-07 00:00: 00 Yes [id number] 20mg Take 1 tablet by mouth in the morning and 1 tablet in the evening. [facility] proMETHazin e 25 mg tablet 10-07 00:00: 00 Yes [id number] 25mg Take 1 tablet by mouth every 6 (six) hours as needed for Nausea and Vomiting (N/V). [facility] clindamycin 150 mg capsule 09-27 00:00: 00 10-08 04:59 :00 No [id number] 450mg Take 3 capsules by mouth 3 (three) times daily for 10 days. [facility] Vital Signs Vital Name Observation Time Observation Value Comments S ource Systolic blood pressure 2022-10-07 12:00:00 138 mm[facility]Hg[facility] Diastolic blood pressure 2022-10-07 12:00:00 100 mm[Hg] [facility] Heart rate 2022-10-07 12:00:00 89 /min [facility] Respiratory rate 2022-10-07 12:00:00 16 /min [facility] Oxygen saturation in Arterial blood by Pulse oximetry 2022-10-07 12:00:00 100 /min [facility] Body temperature 2022-10-07 07:48:00 37 Sarah [facility] Body height 2022-10-07 07:48:00 175.3 cm [facility] Body weight 2022-10-07 07:48:00 83.915 kg [facility] BMI 2022-10-07 07:48:00 27.32 kg/m2 [facility] Systolic blood pressure 2020-09-27 06:14:00 135 mm[Hg] [facility] Diastolic blood pressure 2020-09-27 06:14:00 83 mm[Hg] [facility] Heart rate 2020-09-27 06:14:00 110 /min [facility] Body temperature 2020-09-27 06:14:00 37.06 Sarah [facility] Respiratory rate 2020-09-27 06:14:00 20 /min [facility] Body weight 2020-09-27 06:14:00 81.647 kg [facility] Oxygen saturation in Arterial blood by Pulse oximetry 2020-09-27 06:14:00 100 /min [facility] Systolic blood pressure 2020-09-27 06:14:00 135 mm[Hg] [facility] Diastolic blood pressure 2020-09-27 06:14:00 83 mm[Hg] [facility] Heart rate 2020-09-27 06:14:00 110 /min [facility] Body temperature 2020-09-27 06:14:00 37.06 Sarah [facility] Respiratory rate 2020-09-27 06:14:00 20 /min [facility] Body weight 2020-09-27 06:14:00 81.647 kg [facility] Oxygen saturation in Arterial blood by Pulse oximetry 2020-09-27 06:14:00 100 /min [facility] Procedures Procedure Date / Time Performed Performing Clinician Source XR CHEST 1 VW 2022-10-07 12:15:44 [facility] E[facility]-12 LEAD 2022-10-07 11:57:[address] [facility] TROPONIN I 2022-10-07 10:50:[address] [facility] URINE DRUG (IMMUNOASSAY) - COMPREHENSIVE DRUG SCREEN 2022-10-07 09:58:00 Naseem Mckeon [facility] URINALYSIS 2022-10-07 09:58:[address] [facility] CBC WITH DIFF 2022-10-07 09:29:00 [facility] LACTIC ACID WHOLE BLOOD 2022-10-07 09:28:00 Chica Mckeon [facility] CT ANGIOGRAM ABDOMEN/PELVIS 2022-10-07 09:17:25 Naseem Mckeon [facility] CK (CREATINE KINASE) + MB 2022-10-07 08:13:00 Naseem Mckeon [facility] LIPASE 2022-10-07 08:13:[address] [facility] TROPONIN I 2022-10-07 08:13:[address] [facility] COMP. METABOLIC PANEL (90949) 2022-10-07 08:13:00 Naseem Mckeon [facility] ETHANOL 2022-10-07 08:13:[address] [facility] PROTHROMBIN TIME / INR 2022-10-07 08:13:00 Deonna Mckeon [facility] ACTIVATED PARTIAL THRMPLAS MARISOL 2022-10-07 08:13:00 Naseem Mckeon [facility] HB ABO GROUPING 2022-10-07 08:13:00 Naseem Mckeon [facility] N-TERMINAL PRO-BNP 2022-10-07 08:13:00 Naseem Mckeon [facility] NOTICE OF PRIVACY PRACTICES 2020-09-27 06:10:18 Doctor Unassigned, [place] [facility] CONSENT/REFUSAL FOR DIAGNOSIS AND TREATMENT 2020-09-27 06:09:54 Doctor Unassigned, [place] [facility] Encounters Start Date/Time End Date/Time Encounter Type Admission Type Attending [facility] Care Facility Care Department Encounter ID Source 2022-10-07 02:43:00 2022-10-07 07:42:00 Emergency Naseem Mckeon [facility] 1.2.840.114 350.1.13.10 4.2.7.2.686 [id number] [facility] 2022-10-07 02:43:00 2022-10-07 07:42:00 Emergency X NASEEM MCKEON [facility] ERT [id number] [facility] 2021-04-20 00:00:00 2021-04-20 00:00:00 Letter (Out) Melina Doran [facility] 1.2.840.114 350.1.13.10 4.2.7.2.686 [id number] [facility] 2021-04-20 00:00:00 2021-04-20 00:00:00 Letter (Out) Only, Ang Db Test [facility] 1.2.840.114 350.1.13.10 4.2.7.2.686 [id number] [facility] 2021-04-19 09:15:00 2021-04-19 09:22:34 Laboratory Only Only, Ang Db Test Linda Malik [facility] 1.2.840.114 350.1.13.10 4.2.7.2.686 [id number] [facility] 2020-09-27 01:16:00 2020-09-27 02:44:00 Emergency [facility] 1.2.840.114 350.1.13.10 4.2.7.2.686 [id number] [facility] 2020-09-27 01:16:00 2020-09-27 02:44:00 Emergency [facility] 1.2.840.114 350.1.13.10 4.2.7.2.686 [id number] 2020-09-27 01:16:00 2020-09-27 01:16:00 Emergency X MC ATKINSON [facility] ERT [id number] [facility] Results Test Description Test Time Test Comments Results Result Co mments Source [facility] WITH [id number] 10:11:14* Test Item Value Reference Range Interpretation Comme nts WBC (test code = 6690-2) 4.41 See_Comment [Automated messa ge] The system which generated this result transmitted reference range: 4.20 - 10.70 10*3/?L. The reference range was not used to interpret this result as normal/abnormal. RBC (test code = 789-8) 4.94 See_Comment [Automated ACE*COMMa [employer]] The system which generated this result transmitted [...] substance or condition. RDW-SD (test code = 96818-3) 34.8 fL 38.5-51.6 L RDW-CV (test code = 788-0) 12.1 % 12.1-15.4 PLT (test code = 777-3) 210 See_Comment [Automated ACE*COMMa [employer]] The system which generated this result transmitted reference range: 150 - 328 10*3/?L. The reference range was not used to interpret this result as normal/abnormal. MPV (test code = 19466-4) 10.1 fL 9.8-13.0 NRBC/100 WBC (test code = 6766923477) 0.0 See_Comment [Automated [employer] ssage] The system which generated this result transmitted reference range: 0.0 - 10.0 /100 WBCs. The reference range was not used to interpret this result as normal/abnormal. NRBC x10^3 (test code = 6670375115) See_Comment [Automated ACE*COMMa [employer]] The system which generated this result transmitted reference range: 10*3/?L. The reference range was not used to interpret this result as normal/abnormal. GRAN MAT (NEUT) % (test code = 770-8) 80.0 % IMM GRAN % (test code = 8622884654) 0.50 % LYMPH % (test code = 736-9) 11.1 % MONO % (test code = 5905-5) 8.2 % EOS % (test code = 713-8) 0.0 % BASO % (test code = 706-2) 0.2 % GRAN MAT x10^3(ANC) (test code = 2026854412) 3.53 10*3/uL 1.99-6.95 IMM GRAN x10^3 (test code = 9798669251) 0.00-0.06 LYMPH x10^3 (test code = 731-0) 0.49 10*3/uL 1.09-3.23 L MONO x10^3 (test code = 742-7) 0.36 10*3/uL 0.36-1.02 EOS x10^3 (test code = 711-2) 0.06-0.53 L BASO x10^3 (test code = 704-7) 0.01-0.09 SPHEROCYTES (test code = 802-9) 2+ A Lab Interpretation (test code = 53296-6) Abnormal [facility] [id number] 09:56:11* Test Item Value Reference Range Interpretation Comme nts NT-proBNP (test code = 0286929361) 20 pg/mL <=125 OSWALD (test code = OSWALD) Biotin has been reported to cause a negative bias, interpret results relative to patient's use of biotin. Lab Interpretation (test code = 18476-9) Normal [facility] (CREATINE KINASE) + [id number] 09:55:51* Test Item Value Reference Range Interpretation Comme nts CK (test code = 7570153378) 46 U/L 33-194 CK-MB (test code = 0581834800) 0.57 ng/mL <=3.50 CKMB INDEX (test code = 2882793080) 1.2 % 0.0-4.0 OSWALD (test code = OSWALD) Biotin has been reported to cause a negative bias, interpret results relative to patient's use of biotin. Lab Interpretation (test code = 48992-6) Normal [facility]2023-07-02 09:01:30 ALCOHOL<10mg/dL10/07/2022 4:01 AM [facility]<10 Arfmtzhr89-471 Toxic>100 Depression of HEALTH INFORMATICS ADVISOR>400 F[facility]Un[facility] [id number] 08:56:28* Test Item Value Reference Range Interpretation Comme nts TROPONIN I (test code = 2702658838) 3.040 ng/mL <=0.034 H OSWALD (test code [...] of biotin. Lab Interpretation (test code = 51654-6) Abnormal [facility] METABOLIC PANEL (46150)2022-10-07 08:44:48* Test Item Value Reference Range Interpretation Comme nts NA (test code = 3571396043) 139 mmol/L 135-145 K (test code = 6656409949) 3.5 mmol/L 3.5-5.0 CL (test code = 1622714383) 104 mmol/L 98-108 CO2 TOTAL (test code = 5755756431) 17 mmol/L 23-31 L AGAP (test code = 5452337534) 18 2-16 H BUN (test code = 8911035384) 12 mg/dL 7-23 GLUCOSE (test code = 4154550137) 184 mg/dL 70-110 H CREATININE (test code = 2501709707) 0.66 mg/dL 0.60-1.25 TOTAL BILI (test code = 7135045969) 1.1 mg/dL 0.1-1.1 CALCIUM (test code = 3267935496) 9.2 mg/dL 8.6-10.6 T PROTEIN (test code = 5703008568) 7.0 g/dL 6.3-8.2 ALBUMIN (test code = 6164025277) 4.5 g/dL 3.5-5.0 ALK PHOS (test code = 1252858944) 77 U/L 34-122 ALTv (test code = 1742-6) 25 U/L 5-50 AST(SGOT) (test code = 8899536304) 20 U/L 13-40 eGFR (test code = 5217173223) 147.1 mL/min/1.73m2 OSWALD (test code = OSWALD) [...] imaging tests). Lab Interpretation (test code = 47122-5) Abnormal [facility] Center[facility]2023-07-02 08:44:28* Test Item Value Reference Range Interpretation Comme [facility] LIPASE (test code = 4249078390) 79 U/L 0-220 Lab Interpretation (test cod e = 30903-8) Normal [facility] Center[facility]IV[facility] PART[facility] THRMPLAS [id number] 08:43:03* Test Item Value Reference Range Interpretation Comme [facility] APTT Patient (test code = 3173-2) 28 See_Comment [Automated message] The system which generated this result transmitted reference range: 23 - 38 Seconds. The reference range was not used to interpret this result as normal/abnormal. OSWALD (test code = OSWALD) The [facility] patient population mean normal value for aPTT is 30 seconds. Lab Interpretation (test code = 01119-3) Normal [facility] CenterProthrombin Time / [id number] 08:41:03* Test Item Value Reference Range Interpretation [...] the indications. Lab Interpretation (test code = 29359-6) Normal [facility] CenterType and Screen - ONCE [id number] 08:28:00* Test Item Value Reference Range Interpretation Comme nts ABO & RH (test code = 20) O Positive IAT (test code = 1185) Negative [facility]"
[2024-04-28] MEDS ORDERED: CEFTRIAXONE 1000 MG/VIAL ONE (22:00)
[2024-04-28] MEDS ORDERED: PROMETHAZINE 25 MG TABLET ONE (22:00)
[2024-04-28] MEDS ORDERED: ACETAMINOPHEN 500 MG TAB ONE (22:00)
[2024-04-28] MEDS ORDERED: ONDANSETRON 4 MG/2 ML VIAL ONE (22:00)
[2024-04-28] MEDS ORDERED: IBUPROFEN 400 MG TAB ONE (22:01)
[2024-04-28] MEDS ORDERED: NA CHLORIDE 0.9% 2,000 ML ONE (22:01)
[2024-04-28] MEDS ORDERED: INSULIN REGULAR (HUMAN) 100 UNIT/ML ONE (22:04)
--- NOTE | 2024-04-28 22:24 | RAD REPORT ---
EXAM: Chest Single View HISTORY: fever, COMPARISON: 06/08/2023 FINDINGS: LUNGS/PLEURA: The lungs are clear. No pleural effusions or pneumothorax. No pulmonary edema. MEDIASTINUM: The mediastinal silhouette is within normal limits. CARDIAC: The cardiac silhouette is within normal limits. UPPER ABDOMEN: No significant abnormality. BONES: No acute abnormality. LINES/TUBES/OTHER: N/A IMPRESSION: No evidence of acute cardiopulmonary disease.
[2024-04-28 22:51] LABS: Absolute Lymphocytes (CBC) 0.3 K/uL (0.7-4.9); Absolute Monocytes 0.4 K/uL (0.1-1.3); Basophils % 0.2 % (0-1.3); Hematocrit 46.4 % (39.6-49.0); Hemoglobin 17.1 g/dL (13.6-17.9); MCH 30.9 pg (27.0-35.0); MCHC 36.8 g/dL (32.0-36.0); MPV 9.5 fL (7.6-11.3); Monocytes % 4.7 % (3.3-12.3); Neutrophils % 92.1 % (41.7-73.7); Nucleated Red Blood Cells % 0.1 % (0-0); Platelets 202 thou/uL (152-406); RBC Red Blood Cell Count 5.53 M/uL (4.33-5.43); Red Cell Distribution Width 12.9 % (12.1-15.2)
[2024-04-28 23:00] LABS: PT Prothrombin Time 12.3 SECONDS (9.4-12.5); Protime INR 1.17
[2024-04-28 23:05] LABS: Specific Gravity > 1.030 (1.005-1.030); Sqamous Epithelial None Seen /HPF (None Seen); Urine Bacteria None Seen /HPF (<20); Urine Bilirubin NEGATIVE (Negative); Urine Blood Negative (Negative); Urine Clarity Clear (Clear); Urine Color Light-Yellow (Yellow); Urine Culture Reflex Order NOT NEEDED; Urine Glucose 4+ (Over) (Negative); Urine Ketones 2+ (Negative); Urine Micro Reflex YN NO BILL MICROSCOPIC; Urine Nitrite 2+ (Negative); Urine Protein NEGATIVE (Negative); Urine RBC <5 /HPF (None Seen); Urine Urobilinogen Normal (Normal); Urine WBC <5 /HPF (<5)
[2024-04-28 23:19] LABS: BETA HYDROXYBUTYRATE 0.39 mmol/L (0.02-0.27); C-Reactive Protein 58.5 mg/L (<3.00)
[2024-04-28 23:19] LABS: Barbiturates NEGATIVE (NEGATIVE); Benzodiazepines NEGATIVE (NEGATIVE); Cocaine NEGATIVE (NEGATIVE); METHAMPHETAM NEGATIVE (NEGATIVE); Methadone NEGATIVE (NEGATIVE); Opiates NEGATIVE (NEGATIVE); Phencyclidine NEGATIVE (NEGATIVE); THC Cannibis NEGATIVE (NEGATIVE)
[2024-04-28 23:29] LABS: SARS-CoV-2 Antigen CONTROL BLUE LINE VIS/BG OK; SARS-CoV-2 Antigen Rapid Res Negative (Negative)
[2024-04-29] MEDS ORDERED: NA CHLORIDE 0.9% 250 ML ONE (00:04)
[2024-04-29] MEDS ORDERED: VANCOMYCIN 1 GM/VIAL ONE (00:04)
[2024-04-29] MEDS ORDERED: VANCOMYCIN 500 MG/VIAL ONE (00:04)
[2024-04-29] MEDS ORDERED: ALBUMIN HUMAN 25% 100 ML IV ONE (00:05)
[2024-04-29] MEDS ORDERED: NA CHLORIDE 0.9% 1,000 ML ONE ×2 (00:05→02:17)
[2024-04-29 00:10] LABS: Albumin 3.2 g/dL (3.4-5.0); Albumin/Globulin Ratio 0.9 (1.1-1.8); Anion Gap 14.8 mEq/L (5.0-15.0); Bilirubin Total 1.7 mg/dL (0.2-1.0); Globulin 3.7 g/dL (2.3-3.5); Protein, Total 6.9 g/dL (6.4-8.2)
[2024-04-29 00:11] LABS: Potassium 3.8 mEq/L (3.5-5.1)
[2024-04-29 00:38] LABS: Band Neutrophils 42 % (0-1); Differential Total Cells Count 100; Lymphocytes 2 % (15-42); Metamyelocytes 4 % (0-0); Monocytes 2 % (0-10); Reactive Lymphocytes 2 %; Segmented Neutrophils 48 % (40-80)
[2024-04-29 00:39] LABS: Anisocytosis 1+; Blood Morphology Comment NOTED (NOT SEEN); Platelet Estimate ADEQ
[2024-04-29 04:59] LABS: Anion Gap 9.5 mEq/L (5.0-15.0)
[2024-04-29 05:00] LABS: Potassium 3.5 mEq/L (3.5-5.1)
--- NOTE | 2024-04-29 05:06 | ER ---
Nurse's Notes [facility] Name: Harvey Wyatt Age: 28 yrs Sex: Male : 1995 Arrival Date: 04/28/2024 Time: 21:24 Bed 8 Private MD: Diagnosis: Acute febrile illness, acute hyperglycemia associated with type 2 diabetes. Acute systemic viral illness, Presentation: 04/28 21:43 Chief complaint: Patient states: My blood sugar was in the 500's at home. I took 35 jb4 units of 70/30 at 7pm. Coronavirus screen: At this time, the client does not indicate any symptoms associated with coronavirus-19. Ebola Screen: No symptoms or risks identified at this time. Initial Sepsis Screen: Does the patient meet any 2 criteria? RR > 20 per min. Temp <36.0*C (96.8*F)) or > 38.3*C (100.9*F). HR > 90 bpm. Yes Does the patient have a suspected source of infection? No. Patient's initial sepsis screen is negative. If YES to both, name of provider notified: Alejandro Ortiz MD Risk Assessment: Do you want to hurt yourself or someone else? Patient reports no desire to harm self or others. Onset of symptoms was April 28, 2024. Transition of care: patient was not received from another setting of care. 21:43 Method Of Arrival: Ambulatory jb4 21:43 Acuity: BINDU 2 jb4 Historical: - Allergies: 21:45 No Known Allergies; jb4 - PMHx: 21:45 Asthma; Diabetes - IDDM; jb4 - PSHx: 21:45 Cholecystectomy; jb4 - Immunization history:: Adult Immunizations up to date. - Infectious Disease History:: Denies. - Social history:: Smoking status: Patient denies any tobacco usage or history of. - Family history:: not pertinent. Screenin:27 [facility] ED Fall Risk Assessment (Adult) History of falling in the last 3 months, ha1 including since admission No falls in past 3 months (0 pts) Confusion or Disorientation No (0 pts) Intoxicated or Sedated No (0 pts) Impaired Gait No (0 pts) Mobility Assist Device Used No (0 pt) Altered Elimination No (0 pt) Score/Fall Risk Level 0 - 2 = Low Risk Oriented to surroundings, Maintained a safe environment, Educated pt \T\ family on fall prevention, incl call for assistance when getting out of bed, Assessed \T\ reinforced patient's understanding of fall precautions, Hourly rounding (assess needs \T\ fall precautionary measures) done, Used ambulatory aids as needed (educated on \T\ assisted with), Used gait belt as appropriate. Abuse screen: Denies threats or abuse. Nutritional screening: No deficits noted. Tuberculosis screening: No symptoms or risk factors identified. Assessment: 22:27 Reassessment: Patient appears in no apparent distress at this time. Patient and/or ha1 family updated on plan of care and expected duration. Pain level reassessed. Patient is alert, oriented x 3, equal unlabored respirations, skin warm/dry/pink. General: Appears in no apparent distress. comfortable, Behavior is calm, cooperative, appropriate for age, Smells of ketones, Reports chills for fever for. Pain: Denies pain. Neuro: No deficits noted. Level of Consciousness is awake, alert, obeys commands, Oriented to person, place, time, situation, Appropriate for age. Cardiovascular: Denies chest pain, Heart tones S1 S2 present Capillary refill < 3 seconds in bilateral fingers toes Patient's skin is warm and dry. Rhythm is sinus tachycardia. Respiratory: Airway is patent Trachea midline Respiratory effort is even, unlabored, Respiratory pattern is regular, symmetrical, Breath sounds are clear bilaterally. GI: Abdomen is flat, non-distended, Bowel sounds present X 4 quads. Reports nausea, HIGH BLOOD SUGAR. : Urine is clear, Reports painful bladder when it gets full. EENT: No signs and/or symptoms were reported regarding the EENT system. Derm: No signs and/or symptoms reported regarding the dermatologic system. Musculoskeletal: No signs and/or symptoms reported regarding the musculoskeletal system. 23:42 Reassessment: Patient appears in no apparent distress at this time. Patient and/or bm8 family updated on plan of care and expected duration. Pain level reassessed. Patient is alert, oriented x 3, equal unlabored respirations, skin warm/dry/pink. General: Appears in no apparent distress. comfortable, Behavior is drowsy. Pain: Denies pain. Neuro: No deficits noted. Level of Consciousness is alert, obeys commands, lethargic, Oriented to person, place, time, situation, Appropriate for age. Cardiovascular: Denies chest pain, Heart tones S1 S2 present Capillary refill < 3 seconds in bilateral fingers toes Patient's skin is warm and dry. Rhythm is sinus tachycardia. Respiratory: Airway is patent Trachea midline Respiratory effort is even, unlabored, Respiratory pattern is regular, symmetrical, Breath sounds are clear bilaterally. 04/29 01:08 Reassessment: Patient appears in no apparent distress at this time. Patient and/or bm8 family updated on plan of care and expected duration. Pain level reassessed. Patient is alert, oriented x 3, equal unlabored respirations, skin warm/dry/pink. Patient denies pain at this time. Patient states feeling better. Patient states symptoms have improved. 02:46 Reassessment: No changes from previously documented assessment. Patient and/or family bm8 updated on plan of care and expected duration. Pain level reassessed. Patient is alert, oriented x 3, equal unlabored respirations, skin warm/dry/pink. Patient denies pain at this time. Patient states feeling better. Patient states symptoms have improved. 05:19 Reassessment: Patient appears in no apparent distress at this time. Patient and/or bm8 family updated on plan of care and expected duration. Pain level reassessed. Patient is alert, oriented x 3, equal unlabored respirations, skin warm/dry/pink. Patient denies pain at this time. Patient states feeling better. Patient states symptoms have improved. Vital Signs: 04/28 21:43 BP 111 / 67; Pulse 128; Resp 24; Temp 102.5(O); Pulse Ox 98% on R/A; Weight 70.31 kg jb4 (R); Height 5 ft. 5 in. (R); 22:27 BP 93 / 47; Pulse 115; Resp 29; Temp 102.4; Pulse Ox 96% ; Pain 0/10; ha1 23:42 BP 80 / 36; Pulse 113; Resp 23; Temp 100.2; Pulse Ox 94% ; Pain 0/10; bm8 04/29 01:08 BP 91 / 46; Pulse 102; Resp 20; Temp 99.2; Pulse Ox 95% ; Pain 0/10; bm8 02:46 BP 107 / 70; Pulse 104; Resp 19; Temp 98.8; Pulse Ox 98% ; Pain 0/10; bm8 05:19 BP 124 / 65; Pulse 110; Resp 20; Temp 98.8; Pulse Ox 97% on R/A; Pain 0/10; bm8 04/28 21:43 Body Mass Index 25.79 (70.31 kg, 165.1 cm) jb4 22:27 Pain Scale: Adult ha1 23:42 Pain Scale: Adult bm8 04/29 01:08 Pain Scale: Adult bm8 02:46 Pain Scale: Adult bm8 05:19 Pain Scale: Adult bm8 Lima Coma Score: 04/28 22:27 Eye Response: spontaneous(4). Motor Response: obeys commands(6). Verbal Response: ha1 oriented(5). Total: 15. 23:42 Eye Response: spontaneous(4). Motor Response: obeys commands(6). Verbal Response: bm8 oriented(5). Total: 15. 23:56 Eye Response: spontaneous(4). Motor Response: obeys commands(6). Verbal Response: sp4 oriented(5). Total: 15. 04/29 01:08 Eye Response: spontaneous(4). Motor Response: obeys commands(6). Verbal Response: bm8 oriented(5). Total: 15. 02:46 Eye Response: spontaneous(4). Motor Response: obeys commands(6). Verbal Response: bm8 oriented(5). Total: 15. 05:19 Eye Response: spontaneous(4). Motor Response: obeys commands(6). Verbal Response: bm8 oriented(5). Total: 15. ED Course: 04/28 21:27 Patient arrived in ED. gm2 21:32 Alejandro Ortiz MD is Attending Physician. sp4 21:45 Triage completed. jb4 21:45 Arm band placed on right wrist. jb4 22:00 First set of blood cultures drawn by me. oe 22:15 Second set of blood cultures drawn by me. oe 22:23 Chest Single View XRAY In Process Unspecified. EDMS 22:23 Inserted saline lock: 20 gauge in right antecubital area, using aseptic technique. oe Blood collected. Flushed with 10 mL NS. 22:24 Initial lab(s) drawn, by me, sent to lab. oe 22:25 CBC with Diff Sent. vk 22:25 CMP Sent. vk 22:25 Lipase Sent. vk 22:26 Urine Drug Screen Sent. vk 22:26 Urinalysis W/Microscopic Sent. vk 22:26 Blood Culture Adult (2) Sent. vk 22:27 Patient has correct armband on for positive identification. Placed in gown. Bed in low ha1 position. Call light in reach. Side rails up X2. Adult w/ patient. Client placed on continuous cardiac and pulse oximetry monitoring. NIBP monitoring applied. monitoring engineer on. Pulse ox on. NIBP on. Door closed. Noise minimized. Pillow given. Verbal reassurance given. Head of bed elevated. 22:27 No provider procedures requiring assistance completed. Patient maintains SpO2 ha1 saturation greater than 95% on room air. 22:37 Huan Fabian, RN is Primary Nurse. bm8 04/29 05:19 Provided Education on: post er care. bm8 05:19 IV discontinued, intact, bleeding controlled, No redness/swelling at site. Pressure bm8 dressing applied. Administered Medications: 04/28 22:07 Drug: Insulin Regular Human IVP 10 units IVP once {Co-Signature: dd2 (RICHAR SANDOVAL Malissa RN).} Route: IVP; Site: right antecubital; 22:41 Follow up: Response: No adverse reaction bm8 22:26 Drug: NS 0.9% IV (30 ml/kg) 30 ml/kg IV at bolus once; Sepsis Protocol; to be given as ha1 a bolus over 90 minutes Route: IV; Rate: bolus; Site: right antecubital; 23:44 Follow up: Response: No adverse reaction; IV Status: Completed infusion; IV Intake: bm8 2000ml 22:26 Drug: Ondansetron IVP 4 mg IVP once; over 2 minutes Route: IVP; Site: right antecubital;ha1 22:41 Follow up: Response: No adverse reaction bm8 22:26 Drug: Acetaminophen PO 1000 mg PO once Route: PO; ha1 22:40 Follow up: Response: No adverse reaction bm8 22:26 Drug: Ibuprofen PO 800 mg PO once Route: PO; ha1 22:40 Follow up: Response: No adverse reaction bm8 22:26 Drug: Promethazine PO 25 mg PO once Route: PO; ha1 22:40 Follow up: Response: No adverse reaction bm8 22:27 Drug: Rocephin - Rocephin (cefTRIAXone) IVPB 1 grams IVPB once over 30 mins; (mix in 50 ha1 mL NS) Route: IVPB; Infused Over: 30 mins; Site: right antecubital; 22:40 Follow up: Response: No adverse reaction; IV Status: Completed infusion; IV Intake: [id number] 04/29 00:11 Drug: vancoMYCIN IVPB 1.5 grams IVPB at calculated rate once Route: IVPB; Rate: dd2 calculated rate; Site: right antecubital; 02:45 Follow up: Response: No adverse reaction; IV Status: Completed infusion; IV Intake: bm8 250ml 00:11 Drug: NS 0.9% IV 1000 ml IV at 1 bolus Per protocol; to be given as a bolus over 60 dd2 minutes Route: IV; Rate: 1 bolus; Site: right antecubital; 02:44 Follow up: Response: No adverse reaction; IV Status: Completed infusion; IV Intake: bm8 1000ml 00:12 Drug: Albumin IVPB 25 grams 100 ml IVPB once; (Note: Albumin 25% concentration) Volume: dd2 100 ml; Route: IVPB; Site: right antecubital; 01:09 Follow up: Response: No adverse reaction; IV Status: Completed infusion; IV Intake: bm8 100ml 02:44 Drug: NS 0.9% IV 1000 ml IV at 1 bolus Per protocol; to be given as a bolus over 60 bm8 minutes Route: IV; Rate: 1 bolus; Site: right forearm; 05:21 Follow up: Response: No adverse reaction; IV Status: Completed infusion; IV Intake: bm8 1000ml 05:21 Drug: Acetaminophen PO 1000 mg PO once Route: PO; 8 05:21 Follow up: Response: No adverse reaction 8 05:21 Drug: Ibuprofen PO 800 mg PO once Route: PO; bm8 05:21 Follow up: Response: No adverse reaction [facility] Medication: 04/28 22:27 VIS not applicable for this client. ha1 Intake: 22:40 IV: 10ml; Total: 10ml. bm8 23:44 IV: 2000ml; Total: 2010ml. bm8 04/29 01:09 IV: 100ml; Total: 2110ml. bm8 02:44 IV: 1000ml; Total: 3110ml. bm8 02:45 IV: 250ml; Total: 3360ml. bm8 05:21 IV: 1000ml; Total: 4360ml. bm8 Outcome: 05:05 Discharge ordered by . sp4 05:19 Discharged to home ambulatory, bm8 05:19 Condition: stable 05:19 Discharge instructions given to patient, Instructed on discharge instructions, follow up and referral plans. medication usage, safety practices, Demonstrated understanding of instructions, follow-up care, medications, Prescriptions given X 3, 05:22 Patient left the ED. bm8 Signatures: Dispatcher [employer] EDMS Jerson Fontaine, RN RN jb4 Evan Lloyd Heidy, RN RN ha1 Alejandro Ortiz MD MD sp4 Jenny Georges Vivian vk McDonald, Brad RN RN bm8 RICHAR SANDOVAL RN RN dd2 RICHAR SANDOVAL RN dd2
--- NOTE | 2024-04-29 05:06 | EDPHYS ---
Physician Documentation [facility] Name: Harvey Wyatt Age: 28 yrs Sex: Male : 1995 Arrival Date: 04/28/2024 Time: 21:24 Bed 8 Private MD: ED Physician Alejandro Ortiz HPI: 04/28 21:32 This 28 yrs old Male presents to ER via Unassigned with complaints of High sp4 Blood Sugar. 23:56 Patient presents with acute onset of fever generalized weakness and feeling unwell sp4 overall. Patient had has history of poorly controlled diabetes also history of asthma. 04/30 03:50 . sp4 Historical: - Allergies: 04/28 21:45 No Known Allergies; jb4 - PMHx: 21:45 Asthma; Diabetes - IDDM; jb4 - PSHx: 21:45 Cholecystectomy; jb4 - Immunization history:: Adult Immunizations up to date. - Infectious Disease History:: Denies. - Social history:: Smoking status: Patient denies any tobacco usage or history of. - Family history:: not pertinent. ROS: 23:56 Constitutional: Positive fever, positive generalized weakness, positive elevated blood sp4 sugar 23:56 All other systems are negative, Exam: 23:56 Constitutional: This is a well developed, well nourished patient who is awake, patient sp4 is uncomfortable appearing, febrile and tachycardic but nontoxic-appearing. Head/Face: Normocephalic, atraumatic. Eyes: Pupils equal round and reactive to light, extra-ocular motions intact. Lids and lashes normal. Conjunctiva and sclera are not injected. Cornea within normal limits. Periorbital areas with no swelling, redness, or edema. ENT: Nares patent. No nasal discharge, no septal abnormalities noted. Tympanic membranes are normal and external auditory canals are clear. Oropharynx with no redness, swelling, or masses, exudates, or evidence of obstruction, uvula midline. Mucous membranes moist. Neck: Trachea midline, no thyromegaly or masses palpated, and no cervical lymphadenopathy. Supple, full range of motion without nuchal rigidity, or vertebral point tenderness. Chest/axilla: Normal chest wall appearance and motion. Nontender with no deformity. No lesions are appreciated. Cardiovascular: Regular rate and rhythm with a normal S1 and S2. No gallops, murmurs, or rubs. Normal PMI, no JVD. No pulse deficits. Respiratory: Lungs have equal breath sounds bilaterally, clear to auscultation and percussion. No rales, rhonchi or wheezes noted. No increased work of breathing, no retractions or nasal flaring. Abdomen/GI: Soft, with normal bowel sounds. No distension or tympany. No guarding or rebound. No evidence of tenderness throughout. Back: No spinal tenderness. No costovertebral tenderness. Skin: Warm, dry with normal turgor. Normal color with no rashes, no lesions, and no evidence of cellulitis. MS/ Extremity: Pulses equal, no cyanosis. Neurovascular intact. Full, normal range of motion. Neuro: Awake and alert, GCS 15, oriented to person, place, time, and situation. Cranial nerves II-XII grossly intact. Motor strength 5/5 in all extremities. Sensory grossly intact. Psych: Awake, alert, with orientation to person, place and time. Behavior, mood, and affect are within normal limits 23:58 ECG was reviewed by the Attending Physician. EKG at 2214 sinus tachycardia rate 117 sp4 left axis deviation, otherwise normal. Vital Signs: 21:43 BP 111 / 67; Pulse 128; Resp 24; Temp 102.5(O); Pulse Ox 98% on R/A; Weight 70.31 kg jb4 (R); Height 5 ft. 5 in. (R); 22:27 BP 93 / 47; Pulse 115; Resp 29; Temp 102.4; Pulse Ox 96% ; Pain 0/10; ha1 23:42 BP 80 / 36; Pulse 113; Resp 23; Temp 100.2; Pulse Ox 94% ; Pain 0/10; bm8 04/29 01:08 BP 91 / 46; Pulse 102; Resp 20; Temp 99.2; Pulse Ox 95% ; Pain 0/10; bm8 02:46 BP 107 / 70; Pulse 104; Resp 19; Temp 98.8; Pulse Ox 98% ; Pain 0/10; bm8 05:19 BP 124 / 65; Pulse 110; Resp 20; Temp 98.8; Pulse Ox 97% on R/A; Pain 0/10; bm8 04/28 21:43 Body Mass Index 25.79 (70.31 kg, 165.1 cm) jb4 22:27 Pain Scale: Adult ha1 23:42 Pain Scale: Adult bm8 04/29 01:08 Pain Scale: Adult bm8 02:46 Pain Scale: Adult bm8 05:19 Pain Scale: Adult bm8 Lima Coma Score: 04/28 22:27 Eye Response: spontaneous(4). Motor Response: obeys commands(6). Verbal Response: ha1 oriented(5). Total: 15. 23:42 Eye Response: spontaneous(4). Motor Response: obeys commands(6). Verbal Response: bm8 oriented(5). Total: 15. 23:56 Eye Response: spontaneous(4). Motor Response: obeys commands(6). Verbal Response: sp4 oriented(5). Total: 15. 04/29 01:08 Eye Response: spontaneous(4). Motor Response: obeys commands(6). Verbal Response: bm8 oriented(5). Total: 15. 02:46 Eye Response: spontaneous(4). Motor Response: obeys commands(6). Verbal Response: bm8 oriented(5). Total: 15. 05:19 Eye Response: spontaneous(4). Motor Response: obeys commands(6). Verbal Response: bm8 oriented(5). Total: 15. MDM: 04/28 21:45 Medical Screening Exam initiated sp4 23:19 ED course: EXAM: Chest Single View HISTORY: fever, COMPARISON: 06/08/2023 FINDINGS: sp4 LUNGS/PLEURA: The lungs are clear. No pleural effusions or pneumothorax. No pulmonary edema. MEDIASTINUM: The mediastinal silhouette is within normal limits. CARDIAC: The cardiac silhouette is within normal limits. UPPER ABDOMEN: No significant abnormality. BONES: No acute abnormality. LINES/TUBES/OTHER: N/A IMPRESSION: No evidence of acute cardiopulmonary disease.. 04/30 03:50 Differential diagnosis: Rhodes's syndrome, DKA, hyperthyroidism, new onset diabetes, sp4 thyroid storm. Data reviewed: vital signs, nurses notes, lab test result(s), EKG, radiologic studies, plain films. Consideration of Admission/Observation Escalation of care including admission/observation considered. ED course: Patient has improved symptomatically. Stable for discharge home. Advised diligent fever control.. 04/28 21:33 Order name: CBC with Diff; Complete Time: 00:55 sp4 04/28 21:33 Order name: CMP; Complete Time: 00:17 sp4 04/28 21:33 Order name: Lipase; Complete Time: 00:17 4 04/28 21:42 Order name: Blood Culture Adult (2) 4 04/28 21:43 Order name: BETA HYDROXYBUTYRATE; Complete Time: 23:20 4 04/28 21:43 Order name: Lactate w/ 2H reflex if indic.; Complete Time: 23:45 4 04/28 21:43 Order name: PT-INR; Complete Time: 23:20 4 04/28 21:43 Order name: CRP; Complete Time: 23:20 [facility] 04/28 21:43 Order name: Influenza Screen (a \T\ B); Complete Time: 23:45 4 04/28 21:43 Order name: SARS RAPID; Complete Time: 23:45 4 04/28 21:43 Order name: Urinalysis W/Microscopic; Complete Time: 23:20 4 04/28 21:47 Order name: Urine Drug Screen; Complete Time: 23:20 4 04/28 21:51 Order name: Glucose, Ancillary Testing; Complete Time: 21:53 EDMS 04/28 22:59 Order name: Manual Differential; Complete Time: 00:55 EDMS 04/28 23:53 Order name: Glucose, Ancillary Testing; Complete Time: 00:00 EDMS 04/28 23:55 Order name: Glucose, Ancillary Testing EDMS 04/29 00:56 Order name: BMP; Complete Time: 05:04 4 04/28 21:45 Order name: Chest Single View XRAY; Complete Time: 22:41 sp4 04/28 21:33 Order name: IV Saline Lock; Complete Time: 22:25 sp4 04/28 21:33 Order name: Labs collected and sent; Complete Time: 22:25 4 04/28 21:54 Order name: EKG - Nurse/Tech; Complete Time: 22:25 vk EC/21 22:14 Rate is 117 beats/min. Rhythm is regular, Sinus tachycardia. Left axis deviation noted. sp4 WI interval is normal. QRS interval is normal. QT interval is normal. No Q waves. T waves are Normal. No ST changes noted. Clinical impression: No evidence of ischemia. Interpreted by me. Reviewed by me. Administered Medications: 22:07 Drug: Insulin Regular Human IVP 10 units IVP once {Co-Signature: dd2 (RICHAR SANDOVAL RN).} Route: IVP; Site: right antecubital; 22:41 Follow up: Response: No adverse reaction bm8 22:26 Drug: NS 0.9% IV (30 ml/kg) 30 ml/kg IV at bolus once; Sepsis Protocol; to be given as ha1 a bolus over 90 minutes Route: IV; Rate: bolus; Site: right antecubital; 23:44 Follow up: Response: No adverse reaction; IV Status: Completed infusion; IV Intake: bm8 2000ml 22:26 Drug: Ondansetron IVP 4 mg IVP once; over 2 minutes Route: IVP; Site: right antecubital;ha1 22:41 Follow up: Response: No adverse reaction bm8 22:26 Drug: Acetaminophen PO 1000 mg PO once Route: PO; ha1 22:40 Follow up: Response: No adverse reaction bm8 22:26 Drug: Ibuprofen PO 800 mg PO once Route: PO; ha1 22:40 Follow up: Response: No adverse reaction bm8 22:26 Drug: Promethazine PO 25 mg PO once Route: PO; ha1 22:40 Follow up: Response: No adverse reaction bm8 22:27 Drug: Rocephin - Rocephin (cefTRIAXone) IVPB 1 grams IVPB once over 30 mins; (mix in 50 ha1 mL NS) Route: IVPB; Infused Over: 30 mins; Site: right antecubital; 22:40 Follow up: Response: No adverse reaction; IV Status: Completed infusion; IV Intake: [id number] 04/29 00:11 Drug: vancoMYCIN IVPB 1.5 grams IVPB at calculated rate once Route: IVPB; Rate: dd2 calculated rate; Site: right antecubital; :45 Follow up: Response: No adverse reaction; IV Status: Completed infusion; IV Intake: bm8 250ml 00:11 Drug: NS 0.9% IV 1000 ml IV at 1 bolus Per protocol; to be given as a bolus over 60 dd2 minutes Route: IV; Rate: 1 bolus; Site: right antecubital; :44 Follow up: Response: No adverse reaction; IV Status: Completed infusion; IV Intake: bm8 1000ml 00:12 Drug: Albumin IVPB 25 grams 100 ml IVPB once; (Note: Albumin 25% concentration) Volume: dd2 100 ml; Route: IVPB; Site: right antecubital; 01:09 Follow up: Response: No adverse reaction; IV Status: Completed infusion; IV Intake: bm8 100ml 02:44 Drug: NS 0.9% IV 1000 ml IV at 1 bolus Per protocol; to be given as a bolus over 60 bm8 minutes Route: IV; Rate: 1 bolus; Site: right forearm; 05:21 Follow up: Response: No adverse reaction; IV Status: Completed infusion; IV Intake: bm8 1000ml 05:21 Drug: Acetaminophen PO 1000 mg PO once Route: PO; bm8 05:21 Follow up: Response: No adverse reaction bm8 05:21 Drug: Ibuprofen PO 800 mg PO once Route: PO; bm8 05:21 Follow up: Response: No adverse reaction bm8 Disposition Summary: 04/29/24 05:05 Discharge Ordered Notes: Location: Home sp4 Problem: new sp4 Symptoms: have improved sp4 Condition: Stable sp4 Diagnosis - Acute febrile illness, acute hyperglycemia associated with type 2 diabetes. Acute sp4 systemic viral illness, Followup: sp4 - With: Private Physician - When: 7 - 10 days - Reason: Recheck today's complaints Discharge Instructions: - Discharge Summary Sheet sp4 - Clear Liquid Diet, Adult, [id number] sp4 Forms: - Work release form sp4 - Patient Portal Instructions sp4 Prescriptions: - dextromethorphan-guaifenesin 20-400 mg Oral tablet - take 1 tablet ORAL route 4 times per day as needed for cough; 40 tablet; sp4 Refills: 0, Product Selection Permitted - Novolin 70/30 U-100 Insulin 100 unit/mL (70-30) Subcutaneous suspension - inject 30 unit SUBCUTANEOUS route 2 times per day for 30 days Take as directed; sp4 10 milliliter; Refills: 0, Product Selection Permitted - Ibuprofen 800 mg Oral Tablet - take 1 tablet ORAL route every 8 hours As needed take with food; 30 tablet; sp4 Refills: 0, Product Selection Permitted - ondansetron 8 mg Oral Tablet,disintegrating - take 1 tablet ORAL route every 8 hours PRN nausea; 30 tablet; Refills: 0, sp4 Product Selection Permitted Signatures: Dispatcher [employer] EDMS Jerson Fontaine, RN RN jb4 Maggie Almanza, RN RN ha1 Alejandro Ortiz MD MD sp4 Tori Ortega Brad, RN RN bm8 RICHAR SANDOVAL RN RN dd2 RICHAR SANDOVAL RN dd2 Corrections: (The following items were deleted from the chart) 04/28 21:42 21:42 BLOOD CULTURE*+BA.LAB.BRZ ordered. EDMS EDMS 21:45 21:45 Chest Single View+RAD.RAD.BRZ ordered. EDMS EDMS 21:48 21:48 URINE DRUG SCREEN+UC.LAB.BRZ ordered. EDMS EDMS 04/29 00:56 00:56 BASIC METABOLIC PANEL+C.LAB.BRZ ordered. EDMS EDMS
[2024-04-29] MEDS ORDERED: ACETAMINOPHEN 500 MG TAB ONE (05:07)
[2024-04-29] MEDS ORDERED: IBUPROFEN 400 MG TAB ONE (05:07)
[2024-04-29 05:49] VITALS: TEMP 98.8
[2024-04-29 05:50] VITALS: BP 124/65; O2SAT 97
--- NOTE | 2024-04-30 12:58 | EKG ---
Test Date: 2024-04-28 Test Time: 22:14:25 Waste Management Specialist: DEREJE MEASUREMENT RESULTS: Intervals: Rate: 117 VT: 132 QRSD: 84 QT: 328 QTc: 457 [place]: P: 48 VT: 132 QRS: 58 T: 9 INTERPRETIVE STATEMENTS: * Pediatric ECG analysis * Normal sinus rhythm Left axis deviation Left ventricular hypertrophy Compared to ECG 04/28/2024 22:10:28 No significant changes Electronically Signed On 04-30-24 12:58:[address] DRILL OPERATOR by Guillermo Macdonald
--- NOTE | 2024-04-30 12:58 | EKG ---
Test Date: 2024-04-28 Test Time: 22:10:28 Global Marketing Specialist: DEREJE MEASUREMENT RESULTS: Intervals: Rate: 118 [place]: 132 QRSD: 82 QT: 330 QTc: 462 Index: P: 47 AZ: 132 QRS: 56 T: 12 INTERPRETIVE STATEMENTS: * Pediatric ECG analysis * Normal sinus rhythm Left axis deviation Left ventricular hypertrophy Borderline Prolonged QT, may be secondary to QRS abnormality Compared to ECG 10/08/2022 22:16:33 Left-axis deviation now present Left ventricular hypertrophy now present Electronically Signed On 04-30-24 12:58:08 OUTSOLE LEVELER by Guillermo Macdonald
== END 2024-04-29 05:22 | disposition home or self-care (01) ==
LOC: ER 21:24
DX: B34.9 Viral infection, unspecified (principal); E11.65 Type 2 diabetes mellitus with hyperglycemia; Z11.52 Encounter for screening for COVID-19
CPT/HCPCS: 36415; 71045; 80048; 80053; 80307; 81001; 82010; 82947; 83605; 83690; 85025; 85610; 86140; 87040; 87804; 87811; 93005; J0696; J2405; J7030; J7050; P9047; Q0169

== ENCOUNTER 2024-04-29 21:32 | Inpatient (IN) | payer SELFPAY ==
--- OUTSIDE RECORDS SUMMARY | 2024-04-29 21:35 | XMS REPORT | Continuity of Care Document ---
Author Name Unknown Address [address] [facility] [address] [place] [address] [facility] thconnect Address [address] [facility]. [address] [place] [address] Care Team Providers Care Stencil Inspector Name Role Phone PCP, PATIENT DOES NOT HAVE A Primary Care Physic dominga Unavailable Naseem Mckeon MD Attending Clinician [phone] NASEEM MCKEON Attending Clinician Unavailable Espinoza MARCUS, Melina Garrett Attending Clinician Unavailab le Only, Ang Db Test Attending Clinician UnavailLinda White Attending Clinician [phone] Mc Juarez Attending Clinician [phone] MC ATKINSON Attending Clinician Unavailable NASEEM MCKEON Admitting Clinician Unavailable Payers Payer Name Policy Type Policy Number Effective Date Expirati on Date Source Allergies, Adverse Reactions, Alerts Allergy Name Allergy Type Status Severity Reaction(s) Onset Date Inactive Date Treating Clinician Comments Source NO KNOWN ALLERGIE S Drug Class Active [facility] Social History Social Habit Start Date Stop Date Quantity Comments Source Exposure to SARS-CoV-2 (event) Yes [facility] Sex Assigned At 1995 00:00:00 1995 00:00:00 [facility] Smoking Status Start Date Stop Date Source Tobacco smoking consumption unknown [facility] Medications Ordered Medication Name Filled Medication Name Start Date Stop Date Current Medication? Ordering Clinician Indication Dosage Frequency Signature (SIG) Comments Components Source aspirin tablet 325 mg 10-07 10:15: 00 10-07 09:30 :00 No 325mg 325 mg, Oral, ONCE NOW, 1 dose, On Sat10/07/22 at 0515, STAT [facility] iopamidol (ISOVUE 370-500 mL) injection 100 mL 10-07 10:15: 00 10-07 10:15 :00 No [id number] 100mL 100 mL, Intravenou s, ONCE, 1 dose, On Sat10/07/22 at 0515, Routine [facility] morpHINE (4 mg/mL) injection 4 mg 10-07 09:00: 00 10-07 08:04 :00 No 4mg 4 mg, Slow IV Push, ONCE, 1 dose, On Sat10/07/22 at 0400, STAT [facility] NaCl 0.9% (NS) bolus infusion 1,000 mL 10-07 08:45: 00 10-07 09:59 :00 No 1000mL at 999 mL/hr, 1,000 mL, IV Piggyback, ONCE, 1 dose, On Sat10/07/22 at 0345, STAT [facility] famotidine (PEPCID (PF)) injection 20 mg 10-07 08:00: 00 10-07 08:15 :00 No 20mg 20 mg, Slow IV Push, ONCE, 1 dose, On Sat10/07/22 at 0300, MALENA [facility] proMETHazin e (PHENERGAN) 25 mg in NaCl 0.9% (NS) 50 mL IV piggyback 10-07 08:00: 00 10-07 08:15 :00 No 25mg 25 mg, IV Piggyback, ONCE, 1 dose, On 10/07/22 at 0300, MALENA [facility] famotidine (PEPCID) 20 mg tablet 10-07 00:00: 00 Yes [id number] 20mg Take 1 tablet by mouth in the morning and 1 tablet in the evening. [facility] proMETHazin e 25 mg tablet 10-07 00:00: 00 Yes [id number] 25mg Take 1 tablet by mouth every 6 (six) hours as needed for Nausea and Vomiting (N/V). [facility] clindamycin 150 mg capsule 09-27 00:00: 00 10-08 04:59 :00 No [id number] 450mg Take 3 capsules by mouth 3 (three) times daily for 10 days. [facility] Vital Signs Vital Name Observation Time Observation Value Comments S ource Systolic blood pressure 2022-10-07 12:00:00 138 mm[Hg] [facility] Diastolic blood pressure 2022-10-07 12:00:00 100 mm[Hg] [facility] Heart rate 2022-10-07 12:00:00 89 /min [facility] Respiratory rate 2022-10-07 12:00:00 16 /min [facility] Oxygen saturation in Arterial blood by Pulse oximetry 2022-10-07 12:00:00 100 /min [facility] Body temperature 2022-10-07 07:48:00 37 Sarah [facility] Body height 2022-10-07 07:48:00 175.3 cm [facility] Body weight 2022-10-07 07:48:00 83.915 kg [facility] BMI 2022-10-07 07:48:00 27.32 kg/m2 [facility] Systolic blood pressure 2020-09-27 06:14:00 135 mm[Hg] [facility] Diastolic blood pressure 2020-09-27 06:14:00 83 mm[Hg] [facility] Heart rate 2020-09-27 06:14:00 110 /min [facility] Body temperature 2020-09-27 06:14:00 37.06 Sarah [facility] Respiratory rate 2020-09-27 06:14:00 20 /min [facility] Body weight 2020-09-27 06:14:00 81.647 kg [facility] Oxygen saturation in Arterial blood by Pulse oximetry 2020-09-27 06:14:00 100 /min [facility] Systolic blood pressure 2020-09-27 06:14:00 135 mm[Hg] [facility] Diastolic blood pressure 2020-09-27 06:14:00 83 mm[Hg] [facility] Heart rate 2020-09-27 06:14:00 110 /min [facility] Body temperature 2020-09-27 06:14:00 37.06 Sarah [facility] Respiratory rate 2020-09-27 06:14:00 20 /min [facility] Body weight 2020-09-27 06:14:00 81.647 kg [facility] Oxygen saturation in Arterial blood by Pulse oximetry 2020-09-27 06:14:00 100 /min [facility] Procedures Procedure Date / Time Performed Performing Clinician Source XR CHEST 1 VW 2022-10-07 12:15:44 [facility]aseem [facility]on [facility] EKG-12 LEAD 2022-10-07 11:57:16 Naseem Mckeon [facility] TROPONIN I 2022-10-07 10:50:00 Naseem Mckeon [facility] URINE DRUG (IMMUNOASSAY) - COMPREHENSIVE DRUG SCREEN 2022-10-07 09:58:00 Naseem Mckeon [facility] URINALYSIS 2022-10-07 09:58:00 Naseem Mckeon [facility] CBC WITH DIFF 2022-10-07 09:29:00 [facility]aseem [facility]keon [facility] LACTIC ACID WHOLE BLOOD 2022-10-07 09:28:00 Chica Mckeon [facility] CT ANGIOGRAM ABDOMEN/PELVIS 2022-10-07 09:17:25 Naseem Mckeon [facility] CK (CREATINE KINASE) + MB 2022-10-07 08:13:00 Naseem Mckeon [facility] LIPASE 2022-10-07 08:13:00 Naseem Mckeon [facility] TROPONIN I 2022-10-07 08:13:00 Naseem Mckeon [facility] COMP. METABOLIC PANEL (68210) 2022-10-07 08:13:00 Naseem Mckeon [facility] ETHANOL 2022-10-07 08:13:00 Naseem Mckeon [facility] PROTHROMBIN TIME / INR 2022-10-07 08:13:00 Deonna Mckeon [facility] ACTIVATED PARTIAL THRMPLAS MARISOL 2022-10-07 08:13:00 Naseem Mckeon [facility] HB ABO GROUPING 2022-10-07 08:13:00 Naseem Mckeon [facility] N-TERMINAL PRO-BNP 2022-10-07 08:13:00 Naseem Mckeon [facility] NOTICE OF PRIVACY PRACTICES 2020-09-27 06:10:18 Doctor Unassigned, [place] [facility] CONSENT/REFUSAL FOR DIAGNOSIS AND TREATMENT 2020-09-27 06:09:54 Doctor Unassigned, [place] [facility] Encounters Start Date/Time End Date/Time Encounter Type Admission Type Attending [facility] Care Facility Care Department Encounter ID Source 2022-10-07 02:43:00 2022-10-07 07:42:00 Emergency Naseem Mckeon [facility] [id number] [id number] [id number] [facility] 2022-10-07 02:43:00 2022-10-07 07:42:00 Emergency X NASEEM MCKEON [facility] [[email or web address]] ERT [id number] [facility] 2021-04-20 00:00:00 2021-04-20 00:00:00 Letter (Out) Melina Doran [facility] [id number] [id number] [id number] [id number] [facility] 2021-04-20 00:00:00 2021-04-20 00:00:00 Letter (Out) Only, Ang Db Test PENDING SALE TO [facility] [id number] [id number] [id number] [id number] [facility] 2021-04-19 09:15:00 2021-04-19 09:22:34 Laboratory Only Only, Ang Db Test Linda Malik PENDING SALE TO [facility] [id number] [id number] 4.2.7.2.686 [id number] [facility] 2020-09-27 01:16:00 2020-09-27 02:44:00 Emergency Mc Atkinson [facility] [id number] [id number] 4.2.7.2.686 [id number] [facility] 2020-09-27 01:16:00 2020-09-27 02:44:00 Emergency Mc Atkinson [facility] [id number] [id number] 4.2.7.2.686 [id number] 2020-09-27 01:16:00 2020-09-27 01:16:00 Emergency X MC ATKINSON [facility] [[email or web address]] ERT [id number] [facility] Results Test Description Test Time Test Comments Results Result Co mments Source [facility] WITH [id number] 10:11:14* Test Item Value Reference Range Interpretation Comme nts WBC (test code = 6690-2) 4.41 See_Comment [Automated messa ge] The system which generated this result transmitted reference range: 4.20 - 10.70 10*3/?L. The reference range was not used to interpret this result as normal/abnormal. RBC (test code = 789-8) 4.94 See_Comment [Automated EthosGena GLSS] The system which generated this result transmitted [...] substance or condition. RDW-SD (test code = 69219-0) 34.8 fL 38.5-51.6 L RDW-CV (test code = 788-0) 12.1 % 12.1-15.4 PLT (test code = 777-3) 210 See_Comment [Automated EthosGena GLSS] The system which generated this result transmitted reference range: 150 - 328 10*3/?L. The reference range was not used to interpret this result as normal/abnormal. MPV (test code = 68891-1) 10.1 fL 9.8-13.0 NRBC/100 WBC (test code = 6731454864) 0.0 See_Comment [Automated Estech ssage] The system which generated this result transmitted reference range: 0.0 - 10.0 /100 WBCs. The reference range was not used to interpret this result as normal/abnormal. NRBC x10^3 (test code = 5069160372) See_Comment [Automated EthosGena GLSS] The system which generated this result transmitted reference range: 10*3/?L. The reference range was not used to interpret this result as normal/abnormal. GRAN MAT (NEUT) % (test code = 770-8) 80.0 % IMM GRAN % (test code = 9983096395) 0.50 % LYMPH % (test code = 736-9) 11.1 % MONO % (test code = 5905-5) 8.2 % EOS % (test code = 713-8) 0.0 % BASO % (test code = 706-2) 0.2 % GRAN MAT x10^3(ANC) (test code = 1840805091) 3.53 10*3/uL 1.99-6.95 IMM GRAN x10^3 (test code = 5795730105) 0.00-0.06 LYMPH x10^3 (test code = 731-0) 0.49 10*3/uL 1.09-3.23 L MONO x10^3 (test code = 742-7) 0.36 10*3/uL 0.36-1.02 EOS x10^3 (test code = 711-2) 0.06-0.53 L BASO x10^3 (test code = 704-7) 0.01-0.09 SPHEROCYTES (test code = 802-9) 2+ A Lab Interpretation (test code = 79533-0) Abnormal [facility] [id number] 09:56:11* Test Item Value Reference Range Interpretation Comme nts NT-proBNP (test code = 8178852293) 20 pg/mL <=125 OSWALD (test code = OSWALD) Biotin has been reported to cause a negative bias, interpret results relative to patient's use of biotin. Lab Interpretation (test code = 46114-3) Normal [facility] (CREATINE KINASE) + [id number] 09:55:51* Test Item Value Reference Range Interpretation Comme nts CK (test code = 8268216282) 46 U/L 33-194 CK-MB (test code = 4520340882) 0.57 ng/mL <=3.50 CKMB INDEX (test code = 2905088139) 1.2 % 0.0-4.0 OSWALD (test code = OSWALD) Biotin has been reported to cause a negative bias, interpret results relative to patient's use of biotin. Lab Interpretation (test code = 58466-5) Normal [facility]2023-07-02 09:01:30 ALCOHOL<10mg/dL10/07/2022 4:01 AM [facility]<10 Xvkhoill39-422 Toxic>100 Depression of DO[facility] NAPRAPATHY>400 Fatal[facility]Un[facility]TROP[facility] [id number] 08:56:28* Test Item Value Reference Range Interpretation Comme nts TROPONIN I (test code = 4973419384) 3.040 ng/mL <=0.034 H OSWALD (test code [...] of biotin. Lab Interpretation (test code = 94335-2) Abnormal [facility] METABOLIC PANEL (32962)2022-10-07 08:44:48* Test Item Value Reference Range Interpretation Comme nts NA (test code = 2059888475) 139 mmol/L 135-145 K (test code = 9185226378) 3.5 mmol/L 3.5-5.0 CL (test code = 5489571673) 104 mmol/L 98-108 CO2 TOTAL (test code = 2787747065) 17 mmol/L 23-31 L AGAP (test code = 5661528638) 18 2-16 H BUN (test code = 0934981173) 12 mg/dL 7-23 GLUCOSE (test code = 3873619196) 184 mg/dL 70-110 H CREATININE (test code = 9160067534) 0.66 mg/dL 0.60-1.25 TOTAL BILI (test code = 3907715174) 1.1 mg/dL 0.1-1.1 CALCIUM (test code = 4861411161) 9.2 mg/dL 8.6-10.6 T PROTEIN (test code = 5083635841) 7.0 g/dL 6.3-8.2 ALBUMIN (test code = 4750349575) 4.5 g/dL 3.5-5.0 ALK PHOS (test code = 3021783746) 77 U/L 34-122 ALTv (test code = 1742-6) 25 U/L 5-50 AST(SGOT) (test code = 2029703996) 20 U/L 13-40 eGFR (test code = 3281919244) 147.1 mL/min/1.73m2 OSWALD (test code = OSWALD) [...] imaging tests). Lab Interpretation (test code = 96332-6) Abnormal [facility]2023-07-02 08:44:28* Test Item Value Reference Range Interpretation Comme [facility] LIPASE (test code = 0705971412) 79 U/L 0-220 Lab Interpretation (test cod e = 35135-2) Normal [facility]ACTIV[facility] PARTIAL THRMPLAS ZRH1960-26-04 08:43:03* Test Item Value Reference Range Interpretation Comme [facility] APTT Patient (test code = 3173-2) 28 See_Comment [Automated message] The system which generated this result transmitted reference range: 23 - 38 Seconds. The reference range was not used to interpret this result as normal/abnormal. OSWALD (test code = OSWALD) The [facility] [[email or web address]] patient population mean normal value for aPTT is 30 seconds. Lab Interpretation (test code = 69435-0) Normal [facility] ResourcesProthrombin Time / [id number] 08:41:03* Test Item Value Reference Range Interpretation [...] the indications. Lab Interpretation (test code = 12034-8) Normal [facility] ResourcesType and Screen - ONCE [id number] 08:28:00* Test Item Value Reference Range Interpretation Comme nts ABO & RH (test code = 20) O Positive IAT (test code = 1185) Negative [facility]"
[2024-04-29] MEDS ORDERED: KETOROLAC 30 MG/ML INJ ONE (22:13)
[2024-04-29] MEDS ORDERED: VANCOMYCIN 1 GM/VIAL ONE (22:13)
[2024-04-29] MEDS ORDERED: ONDANSETRON 4 MG/2 ML VIAL ONE (22:13)
[2024-04-29] MEDS ORDERED: ACETAMINOPHEN 500 MG TAB ONE (22:13)
[2024-04-29] MEDS ORDERED: CEFEPIME 2 GM VIAL ONE (22:13)
[2024-04-29] MEDS ORDERED: GUAIFENESIN/DM 5 ML UCUP ONE (22:14)
[2024-04-29] MEDS ORDERED: NA CHLORIDE 0.9% 2,000 ML ONE (22:14)
[2024-04-29] MEDS ORDERED: NA CHLORIDE 0.9% 500 ML ONE (22:14)
[2024-04-29] MEDS ORDERED: NA CHLORIDE 0.9% 100 ML ONE (22:14)
--- NOTE | 2024-04-29 22:15 | RAD REPORT ---
EXAMINATION: ONE VIEW CHEST XR CLINICAL INDICATION: CHEST PAIN TECHNIQUE: Frontal chest projection is submitted. Examination is limited by patient positioning and t echnique. COMPARISON: 04/28/2024 FINDINGS: Nonspecific peribronchial thickening could represent a viral or inflammatory process. Left retrocard iac opacity could be mild atelectasis, infiltrate or aspiration. The heart is normal in size. No displaced fractures identified.
[2024-04-29 22:44] LABS: Albumin 3.2 g/dL (3.4-5.0); Albumin/Globulin Ratio 0.9 (1.1-1.8); Anion Gap 11.9 mEq/L (5.0-15.0); Bilirubin Direct 0.2 mg/dL (0-0.2); Bilirubin Total 1.2 mg/dL (0.2-1.0); Globulin 3.6 g/dL (2.3-3.5); Magnesium 1.5 mg/dL (1.6-2.4); Potassium 2.9 mEq/L (3.5-5.1); Protein, Total 6.8 g/dL (6.4-8.2)
[2024-04-29 22:45] LABS: Absolute Lymphocytes (CBC) 0.3 K/uL (0.7-4.9); Absolute Monocytes 0.4 K/uL (0.1-1.3); Absolute Neutrophil 4.3 K/uL (1.8-8.0); Basophils % 0.2 % (0-1.3); Hematocrit 44.1 % (39.6-49.0); Hemoglobin 15.7 g/dL (13.6-17.9); Lymphocytes % 6.8 % (15.3-44.8); MCH 30.1 pg (27.0-35.0); MCHC 35.7 g/dL (32.0-36.0); MCV 84.3 fL (80-100); MPV 9.5 fL (7.6-11.3); Monocytes % 7.4 % (3.3-12.3); Neutrophils % 85.6 % (41.7-73.7); Nucleated Red Blood Cells % 0.1 % (0-0); Platelets 156 thou/uL (152-406); RBC Red Blood Cell Count 5.24 M/uL (4.33-5.43); Red Cell Distribution Width 13.2 % (12.1-15.2)
[2024-04-29] MEDS ORDERED: ONDANSETRON 4 MG/2 ML VIAL IV PRN (23:47)
[2024-04-29] MEDS ORDERED: D10W 125 ML IV PRN (23:50)
[2024-04-29] MEDS ORDERED: GLUCAGON 1 MG/VIAL IM PRN (23:50)
--- NOTE | 2024-04-29 23:51 | ER ---
Nurse's Notes [facility] Name: Harvey Wyatt Age: 28 yrs Sex: Male : 1995 Arrival Date: 04/29/2024 Time: 21:32 Bed 19 Private MD: Diagnosis: Fever, unspecified;Dehydration;Severe sepsis without septic shock Presentation: 04/29 21:49 Chief complaint: Patient states: BP low at home, CP, dizzy, nauseous, pain between eyes vc1 and sensitivity to light. Coronavirus screen: Vaccine status: Patient reports receiving the 2nd dose of the covid vaccine. Client denies travel out of the [place] in the last 14 days. fatigue, fever, headache, muscle pain, nausea, Client presents with at least one sign or symptom that may indicate coronavirus-19. Ebola Screen: Patient negative for fever greater than or equal to 101.5 degrees Fahrenheit, and additional compatible Ebola Virus Disease symptoms Patient denies exposure to infectious person. Patient denies travel to an Ebola-affected area in the 21 days before illness onset. No symptoms or risks identified at this time. Initial Sepsis Screen: Does the patient meet any 2 criteria? No. Patient's initial sepsis screen is negative. Does the patient have a suspected source of infection? No. Patient's initial sepsis screen is negative. Risk Assessment: Do you want to hurt yourself or someone else? Patient reports no desire to harm self or others. Onset of symptoms is unknown. Care prior to arrival: Medication(s) given: Motrin, 800 mg, \T\1600. Activity prior to arrival: None. Mechanism of Injury: No Mechanism of Injury. Transition of care: patient was not received from another setting of care. 21:49 Method Of Arrival: Wheelchair vc1 21:49 Acuity: BINDU 3 vc1 Triage Assessment: 21:55 General: Appears in no apparent distress. uncomfortable, ill, slender, well groomed, vc1 well developed, Behavior is calm, cooperative, appropriate for age. General: Reports chills for fever for feeling ill for fatigue for. Pain: Complains of pain in center of forehead. EENT: No deficits noted. No signs and/or symptoms were reported regarding the EENT system. Reports photophobia. Neuro: Level of Consciousness is awake, alert, obeys commands, Oriented to person, place, time, situation, Appropriate for age. Cardiovascular: Reports chest pain, Capillary refill < 3 seconds Rhythm is sinus tachycardia. Respiratory: Airway is patent Respiratory effort is even, unlabored, Respiratory pattern is symmetrical, tachypnea. GI: Abdomen is flat, non-distended, Reports nausea. : No deficits noted. No signs and/or symptoms were reported regarding the genitourinary system. Derm: Skin is intact, is healthy with good turgor, Skin is dry, Skin is normal, Skin temperature is hot. Musculoskeletal: Circulation, motion, and sensation intact. Range of motion: intact in all extremities. Historical: - Allergies: 21:54 No Known Allergies; vc1 - Home Meds: 21:54 None [Active]; vc1 - PMHx: 21:54 Asthma; Diabetes - IDDM; vc1 - PSHx: 21:54 Cholecystectomy; vc1 - Immunization history:: Client reports receiving the 2nd dose of the Covid vaccine, Flu vaccine is not up to date. - Infectious Disease History:: Denies. - Social history:: Smoking status: Patient denies any tobacco usage or history of. - Family history:: not pertinent. Screenin:31 [facility] ED Fall Risk Assessment (Adult) History of falling in the last 3 months, cp4 including since admission No falls in past 3 months (0 pts) Confusion or Disorientation No (0 pts) Intoxicated or Sedated No (0 pts) Impaired Gait No (0 pts) Mobility Assist Device Used No (0 pt) Altered Elimination No (0 pt) Score/Fall Risk Level 0 - 2 = Low Risk Oriented to surroundings, Maintained a safe environment, Assessed \T\ reinforced patient's understanding of fall precautions, Hourly rounding (assess needs \T\ fall precautionary measures) done. Abuse screen: Denies threats or abuse. Denies injuries from another. Nutritional screening: No deficits noted. Tuberculosis screening: No symptoms or risk factors identified. Assessment: 23:31 General: Appears in no apparent distress. uncomfortable, Behavior is calm, cooperative, cp4 appropriate for age. Pain: Complains of pain in head Pain does not radiate. Pain currently is 8 out of 10 on a pain scale. Neuro: Level of Consciousness is awake, alert, obeys commands, Oriented to person, place, time, situation. Cardiovascular: Patient's skin is warm and dry. Cardiovascular: Rhythm is sinus tachycardia. Respiratory: Airway is patent Respiratory effort is even, unlabored. GI: Reports diarrhea. : No signs and/or symptoms were reported regarding the genitourinary system. EENT: No signs and/or symptoms were reported regarding the EENT system. Derm: No signs and/or symptoms reported regarding the dermatologic system. Musculoskeletal: No signs and/or symptoms reported regarding the musculoskeletal system. 04/30 00:56 Reassessment: Patient appears in no apparent distress at this time. Patient and/or cp4 family updated on plan of care and expected duration. Pain level reassessed. Patient is alert, oriented x 3, equal unlabored respirations, skin warm/dry/pink. Vital Signs: 04/29 21:49 BP 110 / 65; Pulse 128; Resp 24; Temp 103.2; Pulse Ox 97% ; Weight 70.31 kg; Height 5 vc1 ft. 5 in. ; 23:29 BP 118 / 56; Pulse 111; Resp 20; Pulse Ox 98% ; cp4 04/30 00:20 BP 111 / 60; Pulse 108; Resp 20; Temp 98.7; Pulse Ox 98% ; cp4 02:28 BP 97 / 55; Pulse 107; Resp 20; Pulse Ox 96% ; cp4 04/29 21:49 Body Mass Index 25.79 (70.31 kg, 165.1 cm) vc1 [place] Coma Score: 03:38 Eye Response: spontaneous(4). Motor Response: obeys commands(6). Verbal Response: sp4 oriented(5). Total: 15. ED Course: 04/29 21:34 Patient arrived in ED. mr 21:34 Alejandro Ortiz MD is Attending Physician. sp4 21:54 Triage completed. vc1 21:55 Arm band placed on left wrist. vc1 21:55 Patient has correct armband on for positive identification. Placed in gown. Bed in low vc1 position. Call light in reach. senior front end developer on. Pulse ox on. NIBP on. 21:59 XRAY Chest (1 view) In Process Unspecified. EDMS 22:04 Initial lab(s) drawn, by me, sent to lab. First set of blood cultures drawn by , cp4 Second set of blood cultures drawn by , EKG done, by ED staff, reviewed by Alejandro Ortiz MD. 22:27 Julissa Beasley is Primary Nurse. cp4 22:27 No provider procedures requiring assistance completed. Inserted saline lock: 22 gauge cp4 in right antecubital area, using aseptic technique. Blood collected. Flushed with 10 mL NS. 23:50 Jered Gibson MD is Hospitalizing Provider. sp4 04/30 00:17 Inserted saline lock: 22 gauge in left antecubital area, using aseptic technique. Blood cp4 collected. Flushed with 10 mL NS. 02:27 Provided Education on: admission. cp4 02: Patient admitted, IV remains in place. cp4 Administered Medications: 04/29 21:57 CANCELLED (Physician Discretion): ns 0.9% 1000 ml IV at 1 bolus Per protocol; to be sp4 given as a bolus over 60 minutes 21:57 CANCELLED (Physician Discretion): ns 0.9% 1000 ml IV at 1000 ml once; to be given as a sp4 bolus over 60 minutes 22:28 Drug: NS 0.9% IV (30 ml/kg) 30 ml/kg IV at bolus once; Sepsis Protocol; to be given as cp4 a bolus over 90 minutes Route: IV; Rate: bolus; Site: right antecubital; 04/30 00:17 Follow up: IV Status: Completed infusion cp4 04/29 22:28 Drug: Ondansetron IVP 8 mg IVP once; over 2 minutes Route: IVP; Site: right antecubital;cp4 04/30 00:18 Follow up: Response: No adverse reaction cp4 04/29 22:29 Drug: Ketorolac IVP 30 mg IVP once Route: IVP; Site: right antecubital; cp4 04/30 00:18 Follow up: Response: No adverse reaction cp4 04/29 21: Drug: Acetaminophen PO 1000 mg PO once Route: PO; cp4 04/30 00:18 Follow up: Response: No adverse reaction; Temperature is decreased cp4 04/29 21:29 Drug: Cefepime IVPB 2 grams IVPB at 200 ml/hr once over 30 mins; (mix in NS 100 mL) cp4 Route: IVPB; Rate: 200 ml/hr; Infused Over: 30 mins; Site: right antecubital; 23:00 Follow up: IV Status: Completed infusion cp4 23:01 Drug: vancoMYCIN IVPB 2 grams IVPB at calculated rate once Route: IVPB; Rate: cp4 calculated rate; Site: right antecubital; 04/30 01:07 Follow up: Response: No adverse reaction; IV Status: Completed infusion cp4 04/29 23:44 Not Given (Patient Refused): dextromethorphan-guaifenesinliquid 10 mg-100 mg/5 ml 20 ml cp4 PO once 04/30 00:17 Drug: Potassium PO Effervescent Tablet 50 mEq PO once; dissolve in 4 ounces of water or cp4 juice Route: PO; 00:42 Follow up: Response: No adverse reaction cp4 00:17 Drug: Potassium Chloride IV 20 mEq IV at calculated rate once; administer over 1-2 cp4 hours Route: IV; Rate: calculated rate; Site: left antecubital; 02:26 Follow up: Response: No adverse reaction; IV Status: Completed infusion cp4 01:06 Drug: Calcium Gluconate IVPB 1 grams IVPB once over 60 mins; (mix in NS 100 mL) Route: cp4 IVPB; Infused Over: 60 mins; Site: right antecubital; 02:26 Follow up: IV Status: Completed infusion cp4 01:37 Drug: Ativan IVP 1 mg IVP once Route: IVP; Site: right antecubital; vc1 02:25 Follow up: Response: No adverse reaction cp4 01:37 Drug: Ibuprofen PO 800 mg PO once Route: PO; vc1 02:26 Follow up: Response: No adverse reaction cp4 02:25 Not Given (Patient Refused): morphineor iv 4 mg IVP once over 4 mins cp4 02:25 Not Given (Patient Refused): [id number] mg PO once cp4 Medication: 04/29 23:31 VIS not applicable for this client. cp4 Outcome: 23:51 Decision to Hospitalize by Provider. sp4 04/30 02:27 Admitted to Med/surg accompanied by tech, via wheelchair, with chart, cp4 Condition: stable Instructed on the need for admit, 02:29 Patient left the ED. cp4 Signatures: Dispatcher [employer] EDNV Ayaka Perdomo, Drake Juan mr Caitie Haro, AMRIT RN vc1 Alejandro Ortiz MD MD sp4 Julissa Beasley cp4
--- NOTE | 2024-04-29 23:51 | P.HP ---
Certification for Inpatient Patient admitted to: Inpatient With expected LOS: >2 Midnights Practitioner: I am a practitioner with admitting privileges, knowledge of patient current condition, hospital course, and medical plan of care. Services: Services provided to patient in accordance with Admission requirements found in Title 42 Section 412.3 of the Code of Federal Regulations Patient History Date of Service: 04/30/24 Reason for admission: Fever, generalized weakness History of Present Illness: 28 yrs old Male with past medical history of diabetes mellitus insulin-depen dent, asthma who presented to the ER with low blood pressure and generalized weakness. Denies any chest pain or shortness of breath. Has nausea vomiting. Denies any diarrhea. No sick contacts. Patient started having fever last 2 days and has been progressively getting worse. Denies any dysuria. No runny nose. No flulike symptoms. Patient was assessed in the ER and was found to have hypokalemia and electrolyte imbalances and was admitted for further management. And also for possible acute viral syndrome Allergies No Known Allergies Allergy (Verified 10/09/22 04:02) Home medications list reviewed: Yes Home Medications: Insulin -Regular Human [Novolin -R] See Protocol SQ SEECOM 10/09/22 Famotidine [Pepcid] 40 mg PO DAILY 30 Days #30 tab 10/12/22 - Past Medical/Surgical History Diabetic: Yes Past Medical History: Reviewed- Non-Contributory -: Diabetes Past Surgical History: Reviewed- Non-Contributory Psychosocial/ Personal History: Employed, lives at home with family - Family History Mother -: Diabetes Father -: Hypertension, Diabetes - Social History Smoking Status: Never smoker Alcohol use: No CD- Drugs: No Caffeine use: No Review of Systems 10-point ROS is otherwise unremarkable Physical Examination - Vital Signs Temperature: 100.4 F Blood Pressure: 108/70 Pulse: 102 Respirations: 18 Pulse Ox (%): 94 - Physical Exam General: Alert, Oriented x3, Mild distress HEENT: Atraumatic, Normocephalic Neck: Supple Respiratory: Clear to auscultation bilaterally, Normal air movement Cardiovascular: Regular rate/rhythm, Normal S1 S2 Capillary refill: <2 Seconds Gastrointestinal: Soft and benign, W/out hepatosplenomegaly Musculoskeletal: No clubbing, No swelling Integumentary: No rashes, No tenderness/swelling Neurological: Other (Alert awake) Lymphatics: No axilla or inguinal lymphadenopathy - Studies Laboratory Data (last 24 hrs) 04/29/24 04/29/24 22:04 22:04 WBC 5.10 Hgb 15.7 D Hct 44.1 Plt Count 156 Sodium 135 L Potassium 2.9 L D BUN 11 Creatinine 0.89 Glucose 301 H Magnesium 1.5 L Total Bilirubin 1.2 H AST 57 H ALT 58 Alkaline Phosphatase 95 Assessment and Plan - Plan Hypokalemia Hyponatremia Hypotension Started on IV hydration Electrolytes replace and monitor closely under spool sander blood pressure closely Acute febrile illness Influenza A and B is negative COVID test is negative. Will obtain cultures Will monitor closely Diabetes with hyperglycemia Insulin sliding scale Will get an A1c in a.m. Hypocalcemia Hypomagnesemia Electrolytes monitored and replaced Elevated LFTs We will get an LFTs in a.m. GI/DVT prophylaxis Advanced directive full code Discharge Plan: Home Plan to discharge in: 48 Hours - Advance Directives Does patient have a Living Will: No Does patient have a Durable POA for Healthcare: No - Code Status/Comfort Care Code Status: Full Code Time Spent Managing Pts Care (In Minutes): 48
--- NOTE | 2024-04-29 23:51 | EDPHYS ---
Physician Documentation [facility] Name: Harvey Wyatt Age: 28 yrs Sex: Male : 1995 Arrival Date: 04/29/2024 Time: 21:32 Bed 19 Private MD: ED Physician Alejandro Ortiz HPI: 04/29 23:42 This 28 yrs old Male presents to ER via Wheelchair with complaints of Low BP. sp4 04/30 03:38 28-year-old male presents with worsening fever, chills, generalized weakness, body sp4 aches, and reportedly low blood pressure. Patient has history of poorly controlled diabetes mellitus and asthma. Patient was here with the same symptoms yesterday was treated and released. . Historical: - Allergies: 04/29 21:54 No Known Allergies; vc1 - Home Meds: 21:54 None [Active]; vc1 - PMHx: 21:54 Asthma; Diabetes - IDDM; vc1 - PSHx: 21:54 Cholecystectomy; vc1 - Immunization history:: Client reports receiving the 2nd dose of the Covid vaccine, Flu vaccine is not up to date. - Infectious Disease History:: Denies. - Social history:: Smoking status: Patient denies any tobacco usage or history of. - Family history:: not pertinent. ROS: 04/30 03:38 Constitutional: Positive fever, positive chills, positive generalized weakness, sp4 positive tremors, positive low blood pressure All other systems are negative, Exam: 03:38 Constitutional: This is a well developed, well nourished patient who is awake, alert, sp4 acutely febrile male tachycardic generalized chills Head/Face: Normocephalic, atraumatic. Eyes: Pupils equal round and reactive to light, extra-ocular motions intact. Lids and lashes normal. Conjunctiva and sclera are not injected. Cornea within normal limits. Periorbital areas with no swelling, redness, or edema. ENT: Nares patent. No nasal discharge, no septal abnormalities noted. Tympanic membranes are normal and external auditory canals are clear. Oropharynx with no redness, swelling, or masses, exudates, or evidence of obstruction, uvula midline. Mucous membranes moist. Neck: Trachea midline, no thyromegaly or masses palpated, and no cervical lymphadenopathy. Supple, full range of motion without nuchal rigidity, or vertebral point tenderness. Chest/axilla: Normal chest wall appearance and motion. Nontender with no deformity. No lesions are appreciated. Cardiovascular: Regular rate and rhythm with a normal S1 and S2. No gallops, murmurs, or rubs. Normal PMI, no JVD. No pulse deficits. Respiratory: Lungs have equal breath sounds bilaterally, clear to auscultation and percussion. No rales, rhonchi or wheezes noted. No increased work of breathing, no retractions or nasal flaring. Abdomen/GI: Soft, with normal bowel sounds. No distension or tympany. No guarding or rebound. No evidence of tenderness throughout. Back: No spinal tenderness. No costovertebral tenderness. Skin: Warm, dry with normal turgor. Normal color with no rashes, no lesions, and no evidence of cellulitis. MS/ Extremity: Pulses equal, no cyanosis. Neurovascular intact. Full, normal range of motion. Neuro: Awake and alert, GCS 15, oriented to person, place, time, and situation. Cranial nerves II-XII grossly intact. Motor strength 5/5 in all extremities. Sensory grossly intact. Psych: Awake, alert, with orientation to person, place and time. Behavior, mood, and affect are within normal limits 03:38 ECG was reviewed by the Attending Physician. Sinus tachycardia rate 120. sp4 Vital Signs: 04/29 21:49 BP 110 / 65; Pulse 128; Resp 24; Temp 103.2; Pulse Ox 97% ; Weight 70.31 kg; Height 5 vc1 ft. 5 in. ; 23:29 BP 118 / 56; Pulse 111; Resp 20; Pulse Ox 98% ; cp4 04/30 00:20 BP 111 / 60; Pulse 108; Resp 20; Temp 98.7; Pulse Ox 98% ; cp4 02:28 BP 97 / 55; Pulse 107; Resp 20; Pulse Ox 96% ; cp4 04/29 21:49 Body Mass Index 25.79 (70.31 kg, 165.1 cm) vc1 [place] Coma Score: 03:38 Eye Response: spontaneous(4). Motor Response: obeys commands(6). Verbal Response: sp4 oriented(5). Total: 15. MDM: 04/29 21:36 Medical Screening Exam initiated sp4 23:47 Differential Diagnosis altered mental status, sepsis, flu, Common cold, acute systemic sp4 viral illness.. 23:51 ED course: Sepsis reevaluation complete, patient was given full 30 mL per cake septic sp4 fluid bolus.. 04/30 03:38 ED course: 28-year-old male with poorly controlled diabetes presents with acute sp4 worsening fever chills generalized weakness. Patient was here yesterday with the same symptoms.. 03:38 Data reviewed: vital signs, nurses notes, old medical records, lab test result(s), EKG, sp4 radiologic studies, plain films. 03:43 ED course: EXAMINATION: ONE VIEW CHEST XR CLINICAL INDICATION: CHEST PAIN TECHNIQUE: sp4 Frontal chest projection is submitted. Examination is limited by patient positioning and technique. COMPARISON: 04/28/2024 FINDINGS: Nonspecific peribronchial thickening could represent a viral or inflammatory process. Left retrocardiac opacity could be mild atelectasis, infiltrate or aspiration. The heart is normal in size. No displaced fractures identified.. 03:45 Consideration of Admission/Observation Patient was admitted/placed on observation. sp4 Escalation of care including admission/observation considered. Management of patient was discussed with the following: Hospitalist: Arthur ALEXANDRE . 04/29 21:35 Order name: Basic Metabolic Panel; Complete Time: 23:41 4 04/29 21:35 Order name: CBC with Diff; Complete Time: 02:20 sp4 04/29 21:35 Order name: LFT's; Complete Time: 23:41 sp4 04/29 21:35 Order name: Magnesium; Complete Time: 23:41 sp4 04/29 21:35 Order name: NT PRO-BNP; Complete Time: 23:41 sp4 04/29 21:35 Order name: Troponin HS; Complete Time: 23:41 sp4 04/29 21:52 Order name: Blood Culture Adult (2) sp4 04/29 21:52 Order name: Lactate w/ 2H reflex if indic.; Complete Time: 23:41 sp4 04/29 21:52 Order name: CRP; Complete Time: 23:41 sp4 04/29 23:06 Order name: Manual Differential; Complete Time: 02:20 EDMS 04/29 23:47 Order name: HIV Ag/Ab Combo 4 04/29 23:47 Order name: Hepatitis Panel [facility] 04/29 23:51 Order name: Urinalysis w/ reflexes EDMT 04/29 23:51 Order name: CBC with Automated Diff EDMT 04/29 23:51 Order name: CBC with Automated Diff EDMT 04/29 23:51 Order name: Comprehensive Metabolic Panel EDMT 04/29 23:51 Order name: Comprehensive Metabolic Panel [facility] 04/29 21:35 Order name: XRAY Chest (1 view); Complete Time: 23:41 sp4 04/29 21:35 Order name: EKG; Complete Time: 21:35 sp4 04/29 21:35 Order name: Cardiac monitoring; Complete Time: 22:33 sp4 04/29 21:35 Order name: EKG - Nurse/Tech; Complete Time: :33 sp4 04/29 21:35 Order name: IV Saline Lock; Complete Time: 22:33 sp4 04/29 21:35 Order name: Labs collected and sent; Complete Time: 22:33 sp4 04/29 21:35 Order name: O2 Per Protocol; Complete Time: : sp4 04/29 21:35 Order name: O2 Sat Monitoring; Complete Time: :33 sp4 EC/22 22:00 Rate is 120 beats/min. Rhythm is regular, Sinus tachycardia. QRS [place] is Normal. [place] sp4 interval is normal. QRS interval is normal. QT interval is normal. No Q waves. T waves are Normal. No ST changes noted. Clinical impression: No evidence of ischemia. Interpreted by me. Reviewed by me. Administered Medications: 21:57 CANCELLED (Physician Discretion): ns 0.9% 1000 ml IV at 1 bolus Per protocol; to be sp4 given as a bolus over 60 minutes 21:57 CANCELLED (Physician Discretion): ns 0.9% 1000 ml IV at 1000 ml once; to be given as a sp4 bolus over 60 minutes 22:28 Drug: NS 0.9% IV (30 ml/kg) 30 ml/kg IV at bolus once; Sepsis Protocol; to be given as cp4 a bolus over 90 minutes Route: IV; Rate: bolus; Site: right antecubital; 04/30 00:17 Follow up: IV Status: Completed infusion 4 04/29 22:28 Drug: Ondansetron IVP 8 mg IVP once; over 2 minutes Route: IVP; Site: right antecubital;4 04/30 00:18 Follow up: Response: No adverse reaction cp4 04/29 22:29 Drug: Ketorolac IVP 30 mg IVP once Route: IVP; Site: right antecubital; cp4 04/30 00:18 Follow up: Response: No adverse reaction cp4 04/29 22:29 Drug: Acetaminophen PO 1000 mg PO once Route: PO; cp4 04/30 00:18 Follow up: Response: No adverse reaction; Temperature is decreased cp4 04/29 22:29 Drug: Cefepime IVPB 2 grams IVPB at 200 ml/hr once over 30 mins; (mix in NS 100 mL) cp4 Route: IVPB; Rate: 200 ml/hr; Infused Over: 30 mins; Site: right antecubital; 23:00 Follow up: IV Status: Completed infusion cp4 23:01 Drug: vancoMYCIN IVPB 2 grams IVPB at calculated rate once Route: IVPB; Rate: cp4 calculated rate; Site: right antecubital; 04/30 01:07 Follow up: Response: No adverse reaction; IV Status: Completed infusion 4 04/29 23:44 Not Given (Patient Refused): dextromethorphan-guaifenesinliquid 10 mg-100 mg/5 ml 20 ml cp4 PO once 04/30 00:17 Drug: Potassium PO Effervescent Tablet 50 mEq PO once; dissolve in 4 ounces of water or cp4 juice Route: PO; 00:42 Follow up: Response: No adverse reaction cp4 00:17 Drug: Potassium Chloride IV 20 mEq IV at calculated rate once; administer over 1-2 cp4 hours Route: IV; Rate: calculated rate; Site: left antecubital; 02:26 Follow up: Response: No adverse reaction; IV Status: Completed infusion cp4 01:06 Drug: Calcium Gluconate IVPB 1 grams IVPB once over 60 mins; (mix in NS 100 mL) Route: cp4 IVPB; Infused Over: 60 mins; Site: right antecubital; 02:26 Follow up: IV Status: Completed infusion cp4 01:37 Drug: Ativan IVP 1 mg IVP once Route: IVP; Site: right antecubital; vc1 02:25 Follow up: Response: No adverse reaction cp4 01:37 Drug: Ibuprofen PO 800 mg PO once Route: PO; vc1 02:26 Follow up: Response: No adverse reaction cp4 02:25 Not Given (Patient Refused): morphineor iv 4 mg IVP once over 4 mins cp4 02:25 Not Given (Patient Refused): [id number] mg PO once cp4 Disposition Summary: 04/29/24 23:51 Hospitalization Ordered Notes: Hospitalization Status: Inpatient Admission sp4 Provider: Jered Gibson sp4 Location: Telemetry/MedSurg (Inpatient) sp4 Condition: Stable sp4 Problem: new sp4 Symptoms: have improved sp4 Bed/Room Type: Standard sp4 Room Assignment: 225(04/30/24 01:35) vc1 Diagnosis - Fever, unspecified sp4 - Dehydration sp4 - Severe sepsis without septic shock sp4 Forms: - Medication Reconciliation Form sp4 - SBAR form sp4 - Leadership Thank You Letter sp4 Critical care time excluding procedures: 03:45 Critical care time: Bedside Care: 36 minutes, Consultation: 12 minutes, Family sp4 Intervention: 12 minutes. Total time: 60 minutes Signatures: Dispatcher [employer] EDCaitie Maki RN RN vc1 Alejandro Ortiz MD MD sp4 Julissa Beasley cp4 Corrections: (The following items were deleted from the chart) 04/29 21:52 21:52 BLOOD CULTURE*+BA.LAB.BRZ ordered. EDMS EDMS 21:52 21:52 LACTATE+C.LAB.BRZ ordered. EDMS EDMS 21:52 21:52 C-REACTIVE PROTEIN+C.LAB.BRZ ordered. EDMS EDMS 21:57 21:36 NS 0.9% IV 1000 ml IV at 1 bolus Per protocol; to be given as a bolus over 60 sp4 minutes ordered. sp4 21:57 21:52 NS 0.9% IV 1000 ml IV at 1000 ml once; to be given as a bolus over 60 minutes sp4 ordered. sp4 04/30 01:35 04/29 23:51 sp4 vc1
[2024-04-29 23:55] LABS: Band Neutrophils 37 % (0-1); Differential Total Cells Count 100; Lymphocytes 10 % (15-42); Monocytes 4 % (0-10); Segmented Neutrophils 49 % (40-80)
[2024-04-29 23:56] LABS: Blood Morphology Comment NOT SEEN (NOT SEEN); Platelet Estimate ADEQ
[2024-04-30] MEDS ORDERED: POTASSIUM 25 MEQ EFFERV TAB ONE (00:06)
[2024-04-30] MEDS ORDERED: KCL 20 MEQ/100 mL IVPB 100 ML IV ONE (00:06)
[2024-04-30] MEDS ORDERED: CALCIUM GLUCONATE 1 GM IVPB 1 GM/50 ML BAG IV ONE (00:07)
[2024-04-30] MEDS ORDERED: LORazepam 2 MG/ML VIAL ONE (01:31)
[2024-04-30] MEDS ORDERED: IBUPROFEN 400 MG TAB ONE (01:32)
[2024-04-30] MEDS: NA CHLORIDE 0.9% 1,000 ML ONE (02:32)
[2024-04-30 02:35] VITALS: BMI 30.8
[2024-04-30] MEDS: NA CHLORIDE 0.9% 1,000 ML IV SCH (02:47)
[2024-04-30] MEDS: INSULIN REGULAR (HUMAN) 100 UNIT/ML SQ SCH ×2 (02:47→11:30)
[2024-04-30] MEDS: ACETAMINOPHEN 325 MG TABLET PO PRN (02:55)
[2024-04-30 03:21] VITALS: O2SAT 98
[2024-04-30 03:54] LABS: Hepatitis B Core IgM Nonreactive (Nonreactive); Hepatitis B surface AG Interp. Nonreactive (Nonreactive); Hepatitis C Virus Ab Nonreactive (Nonreactive)
[2024-04-30 03:55] LABS: HBsAG Nonreactive Report Report
[2024-04-30 04:23] LABS: Specific Gravity > 1.030 (1.005-1.030); Sqamous Epithelial <5 /HPF (None Seen); Urine Bacteria None Seen /HPF (<20); Urine Bilirubin NEGATIVE (Negative); Urine Blood Negative (Negative); Urine Clarity Clear (Clear); Urine Color Yellow (Yellow); Urine Culture Reflex Order NOT NEEDED; Urine Glucose 4+ (Over) (Negative); Urine Ketones 1+ (Negative); Urine Microscopic Reflex YN ORDER UMIC; Urine Mucus Slight /HPF (None Seen); Urine Nitrite NEGATIVE (Negative); Urine Protein 1+ (Negative); Urine RBC <5 /HPF (None Seen); Urine Urobilinogen Normal (Normal); Urine WBC <5 /HPF (<5)
[2024-04-30] MEDS: MAGNESIUM SULFATE 1 gm IVPB 1 GM/100 ML BAG IV ONE (05:19)
[2024-04-30 05:24] LABS: Absolute Lymphocytes (CBC) 0.4 K/uL (0.7-4.9); Absolute Monocytes 0.6 K/uL (0.1-1.3); Absolute Neutrophil 3.8 K/uL (1.8-8.0); Basophils % 0.4 % (0-1.3); Eosinophils % 0.1 % (0-4.4); Hematocrit 35.2 % (39.6-49.0); Hemoglobin 12.8 g/dL (13.6-17.9); Lymphocytes % 7.5 % (15.3-44.8); MCH 30.6 pg (27.0-35.0); MCHC 36.5 g/dL (32.0-36.0); MCV 83.9 fL (80-100); MPV 9.4 fL (7.6-11.3); Nucleated Red Blood Cells % 0.2 % (0-0); Platelets 124 thou/uL (152-406); RBC Red Blood Cell Count 4.19 M/uL (4.33-5.43); Red Cell Distribution Width 13.3 % (12.1-15.2)
[2024-04-30] MEDS: POTASSIUM PHOS IN 0.9 % NACL 15 MMOL/250 ML BAG IV ONE (05:27)
[2024-04-30 05:57] LABS: Albumin 2.4 g/dL (3.4-5.0); Albumin/Globulin Ratio 0.9 (1.1-1.8); Anion Gap 9.7 mEq/L (5.0-15.0); Bilirubin Total 0.9 mg/dL (0.2-1.0); Globulin 2.8 g/dL (2.3-3.5); Magnesium 1.4 mg/dL (1.6-2.4); Potassium 2.7 mEq/L (3.5-5.1); Protein, Total 5.2 g/dL (6.4-8.2)
[2024-04-30] MEDS: POTASSIUM PHOS 30 MM in NA CHLORIDE 0.9% 500 ML IV ONE (06:10)
[2024-04-30] MEDS: POTASSIUM PHOS IN 0.9 % NACL 15 MMOL/250 ML BAG IV SCH ×2 (06:30→09:25)
[2024-04-30] MEDS: CALCIUM GLUCONATE 1 GM IVPB 1 GM/50 ML BAG IV ONE (06:43)
[2024-04-30] MEDS: FLU (Fluarix Triv) TS24-25(6MOS UP)/PF 45 MCG/0.5 ML Syringe IM ONE (07:45)
[2024-04-30] MEDS: ENOXAPARIN 40 MG/0.4 ML SQ SCH (09:25)
[2024-04-30] MEDS: CEFTRIAXONE 1,000 MG in NA CHLORIDE 0.9% 50 ML IVPB SCH (13:14)
--- NOTE | 2024-04-30 17:31 | P.PN ---
Subjective Date of Service: 04/30/24 Chief Complaint: Fever, generalized weakness Patient is experiencing intermittent fever. He reports improvement in his nausea. No vomiting since admission. He reports several bouts of diarrhea, about 8 times yesterday, however the diarrhea has abated today. Patient has multiple electrolyte imbalances. Physical Examination - Vital Signs Temperature: 99.6 F Blood Pressure: 110/59 Pulse: 98 Respirations: 16 Pulse Ox (%): 97 - Studies Laboratory Data (last 24 hrs) 04/29/24 04/29/24 22:04 22:04 WBC 5.10 Hgb 15.7 D Hct 44.1 Plt Count 156 Sodium 135 L Potassium 2.9 L D BUN 11 Creatinine 0.89 Glucose 301 H Magnesium 1.5 L Total Bilirubin 1.2 H AST 57 H ALT 58 Alkaline Phosphatase 95 Assessment And Plan - Plan Physical examination General: Alert and oriented x3, NAD, HEENT: Conjunctiva not pale, anicteric sclera Neck: Supple, no elevated JVD Heart: Heart sounds 1 and 2 normal, regular rhythm, normal rate, no pedal edema Lungs: Clear to auscultation bilaterally, adequate breath sounds bilaterally, no rhonchi or crackles. Abdomen: Soft, nondistended, nontender, normal bowel sounds. Extremities: No tenderness, no deformity Skin: Normal skin turgor, no rash, no nodules or ulcers. Neuro: No focal motor deficit. Normal speech. Psychiatry: Normal mood, no agitation. Diagnosis Acute gastroenteritis Acute viral illness Sepsis Hypokalemia Hypomagnesemia Hypocalcemia Hypophosphatemia Metabolic acidosis Hyponatremia. Plan: Sepsis Acute gastroenteritis Acute viral illness Patient reports contact with household member with upper respiratory symptoms. Patient's symptoms likely related to acute viral illness with associated acute gastroenteritis. He is flagging sepsis with intermittent fever, tachycardia No evidence of UTI. Patient started on IV Rocephin Blood cultures are pending Monitor CBC and follow cultures. CRP is elevated Check procalcitonin level Metabolic acidosis Hypokalemia Hypomagnesemia Hypocalcemia Hypophosphatemia Hyponatremia. Likely related to GI fluid loss from diarrhea and vomiting. Correct electrolyte IV and orally. Aggressive IV hydration. Monitor BMP. Insulin-dependent diabetes Insulin sliding scale Start home insulin therapy once patient is able to tolerate diet. Thrombocytopenia Unknown etiology. Probably secondary to acute viral illness. Monitor CBC. Avoid anticoagulation for now. DVT prophylaxis: SCD
[2024-04-30 19:08] LABS: Anion Gap 8.2 mEq/L (5.0-15.0); Potassium 3.2 mEq/L (3.5-5.1)
[2024-04-30 19:10] LABS: Magnesium 1.8 mg/dL (1.6-2.4); Phosphorus 1.7 mg/dL (2.5-4.9)
[2024-05-01 05:31] LABS: CDIFF INTERNAL NEG CONTROL White Background (WHITE BKGD); STOOL CONSISTENCY Liquid/Semi-Solid
[2024-05-01 05:32] LABS: C.diff Antigen/Toxin Ag neg : Tox neg (NEG : NEG)
[2024-05-01 07:49] LABS: Albumin 2.4 g/dL (3.4-5.0); Albumin/Globulin Ratio 0.8 (1.1-1.8); Anion Gap 11.9 mEq/L (5.0-15.0); Bilirubin Total 0.8 mg/dL (0.2-1.0); Globulin 2.9 g/dL (2.3-3.5); Potassium 2.9 mEq/L (3.5-5.1); Protein, Total 5.3 g/dL (6.4-8.2); Thyroid Stimulating Hormone 0.919 uIU/mL (0.358-3.740)
[2024-05-01 07:57] LABS: Absolute Lymphocytes (CBC) 1.2 K/uL (0.7-4.9); Absolute Monocytes 0.8 K/uL (0.1-1.3); Absolute Neutrophil 2.2 K/uL (1.8-8.0); Basophils % 0.5 % (0-1.3); Eosinophils % 0.3 % (0-4.4); Hematocrit 31.4 % (39.6-49.0); Hemoglobin 11.5 g/dL (13.6-17.9); Lymphocytes % 27.6 % (15.3-44.8); MCV 83.8 fL (80-100); MPV 8.8 fL (7.6-11.3); Monocytes % 19.4 % (3.3-12.3); Neutrophils % 52.2 % (41.7-73.7); Nucleated Red Blood Cells % 0.1 % (0-0); Platelets 131 thou/uL (152-406); RBC Red Blood Cell Count 3.75 M/uL (4.33-5.43); Red Cell Distribution Width 13.1 % (12.1-15.2)
[2024-05-01 08:33] LABS: MCH 30.4 pg (27.0-35.0); MCHC 35.3 g/dL (32.0-36.0)
[2024-05-01] MEDS ORDERED: CALCIUM GLUC 10% INJ 9.3 MEQ in NA CHLORIDE 0.9% 100 ML IV ONE (09:12)
[2024-05-01 09:38] LABS: Magnesium 1.7 mg/dL (1.6-2.4); Phosphorus 1.9 mg/dL (2.5-4.9)
[2024-05-01] MEDS: CALCIUM GLUCONATE 1 GM IVPB 1 GM/50 ML BAG IV SCH (10:28)
[2024-05-01] MEDS: POTASSIUM PHOS 30 MM in NA CHLORIDE 0.9% 500 ML IV ONE (11:32)
--- NOTE | 2024-05-01 15:10 | EKG ---
Test Date: 2024-04-29 Test Time: 21:46:03 Managed Services Sales Consultant: SORAYA MEASUREMENT RESULTS: Intervals: Rate: 121 GA: 142 QRSD: 86 QT: 314 QTc: 445 [place]: P: 38 GA: 142 QRS: 42 T: 34 INTERPRETIVE STATEMENTS: Sinus tachycardia Otherwise normal ECG Compared to ECG 04/28/2024 22:14:25 Sinus rhythm no longer present Left-axis deviation no longer present Left ventricular hypertrophy no longer present Electronically Signed On 05-01-24 15:07:02 SKEIN DRIER by Guevara Cesar
[2024-05-01] MEDS: MAGNESIUM SULFATE 1 gm IVPB 1 GM/100 ML BAG IV ONE (17:23)
--- NOTE | 2024-05-01 18:42 | P.PN ---
Subjective Date of Service: 05/01/24 Chief Complaint: Fever, generalized weakness Patient had a single episode of low-grade fever today. He denies any nausea. He reports significant improvement in his abdominal pain. He is tolerating diet and had only 1 solid BM since last night. Physical Examination - Vital Signs Temperature: 98.1 F Blood Pressure: 112/64 Pulse: 94 Respirations: 16 Pulse Ox (%): 98 Assessment And Plan - Plan Physical examination General: Alert and oriented x3, NAD, HEENT: Conjunctiva not pale, anicteric sclera Neck: Supple, no elevated JVD Heart: Heart sounds 1 and 2 normal, regular rhythm, normal rate, no pedal edema Lungs: Clear to auscultation bilaterally, adequate breath sounds bilaterally, no rhonchi or crackles. Abdomen: Soft, nondistended, nontender, normal bowel sounds. Extremities: No tenderness, no deformity Skin: Normal skin turgor, no rash, no nodules or ulcers. Neuro: No focal motor deficit. Normal speech. Psychiatry: Normal mood, no agitation. Diagnosis Acute gastroenteritis Acute viral illness Sepsis Hypokalemia Hypomagnesemia Hypocalcemia Hypophosphatemia Metabolic acidosis Hyponatremia. Plan: Sepsis Acute gastroenteritis Acute viral illness Patient reports contact with household member with upper respiratory symptoms. No evidence of UTI. Continue IV Rocephin Blood cultures: No growth to date. No leukocytosis. Monitor CBC and follow cultures. CRP and procalcitonin level elevated Follow cultures. Metabolic acidosis Hypokalemia Hypomagnesemia Hypocalcemia Hypophosphatemia Hyponatremia. Likely related to GI fluid loss from diarrhea and vomiting. Continue electrolyte replacement IV and orally as needed. Continue IV hydration Monitor BMP. Insulin-dependent diabetes Insulin sliding scale Thrombocytopenia Unknown etiology. Probably secondary to acute viral illness. Platelet count is improved. Avoid anticoagulation for now. DVT prophylaxis: SCD
[2024-05-02] MEDS: FAMOTIDINE 20 MG TAB PO SCH (09:28)
[2024-05-02 09:43] LABS: Anion Gap 12.4 mEq/L (5.0-15.0); Potassium 3.4 mEq/L (3.5-5.1)
[2024-05-02 10:36] LABS: Absolute Lymphocytes (CBC) 0.9 K/uL (0.7-4.9); Absolute Monocytes 0.5 K/uL (0.1-1.3); Absolute Neutrophil 2.6 K/uL (1.8-8.0); Basophils % 0.3 % (0-1.3); Eosinophils % 0.4 % (0-4.4); Hematocrit 32.7 % (39.6-49.0); Hemoglobin 11.5 g/dL (13.6-17.9); MCH 29.7 pg (27.0-35.0); MCHC 35.3 g/dL (32.0-36.0); MCV 84.1 fL (80-100); MPV 8.7 fL (7.6-11.3); Monocytes % 11.5 % (3.3-12.3); Neutrophils % 64.8 % (41.7-73.7); Platelets 158 thou/uL (152-406); RBC Red Blood Cell Count 3.89 M/uL (4.33-5.43)
[2024-05-02] MEDS: POTASSIUM CL SA 10 MEQ TAB PO ONE (10:56)
[2024-05-02 12:29] VITALS: BP 111/66; TEMP 98.5
--- NOTE | 2024-05-02 12:42 | P.DS ---
Admission Date: 04/29/24 Discharge Date: 05/02/24 Disposition: ROUTINE DISCHARGE Discharge Condition: FAIR Reason for Admission: Fever, generalized weakness Vital Signs/Physical Exam: Temp Pulse Resp BP Pulse Ox 98.5 F 81 16 111/66 98 05/02/24 12:00 05/02/24 12:00 05/02/24 12:00 05/02/24 12:00 05/02/24 12:00 Laboratory Data at Discharge: WBC 4.00 thou/uL (4.3-10.9) L 05/02/24 09:20 Hgb 11.5 g/dL (13.6-17.9) L 05/02/24 09:20 Hct 32.7 % (39.6-49.0) L 05/02/24 09:20 Plt Count 158 thou/uL (152-406) 05/02/24 09:20 Sodium 139 mEq/L (136-145) 05/02/24 09:20 Potassium 3.4 mEq/L (3.5-5.1) L 05/02/24 09:20 BUN 4 mg/dL (7-18) L 05/02/24 09:20 Creatinine 0.48 mg/dL (0.70-1.30) L 05/02/24 09:20 Glucose 174 mg/dL (74-106) H 05/02/24 09:20 Phosphorus 1.9 mg/dL (2.5-4.9) L 05/01/24 06:35 Magnesium 1.7 mg/dL (1.6-2.4) 05/01/24 06:35 Total Bilirubin 0.8 mg/dL (0.2-1.0) 05/01/24 06:35 AST 60 U/L (15-37) H 05/01/24 06:35 ALT 70 U/L (16-61) H 05/01/24 06:35 Alkaline Phosphatase 71 U/L (45-117) 05/01/24 06:35 Home Medications: Famotidine [Pepcid] 40 mg PO DAILY 30 Days #30 tab 10/12/22 Ciprofloxacin HCl [Cipro] 500 mg PO TID #15 tab 05/02/24 Insulin Regular, Human [Novolin R Flexpen] 100 unit SQ TID #15 ml 05/02/24 Pen Needle, Diabetic [Pen Needle] 1 each MC TID #1 box 05/02/24 metroNIDAZOLE [Flagyl] 500 mg PO Q8H #15 tab 05/02/24 New Medications: Ciprofloxacin HCl [Cipro] 500 mg PO TID #15 tab metroNIDAZOLE [Flagyl] 500 mg PO Q8H #15 tab Insulin Regular, Human [Novolin R Flexpen] 100 unit SQ TID #15 ml Pen Needle, Diabetic [Pen Needle] 1 each MC TID #1 box Diet: ADA Activity: Ad dina Followup: NONE,NONE [Primary Care Provider] - 1 Week
== END 2024-05-02 13:21 | disposition home or self-care (01) | DRG 872 ==
LOC: ER 21:32 → ERHOLD 23:47 → 2ND 04-30 02:17
PROVIDERS: ADMIT Family Medicine; ATTEND Internal Medicine
DX: A41.9 Sepsis, unspecified organism (principal); E87.1 Hypo-osmolality and hyponatremia; E87.20 Acidosis, unspecified; K52.9 Noninfective gastroenteritis and colitis, unspecified; R65.20 Severe sepsis without septic shock; E86.0 Dehydration; J45.909 Unspecified asthma, uncomplicated; E11.65 Type 2 diabetes mellitus with hyperglycemia; Z79.4 Long term (current) use of insulin; Z90.49 Acquired absence of other specified parts of digestive tract; E83.42 Hypomagnesemia; E87.6 Hypokalemia; E83.51 Hypocalcemia; E83.39 Other disorders of phosphorus metabolism; D69.6 Thrombocytopenia, unspecified
CPT/HCPCS: 36415; 71045; 80048; 80053; 80074; 80076; 81001; 82947; 83605; 83735; 83880; 84100; 84132; 84145; 84443; 84484; 85025; 86140; 87040; 87045; 87046; 87177; 87209; 87324; 87389; 89055; 93005; 99285; J0612; J0692; J0696; J1650; J2405; J3475; J3480; J7030; J7040

== ENCOUNTER 2024-06-06 08:22 | Emergency (ER) | payer SELFPAY ==
--- OUTSIDE RECORDS SUMMARY | 2024-06-06 08:25 | XMS REPORT | Continuity of Care Document ---
Author Name Unknown Address [address] [facility] [place] [address] [facility] thconnect Address [address] [place] [address] Care Team Providers Care Pattern Checker Name Role Phone PCP, PATIENT DOES NOT HAVE A Primary Care Physic dominga Unavailable Naseem Mckeon MD Attending Clinician [phone] NASEEM MCKEON Attending Clinician Unavailable Espinoza MARCUS, Melina Garrett Attending Clinician Unavailab le Only, Ang Db Test Attending Clinician UnavailLinda White Attending Clinician [phone] Mc Juarez Attending Clinician [phone] MC ATKINSON Attending Clinician Unavailable NASEEM MCKEON Admitting Clinician Unavailable Payers Payer Name Policy Type Policy Number Effective Date Expirati on Date Source Allergies, Adverse Reactions, Alerts Allergy Name Allergy Type Status Severity Reaction(s) Onset Date Inactive Date Treating Clinician Comments Source NO KNOWN ALLERGIE S Drug Class Active Univers [facility] Social History Social Habit Start Date Stop Date Quantity Comments Source Exposure to SARS-CoV-2 (event) Yes [facility] Sex Assigned At 1995 00:00:00 1995 00:00:00 [facility] Smoking Status Start Date Stop Date Source Tobacco smoking consumption unknown [facility] Medications Ordered Medication Name Filled Medication Name Start Date Stop Date Current Medication? Ordering Clinician Indication Dosage Frequency Signature (SIG) Comments Components Source aspirin tablet 325 mg 10-07 10:15: 00 10-07 09:30 :00 No 325mg 325 mg, Oral, ONCE NOW, 1 dose, On Sat10/07/22 at 0515, STAT [facility] iopamidol (ISOVUE 370-500 mL) injection 100 mL 10-07 10:15: 00 10-07 10:15 :00 No [id number] 100mL 100 mL, Intravenou s, ONCE, 1 dose, On Sat10/07/22 at 0515, Routine [facility] morpHINE (4 mg/mL) injection 4 mg 10-07 09:00: 00 10-07 08:04 :00 No 4mg 4 mg, Slow IV Push, ONCE, 1 dose, On Sat10/07/22 at 0400, STAT [facility] NaCl 0.9% (NS) bolus infusion 1,000 mL 10-07 08:45: 00 10-07 09:59 :00 No 1000mL at 999 mL/hr, 1,000 mL, IV Piggyback, ONCE, 1 dose, On Sat10/07/22 at 0345, STAT [facility] famotidine (PEPCID (PF)) injection 20 mg 10-07 08:00: 00 10-07 08:15 :00 No 20mg 20 mg, Slow IV Push, ONCE, 1 dose, On Sat10/07/22 at 0300, MALENA [facility] proMETHazin e (PHENERGAN) 25 mg in NaCl 0.9% (NS) 50 mL IV piggyback 10-07 08:00: 00 10-07 08:15 :00 No 25mg 25 mg, IV Piggyback, ONCE, 1 dose, On 10/07/22 at 0300, MALENA [facility] famotidine (PEPCID) 20 mg tablet 10-07 00:00: 00 Yes [id number] 20mg Take 1 tablet by mouth in the morning and 1 tablet in the evening. [facility] proMETHazin e 25 mg tablet 10-07 00:00: 00 Yes [id number] 25mg Take 1 tablet by mouth every 6 (six) hours as needed for Nausea and Vomiting (N/V). [facility] clindamycin 150 mg capsule 09-27 00:00: 00 10-08 04:59 :00 No [id number] 450mg Take 3 capsules by mouth 3 (three) times daily for 10 days. [facility] Vital Signs Vital Name Observation Time Observation Value Comments S ource Systolic blood pressure 2022-10-07 12:00:00 138 mm[Hg] [facility] Diastolic blood pressure 2022-10-07 12:00:00 100 mm[Hg] [facility] Heart rate 2022-10-07 12:00:00 89 /min [facility] Respiratory rate 2022-10-07 12:00:00 16 /min [facility] Oxygen saturation in Arterial blood by Pulse oximetry 2022-10-07 12:00:00 100 /min [facility] Body temperature 2022-10-07 07:48:00 37 Sarah [facility] Body height 2022-10-07 07:48:00 175.3 cm [facility] Body weight 2022-10-07 07:48:00 83.915 kg [facility] BMI 2022-10-07 07:48:00 27.32 kg/m2 [facility] Systolic blood pressure 2020-09-27 06:14:00 135 mm[Hg] [facility] Diastolic blood pressure 2020-09-27 06:14:00 83 mm[Hg] [facility] Heart rate 2020-09-27 06:14:00 110 /min [facility] Body temperature 2020-09-27 06:14:00 37.06 Sarah [facility] Respiratory rate 2020-09-27 06:14:00 20 /min [facility] Body weight 2020-09-27 06:14:00 81.647 kg [facility] Oxygen saturation in Arterial blood by Pulse oximetry 2020-09-27 06:14:00 100 /min [facility] Systolic blood pressure 2020-09-27 06:14:00 135 mm[Hg] [facility] Diastolic blood pressure 2020-09-27 06:14:00 83 mm[Hg] [facility] Heart rate 2020-09-27 06:14:00 110 /min [facility] Body temperature 2020-09-27 06:14:00 37.06 Sarah [facility] Respiratory rate 2020-09-27 06:14:00 20 /min [facility] Body weight 2020-09-27 06:14:00 81.647 kg [facility] Oxygen saturation in Arterial blood by Pulse oximetry 2020-09-27 06:14:00 100 /min [facility] Procedures Procedure Date / Time Performed Performing Clinician Source XR CHEST 1 VW 2022-10-07 12:15:44 Naseem Mckeon [facility] EKG-12 LEAD 2022-10-07 11:57:16 Naseem Mckeon [facility] TROPONIN I 2022-10-07 10:50:00 Naseem Mckeon [facility] URINE DRUG (IMMUNOASSAY) - COMPREHENSIVE DRUG SCREEN 2022-10-07 09:58:00 Naseem Mckeon [facility] URINALYSIS 2022-10-07 09:58:00 Naseem Mckeon [facility] CBC WITH DIFF 2022-10-07 09:29:00 Naseem Mckeon [facility] LACTIC ACID WHOLE BLOOD 2022-10-07 09:28:00 Chica Mckeon [facility] CT ANGIOGRAM ABDOMEN/PELVIS 2022-10-07 09:17:25 Naseem Mckeon [facility] CK (CREATINE KINASE) + MB 2022-10-07 08:13:00 Naseem Mckeon [facility] LIPASE 2022-10-07 08:13:00 Naseem Mckeon [facility] TROPONIN I 2022-10-07 08:13:00 Naseem Mckeon [facility] COMP. METABOLIC PANEL ([id number]) 2022-10-07 08:13:00 Naseem Mckeon [facility] ETHANOL 2022-10-07 08:13:00 Naseem Mckeon [facility] PROTHROMBIN TIME / INR 2022-10-07 08:13:00 Deonna Mckeon [facility] ACTIVATED PARTIAL THRMPLAS MARISOL 2022-10-07 08:13:00 Naseem Mckeon [facility] HB ABO GROUPING 2022-10-07 08:13:00 Naseem Mckeon [facility] N-TERMINAL PRO-BNP 2022-10-07 08:13:00 Naseem Mckeon [facility] NOTICE OF PRIVACY PRACTICES 2020-09-27 06:10:18 Doctor Unassigned, [facility] CONSENT/REFUSAL FOR DIAGNOSIS AND TREATMENT 2020-09-27 06:09:54 Doctor Unassigned, [facility] Encounters Start Date/Time End Date/Time Encounter Type Admission Type Attending [facility] Care Facility Care Department Encounter ID Source 2022-10-07 02:43:00 2022-10-07 07:42:00 Emergency Naseem Mckeon [facility] [id number] [id number] [id number] [id number] [facility] 2022-10-07 02:43:00 2022-10-07 07:42:00 Emergency X NASEEM MCKEON [facility] [[email or web address] ERT [id number] [facility] 2021-04-20 00:00:00 2021-04-20 00:00:00 Letter (Out) Melina Doran [facility] [id number] [id number] 4.2.7.2.686 [id number] [facility] 2021-04-20 00:00:00 2021-04-20 00:00:00 Letter (Out) Only, Ang Db Test [facility] [id number] 350.1.13.10 4.2.7.2.686 [id number] [facility] 2021-04-19 09:15:00 2021-04-19 09:22:34 Laboratory Only Only, Ang Db Test Linda Malik [facility] 1.2.840.114 350.1.13.10 4.2.7.2.686 [id number] [facility] 2020-09-27 01:16:00 2020-09-27 02:44:00 Emergency Mc Atkinson S [facility] 1.2.840.114 350.1.13.10 4.2.7.2.686 [id number] [facility] 2020-09-27 01:16:00 2020-09-27 02:44:00 Emergency Mc Atkinson [facility] 1.2.840.114 350.1.13.10 4.2.7.2.686 [id number] 2020-09-27 01:16:00 2020-09-27 01:16:00 Emergency X MC ATKINSON [facility] [[email or web address]] ERT [id number] [facility] Results Test Description Test Time Test Comments Results Result Co mments Source [facility] [id number] 10:11:14* Test Item Value Reference Range Interpretation Comme nts WBC (test code = 6690-2) 4.41 See_Comment [Automated messa ge] The system which generated this result transmitted reference range: 4.20 - 10.70 10*3/?L. The reference range was not used to interpret this result as normal/abnormal. RBC (test code = 789-8) 4.94 See_Comment [Automated [employer] An[employer]ore] The system which generated this result transmitted [...] substance or condition. RDW-SD (test code = 81176-4) 34.8 fL 38.5-51.6 L RDW-CV (test code = 788-0) 12.1 % 12.1-15.4 PLT (test code = 777-3) 210 See_Comment [Automated [employer] An[employer]ore] The system which generated this result transmitted reference range: 150 - 328 10*3/?L. The reference range was not used to interpret this result as normal/abnormal. MPV (test code = 51634-4) 10.1 fL 9.8-13.0 NRBC/100 WBC (test code = 2957016632) 0.0 See_Comment [Automated [employer] ssage] The system which generated this result transmitted reference range: 0.0 - 10.0 /100 WBCs. The reference range was not used to interpret this result as normal/abnormal. NRBC x10^3 (test code = 4334768252) See_Comment [Automated [employer] Anaphore] The system which generated this result transmitted reference range: 10*3/?L. The reference range was not used to interpret this result as normal/abnormal. GRAN MAT (NEUT) % (test code = 770-8) 80.0 % IMM GRAN % (test code = 1574290629) 0.50 % LYMPH % (test code = 736-9) 11.1 % MONO % (test code = 5905-5) 8.2 % EOS % (test code = 713-8) 0.0 % BASO % (test code = 706-2) 0.2 % GRAN MAT x10^3(ANC) (test code = 8209830776) 3.53 10*3/uL 1.99-6.95 IMM GRAN x10^3 (test code = 9184115033) 0.00-0.06 LYMPH x10^3 (test code = 731-0) 0.49 10*3/uL 1.09-3.23 L MONO x10^3 (test code = 742-7) 0.36 10*3/uL 0.36-1.02 EOS x10^3 (test code = 711-2) 0.06-0.53 L BASO x10^3 (test code = 704-7) 0.01-0.09 SPHEROCYTES (test code = 802-9) 2+ A Lab Interpretation (test code = 08231-2) [facility] [id number] 09:56:11* Test Item Value Reference Range Interpretation Comme nts NT-proBNP (test code = 3334636808) 20 pg/mL <=125 OSWALD (test code = OSWALD) Biotin has been reported to cause a negative bias, interpret results relative to patient's use of biotin. Lab Interpretation (test code = 19985-3) [facility] + [id number] 09:55:51* Test Item Value Reference Range Interpretation Comme nts CK (test code = 4783369209) 46 U/L 33-194 CK-MB (test code = 0157432761) 0.57 ng/mL <=3.50 CKMB INDEX (test code = 7494848004) 1.2 % 0.0-4.0 OSWALD (test code = OSWALD) Biotin has been reported to cause a negative bias, interpret results relative to patient's use of biotin. Lab Interpretation (test code = 31666-1) [facility] 09:01:30 ALCOHOL<10mg/dL10/07/2022 4:01 AM [facility]<10 [id number] Toxic>100 Depression of SHOT TUBE MACHINE TENDER>400 Fatalities [facility]UnJohn [facility] HospitalTROPONIN [id number] 08:56:28* Test Item Value Reference Range Interpretation Comme nts TROPONIN I (test code = 7982396405) 3.040 ng/mL <=0.034 H OSWALD (test code [...] of biotin. Lab Interpretation (test code = 36041-1) [facility] MET[facility]OLIC PANEL (08733)2022-10-07 08:44:48* Test Item Value Reference Range Interpretation Comme nts NA (test code = 5662703996) 139 mmol/L 135-145 K (test code = 5097308807) 3.5 mmol/L 3.5-5.0 CL (test code = 6781284434) 104 mmol/L 98-108 CO2 TOTAL (test code = 4242617957) 17 mmol/L 23-31 L AGAP (test code = 6388780806) 18 2-16 H BUN (test code = 0655129952) 12 mg/dL 7-23 GLUCOSE (test code = 1120651102) 184 mg/dL 70-110 H CREATININE (test code = 6516890971) 0.66 mg/dL 0.60-1.25 TOTAL BILI (test code = 3585769467) 1.1 mg/dL 0.1-1.1 CALCIUM (test code = 4347525797) 9.2 mg/dL 8.6-10.6 T PROTEIN (test code = 7428708511) 7.0 g/dL 6.3-8.2 ALBUMIN (test code = 5948710445) 4.5 g/dL 3.5-5.0 ALK PHOS (test code = 8203398137) 77 U/L 34-122 ALTv (test code = 1742-6) 25 U/L 5-50 AST(SGOT) (test code = 4856817874) 20 U/L 13-40 eGFR (test code = 0351504489) 147.1 mL/min/1.73m2 OSWALD (test code = OSWALD) [...] imaging tests). Lab Interpretation (test code = 14447-2) [facility] 08:44:28* Test Item Value Reference Range Interpretation Comme [facility] LIPASE (test code = 8757950744) 79 U/L 0-220 Lab Interpretation (test cod e = 17418-7) Normal [facility] CenterACT[facility]IAL THRMPLAS [id number] 08:43:03* Test Item Value Reference Range Interpretation [...] 30 seconds. Lab Interpretation (test code = 50503-9) Normal [facility] CenterProthrombin Time / [id number] 08:41:03* Test Item Value Reference Range Interpretation [...] the indications. Lab Interpretation (test code = 71234-6) Normal [facility] CenterType and Screen - ONCE [id number] 08:28:00* Test Item Value Reference Range Interpretation Comme nts ABO & RH (test code = 20) O Positive IAT (test code = 1185) Negative [facility]"
[2024-06-06] MEDS ORDERED: ONDANSETRON 4 MG/2 ML VIAL ONE (08:45)
[2024-06-06] MEDS ORDERED: NA CHLORIDE 0.9% 1,000 ML ONE ×2 (08:45→10:12)
[2024-06-06 09:43] LABS: Absolute Eosinophils 0.1 K/uL (0-0.5); Absolute Lymphocytes (CBC) 1.1 K/uL (0.7-4.9); Absolute Monocytes 0.4 K/uL (0.1-1.3); Absolute Neutrophil 5.7 K/uL (1.8-8.0); Basophils % 0.3 % (0-1.3); Eosinophils % 1.2 % (0-4.4); Hematocrit 42.5 % (39.6-49.0); Hemoglobin 15.4 g/dL (13.6-17.9); Lymphocytes % 14.9 % (15.3-44.8); MCH 30.1 pg (27.0-35.0); MCHC 36.1 g/dL (32.0-36.0); MCV 83.4 fL (80-100); MPV 9.2 fL (7.6-11.3); Monocytes % 5.3 % (3.3-12.3); Neutrophils % 78.3 % (41.7-73.7); Red Cell Distribution Width 13.5 % (12.1-15.2)
[2024-06-06 09:44] LABS: Platelets 249 thou/uL (152-406)
[2024-06-06 09:46] LABS: Anion Gap 12.7 mEq/L (5.0-15.0); Potassium 4.7 mEq/L (3.5-5.1)
[2024-06-06 09:55] LABS: HDL Cholesterol 27 mg/dL (40-60)
[2024-06-06 10:07] LABS: LDL, Direct 83 mg/dL (100-129)
--- NOTE | 2024-06-06 10:27 | RAD REPORT ---
EXAMINATION: CT ABDOMEN AND PELVIS WITH CONTRAST CLINICAL INDICATION: Male, 28 years old.Abd christine TECHNIQUE: CT abdomen and pelvis was performed, after the administration of IV contrast, as per depar tment protocol. Axial, sagittal and coronal reconstructions were obtained. One or more of the following dose reduction techniques were used: Automated exposure control, adjustment of the mA and/o r kV according to patient size, and/or iterative reconstruction. Unless otherwise specified, incidental findings do not require dedicated imaging follow-up. [id number]. COMPARISON: No prior exam. FINDINGS: LOWER CHEST: No acute process identified.Small pericardial effusion. UPPER GI: No significant abnormality. LIVER: Hepatic steatosis, but otherwise unremarkable. GALLBLADDER/BILE DUCTS: No biliary ductal dilatation.? PANCREAS: No mass, ductal dilation, or serg-pancreatic fluid. SPLEEN: Unremarkable. ADRENALS: No adrenal masses. KIDNEYS AND URETERS: No hydronephrosis.Low density and/or too small to characterize renal lesions whi ch are statistically benign.No renal calculi. ABDOMINAL AORTA AND OTHER VESSELS: Normal caliber aorta and IVC. PERITONEUM: No abnormal free fluid. No free air. LYMPH NODES: No pathologic lymphadenopathy. ABDOMINAL WALL: Unremarkable SMALL BOWEL/COLON: Small bowel has normal course and caliber. No colonic wall thickening or pericolon ic inflammatory changes.Nonvisualized appendix but no secondary signs of acute appendicitis. URINARY BLADDER: Underdistended but grossly unremarkable. REPRODUCTIVE ORGANS: No pathologic process. MUSCULOSKELETAL: No acute or suspicious osseous abnormality. ADDITIONAL FINDINGS: None. IMPRESSION: No acute findings within the abdomen or pelvis. No significant change from prior.
--- NOTE | 2024-06-06 10:39 | ER ---
Nurse's Notes [facility] Name: Harvey Wyatt Age: 28 yrs Sex: Male : 1995 Arrival Date: 06/06/2024 Time: 08:22 Bed 4 Private MD: Diagnosis: Abdominal pain, Generalized;Hypertriglyceridemia Presentation: 06/06 08:33 Chief complaint: Patient states: N/V that began at 0300 this morning. Pt believes it ss may be from bad BBQ that he ate last night. Coronavirus screen: Client denies travel out of the [place] in the last 14 days. Ebola Screen: Patient denies exposure to infectious person. Patient denies travel to an Ebola-affected area in the 21 days before illness onset. Initial Sepsis Screen: Does the patient meet any 2 criteria? No. Patient's initial sepsis screen is negative. Does the patient have a suspected source of infection? No. Patient's initial sepsis screen is negative. Risk Assessment: Do you want to hurt yourself or someone else? Patient reports no desire to harm self or others. Onset of symptoms was June 06, 2024. 08:33 Method Of Arrival: Ambulatory ss 08:33 Acuity: BINDU 3 ss Triage Assessment: 08:40 General: Appears in no apparent distress. Behavior is calm, cooperative. Pain: iw Complains of pain in abdomen. GI: Reports nausea, vomiting. Historical: - Allergies: 08:34 No Known Allergies; ss - PMHx: 08:34 Diabetes - IDDM; Asthma; ss - PSHx: 08:34 Cholecystectomy; ss - Immunization history:: Client reports receiving the 2nd dose of the Covid vaccine. - Infectious Disease History:: Denies. - Social history:: Smoking status: Patient denies any tobacco usage or history of. Screenin:23 [facility] ED Fall Risk Assessment (Adult) History of falling in the last 3 months, iw including since admission No falls in past 3 months (0 pts) Confusion or Disorientation No (0 pts) Intoxicated or Sedated No (0 pts) Impaired Gait No (0 pts) Mobility Assist Device Used No (0 pt) Altered Elimination No (0 pt) Score/Fall Risk Level 0 - 2 = Low Risk Oriented to surroundings, Maintained a safe environment. Abuse screen: Denies threats or abuse. Denies injuries from another. Nutritional screening: No deficits noted. Tuberculosis screening: No symptoms or risk factors identified. Assessment: 10:22 Reassessment: Patient appears in no apparent distress at this time. Patient and/or iw family updated on plan of care and expected duration. Pain level reassessed. Patient is alert, oriented x 3, equal unlabored respirations, skin warm/dry/pink. 10:50 Reassessment: Patient is alert, oriented x 3, equal unlabored respirations, skin aa5 warm/dry/pink. Vital Signs: 08:33 BP 132 / 90; Pulse 110; Resp 16; Temp 98.4(TE); Pulse Ox 97% on R/A; Weight 68.04 kg; ss Height 5 ft. 5 in. ; Pain 5/10; 10:22 BP 133 / 86; Pulse 102; Resp 16; Pulse Ox 98% on R/A; iw 10:50 BP 125 / 84; Pulse 102; Resp 18 S; Pulse Ox 96% on R/A; aa5 08:33 Body Mass Index 24.96 (68.04 kg, 165.1 cm) ss 08:33 Pain Scale: Adult ss ED Course: 08:25 Patient arrived in ED. im 08:30 Solomon Rivera MD is Attending Physician. ec2 08:32 Emy Rae, AMRIT is Primary Nurse. iw 08:34 Triage completed. ss 08:34 Arm band placed on right wrist. ss 08:40 Patient has correct armband on for positive identification. iw 08:45 Initial lab(s) drawn, by ak, sent to lab. Inserted saline lock: 20 gauge in right iw antecubital area, using aseptic technique. Blood collected. Flushed with 10 mL NS. 10:18 CT Abd/Pelvis - IV Contrast Only In Process Unspecified. EDMS 10:50 No provider procedures requiring assistance completed. IV discontinued, intact, aa5 bleeding controlled, No redness/swelling at site. Pressure dressing applied. Administered Medications: 08:49 Drug: Ondansetron IVP 4 mg IVP once; over 2 minutes Route: IVP; Site: right antecubital;iw 10:50 Follow up: Response: No adverse reaction aa5 08:49 Drug: NS 0.9% IV 1000 ml IV at 1 bolus Per protocol; to be given as a bolus over 60 iw minutes Route: IV; Rate: 1 bolus; Site: right antecubital; 10:50 Follow up: IV Status: Completed infusion; IV Intake: 1000ml aa5 10:22 Drug: NS 0.9% IV 1000 ml IV at 1 bolus Per protocol; to be given as a bolus over 60 iw minutes Route: IV; Rate: 1 bolus; Site: right antecubital; 10:50 Follow up: IV Status: Completed infusion; IV Intake: 800ml aa5 Medication: 10:50 VIS not applicable for this client. aa5 Intake: 10:50 IV: 800ml; Total: 800ml. aa5 10:50 IV: 1000ml; Total: 1800ml. aa5 Outcome: 10:38 Discharge ordered by . ec2 10:50 Patient left the ED. aa5 10:50 Discharged to home ambulatory, aa5 10:50 Condition: stable 10:50 Discharge instructions given to patient, Instructed on discharge instructions, follow up and referral plans. Demonstrated understanding of instructions, follow-up care, Signatures: Dispatcher [employer] Emy Segovia RN RN Julia Meraz RN RN aa5 Rossy Zhu, AMRIT RN Stormy Benton Edwin, MD MD ec2 Corrections: (The following items were deleted from the chart) 09:17 08:33 BP 132 / 90; Pulse 110bpm; Pulse Ox 97% RA; Temp 98.4F Temporal; 68.04 kg; Height ss 5 ft. 5 in.; BMI: 24.9; Pain 5/10, Adult; ss 10:23 09:00 Inserted saline lock: 20 gauge in right antecubital area, using aseptic iw technique. iw 10:23 09:00 Initial lab(s) drawn, by me, sent to lab. iw iw 10:51 10:50 Patient left the ED. aa5 aa5
--- NOTE | 2024-06-06 10:39 | EDPHYS ---
Physician Documentation [facility] Name: Harvey Wyatt Age: 28 yrs Sex: Male : 1995 Arrival Date: 06/06/2024 Time: 08:22 Bed 4 Private MD: ED Physician Solomon Rivera HPI: 06/06 08:34 This 28 yrs old Male presents to ER via Ambulatory with complaints of Vomiting.ec2 08:34 Patient arrives today for evaluation of nausea and vomiting. Patient reports history of ec2 diabetes, states that he ate some barbecue last night and feels that he has food poisoning. Patient reports nausea, vomiting, diarrhea. Reports generalized abdominal cramping as well.. Historical: - Allergies: 08:34 No Known Allergies; ss - PMHx: 08:34 Diabetes - IDDM; Asthma; ss - PSHx: 08:34 Cholecystectomy; ss - Immunization history:: Client reports receiving the 2nd dose of the Covid vaccine. - Infectious Disease History:: Denies. - Social history:: Smoking status: Patient denies any tobacco usage or history of. ROS: 08:35 Constitutional: as per hpi ec2 Exam: 08:35 Constitutional: GEN: NAD Head: atraumatic Eyes: EOMI Ears: External ears are ec2 normal. CV: Tachycardia LUNGS: no respiratory distress ABD: non-distended, soft, nontender, not guarding, not rigid SKIN: no evidence of rashes MSK: no evidence of trauma Vital Signs: 08:33 BP 132 / 90; Pulse 110; Resp 16; Temp 98.4(TE); Pulse Ox 97% on R/A; Weight 68.04 kg; ss Height 5 ft. 5 in. ; Pain 5/10; 10:22 BP 133 / 86; Pulse 102; Resp 16; Pulse Ox 98% on R/A; iw 10:50 BP 125 / 84; Pulse 102; Resp 18 S; Pulse Ox 96% on R/A; aa5 08:33 Body Mass Index 24.96 (68.04 kg, 165.1 cm) 08:33 Pain Scale: Adult ss MDM: 08:32 Medical Screening Exam initiated ec2 08:35 Data reviewed: vital signs, nurses notes. ED course: Patient arrives today for nausea ec2 and vomiting. Examination is revealing for slight tachycardia otherwise reassuring abdominal exam. Will obtain lab work, give the patient crystalloid as well as antiemetic. . 10:35 ED course: Lab work remarkable for hypertriglyceridemia, lipase is within normal ec2 ranges, CT scan of the abdomen pelvis with no acute intra-abdominal pathology noted.. 10:37 ED course: Patient with history of hypertriglyceridemia, technically needs to follow-up ec2 with primary care doctor as well as dietary modifications to help control this as well as medications. Will discharge home. Return precautions given.. 06/06 08:31 Order name: CBC with Diff; Complete Time: 09:47 ec2 06/06 08:31 Order name: BMP; Complete Time: 09:57 ec2 06/06 08:58 Order name: Lipid Profile; Complete Time: 10:33 ec2 06/06 09:33 Order name: Lipase; Complete Time: 09:57 EDMS 06/06 09:58 Order name: LDL, Direct; Complete Time: 10:33 EDMS 06/06 10:04 Order name: CT Abd/Pelvis - IV Contrast Only; Complete Time: 10:33 ec2 06/06 08:31 Order name: IV; Complete Time: 08:49 ec2 Administered Medications: 08:49 Drug: Ondansetron IVP 4 mg IVP once; over 2 minutes Route: IVP; Site: right antecubital;iw 10:50 Follow up: Response: No adverse reaction aa5 08:49 Drug: NS 0.9% IV 1000 ml IV at 1 bolus Per protocol; to be given as a bolus over 60 iw minutes Route: IV; Rate: 1 bolus; Site: right antecubital; 10:50 Follow up: IV Status: Completed infusion; IV Intake: 1000ml aa5 10:22 Drug: NS 0.9% IV 1000 ml IV at 1 bolus Per protocol; to be given as a bolus over 60 iw minutes Route: IV; Rate: 1 bolus; Site: right antecubital; 10:50 Follow up: IV Status: Completed infusion; IV Intake: 800ml aa5 Disposition Summary: 06/06/24 10:38 Discharge Ordered Notes: Location: Home ec2 Condition: Stable ec2 Diagnosis - Abdominal pain, Generalized ec2 - Hypertriglyceridemia ec2 Followup: ec2 - With: Private Physician - When: - Reason: Re-evaluation by your physician Discharge Instructions: - Discharge Summary Sheet ec2 - Abdominal Pain, Adult, [id number] ec2 - High Triglycerides Eating Plan ec2 Forms: - Work release form eb - Medication Reconciliation Form ec2 - Antibiotic Education ec2 - Prescription Opioid Use ec2 - Patient Portal Instructions ec2 - Leadership Thank You Letter ec2 Signatures: Dispatcher [employer] Emy Segovia, AMRIT RN iw Rossy Zhu RN RN ss Solomon Rivera MD MD ec2 Julia Meraz RN aa5 Corrections: (The following items were deleted from the chart) 08:59 08:59 LIPID PROFILE+C.LAB.BRZ ordered. EDMS EDMS 09:32 08:58 LIPASE+C.LAB.BRZ ordered. EDMS EDMS 10:04 10:04 Abdomen Pelvis W Con+CT.RAD.BRZ ordered. EDMS EDMS
[2024-06-06 11:06] VITALS: TEMP 98.4
[2024-06-06 11:09] VITALS: BP 133/86; O2SAT 98
== END 2024-06-06 10:50 | disposition home or self-care (01) ==
LOC: ER 08:22
DX: R10.84 Generalized abdominal pain (principal); E78.1 Pure hyperglyceridemia
CPT/HCPCS: 36415; 74177; 80048; 80061; 83690; 85025; 96361; 96374; 99284; J2405; J7030; Q9967